=== PATIENT | male | born 1935 | race Caucasian/White ===

== ENCOUNTER → 2016-09-21 | Outpatient (CLI) | payer OTHER, MEDICARE ==
[2015-10-01 10:42] VITALS: BP 105/60
--- NOTE | 2016-09-21 10:11 | RAD ---
HISTORY: Shortness of breath, elevated D-dimer. Study: AP chest Comparison: 03/07/2014 Findings: There is mild, chronic elevation of the left hemidiaphragm. The lungs are clear. No consolidation. There are no pleural effusions. The ayleen and cardiomediastinal silhouette appear normal. IMPRESSION: 1. No radiographic evidence of an acute cardiopulmonary process. 2. Mild, chronic elevation of the left hemidiaphragm. Reported By:
--- NOTE | 2016-09-21 10:16 | NM ---
HISTORY: Shortness of breath, elevated D-dimer Study: Ventilation-perfusion lung scan Comparison: None Technique: Ventilation scan was carried out using inhalation of 25.3 millicuries technetium 99 M DTP A aerosol. Perfusion scan was carried out using intravenous injection of 5.1 millicuries technetium 99 MAA. Findings: Ventilation scan demonstrated symmetric ventilation without significant ventilation defects or air-t rapping. Perfusion scan demonstrated symmetric profusion without perfusion defects. The probability of acute pulmonary thromboembolic disease is low. IMPRESSION: Low probability acute pulmonary thromboembolic disease Reported By:
== END ==
LOC: RAD 08:02
PROVIDERS: ATTEND Internal Medicine
DX: R06.02 Shortness of breath (principal); R79.89 Other specified abnormal findings of blood chemistry
CPT/HCPCS: 71020; 78582

== ENCOUNTER → 2017-03-07 | Outpatient (CLI) | payer OTHER, MEDICARE ==
[2015-10-01 10:42] VITALS: BP 105/60
--- NOTE | 2017-03-07 15:54 | MRI ---
HISTORY: Left hip pain. Study: Magnetic resonance imaging of the left hip: Multiplanar multisequence magnetic resonance imag ing of the left hip was performed. Comparison: None Findings: Overall examination of the marrow signal intensity demonstrates mild inhomogeneity. No evidence of ma rrow edema is present that would suggest a fracture or stress reaction. Both hips show mild marrow in homogeneity. The left hip shows a few subchondral defects in the acetabulum and femoral head. Minimal spurring is noted in the superior compartment of the left hip. Mild acetabular spurring is present. The acetabular labrum appears to be intact. The surrounding musculature and tendons appear to be inta ct. The ligaments are intact. No significant joint effusion is noted. The coronal images of the right hip show moderately severe degenerative change consisting of sub werner dral defects, slight joint space narrowing and irregularity of the femoral head. This may be due to o steoarthritic change. No appreciable joint effusion is noted in the right hip. There is minimal marro w edema in the right femoral head, most likely due to degenerative change The visualized intrapelvic structures show minimal wall thickening of the urinary bladder. The prosta te is borderline enlarged. Seminal vesicles are symmetric. IMPRESSION: 1. Mild degenerative change in the left hip with moderate on the right. 2. No acute bony abnormalities are identified. Reported By:
== END ==
LOC: RAD 13:37
PROVIDERS: ATTEND Internal Medicine
DX: M25.552 Pain in left hip (principal)
CPT/HCPCS: 73721

== ENCOUNTER 2020-05-11 09:19 | Inpatient (IN) ==
[2020-05-11] MEDS ORDERED: NS 1000 ML 1,000 ML ONE (09:32)
[2020-05-11] MEDS ORDERED: DECADRON INJ IVP ONE (09:49)
[2020-05-11 09:52] VITALS: BMI 27.3
--- NOTE | 2020-05-11 09:53 | DR.SOBA ---
HPI Time Seen Time Seen by Provider: 05/11/20 09:48 Primary Care Physician Primary Care Physician: sahra HPI Comment HPI Comment: arrived via ems w cough, sob, malaise x 4 days. likely covid. Complaints Chief Complaint Doctors Comments: arrived w spouse who has severe covid pna. Chief Complaint:: shortness of breath, low oxygen, failure to thrive. pt has had decreased po intake and weakness COVID-19 Coronavirus risk:travel/contact w/high risk person: No Has patient experienced Coronavirus symptoms: Yes Coronavirus symptoms experienced: Fever and Shortness of Breath Reviewed Nurses Notes Reviewed: Yes Source History Provided: Patient and EMS Mode of Arrival Mode of Arrival: EMS Timing Onset of Chief Complaint: 05/11/20 PMH PMH Past Medical History: Yes Past Medical History: Anxiety, CVA, Diabetes, Dyslipidemia, GERD and Hypertension Past Surgical History: Yes Surgical History: Appendectomy and Ortho Surgery Family History History of Family Medical Conditions: Yes Family Medical History: Hypertension Social History Do you use any recreational Drugs:: No Lives With: Spouse Lives Where: Home Travel Risk Coronavirus risk:travel/contact w/high risk person: No Has patient experienced Coronavirus symptoms: Yes Coronavirus symptoms experienced: Fever and Shortness of Breath Infectious screening In the last 2 months have you had wt loss of >10#?: NO Have you had fever, night sweats or hemotysis?: No Have you traveled outside the country in the last 6 months?: No Isolation: Droplet ROS Review of Systems Constitutional: See HPI, Fever, Malaise and Weakness Eyes: No Symptoms Reported ENTM: No Symptoms Reported Respiratoy: See HPI, Dry Cough and Short of Breath; negative Wheezing Cardiovascular: No Symptoms Reported Gastrointestinal/Abdominal: No Symptoms Reported Genitourinary: No Symptoms Reported Neurological: No Symptoms Reported Musculoskeletal: No Symptoms Reported Integumentary: No Symptoms Reported Hematologic/Lymphatic: No Symptoms Reported Psychiatric: See HPI All Other Systems: Reviewed and Negative PE Vital Signs Vitals: Temperature 101.9 F Pulse Rate 86 Respiratory Rate 29 Blood Pressure [Right Arm] 140/68 Blood Pressure 130/61 O2 Sat by Pulse Oximetry 87 General Limitations: No Limitations General Appearance: Alert and Anxious Head Head Exam: Normal Inspection Eyes Eye exam: Normal Appearance, PERRL and EOMI ENT ENT Exam: Normal Exam Neck Neck Exam: Normal Inspection Chest Chest Inspection: Normal Inspection Respiratory Respiratory Exam: Normal Lung Sounds Bilat Cardiovascular Cardiovascular Exam: Regular Rate and Tachycardia Abdominal Exam Abdominal Exam: Normal Inspection, Normal Bowel Sounds and Soft Extremities Extremities Exam: Normal Inspection and Full ROM Back Back Exam: Normal Inspection and Full ROM Neurologic Neurological Exam: Alert and Oriented X3 Skin Skin Exam: Warm, Dry and Intact MDM Differential Diagnosis Differential Diagnosis: Pneumonia COURSE Reevaluation 1st: Unchanged Consultation Consultation Comments: spoke w Dr Santana who accepts. orders per nurse vladislav ROR Labs Reviewed Result Diagrams: 05/12/20 05:45 05/11/20 09:35 Laboratory: WBC 4.5 X10^3/uL (3.6-10.0) 05/11/20 09:35 RBC 2.96 X10^6/uL (4.7-6.0) L 05/11/20 09:35 Hgb 8.0 g/dL (13.5-18.0) L 05/11/20 09:35 Hct 24.8 % (42.0-54.0) L 05/11/20 09:35 MCV 83.6 fL (80.0-100.0) 05/11/20 09:35 MCH 27.1 pg (27.0-34.0) 05/11/20 09:35 MCHC 32.5 g/dL (33.0-35.0) L 05/11/20 09:35 RDW 15.4 % (11.6-16.5) 05/11/20 09:35 Plt Count 174 X10^3/uL (150.0-450.0) 05/11/20 09:35 MPV 8.1 fL (7.4-11.0) 05/11/20 09:35 Neut % (Auto) 88.1 % (42.0-75.0) H 05/11/20 09:35 Lymph % (Auto) 6.2 % (21.0-51.0) L 05/11/20 09:35 Tift % (Auto) 5.4 % (0.0-13.0) 05/11/20 09:35 Eos % (Auto) 0.1 % (0.9-2.9) L 05/11/20 09:35 Baso % (Auto) 0.2 % (0.2-1.0) 05/11/20 09:35 Neut # (Auto) 4.0 x10^3/uL (2.2-4.8) 05/11/20 09:35 Lymph # (Auto) 0.3 X10^3/uL (1.3-2.9) L 05/11/20 09:35 Tift # (Auto) 0.2 x10^3/uL (0.3-0.8) L 05/11/20 09:35 Eos # (Auto) 0.0 x10^3/uL (0.0-0.2) 05/11/20 09:35 Baso # (Auto) 0.0 X10^3/uL (0.0-0.1) 05/11/20 09:35 Absolute Nucleated RBC 0.2 /100WBC 05/11/20 09:35 ESR 97 MM/HOUR (0-15) H 05/11/20 09:35 PT 14.3 SECONDS (11.8-14.3) 05/11/20 09:35 INR Target Range - 05/11/20 09:35 INR 1.14 (0.8-1.3) 05/11/20 09:35 APTT 43.6 SECONDS (22.9-36.5) H 05/11/20 09:35 PTT Comment - 05/11/20 09:35 D-Dimer 1.75 ug/ml (0.0-0.57) H* 05/11/20 09:35 Sodium 141 mmol/L (136-145) 05/11/20 09:35 Corrected Sodium 142 mmol/L (136-145) 05/11/20 09:35 Potassium 4.1 mmol/L (3.5-5.1) 05/11/20 09:35 Chloride 105 mmol/L (98-107) 05/11/20 09:35 Carbon Dioxide 25.7 mmol/L (21-32) 05/11/20 09:35 BUN 15 mg/dL (7-18) 05/11/20 09:35 Creatinine 1.28 mg/dL (0.70-1.30) 05/11/20 09:35 Est GFR (MDRD) Af Amer > 60 (>60) 05/11/20 09:35 Est GFR (MDRD) Non-Af 57 (>60) L 05/11/20 09:35 Glucose 129 mg/dL (65-99) H 05/11/20 09:35 Calcium 8.9 mg/dL (8.5-10.1) 05/11/20 09:35 Corrected Calcium 9.9 mg/dL (8.5-10.1) 05/11/20 09:35 Ferritin 81 ng/mL (26-388) 05/11/20 09:56 Total Bilirubin 0.40 mg/dL (0.2-1.0) 05/11/20 09:35 AST 18 Units/L (15-37) 05/11/20 09:35 ALT 10 Units/L (12-78) L 05/11/20 09:35 Alkaline Phosphatase 64 Units/L (46-116) 05/11/20 09:35 Creatine Kinase 31 Units/L (39-308) L 05/11/20 09:35 CK-MB (CK-2) < 1.0 ng/mL (0-4.0) 05/11/20 09:35 CK/CKMB % Calc 3.2 % (<4) 05/11/20 09:35 Troponin I < 0.02 ng/mL (0-1.5) 05/11/20 09:35 C-Reactive Protein 161.90 mg/L (0-3.0) H 05/11/20 09:35 B-Natriuretic Peptide 494 pg/mL (0-79) H 05/11/20 09:35 Total Protein 6.4 g/dL (6.4-8.2) 05/11/20 09:35 Albumin 2.7 g/dL (3.4-5.0) L 05/11/20 09:35 Globulin 3.7 g/dL (2.5-4.5) 05/11/20 09:35 Albumin/Globulin Ratio 0.7 Ratio (1.1-2.1) L 05/11/20 09:35 SARS CoV-2 RNA Rapid ALEX Positive (NEGATIVE) A 05/11/20 10:23 XRAY XRAY Interpreted by: Self X-ray Results: bilat infiltrates Opioid Opioid Risk Tool Age (Gamaliel box if 16-45): No History of Preadolescent Sexual Abuse: No Total: 0 Total Score Risk Category: Low Risk Copyright: Richi MCLEAN predicting aberrant behaviors Diagnosis Discharge Problem: COVID-19 Instructions Forms: Precautions for COVID19 Patient Portal Social Distancing
[2020-05-11] MEDS ORDERED: DECADRON INJ ONE (09:54)
[2020-05-11] MEDS: NS 1000 ML 1,000 ML IV SCH (10:00)
[2020-05-11 10:03] LABS: BASOPHILS % (AUTO) 0.2 % (0.2-1.0); EOSINOPHILS % (AUTO) 0.1 % (0.9-2.9); HEMATOCRIT 24.8 % (42.0-54.0); LYMPHOCYTES # (AUTO) 0.3 X10^3/uL (1.3-2.9); LYMPHOCYTES % (AUTO) 6.2 % (21.0-51.0); MEAN CORPUSCULAR HEMOGLOBIN 27.1 pg (27.0-34.0); MEAN CORPUSCULAR HGB CONC 32.5 g/dL (33.0-35.0); MEAN CORPUSCULAR VOLUME 83.6 fL (80.0-100.0); MEAN PLATELET VOLUME 8.1 fL (7.4-11.0); MONOCYTES # (AUTO) 0.2 x10^3/uL (0.3-0.8); MONOCYTES % (AUTO) 5.4 % (0.0-13.0); NEUTROPHILS % (AUTO) 88.1 % (42.0-75.0); PLATELET COUNT 174 X10^3/uL (150.0-450.0); RED BLOOD COUNT 2.96 X10^6/uL (4.7-6.0); RED CELL DISTRIBUTION WIDTH 15.4 % (11.6-16.5); WHITE BLOOD COUNT 4.5 X10^3/uL (3.6-10.0)
[2020-05-11 10:22] LABS: BLOOD UREA NITROGEN 15 mg/dL (7-18); CALCIUM 8.9 mg/dL (8.5-10.1); CARBON DIOXIDE 25.7 mmol/L (21-32); CHLORIDE 105 mmol/L (98-107); COR NA(FOR HYPERGLY) 142 mmol/L (136-145); CREATININE 1.28 mg/dL (0.70-1.30); SODIUM 141 mmol/L (136-145); TROPONIN I < 0.02 ng/mL (0-1.5); eGFR NON BLACK RACES 57 (>60)
[2020-05-11 10:41] LABS: ALANINE AMINOTRANSFERASE 10 Units/L (12-78); ALBUMIN 2.7 g/dL (3.4-5.0); ALKALINE PHOSPHATASE 64 Units/L (46-116); ASPARTATE AMINO TRANSFERASE 18 Units/L (15-37); CKMB % 3.2 % (<4); COR CA(FOR HYPOALB) 9.9 mg/dL (8.5-10.1); CREATINE KINASE 31 Units/L (39-308); CREATINE KINASE MB < 1.0 ng/mL (0-4.0); TOTAL PROTEIN 6.4 g/dL (6.4-8.2)
[2020-05-11 10:52] LABS: ERYTHROCYTE SEDIMENTATION RATE 97 MM/HOUR (0-15)
[2020-05-11] MEDS ORDERED: LOVENOX INJ 80 MG SYR SC SCH (11:00)
--- NOTE | 2020-05-11 11:21 | RAD ---
HISTORYShortness of breathSTUDYChest AP [id number]/31/2020FINDINGSThe heart is enlarged. No congestive heart failure is noted. The ayleen are normal. Patchy predominantly peripheral ground-glass infiltrates are present on the right. Left perihilar ground-glass infiltrate is present. Findings are consistent with multifocal pneumonia which could be bacterial, viral or atypical viral in origin. COVID 19 not excluded. No pleural effusions are identified. Bony thorax is unremarkable.IMPRESSIONCardiomegaly without congestive heart failurePatchy peripheral right lung infiltrates and left perihilar ground-glass infiltrate consistent with multifocal pneumonia. COVID-19 not excludedElectronically signed by: RAMSEY SANCHEZ (May 11, 2020 11:19:30)
[2020-05-11] MEDS ORDERED: TUSSIONEX PENNKINETIC SUSP PO PRN (14:26)
[2020-05-11] MEDS ORDERED: MILK OF MAGNESIA PO PRN (14:26)
[2020-05-11] MEDS ORDERED: REMDESIVIR 200 MG in NS 250 ML IV 250 ML IV ONE (14:31)
[2020-05-11] MEDS ORDERED: NS 100 ML IV 100 ML IV ONE ×2 (14:38→16:24)
--- NOTE | 2020-05-11 15:15 | CT ---
HISTORY:Shortness of breath, chest pain, COVID-19Study: CTA chestComparison:Same day radiographTechnique: Multiple axial images of the chest were obtained after the administration of IV contrast. 3D reconstructions were performed utilizing radial maximum intensity projection imaging. Dose reduction techniques including Automated Exposure Control (AEC) and adjustment of mA and kV were utilized.Findings:Contrast opacification of the pulmonary arteries is adequate to the level of the segmental branches. No evidence of acute pulmonary emboli. There is mild cardiomegaly. The pulmonary trunk is enlarged which can be associated with pulmonary hypertension. No pericardial effusion. The aorta appears normal in course and caliber. Multifocal bilateral ground-glass infiltrates are present compatible with pneumonia. There are trace bilateral effusions. No pneumothorax. Airways are patient. Mildly enlarged prevascular, AP and sub carinal nodes may be reactive in nature. Attention on follow-up recommended.There are multilevel degenerative changes of the thoracic spine. The visualized portions of the upper abdomen are grossly unremarkable.IMPRESSION:1. Bilateral multifocal ground-glass infiltrates compatible with pneumonia. Mildly enlarged mediastinal lymph nodes are present which may be reactive. Attention on follow-up recommended.2. Cardiomegaly and trace bilateral pleural effusions. Enlarged pulmonary trunk can be seen with pulmonary hypertension.3. No acute pulmonary embolism.Electronically signed by: LISBETH RALPH (May 11, 2020 15:15:16)
[2020-05-11] MEDS ORDERED: PROTONIX TAB 40 MG PO ONE (16:22)
[2020-05-11] MEDS ORDERED: ZyrTEC TAB 10 MG ONE (16:22)
[2020-05-11] MEDS ORDERED: SOLU-Medrol 125 MG VIAL ONE ×2 (16:23→21:06)
[2020-05-11] MEDS ORDERED: IVERMECTIN ONE (16:23)
[2020-05-11] MEDS ORDERED: ZINC SULFATE ONE (16:23)
[2020-05-11] MEDS ORDERED: NS 250 ML IV 250 ML IV ONE (16:24)
[2020-05-11] MEDS ORDERED: FORTAZ or TAZICEF VIAL INJ ONE ×2 (16:24→21:07)
[2020-05-11] MEDS ORDERED: ROBITUSSIN DM ONE ×2 (16:24→21:07)
[2020-05-11] MEDS ORDERED: NS 50 ML IV 50 ML IV ONE ×2 (16:24→21:07)
[2020-05-11] MEDS ORDERED: REMDESIVIR IV ONE (16:24)
[2020-05-11] MEDS ORDERED: ASCORBIC ACID INJ MULTI-DOSE VIAL IV ONE ×2 (16:25→21:08)
[2020-05-11 16:32] LABS: ABG ALLEN TEST POS; ABG BASE EXCESS 3.5 mmol/L (-2.0-2.0); ABG HCO3 27.8 mmol/L (22-26)
[2020-05-11] MEDS: ASCORBIC ACID INJ MULTI-DOSE VIAL 1,500 MG in NS 50 ML IV 50 ML IV SCH ×4 (16:35→21:23)
[2020-05-11] MEDS: PROTONIX TAB 40 MG PO SCH (16:36)
[2020-05-11] MEDS: DIFLUCAN PO SCH (16:36)
[2020-05-11] MEDS: FORTAZ or TAZICEF VIAL INJ 1 G in NS 100 ML IV + SPIKE MINIBAG* 100 ML IV SCH ×2 (16:37→22:30)
[2020-05-11] MEDS: SOLU-Medrol 125 MG VIAL IVP SCH ×2 (16:39→21:25)
[2020-05-11] MEDS: VITAMIN D3 125 mcg (5,000 UNITS) PO SCH (16:41)
[2020-05-11] MEDS: ZINC SULFATE PO SCH (16:41)
[2020-05-11] MEDS: LOVENOX INJ 80 MG SYR SC SCH (16:42)
[2020-05-11] MEDS: ZyrTEC TAB 10 MG PO SCH (16:42)
[2020-05-11] MEDS: IVERMECTIN PO SCH (16:42)
[2020-05-11] MEDS: ROBITUSSIN DM PO SCH ×2 (16:44→21:50)
[2020-05-11] MEDS: ACCUNEB 1.25 MG NEBULE NEB SCH ×2 (18:15→20:40)
[2020-05-11] MEDS: MUCOMYST 20% 200 MG/ML NEB SCH ×2 (18:16→20:40)
[2020-05-11] MEDS: MAGIC MOUTHWASH MT SCH ×2 (18:50→21:55)
[2020-05-11] MEDS: PULMICORT NEB TX 0.5 MG NEB SCH (20:40)
[2020-05-11] MEDS ORDERED: LIPITOR TAB 80 MG ONE (21:06)
[2020-05-11] MEDS ORDERED: THIAMINE HCL INJ ONE (21:06)
[2020-05-11] MEDS ORDERED: PEPCID TAB 20 MG ONE (21:06)
[2020-05-11] MEDS ORDERED: TESSALON PERLES PO ONE (21:06)
[2020-05-11] MEDS ORDERED: NS 100 ML IV + SPIKE MINIBAG* 100 ML IV ONE (21:07)
[2020-05-11] MEDS: THIAMINE HCL INJ IVP SCH (21:28)
[2020-05-11] MEDS: SINGULAIR TAB 10 MG PO SCH (21:49)
[2020-05-11] MEDS: TESSALON PERLES PO SCH (21:49)
[2020-05-11] MEDS: COLACE CAP 100 MG PO SCH (21:49)
[2020-05-11] MEDS: LIPITOR TAB 80 MG PO SCH (21:49)
[2020-05-11] MEDS: MELATONIN PO SCH (21:49)
[2020-05-11] MEDS: PEPCID TAB 20 MG PO SCH (21:49)
[2020-05-12] MEDS ORDERED: SOLU-Medrol 125 MG VIAL ONE ×4 (02:20→23:58)
[2020-05-12] MEDS ORDERED: NS 50 ML IV 50 ML IV ONE ×2 (02:20→23:58)
[2020-05-12] MEDS ORDERED: ASCORBIC ACID INJ MULTI-DOSE VIAL IV ONE ×2 (02:21→23:59)
[2020-05-12] MEDS: SOLU-Medrol 125 MG VIAL IVP SCH ×3 (02:38→14:28)
[2020-05-12] MEDS: ASCORBIC ACID INJ MULTI-DOSE VIAL 1,500 MG in NS 50 ML IV 50 ML IV SCH ×3 (02:40→14:28)
[2020-05-12 04:40] LABS: ABG ALLEN TEST POS; ABG BASE EXCESS 2.8 mmol/L (-2.0-2.0); ABG HCO3 27.2 mmol/L (22-26)
[2020-05-12] MEDS ORDERED: TESSALON PERLES PO ONE ×2 (05:20→13:37)
[2020-05-12] MEDS ORDERED: NS 100 ML IV + SPIKE MINIBAG* 100 ML IV ONE (05:20)
[2020-05-12] MEDS ORDERED: FORTAZ or TAZICEF VIAL INJ ONE ×3 (05:20→23:58)
[2020-05-12] MEDS: TESSALON PERLES PO SCH ×2 (05:48→13:48)
[2020-05-12] MEDS: FORTAZ or TAZICEF VIAL INJ 1 G in NS 100 ML IV + SPIKE MINIBAG* 100 ML IV SCH ×2 (05:50→13:48)
--- NOTE | 2020-05-12 06:16 | RAD ---
HISTORYSOBSTUDYCHEST, 1 VIEWCOMPARISONOne day prior.TECHNIQUEAP view of the chestFINDINGSThe cardiac silhouette is stably enlarged. Mediastinal contours appear stable. No significant change in bilateral airspace and interstitial opacities. No definite pleural effusion or pneumothorax.IMPRESSIONNo significant change.Electronically signed by: Osito Mcknight (May 12, 2020 06:14:38)
[2020-05-12 07:03] LABS: BASOPHILS % (AUTO) 0.2 % (0.2-1.0); HEMATOCRIT 25.5 % (42.0-54.0); HEMOGLOBIN 8.5 g/dL (13.5-18.0); LYMPHOCYTES # (AUTO) 0.2 X10^3/uL (1.3-2.9); LYMPHOCYTES % (AUTO) 8.5 % (21.0-51.0); MEAN CORPUSCULAR HEMOGLOBIN 27.4 pg (27.0-34.0); MEAN CORPUSCULAR HGB CONC 33.6 g/dL (33.0-35.0); MEAN CORPUSCULAR VOLUME 81.6 fL (80.0-100.0); MONOCYTES # (AUTO) 0.1 x10^3/uL (0.3-0.8); MONOCYTES % (AUTO) 2.6 % (0.0-13.0); NEUTROPHILS # (AUTO) 2.6 x10^3/uL (2.2-4.8); NEUTROPHILS % (AUTO) 88.7 % (42.0-75.0); PLATELET COUNT 161 X10^3/uL (150.0-450.0); RED BLOOD COUNT 3.12 X10^6/uL (4.7-6.0); RED CELL DISTRIBUTION WIDTH 15.5 % (11.6-16.5); WHITE BLOOD COUNT 2.9 X10^3/uL (3.6-10.0)
[2020-05-12 07:18] LABS: ALANINE AMINOTRANSFERASE 10 Units/L (12-78); ALBUMIN 2.6 g/dL (3.4-5.0); ALKALINE PHOSPHATASE 61 Units/L (46-116); ASPARTATE AMINO TRANSFERASE 16 Units/L (15-37); BLOOD UREA NITROGEN 19 mg/dL (7-18); CALCIUM 9.2 mg/dL (8.5-10.1); CARBON DIOXIDE 24.9 mmol/L (21-32); CHLORIDE 107 mmol/L (98-107); COR CA(FOR HYPOALB) 10.3 mg/dL (8.5-10.1); COR NA(FOR HYPERGLY) 146 mmol/L (136-145); CREATININE 1.14 mg/dL (0.70-1.30); SODIUM 143 mmol/L (136-145); TOTAL PROTEIN 6.5 g/dL (6.4-8.2); eGFR NON BLACK RACES > 60 (>60)
[2020-05-12] MEDS ORDERED: THIAMINE HCL INJ ONE (07:31)
[2020-05-12] MEDS ORDERED: PEPCID TAB 20 MG ONE (07:31)
[2020-05-12] MEDS ORDERED: ZyrTEC TAB 10 MG ONE (07:31)
[2020-05-12] MEDS ORDERED: PROTONIX TAB 40 MG PO ONE (07:31)
[2020-05-12] MEDS ORDERED: ZINC SULFATE ONE (07:32)
[2020-05-12] MEDS ORDERED: ROBITUSSIN DM ONE ×3 (07:32→17:23)
[2020-05-12] MEDS ORDERED: REMDESIVIR IV ONE (07:32)
[2020-05-12] MEDS ORDERED: NS 250 ML IV 250 ML IV ONE (07:33)
[2020-05-12] MEDS ORDERED: NS 100 ML IV 100 ML IV ONE ×3 (07:33→23:58)
[2020-05-12] MEDS: PEPCID TAB 20 MG PO SCH (08:47)
[2020-05-12] MEDS: ZyrTEC TAB 10 MG PO SCH (08:48)
[2020-05-12] MEDS: VITAMIN D3 125 mcg (5,000 UNITS) PO SCH (08:48)
[2020-05-12] MEDS: ZINC SULFATE PO SCH (08:48)
[2020-05-12] MEDS: THIAMINE HCL INJ IVP SCH (08:49)
[2020-05-12] MEDS: PROTONIX TAB 40 MG PO SCH (08:49)
[2020-05-12] MEDS: ROBITUSSIN DM PO SCH ×3 (08:49→17:55)
[2020-05-12] MEDS: REMDESIVIR 100 MG in NS 250 ML IV 250 ML IV SCH (08:50)
[2020-05-12] MEDS: MAGIC MOUTHWASH MT SCH ×3 (08:50→17:55)
[2020-05-12] MEDS: DIFLUCAN PO SCH (08:50)
[2020-05-12] MEDS: LOVENOX INJ 80 MG SYR SC SCH (09:02)
[2020-05-12] MEDS: ACCUNEB 1.25 MG NEBULE NEB SCH ×4 (09:12→20:25)
[2020-05-12] MEDS: PULMICORT NEB TX 0.5 MG NEB SCH ×2 (09:12→20:25)
[2020-05-12] MEDS: MUCOMYST 20% 200 MG/ML NEB SCH ×4 (09:12→20:25)
--- NOTE | 2020-05-12 11:17 | DR.H&P ---
H&P - History & Physical for Day of: H&P Date: 05/11/20 - Chief Complaint Chief Complaint: COUGH, SOB, WEAKNESS, DECREASED APPETITIE, LOW OXYGEN SATURATIONS, FEVER - History of Present Illness History of Present Illness: IS A 85 YEAR OLD PATIENT OF OURS. HE PRESENTED TO THE ER VIA EMS WITH COMPLAINTS OF COUGH, SHORNTESS OF BREATH, WEAKNESS, DECREASED APPETITE, AND LOW OXYGEN SATURATIONS FOR THE PAST 4 DAYS. PATIENT REPORTS THAT HIS OXYGEN SATURATIONS AT HOME WERE IN THE 70S ON ROOM AIR THIS MORNING. HIS PMH INCLUDES ANXIETY, CVA, DIABETES, DYSLIPIDEMIA, GERD, HTN, AND AN APPENDECTOMY. AUSCULTATION OF LUNG SCHAEFER REVEALED RALES THROUGHOUT. ON ARRIVAL, VITALS WERE 101.9-97-32-73%RA-163/78. HE WAS PLACED ON NASAL CANNULA AT 2LPM. HIS SATURATIONS INCREASED TO 88%. LABS WERE OBTAINED. ABNORMAL LAB VALUES INCLUDE THE FOLLOWING: RBC 2.96, HGB 8.0, HCT 24.8, D-DIMER 175, GLUCOSE 129, ALT 10, CREATINE KINASE 31, CRP 161.90, BNP 494, ALBUMIN 2.7. COVID-19 POSITIVE. AN ABG WAS OBTAINED AND REVEALED: PH 7.450, PC02 40, P02 55, HC03 27.8, 02 SAT 90, BASE EXCESS 3.5, A-A GRADIENT 95, FI02 28.0. BLOOD CULTURES WERE SET UP. A CHEST XRAY WAS OBTAINED AND REVEALED: Cardiomegaly without congestive heart failure. Patchy peripheral right lung infiltrates and left perihilar ground- glass infiltrate consistent with multifocal pneumonia. COVID-19 not excluded. AN EKG WAS OBTAINED AND REVEALED SINUS RHYTHM WITH HR 83. A CHEST CTA WAS OBTAINED AND REVEALED: 1. Bilateral multifocal ground-glass infiltrates compatible with pneumonia. Mildly enlarged mediastinal lymph nodes are present which may be reactive. Attention on follow-up recommended. 2. Cardiomegaly and trace bilateral pleural effusions. Enlarged pulmonary trunk can be seen with pulmonary hypertension. 3. No acute pulmonary embolism. IN THE ER, HE WAS GIVEN DECADRON 6MG IV X 1, LOVENOX 80MG SC X 1, REMDESIVIR 200MG IV X 1. HE WAS ADMITTED FOR FURTHER EVALUATION AND TREATMENT OF PNEUMONIA DUE TO COVID-19 AND HYPOXIA. HE WAS STARTED ON NS AT KVO, REMDESIVIR 100MG IV DAILY, FORTAZ 1G IV Q8H, ALBUTEROL NEBS QID, MUCOMYST IN NEBS QID, PULMICORT NEBS BID, ASCORBIC ACID 1500MG IV Q6H, LIPITOR 80MG PO HS, TESSALON PERLES 200MG PO TID, ZYRTEC 10MG PO DAILY, TUSSIONEX 5ML PO Q12H PRN, COLACE 100MG PO HS, LOVENOX BID, PEPCID 20MG PO BID, DIFLUCAN 100MG PO DAILY, ROBITUSSIN DM 10ML PO QID, IVERMECTIN- PHARMACY TO DOSSE, MAGIC MOUTHWASH QID, MILK OF MAG BID PRN, MELATONIN 10MG PO HS, SOLU- MEDROL 125MG IV Q6H, SINGULAIR 10MG PO HS, PROTONIX 40MG PO DAILY, THIAMIN 200MG IV BID, AND ZINC SULFATE 220MG PO DAILY. WE WILL OBTAIN AN ECHOCARDIOGRAM. OTHERWISE, WE WILL FOLLOW UP WITH AM LABS, CHEST XRAY, ABG, AND CONTINUE TO MONITOR. TIME SPENT ON CLINICAL ASSESSMENT, REVIEWING LABS AND IMAGING, DECISION MAKING, AND DOCUMENTATION GREATER THAN 75 MINUTES. - Past Medical History Past Medical History: Hypertension, Dyslipidemia, Diabetes, Anxiety, CVA, GERD - Past Surgical History Surgical History: Appendectomy, Ortho Surgery - Family History Family Medical History: Diabetes Mellitus, Cancer, Hypertension - Social History Does patient currently use any type of tobacco product: No Have you used tobacco products in the last 12 months: No Type of Tobacco Use: None Does any household member use tobacco: No Alcohol Use: None Drug Use: None - Medications Home Medications: ceftriaxone [From Rocephin] Allergy (Verified 05/11/20 09:43) ciprofloxacin [From Cipro] Allergy (Verified 05/11/20 09:43) morphine Adverse Reaction (Verified 05/11/20 09:43) CONTINUE taking the following medications apixaban [Eliquis] 2.5 mg PO BID 05/12/20 [History] diltiazem HCl [Cartia XT] 180 mg PO DAILY 05/12/20 [History] furosemide [Lasix] 10 mg PO .EVERYOTHERDAY 05/12/20 [History] gabapentin 600 mg PO BID 05/12/20 [History] hydrocodone-acetaminophen 1 tab PO QID PRN 05/12/20 [History] lisinopril 20 mg PO BID 05/12/20 [History] metoprolol succinate 50 mg PO DAILY 05/12/20 [History] ondansetron HCl 4 mg PO Q4HR PRN 05/12/20 [History] pantoprazole 40 mg PO BID 05/12/20 [History] sertraline 25 mg PO HS 05/12/20 [History] simvastatin 20 mg PO HS 05/12/20 [History] tizanidine 4 mg PO BID 05/12/20 [History] - Review of Systems Constitutional: Fever, Chills, Weakness Eyes: No Symptoms Reported ENT: No Symptoms Reported Respiratory: Cough, Shortness of Breath, SOB with Excertion. denies: Sputum, Wheezing Cardiovascular: No Symptoms Reported Gastrointestinal: Nausea Genitourinary: No Symptoms Reported Musculoskeletal: No Symptoms Reported Skin: No Symptoms Reported Neurological: Weakness - Physical Exam Vital Signs: Temperature 98.0 F Pulse Rate [Apical] 89 Pulse Rate 89 Respiratory Rate 21 Blood Pressure [Right Arm] 156/64 Blood Pressure 146/67 O2 Sat by Pulse Oximetry 91 Oriented: Normal Eyes: Normal Ear: Normal Nose: Normal Throat: Normal Respiratory: Diminished Throughout, Rales Throughout Cardiovascular: Normal : Normal Auscultation: Bowel Sounds: Normal Palpation: Normal Tenderness: Normal Skin: Decreased Turgur Musculoskeletal: Normal Psychiatric: Normal Mood Description: Calm Affect: Normal Speech Pattern: Clear - Assessment/Plan (1) Pneumonia due to 2019 novel coronavirus Status: Acute Plan: ADMIT, SUPPLEMENTAL OXYGEN, NS AT KVO, REMDESIVIR 100MG IV DAILY, FORTAZ 1G IV Q8H, ALBUTEROL NEBS QID, MUCOMYST IN NEBS QID, PULMICORT NEBS BID, ASCORBIC ACID 1500MG IV Q6H, LIPITOR 80MG PO HS, TESSALON PERLES 200MG PO TID, ZYRTEC 10MG PO DAILY, TUSSIONEX 5ML PO Q12H PRN, COLACE 100MG PO HS, LOVENOX BID, PEPCID 20MG PO BID, DIFLUCAN 100MG PO DAILY, ROBITUSSIN DM 10ML PO QID, IVERMECTIN- PHARMACY TO DOSSE, MAGIC MOUTHWASH QID, MILK OF MAG BID PRN, CHERRI ONIN 10MG PO HS, SOLU-MEDROL 125MG IV Q6H, SINGULAIR 10MG PO HS, PROTONIX 40MG PO DAILY, THIAMIN 200MG IV BID, AND ZINC SULFATE 220MG PO DAILY (2) Hypoxia Status: Acute (3) Diabetes Qualifiers: Diabetes mellitus type: type 2 Diabetes mellitus [facility] insulin use: with [facility] use Diabetes mellitus complication status: without complication Qualified Code(s): E11.9 - Type 2 diabetes mellitus without complications; 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 Status: Chronic (4) History of CVA (cerebrovascular accident) Status: Chronic (5) Dyslipidemia Status: Chronic (6) GERD (gastroesophageal reflux disease) Qualifiers: Esophagitis presence: esophagitis presence not specified Qualified Code(s): K21.9 - Gastro-esophageal reflux disease without esophagitis Status: Chronic (7) HTN (hypertension) Qualifiers: Hypertension type: essential hypertension Qualified Code(s): I10 - Essential (primary) hypertension Status: Chronic - Allergies Allergies/Adverse Reactions: Allergies Allergy/AdvReac Type Severity Reaction Status Date / Time ceftriaxone [From Rocephin] Allergy Verified 05/11/20 09:43 ciprofloxacin [From Cipro] Allergy Verified 05/11/20 09:43 morphine AdvReac Verified 05/11/20 09:43
[2020-05-12] MEDS: THEO-24 CAP 200 MG (24-HR) PO SCH (11:54)
[2020-05-12] MEDS ORDERED: NS 50 ML IV + SPIKE MINIBAG* 50 ML IV ONE (13:37)
[2020-05-12] MEDS: NS 1000 ML 1,000 ML IV SCH (14:27)
[2020-05-13] MEDS: COLACE CAP 100 MG PO SCH ×2 (00:05→21:02)
[2020-05-13] MEDS: FORTAZ or TAZICEF VIAL INJ 1 G in NS 100 ML IV + SPIKE MINIBAG* 100 ML IV SCH ×4 (00:05→21:03)
[2020-05-13] MEDS: ASCORBIC ACID INJ MULTI-DOSE VIAL 1,500 MG in NS 50 ML IV 50 ML IV SCH ×5 (00:05→20:58)
[2020-05-13] MEDS: LIPITOR TAB 80 MG PO SCH ×2 (00:05→21:02)
[2020-05-13] MEDS: THIAMINE HCL INJ IVP SCH ×3 (00:05→20:58)
[2020-05-13] MEDS: SINGULAIR TAB 10 MG PO SCH ×2 (00:05→20:59)
[2020-05-13] MEDS: PEPCID TAB 20 MG PO SCH ×3 (00:05→21:01)
[2020-05-13] MEDS: TESSALON PERLES PO SCH ×4 (00:05→21:03)
[2020-05-13] MEDS: MAGIC MOUTHWASH MT SCH ×5 (00:05→20:58)
[2020-05-13] MEDS: LOVENOX INJ 80 MG SYR SC SCH ×3 (00:05→21:02)
[2020-05-13] MEDS: MELATONIN PO SCH ×2 (00:05→20:59)
[2020-05-13] MEDS: SOLU-Medrol 125 MG VIAL IVP SCH ×6 (00:05→20:59)
[2020-05-13] MEDS: ROBITUSSIN DM PO SCH ×5 (01:20→21:00)
[2020-05-13] MEDS: THEO-24 CAP 200 MG (24-HR) PO SCH ×3 (01:25→20:59)
[2020-05-13] MEDS ORDERED: TYLENOL 325 MG TAB PO ONE (02:26)
[2020-05-13] MEDS: TYLENOL 325 MG TAB PO PRN (02:30)
[2020-05-13] MEDS ORDERED: FORTAZ or TAZICEF VIAL INJ ONE ×3 (03:48→19:49)
[2020-05-13] MEDS ORDERED: SOLU-Medrol 125 MG VIAL ONE ×2 (03:48→15:36)
[2020-05-13] MEDS ORDERED: TESSALON PERLES PO ONE ×2 (03:48→13:41)
[2020-05-13] MEDS ORDERED: NS 50 ML IV 50 ML IV ONE ×4 (03:49→19:50)
[2020-05-13] MEDS ORDERED: ASCORBIC ACID INJ MULTI-DOSE VIAL IV ONE ×4 (03:49→19:46)
[2020-05-13] MEDS ORDERED: NS 100 ML IV + SPIKE MINIBAG* 100 ML IV ONE ×2 (03:49→13:42)
[2020-05-13 05:03] LABS: ABG BASE EXCESS 5.4 mmol/L (-2.0-2.0)
[2020-05-13 05:04] LABS: ABG ALLEN TEST POS
--- NOTE | 2020-05-13 06:01 | RAD ---
PROCEDURE: Chest X-ray 1 View .HISTORY: Short of breath.TECHNIQUE: AP view .COMPARISON: 05/12/2020.TECHNICAL QUALITY: Satisfactory .FINDINGS:Unchanged mild cardiac enlargement.Normal central vascularity.Unchanged patchy consolidation both lung [place]. No pleural fluid or pneumothorax.Unchanged mildly elevated left hemidiaphragm.IMPRESSION:Unchanged pneumonia bilaterally.Electronically signed by: Narendra Nguyen (May 13, 2020 05:59:24)
[2020-05-13 07:31] LABS: BASOPHILS % (AUTO) 0.1 % (0.2-1.0); HEMATOCRIT 23.8 % (42.0-54.0); HEMOGLOBIN 7.8 g/dL (13.5-18.0); LYMPHOCYTES # (AUTO) 0.3 X10^3/uL (1.3-2.9); LYMPHOCYTES % (AUTO) 3.4 % (21.0-51.0); MEAN CORPUSCULAR HEMOGLOBIN 27.2 pg (27.0-34.0); MEAN CORPUSCULAR HGB CONC 32.6 g/dL (33.0-35.0); MEAN CORPUSCULAR VOLUME 83.4 fL (80.0-100.0); MEAN PLATELET VOLUME 8.9 fL (7.4-11.0); MONOCYTES # (AUTO) 0.2 x10^3/uL (0.3-0.8); MONOCYTES % (AUTO) 2.9 % (0.0-13.0); NEUTROPHILS % (AUTO) 93.6 % (42.0-75.0); PLATELET COUNT 175 X10^3/uL (150.0-450.0); RED BLOOD COUNT 2.85 X10^6/uL (4.7-6.0); RED CELL DISTRIBUTION WIDTH 15.3 % (11.6-16.5); WHITE BLOOD COUNT 7.5 X10^3/uL (3.6-10.0)
[2020-05-13 07:44] LABS: ALANINE AMINOTRANSFERASE 8 Units/L (12-78); ALBUMIN 2.5 g/dL (3.4-5.0); ALKALINE PHOSPHATASE 57 Units/L (46-116); ASPARTATE AMINO TRANSFERASE 19 Units/L (15-37); BLOOD UREA NITROGEN 24 mg/dL (7-18); CALCIUM 8.8 mg/dL (8.5-10.1); CARBON DIOXIDE 25.9 mmol/L (21-32); CHLORIDE 110 mmol/L (98-107); COR NA(FOR HYPERGLY) 150 mmol/L (136-145); CREATININE 1.33 mg/dL (0.70-1.30); SODIUM 145 mmol/L (136-145); TOTAL PROTEIN 6.1 g/dL (6.4-8.2); eGFR NON BLACK RACES 54 (>60)
[2020-05-13] MEDS ORDERED: PEPCID TAB 20 MG ONE (07:53)
[2020-05-13] MEDS ORDERED: PROTONIX TAB 40 MG PO ONE (07:53)
[2020-05-13] MEDS ORDERED: ZyrTEC TAB 10 MG ONE (07:53)
[2020-05-13] MEDS ORDERED: ZINC SULFATE ONE (07:53)
[2020-05-13] MEDS ORDERED: THIAMINE HCL INJ ONE ×2 (07:53→19:49)
[2020-05-13] MEDS ORDERED: NS 250 ML IV 250 ML IV ONE (07:54)
[2020-05-13] MEDS ORDERED: REMDESIVIR IV ONE (07:54)
[2020-05-13 08:12] LABS: BAND NEUTROPHILS % 1 % (0-10); PLATELET MORPHOLOGY COMMENT NORMAL (NORMAL)
[2020-05-13] MEDS: DIFLUCAN PO SCH (08:26)
[2020-05-13] MEDS: ZyrTEC TAB 10 MG PO SCH (08:27)
[2020-05-13] MEDS: ZINC SULFATE PO SCH (08:27)
[2020-05-13] MEDS: VITAMIN D3 125 mcg (5,000 UNITS) PO SCH (08:28)
[2020-05-13] MEDS: PROTONIX TAB 40 MG PO SCH (08:29)
[2020-05-13] MEDS: REMDESIVIR 100 MG in NS 250 ML IV 250 ML IV SCH (08:30)
[2020-05-13] MEDS: ACCUNEB 1.25 MG NEBULE NEB SCH ×4 (11:55→20:40)
[2020-05-13] MEDS: PULMICORT NEB TX 0.5 MG NEB SCH ×2 (11:55→20:40)
[2020-05-13] MEDS: MUCOMYST 20% 200 MG/ML NEB SCH ×4 (11:55→20:40)
[2020-05-13] MEDS: NS 1000 ML 1,000 ML IV SCH ×2 (13:35→17:30)
[2020-05-13] MEDS ORDERED: ROBITUSSIN DM ONE (13:41)
[2020-05-13] MEDS ORDERED: IVERMECTIN ONE (15:36)
[2020-05-13] MEDS: IVERMECTIN PO SCH (15:46)
[2020-05-13] MEDS ORDERED: NS 1000 ML 1,000 ML ONE (17:29)
[2020-05-13] MEDS ORDERED: NS 100 ML IV 100 ML IV ONE (19:45)
[2020-05-13] MEDS ORDERED: LIPITOR TAB 80 MG ONE (19:45)
[2020-05-13] MEDS ORDERED: LOVENOX INJ 100 MG SYR SC ONE (19:45)
[2020-05-13] MEDS ORDERED: NS 50 ML IV + SPIKE MINIBAG* 50 ML IV ONE (19:51)
[2020-05-14] MEDS ORDERED: ASCORBIC ACID INJ MULTI-DOSE VIAL IV ONE ×2 (00:36→07:33)
[2020-05-14] MEDS ORDERED: NS 100 ML IV 100 ML IV ONE (00:36)
[2020-05-14] MEDS: ASCORBIC ACID INJ MULTI-DOSE VIAL 1,500 MG in NS 50 ML IV 50 ML IV SCH ×3 (02:22→15:08)
[2020-05-14] MEDS ORDERED: TESSALON PERLES PO ONE ×2 (04:25→13:14)
[2020-05-14] MEDS ORDERED: FORTAZ or TAZICEF VIAL INJ ONE ×2 (04:25→13:14)
[2020-05-14] MEDS ORDERED: NS 100 ML IV + SPIKE MINIBAG* 100 ML IV ONE ×2 (04:25→13:14)
[2020-05-14] MEDS ORDERED: SOLU-Medrol 125 MG VIAL ONE ×2 (04:25→07:32)
[2020-05-14 04:36] LABS: ABG BASE EXCESS 2.5 mmol/L (-2.0-2.0); ABG HCO3 26.3 mmol/L (22-26)
[2020-05-14 04:37] LABS: ABG ALLEN TEST LRA
[2020-05-14] MEDS: SOLU-Medrol 125 MG VIAL IVP SCH ×3 (05:23→15:08)
[2020-05-14] MEDS: TESSALON PERLES PO SCH ×2 (05:24→13:21)
[2020-05-14] MEDS: FORTAZ or TAZICEF VIAL INJ 1 G in NS 100 ML IV + SPIKE MINIBAG* 100 ML IV SCH ×2 (05:24→13:20)
--- NOTE | 2020-05-14 05:33 | RAD ---
PROCEDURE: Chest X-ray 1 View .HISTORY: Short of breath.TECHNIQUE: AP view .COMPARISON: 05/13/2020.TECHNICAL QUALITY: Satisfactory .FINDINGS:Heart size upper limits of normal.No mediastinal widening.Normal central vascularity.Unchanged patchy consolidation lung bases consistent with pneumonia with no pleural fluid or pneumothorax.IMPRESSION:Unchanged mild bilateral pneumonia.Electronically signed by: Narendra Nguyen (May 14, 2020 05:31:24)
[2020-05-14 06:38] LABS: BASOPHILS % (AUTO) 0.3 % (0.2-1.0); HEMATOCRIT 21.8 % (42.0-54.0); HEMOGLOBIN 7.1 g/dL (13.5-18.0); LYMPHOCYTES # (AUTO) 0.1 X10^3/uL (1.3-2.9); LYMPHOCYTES % (AUTO) 2.3 % (21.0-51.0); MEAN CORPUSCULAR HEMOGLOBIN 26.9 pg (27.0-34.0); MEAN CORPUSCULAR HGB CONC 32.4 g/dL (33.0-35.0); MEAN CORPUSCULAR VOLUME 82.8 fL (80.0-100.0); MEAN PLATELET VOLUME 8.9 fL (7.4-11.0); MONOCYTES # (AUTO) 0.3 x10^3/uL (0.3-0.8); MONOCYTES % (AUTO) 4.4 % (0.0-13.0); NEUTROPHILS # (AUTO) 5.6 x10^3/uL (2.2-4.8); PLATELET COUNT 177 X10^3/uL (150.0-450.0); RED BLOOD COUNT 2.64 X10^6/uL (4.7-6.0); RED CELL DISTRIBUTION WIDTH 15.1 % (11.6-16.5)
[2020-05-14 06:59] LABS: ALANINE AMINOTRANSFERASE 11 Units/L (12-78); ALBUMIN 2.4 g/dL (3.4-5.0); ALKALINE PHOSPHATASE 59 Units/L (46-116); ASPARTATE AMINO TRANSFERASE 21 Units/L (15-37); BLOOD UREA NITROGEN 25 mg/dL (7-18); CALCIUM 8.3 mg/dL (8.5-10.1); CARBON DIOXIDE 25.1 mmol/L (21-32); CHLORIDE 109 mmol/L (98-107); COR CA(FOR HYPOALB) 9.6 mg/dL (8.5-10.1); COR NA(FOR HYPERGLY) 152 mmol/L (136-145); CREATININE 1.35 mg/dL (0.70-1.30); SODIUM 145 mmol/L (136-145); TOTAL PROTEIN 5.5 g/dL (6.4-8.2); eGFR NON BLACK RACES 54 (>60)
[2020-05-14] MEDS ORDERED: ZyrTEC TAB 10 MG ONE (07:31)
[2020-05-14] MEDS ORDERED: PROTONIX TAB 40 MG PO ONE (07:31)
[2020-05-14] MEDS ORDERED: ZINC SULFATE ONE (07:32)
[2020-05-14] MEDS ORDERED: THIAMINE HCL INJ ONE (07:32)
[2020-05-14] MEDS ORDERED: PEPCID TAB 20 MG ONE (07:32)
[2020-05-14] MEDS ORDERED: REMDESIVIR IV ONE ×2 (07:32→10:50)
[2020-05-14] MEDS ORDERED: NS 250 ML IV 250 ML IV ONE ×2 (07:33→11:01)
[2020-05-14] MEDS ORDERED: NS 50 ML IV 50 ML IV ONE (07:33)
[2020-05-14] MEDS ORDERED: ROBITUSSIN DM ONE ×2 (07:33→13:14)
[2020-05-14] MEDS: DIFLUCAN PO SCH (08:04)
[2020-05-14] MEDS: LOVENOX INJ 80 MG SYR SC SCH (08:04)
[2020-05-14] MEDS: PEPCID TAB 20 MG PO SCH (08:05)
[2020-05-14] MEDS: PROTONIX TAB 40 MG PO SCH (08:05)
[2020-05-14] MEDS: MAGIC MOUTHWASH MT SCH ×2 (08:05→12:59)
[2020-05-14] MEDS: REMDESIVIR 100 MG in NS 250 ML IV 250 ML IV SCH (08:06)
[2020-05-14] MEDS: ROBITUSSIN DM PO SCH ×2 (08:06→13:20)
[2020-05-14] MEDS: ZyrTEC TAB 10 MG PO SCH (08:07)
[2020-05-14] MEDS: THEO-24 CAP 200 MG (24-HR) PO SCH (08:08)
[2020-05-14] MEDS: THIAMINE HCL INJ IVP SCH (08:09)
[2020-05-14] MEDS: ZINC SULFATE PO SCH (08:11)
[2020-05-14] MEDS: VITAMIN D3 125 mcg (5,000 UNITS) PO SCH (08:11)
[2020-05-14 08:20] LABS: BAND NEUTROPHILS % 1 % (0-10); PLATELET MORPHOLOGY COMMENT NORMAL (NORMAL)
[2020-05-14] MEDS: MUCOMYST 20% 200 MG/ML NEB SCH (08:34)
[2020-05-14] MEDS: PULMICORT NEB TX 0.5 MG NEB SCH (08:34)
[2020-05-14] MEDS: ACCUNEB 1.25 MG NEBULE NEB SCH (08:34)
[2020-05-14] MEDS ORDERED: REMDESIVIR 100 MG in NS 250 ML IV 250 ML IV ONE (10:44)
[2020-05-14 12:17] VITALS: BP 185/81
[2020-05-14] MEDS ORDERED: TYLENOL 325 MG TAB PO ONE (12:47)
[2020-05-14] MEDS: TYLENOL 325 MG TAB PO PRN (12:48)
[2020-05-14] MEDS: NS 1000 ML 1,000 ML IV SCH (13:21)
--- NOTE | 2020-07-29 19:40 | PCM.PROG ---
Progress Note - Progress Note for Day of Date of Exam: 05/13/20 - Subjective Subjective: WAS ADMITTED FOR TREATMENT OF PNEUMONIA DUE TO COVID-19 AND HYPOXIA. HE HAS A PMH OF DIABETES, CVA, DYSLIPIDEMIA, GERD, AND HTN. TODAY, HE IS ALERT AND ORIENTED, LYING IN BED ON MORNING ROUNDS. SHE CONTINUES WITH COMPLAINTS OF SHORTNESS OF BREATH, COUGH, DECREASED APPETITE, AND WEANESS THIS MORNING. ON EXAMINATION, HEART IS REGULAR IN RATE AND RHYTHM. BILATERAL LUNGS ARE NOTED WITH RALES AND DIMINISHED LUNG SOUNDS THROUGHOUT. ABDOMEN IS ROUND, SOFT, AND NON-TENDER WITH NORMAL BOWEL SOUNDS NOTED IN ALL QUADRANTS. HIS VITALS THIS MORNING ARE: 98.6-67-20-98%-129/68. HE IS CURRENTLY ON THE NASAL CANNULA AT 3 LPM. HIS SATURATIONS HAVE BEEN 88-98% THIS MORNING. HIS SATURATIONS DO RECOVER QUICKLY WHEN THEY DROP. LABS WERE OBTAINED. ABNORMAL LAB VALUES INCLUDE THE FOLLOWING: RBC 2.85, HGB 7.8, HCT 23.8, CHLORIDE 110, BUN 24, CREATININE 1.33, GLUCOSE 309, ALT 8, CRP 71, TOTAL PROTEIN 6.1, ALBUMIN 2.5. ABG REVEALED: PH 7.490, PC02 38, P02 63, HC03 26.3, 02 SAT 93, BASE EXCESS 2.5, A-A GRADIENT 119, FI02 32. BLOOD CULTURES ARE PENDING. HER CHEST XRAY REVEALED: Unchanged pneumonia bilaterally. HE IS CURRENTLY RECEIVING: NS AT [facility], REMDESIVIR 100MG IV DAILY, FORTAZ 1G IV Q8H, ALBUTEROL NEBS QID, MUCOMYST IN NEBS QID, PULMICORT NEBS BID, ASCORBIC ACID 1500MG IV Q6H, LIPITOR 80MG PO HS, TESSALON PERLES 200MG PO TID, ZYRTEC 10MG PO DAILY, TUSSIONEX 5ML PO Q12H PRN, COLACE 100MG PO HS, LOVENOX BID, PEPCID 20MG PO BID, DIFLUCAN 100MG PO DAILY, ROBITUSSIN DM 10ML PO QID, IVERMECTIN- PHARMACY TO DOSE, MAGIC MOUTHWASH QID, MILK OF MAG BID PRN, MELATONIN 10MG PO HS, SOLU-MEDROL 125MG IV Q6H, SINGULAIR 10MG PO HS, PROTONIX 40MG PO DAILY, THIAMIN 200MG IV BID, AND ZINC SULFATE 220MG PO DAILY. WE WILL CONTINUE WITH CURRENT PLAN OF CARE TODAY. OTHERWISE, WE PLAN TO FOLLOW UP WITH AM LABS, CHEST XRAY, ABG, AND CONTINUE TO MONITOR. TIME SPENT ON CLINICAL ASSESSMENT, REVIEWING LABS AND IMAGING, DECISION MAKING, AND DOCUMENTATION GREATER THAN 45 MINUTES. - Past Medical Family Social History Past Med/Fam/Surg Hx: No changes since H&P Allergies: Allergies ceftriaxone [From Rocephin] Allergy (Verified 06/16/20 11:57) ciprofloxacin [From Cipro] Allergy (Verified 06/16/20 11:57) morphine Adverse Reaction (Verified 06/16/20 11:57) - Review of Systems ROS: No change since H&P - Vital Signs and I&O's Vital Signs: Temperature 99.5 F Pulse Rate [Apical] 73 Pulse Rate 80 Respiratory Rate 20 Blood Pressure [Right Arm] 180/81 Blood Pressure 185/81 O2 Sat by Pulse Oximetry 91 - Physical Exam Oriented: Normal Eyes: Normal Ear: Normal Nose: Normal Throat: Normal Respiratory: Generalized, Diminished, Rales Cardiovascular: Normal : Normal Auscultation: Bowel Sounds: Normal Palpation: Normal Tenderness: Normal Skin: Decreased Turgur Musculoskeletal: Normal Psychiatric: Normal Mood Description: Calm Affect: Normal Speech Pattern: Clear, Appropriate - Laboratory and Diagnostics Result Diagrams: 05/14/20 05:26 05/14/20 05:26 Labs: 05/11/20 16:07 Blood Blood Culture - Final 05/11/20 15:27 Blood Blood Culture - Final Laboratory WBC 6.0 X10^3/uL (3.6-10.0) 05/14/20 05:26 RBC 2.64 X10^6/uL (4.7-6.0) L 05/14/20 05:26 Hgb 7.1 g/dL (13.5-18.0) L 05/14/20 05:26 Hct 21.8 % (42.0-54.0) L 05/14/20 05:26 MCV 82.8 fL (80.0-100.0) 05/14/20 05:26 MCH 26.9 pg (27.0-34.0) L 05/14/20 05:26 MCHC 32.4 g/dL (33.0-35.0) L 05/14/20 05:26 RDW 15.1 % (11.6-16.5) 05/14/20 05:26 Plt Count 177 X10^3/uL (150.0-450.0) 05/14/20 05:26 Plt Count Comment Adequate (ADEQUATE) 05/14/20 05:26 MPV 8.9 fL (7.4-11.0) 05/14/20 05:26 Neut % (Auto) 93.0 % (42.0-75.0) H 05/14/20 05:26 Lymph % (Auto) 2.3 % (21.0-51.0) L 05/14/20 05:26 [place] % (Auto) 4.4 % (0.0-13.0) 05/14/20 05:26 Eos % (Auto) 0.0 % (0.9-2.9) L 05/14/20 05:26 Baso % (Auto) 0.3 % (0.2-1.0) 05/14/20 05:26 Neut # (Auto) 5.6 x10^3/uL (2.2-4.8) H 05/14/20 05:26 Lymph # (Auto) 0.1 X10^3/uL (1.3-2.9) L 05/14/20 05:26 [place] # (Auto) 0.3 x10^3/uL (0.3-0.8) 05/14/20 05:26 Eos # (Auto) 0.0 x10^3/uL (0.0-0.2) 05/14/20 05:26 Baso # (Auto) 0.0 X10^3/uL (0.0-0.1) 05/14/20 05:26 Absolute Nucleated RBC 0.2 /100WBC 05/14/20 05:26 Total Counted 100 05/14/20 05:26 Neutrophils % (Manual) 93 % (39-76) H 05/14/20 05:26 Band Neutrophils % 1 % (0-10) 05/14/20 05:26 Lymphocytes % (Manual) 4 % (13-43) L 05/14/20 05:26 Monocytes % (Manual) 2 % (4-9) L 05/14/20 05:26 Plt Morphology Comment Normal (NORMAL) 05/14/20 05:26 RBC Morphology Normal (NORMAL) 05/14/20 05:26 ESR 97 MM/HOUR (0-15) H 05/11/20 09:35 PT 14.3 SECONDS (11.8-14.3) 05/11/20 09:35 INR Target Range - 05/11/20 09:35 INR 1.14 (0.8-1.3) 05/11/20 09:35 APTT 43.6 SECONDS (22.9-36.5) H 05/11/20 09:35 PTT Comment - 05/11/20 09:35 D-Dimer 0.28 ug/ml (0.0-0.57) 05/14/20 05:26 Sample Site Pos 05/14/20 04:32 ABG pH 7.460 (7.35-7.45) H 05/14/20 04:32 ABG pCO2 37.0 mmHg (35.0-45.0) 05/14/20 04:32 ABG pO2 63.0 mmHg (80.0-100.0) L 05/14/20 04:32 ABG HCO3 26.3 mmol/L (22-26) H 05/14/20 04:32 ABG O2 Saturation 93.0 % (90-100) 05/14/20 04:32 ABG Base Excess 2.5 mmol/L (-2.0-2.0) H 05/14/20 04:32 Ted Test Lra 05/14/20 04:32 A-a Gradient 119.0 mmHg 05/14/20 04:32 FiO2 32.0 05/14/20 04:32 Blood Gas Comments Pt emma well eb 05/14/20 04:32 Sodium 145 mmol/L (136-145) 05/14/20 05:26 Corrected Sodium 152 mmol/L (136-145) H 05/14/20 05:26 Potassium 3.7 mmol/L (3.5-5.1) 05/14/20 05:26 Chloride 109 mmol/L (98-107) H 05/14/20 05:26 Carbon Dioxide 25.1 mmol/L (21-32) 05/14/20 05:26 BUN 25 mg/dL (7-18) H 05/14/20 05:26 Creatinine 1.35 mg/dL (0.70-1.30) H 05/14/20 05:26 Est GFR (MDRD) Af Amer > 60 (>60) 05/14/20 05:26 Est GFR (MDRD) Non-Af 54 (>60) L 05/14/20 05:26 Glucose 382 mg/dL (65-99) H 05/14/20 05:26 Calcium 8.3 mg/dL (8.5-10.1) L 05/14/20 05:26 Corrected Calcium 9.6 mg/dL (8.5-10.1) 05/14/20 05:26 Ferritin 78 ng/mL (26-388) 05/14/20 05:26 Total Bilirubin 0.30 mg/dL (0.2-1.0) 05/14/20 05:26 AST 21 Units/L (15-37) 05/14/20 05:26 ALT 11 Units/L (12-78) L 05/14/20 05:26 Alkaline Phosphatase 59 Units/L (46-116) 05/14/20 05:26 Creatine Kinase 31 Units/L (39-308) L 05/11/20 09:35 CK-MB (CK-2) < 1.0 ng/mL (0-4.0) 05/11/20 09:35 CK/CKMB % Calc 3.2 % (<4) 05/11/20 09:35 Troponin I < 0.02 ng/mL (0-1.5) 05/11/20 09:35 C-Reactive Protein 34.40 mg/L (0-3.0) H 05/14/20 05:26 C-React Prot High Sens 174.3 mg/L (<=3.0) H 05/11/20 09:35 B-Natriuretic Peptide 494 pg/mL (0-79) H 05/11/20 09:35 Total Protein 5.5 g/dL (6.4-8.2) L 05/14/20 05:26 Albumin 2.4 g/dL (3.4-5.0) L 05/14/20 05:26 Globulin 3.1 g/dL (2.5-4.5) 05/14/20 05:26 Albumin/Globulin Ratio 0.8 Ratio (1.1-2.1) L 05/14/20 05:26 SARS CoV-2 RNA Rapid ALEX Positive (NEGATIVE) A 05/11/20 10:23 - Plan (1) Pneumonia due to 2019 novel coronavirus Status: Acute Plan: SUPPLEMENTAL OXYGEN, NS AT [facility], REMDESIVIR 100MG IV DAILY, FORTAZ 1G IV Q8H, ALBUTEROL NEBS QID, MUCOMYST IN NEBS QID, PULMICORT NEBS BID, ASCORBIC ACID 1500MG IV Q6H, LIPITOR 80MG PO HS, TESSALON PERLES 200MG PO TID, ZYRTEC 10MG PO DAILY, TUSSIONEX 5ML PO Q12H PRN, COLACE 100MG PO HS, LOVENOX BID, PEPCID 20MG PO BID, DIFLUCAN 100MG PO DAILY, ROBITUSSIN DM 10ML PO QID, IVERMECTIN- PHARMACY TO DOSSE, MAGIC MOUTHWASH QID, MILK OF MAG BID PRN, MELATONIN 10MG PO HS, SOLU- MEDROL 125MG IV Q6H, SINGULAIR 10MG PO HS, PROTONIX 40MG PO DAILY, THIAMIN 200MG IV BID, AND ZINC SULFATE 220MG PO DAILY (2) Hypoxia Status: Acute (3) Diabetes Status: Chronic Qualifiers: Diabetes mellitus type: type 2 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: with senior care use Diabetes mellitus complication status: without complication Qualified Code(s): E11.9 - Type 2 diabetes mellitus without complications; Z79.4 - long-term (current) use of insulin (4) History of CVA (cerebrovascular accident) Status: Chronic (5) Dyslipidemia Status: Chronic (6) GERD (gastroesophageal reflux disease) Status: Chronic Qualifiers: Esophagitis presence: esophagitis presence not specified Qualified Code(s): K21.9 - Gastro-esophageal reflux disease without esophagitis (7) HTN (hypertension) Status: Chronic Qualifiers: Hypertension type: essential hypertension Qualified Code(s): I10 - Essential (primary) hypertension
== END 2020-05-14 17:42 | disposition home health service (06) | DRG 177 ==
LOC: ER 09:19 → OBS 12:44
PROVIDERS: ADMIT Internal Medicine; ATTEND Internal Medicine
DX: R06.02 Shortness of breath; K21.9 Gastro-esophageal reflux disease without esophagitis; Z86.73 Personal history of transient ischemic attack (TIA), and cerebral infarction without residual deficits; U07.1 COVID-19; I10 Essential (primary) hypertension; E78.5 Hyperlipidemia, unspecified; E11.9 Type 2 diabetes mellitus without complications; G72.81 Critical illness myopathy; R09.02 Hypoxemia; J12.81 Pneumonia due to SARS-associated coronavirus; D68.8 Other specified coagulation defects; R79.89 Other specified abnormal findings of blood chemistry; R26.89 Other abnormalities of gait and mobility

== ENCOUNTER 2020-06-19 20:18 | Observation (INO) ==
[2020-06-19] MEDS ORDERED: OFIRMEV IV 1000 MG VIAL 1,000 MG/100 ML VIAL IV PRN (20:40)
[2020-06-19] MEDS ORDERED: NS 1000 ML 1,000 ML IV ONE (20:44)
--- NOTE | 2020-06-19 21:01 | DR.AMS ---
HPI Time Seen Time Seen by Provider: 06/19/20 20:40 PCP Primary Care Physician: sahra HPI Comment HPI Comment: Patient presents via EMS with complaint of AMS. According to EMS, family states that last known well at 1900. Patient found minimally responsive and lying in bed. Patient baseline is being able to walk and talk independently. Patient is now moaning and will withdraw from pain. Complaint Chief Complaint:: pt not responding verbally but pt does respond to painful stimuli puplils reactive Source History Provided: EMS Mode of Arrival Mode of Arrival: EMS Timing Onset of Chief Complaint: 06/19/20 PMH PMH Past Medical History: Yes Past Medical History: Anxiety, CVA, Diabetes, Dyslipidemia, GERD and Hypertension Past Surgical History: Yes Surgical History: Appendectomy and Ortho Surgery Family History History of Family Medical Conditions: Yes Family Medical History: Diabetes Mellitus, Cancer and Hypertension Social History Does any household member use tobacco: No Alcohol Use: None Do you use any recreational Drugs:: No Lives With: Family Lives Where: Home Infectious screening In the last 2 months have you had wt loss of >10#?: NO Have you had fever, night sweats or hemotysis?: No Have you traveled outside the country in the last 6 months?: No Isolation: Standard ROS Review of Systems Unable to Obtain Due To: Altered mental status PE Vitals Vital Signs: Temp Pulse Resp BP BP Pulse Ox 06/19/20 22:45 92 H 44 H 91 L 06/19/20 22:30 90 29 H 158/72 94 L 06/19/20 22:15 90 43 H 98 06/19/20 22:07 90 28 H 183/80 97 06/19/20 22:00 90 28 H 95 06/19/20 21:45 91 H 40 H 97 06/19/20 21:42 90 99 06/19/20 21:30 98 H 28 H 96 06/19/20 21:15 92 H 39 H 100 06/19/20 21:10 92 H 45 H 96 06/19/20 20:45 91 H 39 H 100 06/19/20 20:42 90 43 H 100 06/19/20 20:18 98.8 F 90 36 H 182/87 100 06/16/20 13:00 169/75 05/14/20 04:00 180/81 General Limitations: Altered Mental Status Head Head Exam: Normal Inspection, Atraumatic and Normocephalic Eyes Eye exam: EOMI Respiratory Respiratory Exam: Bilateral: Rhonchi Extremities Extremities Exam: Normal Inspection Skin Skin Exam: Warm, Dry and Intact MDM Differential Diagnosis Metabolic: Dehydration Toxicologic: Drug Overdose COURSE Treatment Treatment: patient with spontaneous recovery of mental status with minimal intervention in the ED Consultation Consultation Comments: Spoke with Dr. Manzo who accepts patient for admission to his service for AMS of uncertain etiology. ROR Labs Reviewed Laboratory Results Reviewed?: Yes Result Diagrams: 06/19/20 20:50 06/19/20 20:50 Laboratory: WBC 7.3 X10^3/uL (3.6-10.0) 06/19/20 20:50 RBC 3.19 X10^6/uL (4.7-6.0) L 06/19/20 20:50 Hgb 7.3 g/dL (13.5-18.0) L 06/19/20 20:50 Hct 23.9 % (42.0-54.0) L 06/19/20 20:50 MCV 74.9 fL (80.0-100.0) L 06/19/20 20:50 MCH 23.0 pg (27.0-34.0) L 06/19/20 20:50 MCHC 30.7 g/dL (33.0-35.0) L 06/19/20 20:50 RDW 18.7 % (11.6-16.5) H 06/19/20 20:50 Plt Count 275 X10^3/uL (150.0-450.0) 06/19/20 20:50 Plt Count Comment Adequate (ADEQUATE) 06/19/20 20:50 MPV 8.4 fL (7.4-11.0) 06/19/20 20:50 Neut % (Auto) 76.3 % (42.0-75.0) H 06/19/20 20:50 Lymph % (Auto) 12.3 % (21.0-51.0) L 06/19/20 20:50 [place] % (Auto) 8.5 % (0.0-13.0) 06/19/20 20:50 Eos % (Auto) 1.1 % (0.9-2.9) 06/19/20 20:50 Baso % (Auto) 1.8 % (0.2-1.0) H 06/19/20 20:50 Neut # (Auto) 5.6 x10^3/uL (2.2-4.8) H 06/19/20 20:50 Lymph # (Auto) 0.9 X10^3/uL (1.3-2.9) L 06/19/20 20:50 [place] # (Auto) 0.6 x10^3/uL (0.3-0.8) 06/19/20 20:50 Eos # (Auto) 0.1 x10^3/uL (0.0-0.2) 06/19/20 20:50 Baso # (Auto) 0.1 X10^3/uL (0.0-0.1) 06/19/20 20:50 Absolute Nucleated RBC 0.0 /100WBC 06/19/20 20:50 Plt Morphology Comment Normal (NORMAL) 06/19/20 20:50 RBC Morphology Abnormal (NORMAL) 06/19/20 20:50 Hypochromasia 1+ A 06/19/20 20:50 Anisocytosis Slight A 06/19/20 20:50 Microcytosis Slight A 06/19/20 20:50 Sodium 140 mmol/L (136-145) 06/19/20 20:50 Corrected Sodium 141 mmol/L (136-145) 06/19/20 20:50 Potassium 4.1 mmol/L (3.5-5.1) 06/19/20 20:50 Chloride 103 mmol/L (98-107) 06/19/20 20:50 Carbon Dioxide 30.4 mmol/L (21-32) 06/19/20 20:50 BUN 17 mg/dL (7-18) 06/19/20 20:50 Creatinine 1.14 mg/dL (0.70-1.30) 06/19/20 20:50 Est GFR (MDRD) Af Amer > 60 (>60) 06/19/20 20:50 Est GFR (MDRD) Non-Af > 60 (>60) 06/19/20 20:50 Glucose 139 mg/dL (65-99) H 06/19/20 20:50 Lactic Acid 0.7 mmol/L (0.4-2.0) 06/19/20 20:50 Calcium 8.5 mg/dL (8.5-10.1) 06/19/20 20:50 Corrected Calcium 9.5 mg/dL (8.5-10.1) 06/19/20 20:50 Total Bilirubin 0.30 mg/dL (0.2-1.0) 06/19/20 20:50 AST 10 Units/L (15-37) L 06/19/20 20:50 ALT 6 Units/L (12-78) L 06/19/20 20:50 Alkaline Phosphatase 64 Units/L (46-116) 06/19/20 20:50 Creatine Kinase 31 Units/L (39-308) L 06/19/20 20:50 CK-MB (CK-2) 1.2 ng/mL (0-4.0) 06/19/20 20:50 CK/CKMB % Calc 3.9 % (<4) 06/19/20 20:50 Troponin I < 0.02 ng/mL (0-1.5) 06/19/20 20:50 Total Protein 6.3 g/dL (6.4-8.2) L 06/19/20 20:50 Albumin 2.8 g/dL (3.4-5.0) L 06/19/20 20:50 Globulin 3.5 g/dL (2.5-4.5) 06/19/20 20:50 Albumin/Globulin Ratio 0.8 Ratio (1.1-2.1) L 06/19/20 20:50 Specimen Type Clean catch urine 06/19/20 21:35 Urine Color Pale yellow (YELLOW) 06/19/20 21:35 Urine Appearance Clear (CLEAR) 06/19/20 21:35 Urine pH 7.0 (5.0 - 8.0) 06/19/20 21:35 Ur Specific [place] 1.005 (1.000-1.030) 06/19/20 21:35 Urine Protein Negative (NEGATIVE) 06/19/20 21:35 Urine Glucose (UA) Negative (NEGATIVE) 06/19/20 21:35 Urine Ketones Negative (NEGATIVE) 06/19/20 21:35 Urine Occult Blood Negative (NEGATIVE) 06/19/20 21:35 Urine Nitrite Negative (NEGATIVE) 06/19/20 21:35 Urine Bilirubin Negative (NEGATIVE) 06/19/20 21:35 Urine Urobilinogen Normal (NORMAL) 06/19/20 21:35 Ur Leukocyte Esterase Negative (NEGATIVE) 06/19/20 21:35 Urine Opiates Screen Negative (NEG=<300) 06/19/20 21:35 Urine Methadone Screen Negative (NEG=<300) 06/19/20 21:35 Ur Barbiturates Screen Negative (NEG=<200) 06/19/20 21:35 Ur Phencyclidine Scrn Negative (NEG=<25) 06/19/20 21:35 Ur Amphetamines Screen Negative (NEG=<1000) 06/19/20 21:35 U Benzodiazepines Scrn Negative (NEG=<200) 06/19/20 21:35 Urine Cocaine Screen Negative (NEG=<300) 06/19/20 21:35 U Marijuana (THC) Screen Negative (NEG=<50) 06/19/20 21:35 XRAY X-ray Results: HISTORY pt not responding verbally but pt does respond to painful stimuli puplils reactive. pt told family he felt bad and went to bed around 7 pm and at 1933 pt wouldn't respond to them STUDY BRAIN W/O CON COMPARISON March 11, 2020 TECHNIQUE Axial non-contrast images of the head were obtained with coronal and sagittal reformats provided. Radiation dose: 1294.10 mGy-cm total DLP FINDINGS Small focus of encephalomalacia in the lateral inferior aspect of the right cerebellar hemisphere and large area of encephalomalacia in the inferior medial aspect of the left cerebellar hemisphere; as seen on the previous exam. Patchy areas of decreased attenuation in the central aspect of the nasim; as seen on the previous exam. Remote left basal ganglia lacunar infarcts; as seen on the previous exam. No abnormal areas of acute attenuation in the brain parenchyma. Hoffman-white differentiation remains intact. No intracranial, extra-axial, fluid collection. No hemorrhage. Periventricular chronic microvascular disease. No mass, mass effect or midline shift. Age related brain parenchymal global atrophy. No ventriculomegaly. No acute fracture. Sinuses are well aerated. Mastoid air cells are well aerated. Globes and intra-orbital contents are unremarkable. IMPRESSION No acute intracranial abnormality identified. Electronically signed by: Karl Shah (Jun 19, 2020 21:18:18) PROCEDURE: Chest X-ray 1 View . HISTORY: Malaise and subsequently nonresponsive. TECHNIQUE: AP view . COMPARISON: 06/16/2020. TECHNICAL QUALITY: Satisfactory . FINDINGS: Unchanged cardiac enlargement and tortuous aorta. Mild increased central vascularity similar to previous study. Some mild patchy consolidation both lung [place] increased compared to previous study may represent edema from failure. No definite pleural fluid or pneumothorax. IMPRESSION: Findings suspicious for congestive failure increased since previous study. Electronically signed by: Narendra Nguyen (Jun 19, 2020 21:23:36) Opioid Opioid Risk Tool Age (Gamaliel box if 16-45): No History of Preadolescent Sexual Abuse: No Total: 0 Total Score Risk Category: Low Risk Copyright: Richi MCLEAN predicting aberrant behaviors Diagnosis Discharge Problem: Acute alteration in mental status
[2020-06-19 21:13] LABS: BASOPHILS # (AUTO) 0.1 X10^3/uL (0.0-0.1); BASOPHILS % (AUTO) 1.8 % (0.2-1.0); EOSINOPHILS # (AUTO) 0.1 x10^3/uL (0.0-0.2); EOSINOPHILS % (AUTO) 1.1 % (0.9-2.9); HEMATOCRIT 23.9 % (42.0-54.0); HEMOGLOBIN 7.3 g/dL (13.5-18.0); LYMPHOCYTES # (AUTO) 0.9 X10^3/uL (1.3-2.9); LYMPHOCYTES % (AUTO) 12.3 % (21.0-51.0); MEAN CORPUSCULAR HGB CONC 30.7 g/dL (33.0-35.0); MEAN CORPUSCULAR VOLUME 74.9 fL (80.0-100.0); MEAN PLATELET VOLUME 8.4 fL (7.4-11.0); MONOCYTES # (AUTO) 0.6 x10^3/uL (0.3-0.8); MONOCYTES % (AUTO) 8.5 % (0.0-13.0); NEUTROPHILS # (AUTO) 5.6 x10^3/uL (2.2-4.8); NEUTROPHILS % (AUTO) 76.3 % (42.0-75.0); PLATELET COUNT 275 X10^3/uL (150.0-450.0); RED BLOOD COUNT 3.19 X10^6/uL (4.7-6.0); RED CELL DISTRIBUTION WIDTH 18.7 % (11.6-16.5); WHITE BLOOD COUNT 7.3 X10^3/uL (3.6-10.0)
--- NOTE | 2020-06-19 21:20 | CT ---
HISTORYpt not responding verbally but pt does respond to painful stimuli puplils reactive. pt told family he felt bad and went to bed around 7 pm and at 1933 pt wouldn't respond to themSTUDYBRAIN W/O CONCOMPARISONNovember 2019TECHNIQUEAxial non-contrast images of the head were obtained with coronal and sagittal reformats provided.Radiation dose: 1294.10 mGy-cm total DLPFINDINGSSmall focus of encephalomalacia in the lateral inferior aspect of the right cerebellar hemisphere and large area of encephalomalacia in the inferior medial aspect of the left cerebellar hemisphere; as seen on the previous exam.Patchy areas of decreased attenuation in the central aspect of the nasim; as seen on the previous exam.Remote left basal ganglia lacunar infarcts; as seen on the previous exam.No abnormal areas of acute attenuation in the brain parenchyma.Hoffman-white differentiation remains intact.No intracranial, extra-axial, fluid collection.No hemorrhage.Periventricular chronic microvascular disease.No mass, mass effect or midline shift.Age related brain parenchymal global atrophy.No ventriculomegaly.No acute fracture.Sinuses are well aerated.Mastoid air cells are well aerated.Globes and intra-orbital contents are unremarkable.IMPRESSIONNo acute intracranial abnormality identified.Electronically signed by: Karl Shah (Jun 19, 2020 21:18:18)
[2020-06-19 21:22] LABS: ANISOCYTOSIS SLIGHT; HYPOCHROMASIA 1+; MICROCYTOSIS SLIGHT; PLATELET MORPHOLOGY COMMENT NORMAL (NORMAL)
--- NOTE | 2020-06-19 21:25 | RAD ---
PROCEDURE: Chest X-ray 1 View .HISTORY: Malaise and subsequently nonresponsive.TECHNIQUE: AP view .COMPARISON: 06/16/2020.TECHNICAL QUALITY: Satisfactory .FINDINGS:Unchanged cardiac enlargement and tortuous aorta.Mild increased central vascularity similar to previous study.Some mild patchy consolidation both lung [place] increased compared to previous study may represent edema from failure. No definite pleural fluid or pneumothorax.IMPRESSION:Findings suspicious for congestive failure increased since previous study.Electronically signed by: Narendra Nguyen (Jun 19, 2020 21:23:36)
[2020-06-19] MEDS ORDERED: OFIRMEV IV 1000 MG VIAL 1,000 MG/100 ML VIAL IV ONE (21:26)
[2020-06-19] MEDS ORDERED: NS 1000 ML 1,000 ML ONE (21:26)
[2020-06-19 21:33] LABS: LACTIC ACID 0.7 mmol/L (0.4-2.0)
[2020-06-19] MEDS ORDERED: PROVENTIL NEB TX 0.083% 2.5MG/ 3ML NEB ONE (21:34)
[2020-06-19 21:35] LABS: BLOOD UREA NITROGEN 17 mg/dL (7-18); CALCIUM 8.5 mg/dL (8.5-10.1); CARBON DIOXIDE 30.4 mmol/L (21-32); CHLORIDE 103 mmol/L (98-107); COR NA(FOR HYPERGLY) 141 mmol/L (136-145); CREATININE 1.14 mg/dL (0.70-1.30); SODIUM 140 mmol/L (136-145); TROPONIN I < 0.02 ng/mL (0-1.5); eGFR NON BLACK RACES > 60 (>60)
[2020-06-19 21:49] LABS: ALANINE AMINOTRANSFERASE 6 Units/L (12-78); ALBUMIN 2.8 g/dL (3.4-5.0); ALKALINE PHOSPHATASE 64 Units/L (46-116); ASPARTATE AMINO TRANSFERASE 10 Units/L (15-37); CKMB % 3.9 % (<4); COR CA(FOR HYPOALB) 9.5 mg/dL (8.5-10.1); CREATINE KINASE 31 Units/L (39-308); CREATINE KINASE MB 1.2 ng/mL (0-4.0); TOTAL PROTEIN 6.3 g/dL (6.4-8.2)
[2020-06-19 21:59] LABS: BILIRUBIN,URINE NEGATIVE (NEGATIVE); BLOOD/HEMOGLOBIN,URINE NEGATIVE (NEGATIVE); GLUCOSE, URINE NEGATIVE (NEGATIVE); KETONES,URINE NEGATIVE (NEGATIVE); LEUKOCYTE ESTERASE ,URINE NEGATIVE (NEGATIVE); NITRITES,URINE NEGATIVE (NEGATIVE); PROTEIN,URINE NEGATIVE (NEGATIVE); UROBILINOGEN,URINE NORMAL (NORMAL)
[2020-06-19 22:04] LABS: APPEARANCE,URINE CLEAR (CLEAR); COLOR,URINE PALE YELLOW (YELLOW)
[2020-06-19] MEDS ORDERED: ZOFRAN INJ 4 MG VIAL IVP PRN (23:19)
[2020-06-19] MEDS ORDERED: TYLENOL 325 MG TAB PO PRN (23:19)
[2020-06-19] MEDS ORDERED: NS 1/2 1000 ML IV 1,000 ML IV SCH (23:45)
[2020-06-20] MEDS ORDERED: NS 1/2 1000 ML IV 1,000 ML IV ONE (02:39)
[2020-06-20 03:55] VITALS: BMI 29.1
[2020-06-20] MEDS ORDERED: DUONEB 0.5 MG/3 MG (3 mL) NEB ONE (04:44)
[2020-06-20] MEDS ORDERED: DUONEB 0.5 MG/3 MG (3 mL) NEB SCH ×2 (06:00)
[2020-06-20] MEDS ORDERED: ZESTRIL TAB 20 MG ONE (08:58)
[2020-06-20] MEDS ORDERED: PLAVIX PO SCH (09:00)
[2020-06-20] MEDS ORDERED: CHOLECALCIFEROL PO SCH (09:00)
[2020-06-20] MEDS ORDERED: ZESTRIL TAB 20 MG PO SCH (09:00)
[2020-06-20] MEDS ORDERED: [UNRECOGNIZED DRUG - OTHER] PO SCH (09:00)
[2020-06-20] MEDS ORDERED: VITAMIN D3 25 mcg (1,000 UNITS) PO SCH (09:00)
[2020-06-20] MEDS ORDERED: MAGNESIUM PO SCH (09:00)
[2020-06-20] MEDS ORDERED: MAGNESIUM OXIDE 250 MG PO SCH (09:00)
[2020-06-20] MEDS ORDERED: VIBRAMYCIN PO SCH (09:00)
[2020-06-20] MEDS ORDERED: NEURONTIN TAB 600 MG PO SCH (09:00)
[2020-06-20 09:10] VITALS: BP 103/59
[2020-06-20] MEDS ORDERED: MAG-OX TAB PO SCH (10:00)
--- NOTE | 2020-06-20 11:00 | DR.SSS ---
SHORT STAY SUMMARY Admission Date Date of Admission: 06/19/20 Discharge Date Discharge Date: 06/20/20 Admission Diagnoses Admission Diagnoses: Altered Mental Status Discharge Diagnoses Discharge Diagnoses: Altered mental status Chief Complaint Chief Complaint: Altered mental status/confusion History of Present Illness History of Present Illness: Pt is an 85 year old male that was admitted after arriving to ER via EMS with altered mental status. According to EMS, family states that last known well at 1900 and was found minimally responsive and lying in bed. Past Medical History Past Medical History: Anxiety, CVA, Diabetes, Dyslipidemia, GERD and Hypertension Past Surgical History Surgical History: Appendectomy and Ortho Surgery Allergies Allergies Allergy/AdvReac Type Severity Reaction Status Date / Time ceftriaxone [From Rocephin] Allergy Verified 06/16/20 11:57 ciprofloxacin [From Cipro] Allergy Verified 06/16/20 11:57 morphine AdvReac Verified 06/16/20 11:57 Medications Home Medications: ceftriaxone [From Rocephin] Allergy (Verified 06/16/20 11:57) ciprofloxacin [From Cipro] Allergy (Verified 06/16/20 11:57) morphine Adverse Reaction (Verified 06/16/20 11:57) Family History Family Medical History: Diabetes Mellitus, Cancer and Hypertension Social History Does patient currently use any type of tobacco product: No Have you used tobacco products in the last 12 months: No Type of Tobacco Use: None Does any household member use tobacco: No Alcohol Use: None Review of Systems Constitutional: No Symptoms Reported Eyes: No Symptoms Reported ENT: No Symptoms Reported Respiratory: Shortness of Breath Cardiovascular: No Symptoms Reported Gastrointestinal: No Symptoms Reported Genitourinary: No Symptoms Reported Musculoskeletal: No Symptoms Reported Skin: No Symptoms Reported Neurological: No Symptoms Reported Physical Exam Vital Signs: Last Vital Signs Temp 97.5 F L 06/20/20 04:00 Pulse 62 06/20/20 08:00 Resp 19 06/20/20 08:00 BP 103/59 06/20/20 08:00 Pulse Ox 89 L 06/20/20 08:00 Oriented: Normal Eyes: Normal Ear: Normal Nose: Normal Throat: Normal Respiratory: Diminished Throughout Cardiovascular: Normal : Normal Auscultation: Bowel Sounds: Normal Palpation: Normal Tenderness: Normal Skin: Normal Musculoskeletal: Normal Psychiatric: Normal Mood Description: Calm Speech Pattern: Clear Labs Labs: Laboratory Last Values WBC 7.3 X10^3/uL (3.6-10.0) 06/19/20 20:50 RBC 3.19 X10^6/uL (4.7-6.0) L 06/19/20 20:50 Hgb 7.3 g/dL (13.5-18.0) L 06/19/20 20:50 Hct 23.9 % (42.0-54.0) L 06/19/20 20:50 MCV 74.9 fL (80.0-100.0) L 06/19/20 20:50 MCH 23.0 pg (27.0-34.0) L 06/19/20 20:50 MCHC 30.7 g/dL (33.0-35.0) L 06/19/20 20:50 RDW 18.7 % (11.6-16.5) H 06/19/20 20:50 Plt Count 275 X10^3/uL (150.0-450.0) 06/19/20 20:50 Plt Count Comment Adequate (ADEQUATE) 06/19/20 20:50 MPV 8.4 fL (7.4-11.0) 06/19/20 20:50 Neut % (Auto) 76.3 % (42.0-75.0) H 06/19/20 20:50 Lymph % (Auto) 12.3 % (21.0-51.0) L 06/19/20 20:50 [place] % (Auto) 8.5 % (0.0-13.0) 06/19/20 20:50 Eos % (Auto) 1.1 % (0.9-2.9) 06/19/20 20:50 Baso % (Auto) 1.8 % (0.2-1.0) H 06/19/20 20:50 Neut # (Auto) 5.6 x10^3/uL (2.2-4.8) H 06/19/20 20:50 Lymph # (Auto) 0.9 X10^3/uL (1.3-2.9) L 06/19/20 20:50 [place] # (Auto) 0.6 x10^3/uL (0.3-0.8) 06/19/20 20:50 Eos # (Auto) 0.1 x10^3/uL (0.0-0.2) 06/19/20 20:50 Baso # (Auto) 0.1 X10^3/uL (0.0-0.1) 06/19/20 20:50 Absolute Nucleated RBC 0.0 /100WBC 06/19/20 20:50 Plt Morphology Comment Normal (NORMAL) 06/19/20 20:50 RBC Morphology Abnormal (NORMAL) 06/19/20 20:50 Hypochromasia 1+ A 06/19/20 20:50 Anisocytosis Slight A 06/19/20 20:50 Microcytosis Slight A 06/19/20 20:50 Sodium 140 mmol/L (136-145) 06/19/20 20:50 Corrected Sodium 141 mmol/L (136-145) 06/19/20 20:50 Potassium 4.1 mmol/L (3.5-5.1) 06/19/20 20:50 Chloride 103 mmol/L (98-107) 06/19/20 20:50 Carbon Dioxide 30.4 mmol/L (21-32) 06/19/20 20:50 BUN 17 mg/dL (7-18) 06/19/20 20:50 Creatinine 1.14 mg/dL (0.70-1.30) 06/19/20 20:50 Est GFR (MDRD) Af Amer > 60 (>60) 06/19/20 20:50 Est GFR (MDRD) Non-Af > 60 (>60) 06/19/20 20:50 Glucose 139 mg/dL (65-99) H 06/19/20 20:50 Lactic Acid 0.7 mmol/L (0.4-2.0) 06/19/20 20:50 Calcium 8.5 mg/dL (8.5-10.1) 06/19/20 20:50 Corrected Calcium 9.5 mg/dL (8.5-10.1) 06/19/20 20:50 Total Bilirubin 0.30 mg/dL (0.2-1.0) 06/19/20 20:50 AST 10 Units/L (15-37) L 06/19/20 20:50 ALT 6 Units/L (12-78) L 06/19/20 20:50 Alkaline Phosphatase 64 Units/L (46-116) 06/19/20 20:50 Creatine Kinase 31 Units/L (39-308) L 06/19/20 20:50 CK-MB (CK-2) 1.2 ng/mL (0-4.0) 06/19/20 20:50 CK/CKMB % Calc 3.9 % (<4) 06/19/20 20:50 Troponin I < 0.02 ng/mL (0-1.5) 06/19/20 20:50 Total Protein 6.3 g/dL (6.4-8.2) L 06/19/20 20:50 Albumin 2.8 g/dL (3.4-5.0) L 06/19/20 20:50 Globulin 3.5 g/dL (2.5-4.5) 06/19/20 20:50 Albumin/Globulin Ratio 0.8 Ratio (1.1-2.1) L 06/19/20 20:50 Specimen Type Clean catch urine 06/19/20 21:35 Urine Color Pale yellow (YELLOW) 06/19/20 21:35 Urine Appearance Clear (CLEAR) 06/19/20 21:35 Urine pH 7.0 (5.0 - 8.0) 06/19/20 21:35 Ur Specific [place] 1.005 (1.000-1.030) 06/19/20 21:35 Urine Protein Negative (NEGATIVE) 06/19/20 21:35 Urine Glucose (UA) Negative (NEGATIVE) 06/19/20 21:35 Urine Ketones Negative (NEGATIVE) 06/19/20 21:35 Urine Occult Blood Negative (NEGATIVE) 06/19/20 21:35 Urine Nitrite Negative (NEGATIVE) 06/19/20 21:35 Urine Bilirubin Negative (NEGATIVE) 06/19/20 21:35 Urine Urobilinogen Normal (NORMAL) 06/19/20 21:35 Ur Leukocyte Esterase Negative (NEGATIVE) 06/19/20 21:35 Urine Opiates Screen Negative (NEG=<300) 06/19/20 21:35 Urine Methadone Screen Negative (NEG=<300) 06/19/20 21:35 Ur Barbiturates Screen Negative (NEG=<200) 06/19/20 21:35 Ur Phencyclidine Scrn Negative (NEG=<25) 06/19/20 21:35 Ur Amphetamines Screen Negative (NEG=<1000) 06/19/20 21:35 U Benzodiazepines Scrn Negative (NEG=<200) 06/19/20 21:35 Urine Cocaine Screen Negative (NEG=<300) 06/19/20 21:35 U Marijuana (THC) Screen Negative (NEG=<50) 06/19/20 21:35 SARS-CoV-2 (PCR) Positive (NEGATIVE) A 06/19/20 23:24 Influenza Type A (PCR) Negative (NEGATIVE) 06/19/20 23:24 Influenza Type B (PCR) Negative (NEGATIVE) 06/19/20 23:24 RSV (PCR) Negative (NEGATIVE) 06/19/20 23:24 Hospital Course Hospital Course: Pt is an 85 year old male that was admitted after arriving to ER via EMS with altered mental status. According to EMS, family states that last known well at 1900 and was found minimally responsive and lying in bed. Pt remained the same in the ED, and had labs and imaging performed that did not show any abnormalities. Labs/imaging: Wbc 7.3, Hgb 7.3, Plt 275, Na 140, K 4.1, Cr 1.14, Glucose 139, AST 10, ALT 6, ALKP 64, Troponin negative, UA negative, UDS negative, CXR: no pulmonary infiltrates, and CT head negative for acute abnormalities. In the ED, pt was given IVF and responded rapidly with significant improvement of mentation back to his baseline. He was admitted for observation overnight. On morning of discharge pt was alert, oriented, and conversational without any acute concerns. Pt is on home oxygen of 3L due to previous COVID-19 infection, will need to continue. Pt was discharged in stable condition, instructed to follow up with pcp in 3-5 days. Discharge Medications Discharge Medications: Prescriptions: Discharge Disposition Discharge Disposition: Home
[2020-06-20] MEDS ORDERED: ZOCOR TAB 20 MG PO SCH (21:00)
== END 2020-06-20 13:04 | disposition home or self-care (01) ==
LOC: ER 20:18 → ICU 20:18
PROVIDERS: ADMIT Family Medicine; ATTEND Internal Medicine

== ENCOUNTER 2020-07-29 22:37 | Inpatient (IN) ==
--- NOTE | 2020-07-29 22:55 | DR.CP ---
HPI Time Seen Time Seen by Provider: 07/29/20 22:49 HPI Comment HPI Comment: EMS brings pt with c/o cp all day; pt appears somnolent but is able to state no pain presently; he's had a cough and sob persistently since covid a few months ago; he's on oxygen routinely, has afib and takes metoprolol per ems; no n/v/dizziness/morales. PMH PMH Past Medical History: Anxiety, CVA, Diabetes, Dyslipidemia, GERD and Hypertension Past Surgical History: Yes Surgical History: Appendectomy and Ortho Surgery Family History Family Medical History: Diabetes Mellitus, Cancer and Hypertension Social History Do you use any recreational Drugs:: No ROS Review of Systems Eyes: No Symptoms Reported ENTM: No Symptoms Reported Gastrointestinal/Abdominal: No Symptoms Reported Genitourinary: No Symptoms Reported Neurological: No Symptoms Reported Musculoskeletal: No Symptoms Reported Integumentary: No Symptoms Reported Hematologic/Lymphatic: No Symptoms Reported Endocrine: No Symptoms Reported Psychiatric: No Symptoms Reported PE Vitals Vitals: Temperature 99.0 F Pulse Rate [Left Brachial] 81 Pulse Rate 84 Respiratory Rate 18 Blood Pressure [Left Arm] 169/5 Blood Pressure [Right Arm] 164/72 Blood Pressure 198/88 O2 Sat by Pulse Oximetry 98 General Limitations: Other (somnolent, hard of hearing, answers questions with eyes closed) Head Head Exam: Normal Inspection Eyes Eye exam: Normal Appearance ENT ENT Exam: Normal Exam Chest Chest Inspection: Normal Inspection Respiratory Respiratory Exam: Normal Lung Sounds Bilat Cardiovascular Cardiovascular Exam: Regular Rate and Normal Rhythm Pulse: Normal Edema: Normal Abdominal Exam Abdominal Exam: Distention and Tenderness (diffusely and mildly) Extremities Extremities Exam: Normal Inspection Back Back Exam: Normal Inspection Skin Skin Exam: Warm, Dry, Intact and Normal Color MDM Differential Diagnosis Differential Diagnosis: Aortic Dissection, Chest Wall Pain, CHF, Costochondritis, Myocardial Infarction, Pericarditis and Pneumonia COURSE Reevaluation 1st: Improved (awake, alert, talkative) Consultation Call Returned: 07:53 Consultation Comments: Dana accepts admission for Dr Santana. ROR Labs Reviewed Laboratory Results Reviewed?: Yes Result Diagrams: 07/29/20 23:05 07/29/20 23:05 Laboratory: WBC 6.9 X10^3/uL (3.6-10.0) 07/29/20 23:05 RBC 3.53 X10^6/uL (4.7-6.0) L 07/29/20 23:05 Hgb 7.4 g/dL (13.5-18.0) L 07/29/20 23:05 Hct 24.8 % (42.0-54.0) L 07/29/20 23:05 MCV 70.3 fL (80.0-100.0) L 07/29/20 23:05 MCH 20.9 pg (27.0-34.0) L 07/29/20 23:05 MCHC 29.7 g/dL (33.0-35.0) L 07/29/20 23:05 RDW 19.1 % (11.6-16.5) H 07/29/20 23:05 Plt Count 263 X10^3/uL (150.0-450.0) 07/29/20 23:05 Plt Count Comment Adequate (ADEQUATE) 07/29/20 23:05 MPV 8.1 fL (7.4-11.0) 07/29/20 23:05 Neut % (Auto) 63.9 % (42.0-75.0) 07/29/20 23:05 Lymph % (Auto) 18.6 % (21.0-51.0) L 07/29/20 23:05 [place] % (Auto) 9.0 % (0.0-13.0) 07/29/20 23:05 Eos % (Auto) 6.0 % (0.9-2.9) H 07/29/20 23:05 Baso % (Auto) 2.5 % (0.2-1.0) H 07/29/20 23:05 Neut # (Auto) 4.4 x10^3/uL (2.2-4.8) 07/29/20 23:05 Lymph # (Auto) 1.3 X10^3/uL (1.3-2.9) 07/29/20 23:05 [place] # (Auto) 0.6 x10^3/uL (0.3-0.8) 07/29/20 23:05 Eos # (Auto) 0.4 x10^3/uL (0.0-0.2) H 07/29/20 23:05 Baso # (Auto) 0.2 X10^3/uL (0.0-0.1) H 07/29/20 23:05 Absolute Nucleated RBC 0.0 /100WBC 07/29/20 23:05 Plt Morphology Comment Normal (NORMAL) 07/29/20 23:05 RBC Morphology Abnormal (NORMAL) 07/29/20 23:05 Hypochromasia 2+ A 07/29/20 23:05 Microcytosis Slight A 07/29/20 23:05 D-Dimer 2.49 ug/ml (0.0-0.57) H* 07/29/20 23:05 Sample Site Lr 07/30/20 04:17 ABG pH 7.500 (7.35-7.45) H 07/30/20 04:17 ABG pCO2 44.0 mmHg (35.0-45.0) 07/30/20 04:17 ABG pO2 81.0 mmHg (80.0-100.0) 07/30/20 04:17 ABG HCO3 34.3 mmol/L (22-26) H* 07/30/20 04:17 ABG O2 Saturation 97.0 % (90-100) 07/30/20 04:17 ABG Base Excess 10.0 mmol/L (-2.0-2.0) H 07/30/20 04:17 Ted Test Pos 07/30/20 04:17 A-a Gradient 92.0 mmHg 07/30/20 04:17 FiO2 32 07/30/20 04:17 Blood Gas Comments Evelyn well ae 07/30/20 04:17 Sodium 138 mmol/L (136-145) 07/29/20 23:05 Corrected Sodium 139 mmol/L (136-145) 07/29/20 23:05 Potassium 3.8 mmol/L (3.5-5.1) 07/29/20 23:05 Chloride 101 mmol/L (98-107) 07/29/20 23:05 Carbon Dioxide 30.7 mmol/L (21-32) 07/29/20 23:05 BUN 21 mg/dL (7-18) H 07/29/20 23:05 Creatinine 1.18 mg/dL (0.70-1.30) 07/29/20 23:05 Est GFR (MDRD) Af Amer > 60 (>60) 07/29/20 23:05 Est GFR (MDRD) Non-Af > 60 (>60) 07/29/20 23:05 Glucose 123 mg/dL (65-99) H 07/29/20 23:05 Calcium 8.4 mg/dL (8.5-10.1) L 07/29/20 23:05 Corrected Calcium 9.2 mg/dL (8.5-10.1) 07/29/20 23:05 Total Bilirubin 0.30 mg/dL (0.2-1.0) 07/29/20 23:05 AST 12 Units/L (15-37) L 07/29/20 23:05 ALT 15 Units/L (12-78) 07/29/20 23:05 Alkaline Phosphatase 58 Units/L (46-116) 07/29/20 23:05 Creatine Kinase 29 Units/L (39-308) L 07/29/20 23:05 CK-MB (CK-2) < 1.0 ng/mL (0-4.0) 07/29/20 23:05 CK/CKMB % Calc 3.5 % (<4) 07/29/20 23:05 Troponin I < 0.02 ng/mL (0-1.5) 07/29/20 23:05 Total Protein 6.6 g/dL (6.4-8.2) 07/29/20 23:05 Albumin 3.0 g/dL (3.4-5.0) L 07/29/20 23:05 Globulin 3.6 g/dL (2.5-4.5) 07/29/20 23:05 Albumin/Globulin Ratio 0.8 Ratio (1.1-2.1) L 07/29/20 23:05 SARS-CoV-2 (PCR) Negative (NEGATIVE) 07/30/20 04:52 Influenza Type A (PCR) Negative (NEGATIVE) 07/30/20 04:52 Influenza Type B (PCR) Negative (NEGATIVE) 07/30/20 04:52 RSV (PCR) Negative (NEGATIVE) 07/30/20 04:52 XRAY XRAY Interpreted by: Radiologist X-ray Results: ct chest: exam limited d/t to bolus timing and motion. There is no evidence of a pulm embolism from the level of the main pulmonary artery to the vessels located most proximal to the segmental arteries. Distal emboli beyond these points cannot be accurately assessed on this examination. Large bilateral pleural effusions are seen. Cardiomegaly is seen with pulmonary edema. Scattered areas of ground-glass opacities could represent superimposed infectious process. Opioid Opioid Risk Tool Age (Gamaliel box if 16-45): No History of Preadolescent Sexual Abuse: No Total: 0 Total Score Risk Category: Low Risk Copyright: [facility] predicting aberrant behaviors Diagnosis Discharge Problem: Acute respiratory alkalosis, Hypomagnesemia, Pleural effusion, Hypocalcemia, History of COVID-19, LAD (lymphadenopathy), mediastinal Bilateral pneumonia Qualifiers: Pneumonia type: due to unspecified organism Lung location: unspecified part of lung Qualified Code(s): J18.9 - Pneumonia, unspecified organism Anemia Qualifiers: Anemia type: unspecified type Qualified Code(s): D64.9 - Anemia, unspecified CHF exacerbation Qualifiers: Heart failure type: unspecified Qualified Code(s): I50.9 - Heart failure, unspecified Instructions Forms: Patient Portal Social Distancing
[2020-07-29 23:22] LABS: BASOPHILS # (AUTO) 0.2 X10^3/uL (0.0-0.1); BASOPHILS % (AUTO) 2.5 % (0.2-1.0); EOSINOPHILS # (AUTO) 0.4 x10^3/uL (0.0-0.2); HEMATOCRIT 24.8 % (42.0-54.0); HEMOGLOBIN 7.4 g/dL (13.5-18.0); LYMPHOCYTES # (AUTO) 1.3 X10^3/uL (1.3-2.9); LYMPHOCYTES % (AUTO) 18.6 % (21.0-51.0); MEAN CORPUSCULAR HEMOGLOBIN 20.9 pg (27.0-34.0); MEAN CORPUSCULAR HGB CONC 29.7 g/dL (33.0-35.0); MEAN CORPUSCULAR VOLUME 70.3 fL (80.0-100.0); MEAN PLATELET VOLUME 8.1 fL (7.4-11.0); MONOCYTES # (AUTO) 0.6 x10^3/uL (0.3-0.8); NEUTROPHILS # (AUTO) 4.4 x10^3/uL (2.2-4.8); NEUTROPHILS % (AUTO) 63.9 % (42.0-75.0); PLATELET COUNT 263 X10^3/uL (150.0-450.0); RED BLOOD COUNT 3.53 X10^6/uL (4.7-6.0); RED CELL DISTRIBUTION WIDTH 19.1 % (11.6-16.5); WHITE BLOOD COUNT 6.9 X10^3/uL (3.6-10.0)
[2020-07-29 23:32] LABS: BLOOD UREA NITROGEN 21 mg/dL (7-18); CALCIUM 8.4 mg/dL (8.5-10.1); CARBON DIOXIDE 30.7 mmol/L (21-32); CHLORIDE 101 mmol/L (98-107); COR NA(FOR HYPERGLY) 139 mmol/L (136-145); CREATININE 1.18 mg/dL (0.70-1.30); SODIUM 138 mmol/L (136-145); TROPONIN I < 0.02 ng/mL (0-1.5); eGFR NON BLACK RACES > 60 (>60)
[2020-07-29 23:36] LABS: ALANINE AMINOTRANSFERASE 15 Units/L (12-78); ALKALINE PHOSPHATASE 58 Units/L (46-116); ASPARTATE AMINO TRANSFERASE 12 Units/L (15-37); CKMB % 3.5 % (<4); COR CA(FOR HYPOALB) 9.2 mg/dL (8.5-10.1); CREATINE KINASE 29 Units/L (39-308); CREATINE KINASE MB < 1.0 ng/mL (0-4.0); TOTAL PROTEIN 6.6 g/dL (6.4-8.2)
[2020-07-29 23:43] LABS: HYPOCHROMASIA 2+; PLATELET MORPHOLOGY COMMENT NORMAL (NORMAL)
[2020-07-29 23:44] LABS: MICROCYTOSIS SLIGHT
[2020-07-30] MEDS ORDERED: APRESOLINE INJ 20 MG VIAL IVP ONE (03:02)
[2020-07-30] MEDS ORDERED: APRESOLINE INJ 20 MG VIAL ONE (03:10)
[2020-07-30 04:22] VITALS: BMI 35.9
[2020-07-30 04:24] LABS: ABG ALLEN TEST POS; ABG HCO3 34.3 mmol/L (22-26)
[2020-07-30] MEDS ORDERED: VIBRAMYCIN 100 MG in D5W 250 ML IV 250 ML IV STA (04:34)
[2020-07-30] MEDS ORDERED: LASIX IVP ONE ×2 (04:36→04:42)
[2020-07-30] MEDS ORDERED: D5W 250 ML IV 250 ML IV ONE (04:46)
[2020-07-30] MEDS ORDERED: VIBRAMYCIN IV ONE (04:46)
[2020-07-30] MEDS ORDERED: ULTRAM PO PRN (09:54)
[2020-07-30] MEDS ORDERED: DUONEB 0.5 MG/3 MG (3 mL) NEB SCH (10:00)
[2020-07-30] MEDS ORDERED: PLAVIX PO SCH (10:00)
[2020-07-30 10:15] LABS: BASOPHILS # (AUTO) 0.1 X10^3/uL (0.0-0.1); BASOPHILS % (AUTO) 0.9 % (0.2-1.0); EOSINOPHILS # (AUTO) 0.2 x10^3/uL (0.0-0.2); EOSINOPHILS % (AUTO) 3.4 % (0.9-2.9); HEMATOCRIT 25.7 % (42.0-54.0); HEMOGLOBIN 7.9 g/dL (13.5-18.0); LYMPHOCYTES # (AUTO) 0.8 X10^3/uL (1.3-2.9); LYMPHOCYTES % (AUTO) 12.6 % (21.0-51.0); MEAN CORPUSCULAR HEMOGLOBIN 21.2 pg (27.0-34.0); MEAN CORPUSCULAR HGB CONC 30.6 g/dL (33.0-35.0); MEAN CORPUSCULAR VOLUME 69.4 fL (80.0-100.0); MEAN PLATELET VOLUME 8.3 fL (7.4-11.0); MONOCYTES # (AUTO) 0.6 x10^3/uL (0.3-0.8); NEUTROPHILS # (AUTO) 4.6 x10^3/uL (2.2-4.8); NEUTROPHILS % (AUTO) 73.1 % (42.0-75.0); PLATELET COUNT 276 X10^3/uL (150.0-450.0); RED BLOOD COUNT 3.71 X10^6/uL (4.7-6.0); RED CELL DISTRIBUTION WIDTH 19.2 % (11.6-16.5); WHITE BLOOD COUNT 6.3 X10^3/uL (3.6-10.0)
[2020-07-30 10:18] LABS: BLOOD UREA NITROGEN 16 mg/dL (7-18); CALCIUM 8.7 mg/dL (8.5-10.1); CARBON DIOXIDE 33.7 mmol/L (21-32); CHLORIDE 97 mmol/L (98-107); COR NA(FOR HYPERGLY) 139 mmol/L (136-145); SODIUM 137 mmol/L (136-145); eGFR NON BLACK RACES > 60 (>60)
[2020-07-30] MEDS ORDERED: POTASSIUM CHLORIDE LIQ 20 MEQ UDC PO PRN (10:34)
[2020-07-30] MEDS ORDERED: K-RIDER 10 MEQ/NS 100 ML 10 MEQ/100 ML BAG IV PRN (10:34)
[2020-07-30] MEDS ORDERED: POTASSIUM CHL 40 MEQ/NS 0.45% 500 ML IV PRN (10:34)
[2020-07-30] MEDS ORDERED: POTASSIUM CHL 60 MEQ/NS 0.45% 500 ML IV PRN (10:34)
[2020-07-30] MEDS ORDERED: KLOR-CON PO PRN (10:34)
[2020-07-30] MEDS ORDERED: MICRO K EXTEN CAP 10 MEQ PO PRN (10:34)
[2020-07-30] MEDS: HEMOCYTE-PLUS PO SCH (10:44)
[2020-07-30] MEDS: TOPROL XL PO SCH ×2 (10:44→21:35)
[2020-07-30] MEDS: NEURONTIN TAB 600 MG PO SCH ×2 (10:45→21:39)
[2020-07-30] MEDS: CARDIZEM CD 180 MG 24-HR PO SCH (10:45)
[2020-07-30] MEDS ORDERED: PROTONIX TAB 40 MG PO ONE (10:47)
[2020-07-30] MEDS: PROTONIX TAB 40 MG PO SCH ×2 (10:47→21:45)
[2020-07-30 11:02] LABS: PLATELET MORPHOLOGY COMMENT NORMAL (NORMAL)
[2020-07-30 11:03] LABS: ANISOCYTOSIS SLIGHT; HYPOCHROMASIA 2+; MICROCYTOSIS 1+
[2020-07-30] MEDS ORDERED: ZOSYN VIAL 3.375 GRAMS IV ONE (13:03)
[2020-07-30] MEDS ORDERED: NS 100 ML IV + SPIKE MINIBAG* 100 ML IV ONE (13:03)
[2020-07-30] MEDS ORDERED: NS 250 ML IV 250 ML IV ONE (13:15)
[2020-07-30] MEDS: ZOSYN VIAL 3.375 GRAMS 3.375 G in NS 100 ML IV + SPIKE MINIBAG* 100 ML IV SCH ×3 (13:21→21:46)
--- NOTE | 2020-07-30 13:30 | DR.H&P ---
H&P History & Physical for Day of: H&P Date: 07/30/20 Chief Complaint Chief Complaint: shortness of breath, weakness Allergies Allergies Allergy/AdvReac Type Severity Reaction Status Date / Time ceftriaxone [From Rocephin] Allergy Verified 06/16/20 11:57 ciprofloxacin [From Cipro] Allergy Verified 06/16/20 11:57 morphine AdvReac Verified 06/16/20 11:57 History of Present Illness History of Present Illness: Mr. Rivera is a 85y/o male with a PMH of CVA, CHF, Atrial fibrillation, Type 2 DM, HTN, HLD, anemia and GERD presented with worsening dyspnea. Patient is very hard of hearing and is a poor historian. He has been in and out of the hospital in the past couple months due to COVID pneumonia and has been on home O2. Patient states he was having difficulty breathing so was brought to the ED. He also states leg swelling. He denies N/V/D or abdominal pain. He reports occasional cough. Denies fever or chills. ER work-up Labs: Hgb 7.9, K: 3.3 BUN/Cr: 16/1.10 Elevated BNP and D-dimer Flu, RSV and COVID-[address]-PE: negative for PE, large bilateral pleural effusions and patchy ground glass opacities Patient was given IV lasix and started on Doxycycline. Patient is currently on 3-4L O2 and is in no distress. Plan: will get an echo to eval LV function. Continue telemetry, strict I/Os. Continue IV lasix. Resume home medications. Add SSI. Continue doxycycline, add Zosyn. Add Duonebs. Wean O2 as tolerated. Monitor H/H. Monitor AM labs/imaging. PT/OT as tolerated. Past Medical History Past Medical History: Anxiety, CVA, Diabetes, Dyslipidemia, GERD and Hypertension Past Surgical History Surgical History: Appendectomy and Ortho Surgery Family History Family Medical History: Diabetes Mellitus, Cancer and Hypertension Social History Does patient currently use any type of tobacco product: No Have you used tobacco products in the last 12 months: No Type of Tobacco Use: None Does any household member use tobacco: No Alcohol Use: None Prescription drug monitoring program results: PDMP reviewed and no concerns identified Medications Home Medications: ceftriaxone [From Rocephin] Allergy (Verified 06/16/20 11:57) ciprofloxacin [From Cipro] Allergy (Verified 06/16/20 11:57) morphine Adverse Reaction (Verified 06/16/20 11:57) CONTINUE taking the following medications apixaban [Eliquis] 2.5 mg PO HS 07/30/20 [History] aspirin 325 mg PO DAILY 07/30/20 [History] cranberry conc-ascorbic acid 1 cap PO BID 07/30/20 [History] diltiazem HCl 180 mg PO DAILY 07/30/20 [History] docusate sodium 250 mg PO BID 07/30/20 [History] furosemide 20 mg PO BID 07/30/20 [History] hydrocodone-acetaminophen 1 tab PO Q6H PRN 07/30/20 [History] insulin detemir U-100 [Levemir FlexTouch U-100 Insuln] 10 unit SUBCUT BID 07/30/20 [History] ipratropium-albuterol 3 ml INHALATION TID 07/30/20 [History] iron fum,[id number],C no.9 [Integra Plus] 1 cap PO DAILY 07/30/20 [History] metformin 500 mg PO BID 07/30/20 [History] metoprolol succinate 50 mg PO BID 07/30/20 [History] pantoprazole 40 mg PO BID 07/30/20 [History] ropinirole 1 mg PO BID 07/30/20 [History] sertraline 25 mg PO DAILY 07/30/20 [History] sitagliptin-metformin [Janumet] 1 tab PO DAILY 07/30/20 [History] Labs Result Diagrams: 07/30/20 08:25 07/30/20 08:25 Labs: Laboratory WBC 6.3 X10^3/uL (3.6-10.0) 07/30/20 08:25 RBC 3.71 X10^6/uL (4.7-6.0) L 07/30/20 08:25 Hgb 7.9 g/dL (13.5-18.0) L 07/30/20 08:25 Hct 25.7 % (42.0-54.0) L 07/30/20 08:25 MCV 69.4 fL (80.0-100.0) L 07/30/20 08:25 MCH 21.2 pg (27.0-34.0) L 07/30/20 08:25 MCHC 30.6 g/dL (33.0-35.0) L 07/30/20 08:25 RDW 19.2 % (11.6-16.5) H 07/30/20 08:25 Plt Count 276 X10^3/uL (150.0-450.0) 07/30/20 08:25 Plt Count Comment Adequate (ADEQUATE) 07/30/20 08:25 MPV 8.3 fL (7.4-11.0) 07/30/20 08:25 Neut % (Auto) 73.1 % (42.0-75.0) 07/30/20 08:25 Lymph % (Auto) 12.6 % (21.0-51.0) L 07/30/20 08:25 [place] % (Auto) 10.0 % (0.0-13.0) 07/30/20 08:25 Eos % (Auto) 3.4 % (0.9-2.9) H 07/30/20 08:25 Baso % (Auto) 0.9 % (0.2-1.0) 07/30/20 08:25 Neut # (Auto) 4.6 x10^3/uL (2.2-4.8) 07/30/20 08:25 Lymph # (Auto) 0.8 X10^3/uL (1.3-2.9) L 07/30/20 08:25 [place] # (Auto) 0.6 x10^3/uL (0.3-0.8) 07/30/20 08:25 Eos # (Auto) 0.2 x10^3/uL (0.0-0.2) 07/30/20 08:25 Baso # (Auto) 0.1 X10^3/uL (0.0-0.1) 07/30/20 08:25 Absolute Nucleated RBC 0.1 /100WBC 07/30/20 08:25 Plt Morphology Comment Normal (NORMAL) 07/30/20 08:25 RBC Morphology Abnormal (NORMAL) 07/30/20 08:25 Hypochromasia 2+ A 07/30/20 08:25 Anisocytosis Slight A 07/30/20 08:25 Microcytosis 1+ A 07/30/20 08:25 D-Dimer 2.49 ug/ml (0.0-0.57) H* 07/29/20 23:05 Sample Site Lr 07/30/20 04:17 ABG pH 7.500 (7.35-7.45) H 07/30/20 04:17 ABG pCO2 44.0 mmHg (35.0-45.0) 07/30/20 04:17 ABG pO2 81.0 mmHg (80.0-100.0) 07/30/20 04:17 ABG HCO3 34.3 mmol/L (22-26) H* 07/30/20 04:17 ABG O2 Saturation 97.0 % (90-100) 07/30/20 04:17 ABG Base Excess 10.0 mmol/L (-2.0-2.0) H 07/30/20 04:17 Ted Test Pos 07/30/20 04:17 A-a Gradient 92.0 mmHg 07/30/20 04:17 FiO2 32 07/30/20 04:17 Blood Gas Comments Evelyn well ae 07/30/20 04:17 Sodium 137 mmol/L (136-145) 07/30/20 08:25 Corrected Sodium 139 mmol/L (136-145) 07/30/20 08:25 Potassium 3.3 mmol/L (3.5-5.1) L 07/30/20 08:25 Chloride 97 mmol/L (98-107) L 07/30/20 08:25 Carbon Dioxide 33.7 mmol/L (21-32) H 07/30/20 08:25 BUN 16 mg/dL (7-18) 07/30/20 08:25 Creatinine 1.10 mg/dL (0.70-1.30) 07/30/20 08:25 Est GFR (MDRD) Af Amer > 60 (>60) 07/30/20 08:25 Est GFR (MDRD) Non-Af > 60 (>60) 07/30/20 08:25 Glucose 167 mg/dL (65-99) H 07/30/20 08:25 POC Glucose (mg/dL) 195 mg/dL (65-99) H 07/30/20 11:27 Calcium 8.7 mg/dL (8.5-10.1) 07/30/20 08:25 Corrected Calcium 9.2 mg/dL (8.5-10.1) 07/29/20 23:05 Total Bilirubin 0.30 mg/dL (0.2-1.0) 07/29/20 23:05 AST 12 Units/L (15-37) L 07/29/20 23:05 ALT 15 Units/L (12-78) 07/29/20 23:05 Alkaline Phosphatase 58 Units/L (46-116) 07/29/20 23:05 Creatine Kinase 29 Units/L (39-308) L 07/29/20 23:05 CK-MB (CK-2) < 1.0 ng/mL (0-4.0) 07/29/20 23:05 CK/CKMB % Calc 3.5 % (<4) 07/29/20 23:05 Troponin I < 0.02 ng/mL (0-1.5) 07/29/20 23:05 B-Natriuretic Peptide 1030 pg/mL (0-79) H* 07/30/20 08:25 Total Protein 6.6 g/dL (6.4-8.2) 07/29/20 23:05 Albumin 3.0 g/dL (3.4-5.0) L 07/29/20 23:05 Globulin 3.6 g/dL (2.5-4.5) 07/29/20 23:05 Albumin/Globulin Ratio 0.8 Ratio (1.1-2.1) L 07/29/20 23:05 SARS-CoV-2 (PCR) Negative (NEGATIVE) 07/30/20 04:52 Influenza Type A (PCR) Negative (NEGATIVE) 07/30/20 04:52 Influenza Type B (PCR) Negative (NEGATIVE) 07/30/20 04:52 RSV (PCR) Negative (NEGATIVE) 07/30/20 04:52 Review of Systems Constitutional: Weakness and Malaise Eyes: No Symptoms Reported ENT: No Symptoms Reported Respiratory: Cough, Shortness of Breath and SOB with Excertion Cardiovascular: Edema Gastrointestinal: No Symptoms Reported Genitourinary: No Symptoms Reported Musculoskeletal: No Symptoms Reported Skin: No Symptoms Reported Neurological: No Symptoms Reported Physical Exam Vital Signs: Temperature 97.8 F Pulse Rate [Left Brachial] 87 Pulse Rate 89 Respiratory Rate 22 Blood Pressure [Left Arm] 150/68 Blood Pressure [Right Arm] 164/72 Blood Pressure 181/71 O2 Sat by Pulse Oximetry 100 Oriented: Normal Eyes: Normal Ear: Normal Nose: Normal Throat: Normal Respiratory: Rales Throughout Cardiovascular: Edema Auscultation: Bowel Sounds: Normal Palpation: Normal Tenderness: Normal Skin: Decreased Turgur Musculoskeletal: Normal Psychiatric: Normal Mood Description: Calm Affect: Normal Speech Pattern: Clear Assessment/Plan (1) CHF exacerbation: Qualifiers: Heart failure type: unspecified Qualified Code(s): I50.9 - Heart failure, unspecified Status: Acute (2) Pneumonia: Qualifiers: Laterality: bilateral Lung location: unspecified part of lung Pneumonia type: due to unspecified organism Qualified Code(s): J18.9 - Pneumonia, unspecified organism Status: Acute (3) Anemia: Qualifiers: Anemia type: unspecified type Qualified Code(s): D64.9 - Anemia, unspecified Status: Acute (4) Weakness: Status: Acute (5) Pleural effusion: Status: Acute (6) Diabetes: Qualifiers: Diabetes mellitus complication status: without complication Diabetes mellitus lobsterman insulin use: with lobsterman use Diabetes mellitus type: type 2 Qualified Code(s): E11.9 - Type 2 diabetes mellitus without complications; Z79.4 - skilled nursing (current) use of insulin Status: Chronic (7) GERD (gastroesophageal reflux disease): Qualifiers: Esophagitis presence: esophagitis presence not specified Qualified Code(s): K21.9 - Gastro-esophageal reflux disease without esophagitis Status: Chronic (8) History of CVA (cerebrovascular accident): Status: Chronic (9) HTN (hypertension): Qualifiers: Hypertension type: essential hypertension Qualified Code(s): I10 - Essential (primary) hypertension Status: Chronic Review H&P Reviewed: Yes Patient was examined?: Yes
[2020-07-30] MEDS: DUONEB 0.5 MG/3 MG (3 mL) NEB SCH ×2 (14:07→20:34)
[2020-07-30] MEDS: NS 250 ML IV 250 ML IV SCH (14:59)
[2020-07-30] MEDS: MAG-OX TAB PO SCH (16:15)
[2020-07-30] MEDS ORDERED: ZESTRIL TAB 20 MG ONE (20:48)
[2020-07-30] MEDS: VIBRAMYCIN 100 MG in D5W 250 ML IV 250 ML IV SCH (21:31)
[2020-07-30] MEDS: DESYREL PO SCH (21:35)
[2020-07-30] MEDS: ZOCOR TAB 20 MG PO SCH (21:37)
[2020-07-30] MEDS: ZOLOFT PO SCH (21:37)
[2020-07-30] MEDS: REQUIP PO SCH (21:38)
[2020-07-30] MEDS: ZESTRIL TAB 20 MG PO SCH (21:45)
[2020-07-30] MEDS: ELIQUIS PO SCH (21:46)
[2020-07-31] MEDS: SNACK - Diabetic Appropriate PO SCH ×2 (01:17→20:32)
[2020-07-31] MEDS: NS 250 ML IV 250 ML IV SCH ×2 (05:28→16:49)
[2020-07-31] MEDS: ZOSYN VIAL 3.375 GRAMS 3.375 G in NS 100 ML IV + SPIKE MINIBAG* 100 ML IV SCH ×3 (05:44→23:09)
[2020-07-31] MEDS: MAG-OX TAB PO SCH ×2 (06:02→17:13)
[2020-07-31 06:14] LABS: BASOPHILS # (AUTO) 0.1 X10^3/uL (0.0-0.1); BASOPHILS % (AUTO) 2.1 % (0.2-1.0); EOSINOPHILS # (AUTO) 0.4 x10^3/uL (0.0-0.2); EOSINOPHILS % (AUTO) 7.8 % (0.9-2.9); HEMATOCRIT 22.4 % (42.0-54.0); LYMPHOCYTES # (AUTO) 0.5 X10^3/uL (1.3-2.9); LYMPHOCYTES % (AUTO) 9.9 % (21.0-51.0); MEAN CORPUSCULAR HEMOGLOBIN 21.2 pg (27.0-34.0); MEAN CORPUSCULAR HGB CONC 30.6 g/dL (33.0-35.0); MEAN CORPUSCULAR VOLUME 69.1 fL (80.0-100.0); MEAN PLATELET VOLUME 8.4 fL (7.4-11.0); MONOCYTES # (AUTO) 0.4 x10^3/uL (0.3-0.8); MONOCYTES % (AUTO) 8.9 % (0.0-13.0); NEUTROPHILS # (AUTO) 3.5 x10^3/uL (2.2-4.8); NEUTROPHILS % (AUTO) 71.3 % (42.0-75.0); PLATELET COUNT 238 X10^3/uL (150.0-450.0); RED BLOOD COUNT 3.25 X10^6/uL (4.7-6.0); RED CELL DISTRIBUTION WIDTH 18.9 % (11.6-16.5); WHITE BLOOD COUNT 4.9 X10^3/uL (3.6-10.0)
[2020-07-31 06:24] LABS: ALANINE AMINOTRANSFERASE 12 Units/L (12-78); ALBUMIN 2.4 g/dL (3.4-5.0); ALKALINE PHOSPHATASE 51 Units/L (46-116); ASPARTATE AMINO TRANSFERASE 11 Units/L (15-37); BLOOD UREA NITROGEN 17 mg/dL (7-18); CALCIUM 8.4 mg/dL (8.5-10.1); CHLORIDE 101 mmol/L (98-107); COR CA(FOR HYPOALB) 9.7 mg/dL (8.5-10.1); COR NA(FOR HYPERGLY) 139 mmol/L (136-145); CREATININE 1.16 mg/dL (0.70-1.30); SODIUM 138 mmol/L (136-145); TOTAL PROTEIN 5.7 g/dL (6.4-8.2); eGFR NON BLACK RACES > 60 (>60)
[2020-07-31 06:30] LABS: HEMOGLOBIN 6.9 g/dL (13.5-18.0)
[2020-07-31 07:13] LABS: ANISOCYTOSIS SLIGHT; HYPOCHROMASIA 2+; MICROCYTOSIS 1+; PLATELET MORPHOLOGY COMMENT NORMAL (NORMAL)
[2020-07-31] MEDS ORDERED: ZESTRIL TAB 20 MG ONE ×2 (08:33→20:05)
[2020-07-31] MEDS: VIBRAMYCIN 100 MG in D5W 250 ML IV 250 ML IV SCH ×2 (08:44→20:22)
[2020-07-31] MEDS: LASIX IVP SCH (08:45)
[2020-07-31] MEDS: K-DUR TAB 20 MEQ PO PRN (08:45)
[2020-07-31] MEDS: REQUIP PO SCH ×2 (08:45→20:23)
[2020-07-31] MEDS: NEURONTIN TAB 600 MG PO SCH ×2 (08:45→20:23)
[2020-07-31] MEDS: TOPROL XL PO SCH ×2 (08:45→20:24)
[2020-07-31] MEDS: VITAMIN D3 25 mcg (1,000 UNITS) PO SCH (08:45)
[2020-07-31] MEDS: PROTONIX TAB 40 MG PO SCH ×2 (08:46→20:24)
[2020-07-31] MEDS: CARDIZEM CD 180 MG 24-HR PO SCH (08:46)
[2020-07-31] MEDS: ZESTRIL TAB 20 MG PO SCH ×2 (08:46→20:23)
[2020-07-31] MEDS: HEMOCYTE-PLUS PO SCH (08:56)
[2020-07-31] MEDS: ZOLOFT PO SCH (08:57)
[2020-07-31] MEDS: DUONEB 0.5 MG/3 MG (3 mL) NEB SCH ×4 (09:01→20:25)
--- NOTE | 2020-07-31 11:55 | PCM.PROG ---
Progress Note Progress Note for Day of Date of Exam: 07/31/20 Subjective Subjective: Patient seen at bedside, no acute events overnight. He states he feels better this AM. He was on 2L O2 yesterday but this morning, he took it off and sats dropped to the 70s. He is currently on 5L and sats have improved. He does not appear to be in any distress. He states he has been ambulating to the bathroom. Denies N/V/D or abdominal pain. Denies bleeding. Labs: Hgb 6.9 K:3.8 Glucose 144 BUN/Cr: 17/.16 ECHO: EF 61%, Grade 1 diastolic dysfunction, increased IVC pressure Plan: continue telemetry and strict I/Os, continue IV lasix 40 mg daily. Continue IV Zosyn and doxycycline. Will transfuse 2 units PRBCs and monitor H/H. Continue PT/OT as tolerated. Monitor AM labs and imaging. Wean O2 as tolerated, patient using 2-3L at home. Possible discharge tomorrow if back to baseline oxygen and stable H/H. Past Medical Family Social History Past Med/Fam/Surg Hx: No changes since H&P Allergies: Allergies ceftriaxone [From Rocephin] Allergy (Verified 06/16/20 11:57) ciprofloxacin [From Cipro] Allergy (Verified 06/16/20 11:57) morphine Adverse Reaction (Verified 06/16/20 11:57) Review of Systems ROS: No change since H&P Vital Signs and I&O's Vital Signs: Temperature 99.3 F Pulse Rate [Left Brachial] 86 Pulse Rate 86 Respiratory Rate 20 Blood Pressure [Left Arm] 145/65 Blood Pressure [Right Arm] 164/72 Blood Pressure 181/71 O2 Sat by Pulse Oximetry 91 Intake and Output: Intake & Output 07/28/20 07/29/20 07/30/20 07/31/20 23:59 23:59 23:59 23:59 Intake Total 450 / 450 Output Total 600 / 600 Balance -150 / -150 Physical Exam Oriented: Normal Eyes: Normal Ear: Normal Nose: Normal Throat: Normal Respiratory: Generalized and Rales Cardiovascular: Normal and Edema (improved ) Auscultation: Bowel Sounds: Normal Tenderness: Normal Skin: Decreased Turgur Musculoskeletal: Normal Psychiatric: Normal Mood Description: Calm Affect: Normal Speech Pattern: Clear and Appropriate Laboratory and Diagnostics Result Diagrams: 07/31/20 04:50 07/31/20 04:50 Labs: Laboratory WBC 4.9 X10^3/uL (3.6-10.0) 07/31/20 04:50 RBC 3.25 X10^6/uL (4.7-6.0) L 07/31/20 04:50 Hgb 6.9 g/dL (13.5-18.0) L* 07/31/20 04:50 Hct 22.4 % (42.0-54.0) L 07/31/20 04:50 MCV 69.1 fL (80.0-100.0) L 07/31/20 04:50 MCH 21.2 pg (27.0-34.0) L 07/31/20 04:50 MCHC 30.6 g/dL (33.0-35.0) L 07/31/20 04:50 RDW 18.9 % (11.6-16.5) H 07/31/20 04:50 Plt Count 238 X10^3/uL (150.0-450.0) 07/31/20 04:50 Plt Count Comment Adequate (ADEQUATE) 07/31/20 04:50 MPV 8.4 fL (7.4-11.0) 07/31/20 04:50 Neut % (Auto) 71.3 % (42.0-75.0) 07/31/20 04:50 Lymph % (Auto) 9.9 % (21.0-51.0) L 07/31/20 04:50 [place] % (Auto) 8.9 % (0.0-13.0) 07/31/20 04:50 Eos % (Auto) 7.8 % (0.9-2.9) H 07/31/20 04:50 Baso % (Auto) 2.1 % (0.2-1.0) H 07/31/20 04:50 Neut # (Auto) 3.5 x10^3/uL (2.2-4.8) 07/31/20 04:50 Lymph # (Auto) 0.5 X10^3/uL (1.3-2.9) L 07/31/20 04:50 [place] # (Auto) 0.4 x10^3/uL (0.3-0.8) 04/02/21 04:50 Eos # (Auto) 0.4 x10^3/uL (0.0-0.2) H 07/31/20 04:50 Baso # (Auto) 0.1 X10^3/uL (0.0-0.1) 07/31/20 04:50 Absolute Nucleated RBC 0.0 /100WBC 07/31/20 04:50 Plt Morphology Comment Normal (NORMAL) 07/31/20 04:50 RBC Morphology Abnormal (NORMAL) 07/31/20 04:50 Hypochromasia 2+ A 07/31/20 04:50 Anisocytosis Slight A 07/31/20 04:50 Microcytosis 1+ A 07/31/20 04:50 D-Dimer 2.49 ug/ml (0.0-0.57) H* 07/29/20 23:05 Sample Site Lr 07/30/20 04:17 ABG pH 7.500 (7.35-7.45) H 07/30/20 04:17 ABG pCO2 44.0 mmHg (35.0-45.0) 07/30/20 04:17 ABG pO2 81.0 mmHg (80.0-100.0) 07/30/20 04:17 ABG HCO3 34.3 mmol/L (22-26) H* 07/30/20 04:17 ABG O2 Saturation 97.0 % (90-100) 07/30/20 04:17 ABG Base Excess 10.0 mmol/L (-2.0-2.0) H 07/30/20 04:17 Ted Test Pos 07/30/20 04:17 A-a Gradient 92.0 mmHg 07/30/20 04:17 FiO2 32 07/30/20 04:17 Blood Gas Comments Evelyn well ae 07/30/20 04:17 Sodium 138 mmol/L (136-145) 07/31/20 04:50 Corrected Sodium 139 mmol/L (136-145) 07/31/20 04:50 Potassium 3.8 mmol/L (3.5-5.1) 07/31/20 04:50 Chloride 101 mmol/L (98-107) 07/31/20 04:50 Carbon Dioxide 34.0 mmol/L (21-32) H 07/31/20 04:50 BUN 17 mg/dL (7-18) 07/31/20 04:50 Creatinine 1.16 mg/dL (0.70-1.30) 07/31/20 04:50 Est GFR (MDRD) Af Amer > 60 (>60) 07/31/20 04:50 Est GFR (MDRD) Non-Af > 60 (>60) 07/31/20 04:50 Glucose 144 mg/dL (65-99) H 07/31/20 04:50 POC Glucose (mg/dL) 167 mg/dL (65-99) H 07/31/20 11:17 Calcium 8.4 mg/dL (8.5-10.1) L 07/31/20 04:50 Corrected Calcium 9.7 mg/dL (8.5-10.1) 07/31/20 04:50 Total Bilirubin 0.50 mg/dL (0.2-1.0) 07/31/20 04:50 AST 11 Units/L (15-37) L 07/31/20 04:50 ALT 12 Units/L (12-78) 07/31/20 04:50 Alkaline Phosphatase 51 Units/L (46-116) 07/31/20 04:50 Creatine Kinase 29 Units/L (39-308) L 07/29/20 23:05 CK-MB (CK-2) < 1.0 ng/mL (0-4.0) 07/29/20 23:05 CK/CKMB % Calc 3.5 % (<4) 07/29/20 23:05 Troponin I < 0.02 ng/mL (0-1.5) 07/29/20 23:05 B-Natriuretic Peptide 1030 pg/mL (0-79) H* 07/30/20 08:25 Total Protein 5.7 g/dL (6.4-8.2) L 07/31/20 04:50 Albumin 2.4 g/dL (3.4-5.0) L 07/31/20 04:50 Globulin 3.3 g/dL (2.5-4.5) 07/31/20 04:50 Albumin/Globulin Ratio 0.7 Ratio (1.1-2.1) L 07/31/20 04:50 SARS-CoV-2 (PCR) Negative (NEGATIVE) 07/30/20 04:52 Influenza Type A (PCR) Negative (NEGATIVE) 07/30/20 04:52 Influenza Type B (PCR) Negative (NEGATIVE) 07/30/20 04:52 RSV (PCR) Negative (NEGATIVE) 07/30/20 04:52 Blood Type A POSITIVE 07/31/20 08:08 Antibody Screen Negative 07/31/20 08:08 Crossmatch See Detail 07/31/20 08:08 Plan (1) CHF exacerbation: Status: Acute Qualifiers: Heart failure type: unspecified Qualified Code(s): I50.9 - Heart failure, unspecified (2) Pneumonia: Status: Acute Qualifiers: Laterality: bilateral Lung location: unspecified part of lung Pneumonia type: due to unspecified organism Qualified Code(s): J18.9 - Pneumonia, unspecified organism (3) Anemia: Status: Acute Qualifiers: Anemia type: unspecified type Qualified Code(s): D64.9 - Anemia, unspecified (4) Weakness: Status: Acute (5) Pleural effusion: Status: Acute (6) Diabetes: Status: Chronic Qualifiers: Diabetes mellitus complication status: without complication Diabetes mellitus fdc insulin use: with exterminator helper termite use Diabetes mellitus type: type 2 Qualified Code(s): E11.9 - Type 2 diabetes mellitus without complications; 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
[2020-07-31] MEDS ORDERED: NS 500 ML IV 500 ML IV ONE (13:00)
[2020-07-31] MEDS: HumuLIN R SUBCUT PRN (17:13)
[2020-07-31] MEDS: ELIQUIS PO SCH (20:23)
[2020-07-31] MEDS: DESYREL PO SCH (20:23)
[2020-07-31] MEDS: ZOCOR TAB 20 MG PO SCH (20:23)
[2020-07-31 22:50] LABS: HEMATOCRIT 29.4 % (42.0-54.0); HEMOGLOBIN 9.2 g/dL (13.5-18.0)
[2020-08-01] MEDS: ZOSYN VIAL 3.375 GRAMS 3.375 G in NS 100 ML IV + SPIKE MINIBAG* 100 ML IV SCH ×3 (05:15→23:00)
[2020-08-01] MEDS: NS 250 ML IV 250 ML IV SCH ×2 (05:15→19:59)
[2020-08-01] MEDS: HumuLIN R SUBCUT PRN ×2 (05:38→21:13)
--- NOTE | 2020-08-01 05:43 | RAD ---
HISTORYHypoxia CHF pneumoniaSTUDYAP chestCOMPARISONFebruary 2020FINDINGSSignificant cardiomegaly again noted. Vascular congestion and bilateral pulmonary infiltrates/edema. No pneumothorax, discrete mass or large pleural effusion is identified.IMPRESSIONCardiomegaly with CHF and pulmonary edema. The findings have improved slightly since June 19, 2020.Electronically signed by: AARON FARAH (Aug 01, 2020 05:40:57)
[2020-08-01] MEDS: MAG-OX TAB PO SCH ×2 (06:00→17:11)
[2020-08-01 06:15] LABS: BLOOD UREA NITROGEN 19 mg/dL (7-18); CALCIUM 8.4 mg/dL (8.5-10.1); CARBON DIOXIDE 29.8 mmol/L (21-32); CHLORIDE 101 mmol/L (98-107); COR NA(FOR HYPERGLY) 139 mmol/L (136-145); CREATININE 1.41 mg/dL (0.70-1.30); SODIUM 136 mmol/L (136-145); eGFR NON BLACK RACES 51 (>60)
[2020-08-01 06:19] LABS: BASOPHILS # (AUTO) 0.1 X10^3/uL (0.0-0.1); BASOPHILS % (AUTO) 1.2 % (0.2-1.0); EOSINOPHILS # (AUTO) 0.6 x10^3/uL (0.0-0.2); EOSINOPHILS % (AUTO) 9.4 % (0.9-2.9); HEMOGLOBIN 9.2 g/dL (13.5-18.0); LYMPHOCYTES # (AUTO) 0.7 X10^3/uL (1.3-2.9); LYMPHOCYTES % (AUTO) 11.2 % (21.0-51.0); MEAN CORPUSCULAR HEMOGLOBIN 23.1 pg (27.0-34.0); MEAN CORPUSCULAR HGB CONC 30.8 g/dL (33.0-35.0); MEAN CORPUSCULAR VOLUME 75.1 fL (80.0-100.0); MEAN PLATELET VOLUME 8.2 fL (7.4-11.0); MONOCYTES # (AUTO) 0.6 x10^3/uL (0.3-0.8); MONOCYTES % (AUTO) 10.3 % (0.0-13.0); NEUTROPHILS % (AUTO) 67.9 % (42.0-75.0); PLATELET COUNT 226 X10^3/uL (150.0-450.0); RED CELL DISTRIBUTION WIDTH 21.2 % (11.6-16.5); WHITE BLOOD COUNT 5.9 X10^3/uL (3.6-10.0)
[2020-08-01 06:34] LABS: ANISOCYTOSIS 1+; PLATELET MORPHOLOGY COMMENT NORMAL (NORMAL)
[2020-08-01] MEDS ORDERED: ZESTRIL TAB 20 MG ONE ×2 (09:12→20:09)
[2020-08-01] MEDS: DUONEB 0.5 MG/3 MG (3 mL) NEB SCH ×4 (09:30→20:30)
[2020-08-01] MEDS: PROTONIX TAB 40 MG PO SCH ×2 (09:34→20:57)
[2020-08-01] MEDS: REQUIP PO SCH ×2 (09:34→21:00)
[2020-08-01] MEDS: LASIX IVP SCH (09:34)
[2020-08-01] MEDS: NEURONTIN TAB 600 MG PO SCH ×2 (09:35→21:00)
[2020-08-01] MEDS: TOPROL XL PO SCH ×2 (09:35→21:01)
[2020-08-01] MEDS: ZOLOFT PO SCH (09:35)
[2020-08-01] MEDS: ZESTRIL TAB 20 MG PO SCH ×2 (09:35→21:01)
[2020-08-01] MEDS: CARDIZEM CD 180 MG 24-HR PO SCH (09:35)
[2020-08-01] MEDS: HEMOCYTE-PLUS PO SCH (09:35)
[2020-08-01] MEDS: K-DUR TAB 20 MEQ PO PRN (09:35)
[2020-08-01] MEDS: VITAMIN D3 25 mcg (1,000 UNITS) PO SCH (09:37)
[2020-08-01] MEDS: VIBRAMYCIN 100 MG in D5W 250 ML IV 250 ML IV SCH ×2 (09:40→21:19)
[2020-08-01] MEDS: MILK OF MAGNESIA PO SCH (14:49)
[2020-08-01] MEDS: SOLU-Medrol 125 MG VIAL IVP SCH ×2 (15:15→21:05)
[2020-08-01] MEDS ORDERED: LASIX IVP ONE (16:00)
[2020-08-01] MEDS: SNACK - Diabetic Appropriate PO SCH (20:00)
[2020-08-01] MEDS: DESYREL PO SCH (20:58)
[2020-08-01] MEDS: ELIQUIS PO SCH (20:59)
[2020-08-01] MEDS ORDERED: COLACE CAP 100 MG PO SCH (21:00)
[2020-08-01] MEDS: ZOCOR TAB 20 MG PO SCH (21:01)
--- NOTE | 2020-08-02 05:14 | RAD ---
PROCEDURE: Chest X-ray 1 View .HISTORY: Hypoxia, congestive heart failure, and pneumonia.TECHNIQUE: AP view .COMPARISON: 08/01/2020.TECHNICAL QUALITY: Satisfactory .FINDINGS:Heart size upper limits of normal and unchanged.Improved central vascularity.Continued mild edema both lung [place] with improvement. No definite pleural fluid or pneumothorax.IMPRESSION:Improving congestive failure.Electronically signed by: Narendra Nguyen (Aug 02, 2020 05:12:26)
[2020-08-02] MEDS: ZOSYN VIAL 3.375 GRAMS 3.375 G in NS 100 ML IV + SPIKE MINIBAG* 100 ML IV SCH (05:25)
[2020-08-02] MEDS: SOLU-Medrol 125 MG VIAL IVP SCH (05:26)
[2020-08-02] MEDS: HumuLIN R SUBCUT PRN ×2 (05:44→11:45)
[2020-08-02 05:58] LABS: BASOPHILS % (AUTO) 0.6 % (0.2-1.0); EOSINOPHILS % (AUTO) 0.1 % (0.9-2.9); HEMATOCRIT 33.9 % (42.0-54.0); HEMOGLOBIN 10.2 g/dL (13.5-18.0); LYMPHOCYTES # (AUTO) 0.5 X10^3/uL (1.3-2.9); LYMPHOCYTES % (AUTO) 11.5 % (21.0-51.0); MEAN CORPUSCULAR HEMOGLOBIN 22.5 pg (27.0-34.0); MEAN CORPUSCULAR HGB CONC 30.1 g/dL (33.0-35.0); MEAN CORPUSCULAR VOLUME 74.9 fL (80.0-100.0); MEAN PLATELET VOLUME 8.2 fL (7.4-11.0); MONOCYTES # (AUTO) 0.1 x10^3/uL (0.3-0.8); MONOCYTES % (AUTO) 1.8 % (0.0-13.0); NEUTROPHILS # (AUTO) 3.5 x10^3/uL (2.2-4.8); PLATELET COUNT 256 X10^3/uL (150.0-450.0); RED BLOOD COUNT 4.53 X10^6/uL (4.7-6.0); RED CELL DISTRIBUTION WIDTH 21.6 % (11.6-16.5); WHITE BLOOD COUNT 4.1 X10^3/uL (3.6-10.0)
[2020-08-02 06:01] LABS: CALCIUM 9.1 mg/dL (8.5-10.1); CARBON DIOXIDE 33.2 mmol/L (21-32); CREATININE 1.79 mg/dL (0.70-1.30)
[2020-08-02 06:24] LABS: HYPOCHROMASIA 1+; PLATELET MORPHOLOGY COMMENT NORMAL (NORMAL)
[2020-08-02 06:25] LABS: ANISOCYTOSIS 1+; MICROCYTOSIS SLIGHT
[2020-08-02] MEDS: DUONEB 0.5 MG/3 MG (3 mL) NEB SCH (08:16)
[2020-08-02] MEDS ORDERED: ZESTRIL TAB 20 MG ONE (08:19)
[2020-08-02] MEDS: ZESTRIL TAB 20 MG PO SCH (08:57)
[2020-08-02] MEDS: VITAMIN D3 25 mcg (1,000 UNITS) PO SCH (08:57)
[2020-08-02] MEDS: LASIX IVP SCH (08:57)
[2020-08-02] MEDS: PROTONIX TAB 40 MG PO SCH (08:57)
[2020-08-02] MEDS: ZOLOFT PO SCH (08:57)
[2020-08-02] MEDS: REQUIP PO SCH (09:00)
[2020-08-02] MEDS: NEURONTIN TAB 600 MG PO SCH (09:00)
[2020-08-02] MEDS: CARDIZEM CD 180 MG 24-HR PO SCH (09:01)
[2020-08-02] MEDS: TOPROL XL PO SCH (09:01)
[2020-08-02] MEDS: HEMOCYTE-PLUS PO SCH (09:01)
[2020-08-02] MEDS: MAG-OX TAB PO SCH (09:01)
[2020-08-02] MEDS: MILK OF MAGNESIA PO SCH (09:02)
[2020-08-02] MEDS: VIBRAMYCIN 100 MG in D5W 250 ML IV 250 ML IV SCH (09:03)
[2020-08-02 12:04] VITALS: BP 140/65
== END 2020-08-02 14:15 | disposition home health service (06) | DRG 291 ==
LOC: ER 22:38 → OBS 07-30 07:53 → MED/SURG 07-30 13:28
PROVIDERS: ADMIT Internal Medicine; ATTEND Internal Medicine
DX: D64.9 Anemia, unspecified; J18.8 Other pneumonia, unspecified organism; K21.9 Gastro-esophageal reflux disease without esophagitis; J90 Pleural effusion, not elsewhere classified; R94.31 Abnormal electrocardiogram [ECG] [EKG]; Z86.16 Personal history of COVID-19; R53.1 Weakness; R06.02 Shortness of breath; Z86.73 Personal history of transient ischemic attack (TIA), and cerebral infarction without residual deficits; E11.65 Type 2 diabetes mellitus with hyperglycemia; I50.9 Heart failure, unspecified; Z79.4 Long term (current) use of insulin; Z20.822 Contact with and (suspected) exposure to COVID-19; I48.91 Unspecified atrial fibrillation; I11.0 Hypertensive heart disease with heart failure

== ENCOUNTER 2020-09-29 15:18 | Observation (INO) ==
--- NOTE | 2020-09-29 15:49 | DR.AMS ---
HPI Time Seen Time Seen by Provider: 09/29/20 15:29 HPI Comment HPI Comment: Patient presents with the complaint of AMS. Patient in no apparent distress, but doesn't open his eyes to command or otherwise respond. PMH PMH Past Medical History: Anxiety, CVA, Diabetes, Dyslipidemia, GERD and Hypertension Past Surgical History: Yes Surgical History: Appendectomy and Ortho Surgery Family History Family Medical History: Diabetes Mellitus, Cancer and Hypertension Social History Do you use any recreational Drugs:: No ROS Review of Systems Unable to Obtain Due To: Altered mental status PE Vitals Vital Signs: Temp Pulse Resp BP BP Pulse Ox 09/29/20 15:19 97.4 F L 53 L 12 152/65 100 09/28/20 16:49 122/60 General Limitations: Altered Mental Status General Appearance: In No Apparent Distress and Lethargic Head Head Exam: Normal Inspection, Atraumatic and Normocephalic Neck Neck Exam: Normal Inspection and Trachea Midline Chest Chest Inspection: Normal Inspection and Symmetric Chest Wall Rise Respiratory Respiratory Exam: Normal Lung Sounds Bilat Respiratory Exam: Bilateral: Clear to Auscultation Cardiovascular Cardiovascular Exam: Regular Rate, Normal Rhythm and Normal Heart Sounds Abdominal Exam Abdominal Exam: Normal Inspection, Normal Bowel Sounds and Soft Skin Skin Exam: Warm, Dry and Intact COURSE Reevaluation 1st: Improved (Patient improved with BiPap. ABG is improved and patient now awake and alert. ) Consultation Called: 18:22 Consultation Comments: Spoke with Dr. Aquino who accepts patient for admission. ROR Labs Reviewed Result Diagrams: 09/29/20 16:00 09/29/20 16:00 Laboratory: WBC 6.4 X10^3/uL (3.6-10.0) 09/29/20 16:00 RBC 3.43 X10^6/uL (4.7-6.0) L 09/29/20 16:00 Hgb 8.1 g/dL (13.5-18.0) L 09/29/20 16:00 Hct 25.2 % (42.0-54.0) L 09/29/20 16:00 MCV 73.4 fL (80.0-100.0) L 09/29/20 16:00 MCH 23.7 pg (27.0-34.0) L 09/29/20 16:00 MCHC 32.3 g/dL (33.0-35.0) L 09/29/20 16:00 RDW 20.3 % (11.6-16.5) H 09/29/20 16:00 Plt Count 147 X10^3/uL (150.0-450.0) L 09/29/20 16:00 Plt Count Comment Decreased (ADEQUATE) 09/29/20 16:00 MPV 9.4 fL (7.4-11.0) 09/29/20 16:00 Neut % (Auto) 78.3 % (42.0-75.0) H 09/29/20 16:00 Lymph % (Auto) 12.8 % (21.0-51.0) L 09/29/20 16:00 [place] % (Auto) 6.0 % (0.0-13.0) 09/29/20 16:00 Eos % (Auto) 2.1 % (0.9-2.9) 09/29/20 16:00 Baso % (Auto) 0.8 % (0.2-1.0) 09/29/20 16:00 Neut # (Auto) 5.0 x10^3/uL (2.2-4.8) H 09/29/20 16:00 Lymph # (Auto) 0.8 X10^3/uL (1.3-2.9) L 09/29/20 16:00 [place] # (Auto) 0.4 x10^3/uL (0.3-0.8) 09/29/20 16:00 Eos # (Auto) 0.1 x10^3/uL (0.0-0.2) 09/29/20 16:00 Baso # (Auto) 0.1 X10^3/uL (0.0-0.1) 09/29/20 16:00 Absolute Nucleated RBC 0.1 /100WBC 09/29/20 16:00 Plt Morphology Comment Normal (NORMAL) 09/29/20 16:00 RBC Morphology Abnormal (NORMAL) 09/29/20 16:00 Hypochromasia 1+ A 09/29/20 16:00 Poikilocytosis 1+ A 09/29/20 16:00 Anisocytosis 1+ A 09/29/20 16:00 Sample Site Lr 09/29/20 17:00 ABG pH 7.420 (7.35-7.45) 09/29/20 17:00 ABG pCO2 49.0 mmHg (35.0-45.0) H 09/29/20 17:00 ABG pO2 139.0 mmHg (80.0-100.0) H 09/29/20 17:00 ABG HCO3 31.8 mmol/L (22-26) H* 09/29/20 17:00 ABG O2 Saturation 99.0 % (90-100) 09/29/20 17:00 ABG Base Excess 6.2 mmol/L (-2.0-2.0) H 09/29/20 17:00 Ted Test Pos 09/29/20 17:00 A-a Gradient -1.0 mmHg 09/29/20 17:00 FiO2 28.0 09/29/20 17:00 Blood Gas Comments Evelyn well, 09/29/20 17:00 Sodium 140 mmol/L (136-145) 09/29/20 16:00 Corrected Sodium 140 mmol/L (136-145) 09/29/20 16:00 Potassium 5.2 mmol/L (3.5-5.1) H 09/29/20 16:00 Chloride 104 mmol/L (98-107) 09/29/20 16:00 Carbon Dioxide 30.8 mmol/L (21-32) 09/29/20 16:00 BUN 61 mg/dL (7-18) H 09/29/20 16:00 Creatinine 2.37 mg/dL (0.70-1.30) H 09/29/20 16:00 Est GFR (MDRD) Af Amer 34 (>60) L 09/29/20 16:00 Est GFR (MDRD) Non-Af 28 (>60) L 09/29/20 16:00 Glucose 120 mg/dL (65-99) H 09/29/20 16:00 Calcium 8.4 mg/dL (8.5-10.1) L 09/29/20 16:00 Corrected Calcium 9.0 mg/dL (8.5-10.1) 09/29/20 16:00 Total Bilirubin 0.10 mg/dL (0.2-1.0) L 09/29/20 16:00 AST 19 Units/L (15-37) 09/29/20 16:00 ALT 19 Units/L (12-78) 09/29/20 16:00 Alkaline Phosphatase 70 Units/L (46-116) 09/29/20 16:00 Creatine Kinase 90 Units/L (39-308) 09/29/20 16:00 CK-MB (CK-2) 1.7 ng/mL (0-4.0) 09/29/20 16:00 CK/CKMB % Calc 1.9 % (<4) 09/29/20 16:00 Troponin I < 0.02 ng/mL (0-1.5) 09/29/20 16:00 Total Protein 6.3 g/dL (6.4-8.2) L 09/29/20 16:00 Albumin 3.3 g/dL (3.4-5.0) L 09/29/20 16:00 Globulin 3.0 g/dL (2.5-4.5) 09/29/20 16:00 Albumin/Globulin Ratio 1.1 Ratio (1.1-2.1) 09/29/20 16:00 Specimen Type Clean catch urine 09/29/20 16:42 Urine Color Yellow (YELLOW) 09/29/20 16:42 Urine Appearance Clear (CLEAR) 09/29/20 16:42 Urine pH 6.0 (5.0 - 8.0) 09/29/20 16:42 Ur Specific [place] 1.015 (1.000-1.030) 09/29/20 16:42 Urine Protein Negative (NEGATIVE) 09/29/20 16:42 Urine Glucose (UA) 1+ (NEGATIVE) 09/29/20 16:42 Urine Ketones Negative (NEGATIVE) 09/29/20 16:42 Urine Occult Blood Negative (NEGATIVE) 09/29/20 16:42 Urine Nitrite Negative (NEGATIVE) 09/29/20 16:42 Urine Bilirubin Negative (NEGATIVE) 09/29/20 16:42 Urine Urobilinogen Normal (NORMAL) 09/29/20 16:42 Ur Leukocyte Esterase Negative (NEGATIVE) 09/29/20 16:42 XRAY X-ray Results: HISTORY AMS STUDY CHEST, 1 VIEW COMPARISON Chest film August 02, 2020 FINDINGS The trachea is midline the film is slightly rotated to the right. The cardiac silhouette is mildly enlarged.. The lungs are clear without focal infiltrate or effusion. The perihilar interstitial infiltrates that were present in July of 2020 have resolved without residual. The bony thorax is unremarkable. IMPRESSION Mild cardiomegaly but no acute cardiopulmonary disease. Electronically signed by: DAILY MUSTAFA (Sep 29, 2020 16:08:45) Opioid Opioid Risk Tool Age (Gamaliel box if 16-45): No History of Preadolescent Sexual Abuse: No Total: 0 Total Score Risk Category: Low Risk Copyright: Richi MCLEAN predicting aberrant behaviors Diagnosis Discharge Problem: Hypercarbia Altered mental status Qualifiers: Altered mental status type: unspecified Qualified Code(s): R41.82 - Altered mental status, unspecified Acute renal failure Qualifiers: Acute renal failure type: unspecified Qualified Code(s): N17.9 - Acute kidney failure, unspecified
[2020-09-29 15:50] LABS: ABG BASE EXCESS 6.1 mmol/L (-2.0-2.0)
[2020-09-29 15:51] LABS: ABG HCO3 32.2 mmol/L (22-26)
--- NOTE | 2020-09-29 16:10 | RAD ---
HISTORYAMSSTUDYCHEST, 1 VIEWCOMPARISONChest film August 02, 2020FINDINGSThe trachea is midline the film is slightly rotated to the right. The cardiac silhouette is mildly enlarged.. The lungs are clear without focal infiltrate or effusion. The perihilar interstitial infiltrates that were present in July of 2020 have resolved without residual. The bony thorax is unremarkable.IMPRESSIONMild cardiomegaly but no acute cardiopulmonary disease.Electronically signed by: DAILY MUSTAFA (Sep 29, 2020 16:08:45)
[2020-09-29 16:19] LABS: BASOPHILS # (AUTO) 0.1 X10^3/uL (0.0-0.1); BASOPHILS % (AUTO) 0.8 % (0.2-1.0); EOSINOPHILS # (AUTO) 0.1 x10^3/uL (0.0-0.2); EOSINOPHILS % (AUTO) 2.1 % (0.9-2.9); HEMATOCRIT 25.2 % (42.0-54.0); HEMOGLOBIN 8.1 g/dL (13.5-18.0); LYMPHOCYTES # (AUTO) 0.8 X10^3/uL (1.3-2.9); LYMPHOCYTES % (AUTO) 12.8 % (21.0-51.0); MEAN CORPUSCULAR HEMOGLOBIN 23.7 pg (27.0-34.0); MEAN CORPUSCULAR HGB CONC 32.3 g/dL (33.0-35.0); MEAN CORPUSCULAR VOLUME 73.4 fL (80.0-100.0); MEAN PLATELET VOLUME 9.4 fL (7.4-11.0); MONOCYTES # (AUTO) 0.4 x10^3/uL (0.3-0.8); NEUTROPHILS % (AUTO) 78.3 % (42.0-75.0); PLATELET COUNT 147 X10^3/uL (150.0-450.0); RED BLOOD COUNT 3.43 X10^6/uL (4.7-6.0); RED CELL DISTRIBUTION WIDTH 20.3 % (11.6-16.5); WHITE BLOOD COUNT 6.4 X10^3/uL (3.6-10.0)
[2020-09-29 16:34] LABS: HYPOCHROMASIA 1+; PLATELET MORPHOLOGY COMMENT NORMAL (NORMAL); POIKILOCYTOSIS 1+
[2020-09-29 16:35] LABS: ANISOCYTOSIS 1+
[2020-09-29 16:44] LABS: ALANINE AMINOTRANSFERASE 19 Units/L (12-78); ALBUMIN 3.3 g/dL (3.4-5.0); ALKALINE PHOSPHATASE 70 Units/L (46-116); ASPARTATE AMINO TRANSFERASE 19 Units/L (15-37); BLOOD UREA NITROGEN 61 mg/dL (7-18); CALCIUM 8.4 mg/dL (8.5-10.1); CARBON DIOXIDE 30.8 mmol/L (21-32); CHLORIDE 104 mmol/L (98-107); CKMB % 1.9 % (<4); COR NA(FOR HYPERGLY) 140 mmol/L (136-145); CREATINE KINASE 90 Units/L (39-308); CREATINE KINASE MB 1.7 ng/mL (0-4.0); CREATININE 2.37 mg/dL (0.70-1.30); SODIUM 140 mmol/L (136-145); TOTAL PROTEIN 6.3 g/dL (6.4-8.2); TROPONIN I < 0.02 ng/mL (0-1.5); eGFR NON BLACK RACES 28 (>60)
[2020-09-29 17:03] LABS: ABG BASE EXCESS 6.2 mmol/L (-2.0-2.0)
[2020-09-29 17:04] LABS: ABG ALLEN TEST POS; ABG HCO3 31.8 mmol/L (22-26)
[2020-09-29 17:07] LABS: BILIRUBIN,URINE NEGATIVE (NEGATIVE); BLOOD/HEMOGLOBIN,URINE NEGATIVE (NEGATIVE); GLUCOSE, URINE 1+ (NEGATIVE); KETONES,URINE NEGATIVE (NEGATIVE); LEUKOCYTE ESTERASE ,URINE NEGATIVE (NEGATIVE); NITRITES,URINE NEGATIVE (NEGATIVE); PROTEIN,URINE NEGATIVE (NEGATIVE); UROBILINOGEN,URINE NORMAL (NORMAL)
[2020-09-29 17:09] LABS: APPEARANCE,URINE CLEAR (CLEAR); COLOR,URINE YELLOW (YELLOW)
[2020-09-29] MEDS ORDERED: DUONEB 0.5 MG/3 MG (3 mL) NEB ONE (20:02)
[2020-09-29] MEDS: DUONEB 0.5 MG/3 MG (3 mL) NEB SCH (20:15)
[2020-09-29] MEDS ORDERED: ELIQUIS PO SCH (21:00)
[2020-09-29] MEDS ORDERED: LASIX PO SCH (21:00)
[2020-09-29] MEDS ORDERED: PATIENT'S HOME MEDICATION (Insulin Detemir U-100 [Levemir Flextouch U-100 Insuln] 100 unit SUBCUT SCH (21:00)
[2020-09-29] MEDS ORDERED: KAYEXALATE SUSP PO NR (21:00)
[2020-09-29] MEDS: NS 1000 ML 1,000 ML IV SCH (21:11)
[2020-09-29 21:46] VITALS: BMI 24.1
[2020-09-29] MEDS ORDERED: DUONEB 0.5 MG/3 MG (3 mL) NEB SCH (22:00)
[2020-09-29 22:11] LABS: CKMB % 1.1 % (<4); CREATINE KINASE 106 Units/L (39-308); CREATINE KINASE MB 1.2 ng/mL (0-4.0); TROPONIN I < 0.02 ng/mL (0-1.5)
[2020-09-30 04:05] LABS: BASOPHILS % (AUTO) 0.9 % (0.2-1.0); EOSINOPHILS # (AUTO) 0.1 x10^3/uL (0.0-0.2); EOSINOPHILS % (AUTO) 2.1 % (0.9-2.9); HEMATOCRIT 25.4 % (42.0-54.0); HEMOGLOBIN 8.2 g/dL (13.5-18.0); LYMPHOCYTES # (AUTO) 0.9 X10^3/uL (1.3-2.9); LYMPHOCYTES % (AUTO) 18.9 % (21.0-51.0); MEAN CORPUSCULAR HEMOGLOBIN 23.5 pg (27.0-34.0); MEAN CORPUSCULAR VOLUME 73.4 fL (80.0-100.0); MEAN PLATELET VOLUME 9.3 fL (7.4-11.0); MONOCYTES # (AUTO) 0.4 x10^3/uL (0.3-0.8); MONOCYTES % (AUTO) 7.8 % (0.0-13.0); NEUTROPHILS # (AUTO) 3.5 x10^3/uL (2.2-4.8); NEUTROPHILS % (AUTO) 70.3 % (42.0-75.0); PLATELET COUNT 147 X10^3/uL (150.0-450.0); RED BLOOD COUNT 3.46 X10^6/uL (4.7-6.0); RED CELL DISTRIBUTION WIDTH 20.1 % (11.6-16.5)
[2020-09-30 04:25] LABS: ALANINE AMINOTRANSFERASE 16 Units/L (12-78); ALBUMIN 3.3 g/dL (3.4-5.0); ALKALINE PHOSPHATASE 72 Units/L (46-116); ASPARTATE AMINO TRANSFERASE 15 Units/L (15-37); BLOOD UREA NITROGEN 48 mg/dL (7-18); CALCIUM 8.5 mg/dL (8.5-10.1); CARBON DIOXIDE 31.7 mmol/L (21-32); CHLORIDE 105 mmol/L (98-107); CKMB % 1.6 % (<4); COR CA(FOR HYPOALB) 9.1 mg/dL (8.5-10.1); COR NA(FOR HYPERGLY) 143 mmol/L (136-145); CREATINE KINASE 67 Units/L (39-308); CREATINE KINASE MB 1.1 ng/mL (0-4.0); CREATININE 1.88 mg/dL (0.70-1.30); SODIUM 142 mmol/L (136-145); TOTAL PROTEIN 6.4 g/dL (6.4-8.2); TROPONIN I < 0.02 ng/mL (0-1.5); eGFR NON BLACK RACES 37 (>60)
[2020-09-30 04:32] LABS: ANISOCYTOSIS 1+; HYPOCHROMASIA 1+; PLATELET MORPHOLOGY COMMENT NORMAL (NORMAL)
[2020-09-30 04:33] LABS: MICROCYTOSIS 1+
[2020-09-30] MEDS: DUONEB 0.5 MG/3 MG (3 mL) NEB SCH ×3 (05:40→21:00)
[2020-09-30] MEDS ORDERED: CARDIZEM CD 180 MG 24-HR PO SCH (09:00)
[2020-09-30] MEDS: LEVEMIR SC SCH ×2 (09:38→21:15)
[2020-09-30] MEDS: NS 1000 ML 1,000 ML IV SCH ×3 (09:38→23:05)
[2020-09-30] MEDS ORDERED: NS 1000 ML 1,000 ML ONE (09:46)
[2020-09-30 10:09] LABS: IRON 38 ug/dL (50-175)
[2020-09-30] MEDS: HumuLIN R SC PRN ×2 (11:32→21:12)
[2020-09-30] MEDS: PROzac PO SCH (11:32)
[2020-09-30] MEDS: CARDIZEM CD 180 MG 24-HR PO SCH (12:42)
--- NOTE | 2020-09-30 14:16 | DR.H&P ---
H&P History & Physical for Day of: H&P Date: 09/30/20 Chief Complaint Chief Complaint: lethargic Allergies Allergies Allergy/AdvReac Type Severity Reaction Status Date / Time ceftriaxone [From Rocephin] Allergy Verified 06/16/20 11:57 ciprofloxacin [From Cipro] Allergy Verified 06/16/20 11:57 morphine AdvReac Verified 06/16/20 11:57 History of Present Illness History of Present Illness: Mr. Rivera is a 85y/o male with a PMH of multiple chronic co-morbidities including anemia, CVA, CKD, PETERSON, depression, CHF , DVT, Type 2 DM and COPD presented due to being very drowsy and lethargic. Patient was found in a similar state Monday night and brought to the ER. He was found to be dehydrated and was discharged after fluid bolus. Patient was noted to be drowsy and lethargic yesterday evening. He would open his eyes and then go back to sleep, responded to painful stimuli Patient was brought to the ED for evaluation. His ABG showed hypoxia and hypercapnia. He was placed on BIPAP. Patient does use home oxygen 3L continuously. Denies being sick recently with fever or cough. Reports eating and drinking well. Patient does see Dr. Gaines, denies hx of CAD or atrial fibrillation. ED work-up - Labs: Hgb 8.2 Plt 147 K:5.2 (now 4.3), BUN/Cr: 61/2.37 (now 48/1.88) Trop x 3 (-) - UA negative - CXR: no acute process, cardiomegaly - CT-head: Chronic ischemic disease as described above, but no discernible acute infarction seen. - AB.40/52/120/32 repeat 7.42/49/139/31 Patient was started on gentle hydration with NS. After being placed on the Bipap for a short time, patient was alert and oriented. Patient was awake this morning and answering questions appropriately. He is not sure about the medicines he takes and denies taking anything different yesterday. He states his family puts his meds together for 2 weeks in a tray and he has been taking it like he normally does. Plan: continue gentle hydration with NS. Reconcile home medications, re-start home medicines. Hold lasix while on IVF. Monitor AM labs and imaging. Monitor UOP. Check anemia panel, FOBT. PT/OT consult as tolerated. Patient's current treatment plan was discussed with patient and his family member. Patient is or has been on several sedating medicines in the past. Unclear if patient took any extra medicines in the past 2 days. Family not able to provide good history. Past Medical History Past Medical History: Anxiety, CVA, Diabetes, Dyslipidemia, GERD and Hypertension Past Surgical History Surgical History: Appendectomy and Ortho Surgery Family History Family Medical History: Diabetes Mellitus, Cancer and Hypertension Social History Does patient currently use any type of tobacco product: No Have you used tobacco products in the last 12 months: No Type of Tobacco Use: None Does any household member use tobacco: No Alcohol Use: None Drug Use: None Prescription drug monitoring program results: PDMP reviewed and no concerns identified Medications Home Medications: ceftriaxone [From Rocephin] Allergy (Verified 06/16/20 11:57) ciprofloxacin [From Cipro] Allergy (Verified 06/16/20 11:57) morphine Adverse Reaction (Verified 06/16/20 11:57) CONTINUE taking the following medications apixaban [Eliquis] 2.5 mg PO DAILY 09/30/20 [History] diltiazem HCl 180 mg PO DAILY 09/30/20 [History] docusate sodium [Stool Softener] 250 mg PO BID 09/30/20 [History] ferrous gluconate [Chelated Iron] 400 mg PO BID 09/30/20 [History] fluoxetine 10 mg PO DAILY 09/30/20 [History] furosemide 40 mg PO HS 09/30/20 [History] gabapentin [Neurontin] 600 mg PO BID 09/30/20 [History] hydrocodone-acetaminophen [[place]] 10 tab PO QID 09/30/20 [History] insulin detemir U-100 [Levemir U-100 Insulin] 10 unit SUBCUT BID 09/30/20 [History] iron fum,hj-wkkse-Wenaq,C no.9 [Integra Plus] 125 cap PO DAILY 09/30/20 [History] metformin 500 mg PO BID 09/30/20 [History] metoprolol succinate 50 mg PO BID 09/30/20 [History] pantoprazole 40 mg PO BID 09/30/20 [History] quetiapine 100 mg PO HS 09/30/20 [History] ropinirole 1 mg PO BID 09/30/20 [History] sertraline 25 mg PO HS 09/30/20 [History] simvastatin [Zocor] 20 mg PO HS 09/30/20 [History] sitagliptin-metformin [Janumet] 1 tab PO DAILY 09/30/20 [History] spironolactone 50 mg PO BID 09/30/20 [History] tramadol [Ultram] 50 mg PO PRN PRN 09/30/20 [History] trazodone 100 mg PO HS 09/30/20 [History] Labs Result Diagrams: 09/30/20 03:40 09/30/20 03:40 Labs: Laboratory WBC 5.0 X10^3/uL (3.6-10.0) 09/30/20 03:40 RBC 3.46 X10^6/uL (4.7-6.0) L 09/30/20 03:40 Hgb 8.2 g/dL (13.5-18.0) L 09/30/20 03:40 Hct 25.4 % (42.0-54.0) L 09/30/20 03:40 MCV 73.4 fL (80.0-100.0) L 09/30/20 03:40 MCH 23.5 pg (27.0-34.0) L 09/30/20 03:40 MCHC 32.0 g/dL (33.0-35.0) L 09/30/20 03:40 RDW 20.1 % (11.6-16.5) H 09/30/20 03:40 Plt Count 147 X10^3/uL (150.0-450.0) L 09/30/20 03:40 Plt Count Comment Decreased (ADEQUATE) 09/30/20 03:40 MPV 9.3 fL (7.4-11.0) 09/30/20 03:40 Neut % (Auto) 70.3 % (42.0-75.0) 09/30/20 03:40 Lymph % (Auto) 18.9 % (21.0-51.0) L 09/30/20 03:40 [place] % (Auto) 7.8 % (0.0-13.0) 09/30/20 03:40 Eos % (Auto) 2.1 % (0.9-2.9) 09/30/20 03:40 Baso % (Auto) 0.9 % (0.2-1.0) 09/30/20 03:40 Neut # (Auto) 3.5 x10^3/uL (2.2-4.8) 09/30/20 03:40 Lymph # (Auto) 0.9 X10^3/uL (1.3-2.9) L 09/30/20 03:40 [place] # (Auto) 0.4 x10^3/uL (0.3-0.8) 09/30/20 03:40 Eos # (Auto) 0.1 x10^3/uL (0.0-0.2) 09/30/20 03:40 Baso # (Auto) 0.0 X10^3/uL (0.0-0.1) 09/30/20 03:40 Absolute Nucleated RBC 0.1 /100WBC 09/30/20 03:40 Plt Morphology Comment Normal (NORMAL) 09/30/20 03:40 RBC Morphology Abnormal (NORMAL) 09/30/20 03:40 Hypochromasia 1+ A 09/30/20 03:40 Poikilocytosis 1+ A 09/29/20 16:00 Anisocytosis 1+ A 09/30/20 03:40 Microcytosis 1+ A 09/30/20 03:40 Sample Site Lr 09/29/20 17:00 ABG pH 7.420 (7.35-7.45) 09/29/20 17:00 ABG pCO2 49.0 mmHg (35.0-45.0) H 09/29/20 17:00 ABG pO2 139.0 mmHg (80.0-100.0) H 09/29/20 17:00 ABG HCO3 31.8 mmol/L (22-26) H* 09/29/20 17:00 ABG O2 Saturation 99.0 % (90-100) 09/29/20 17:00 ABG Base Excess 6.2 mmol/L (-2.0-2.0) H 09/29/20 17:00 Ted Test Pos 09/29/20 17:00 A-a Gradient -1.0 mmHg 09/29/20 17:00 FiO2 28.0 09/29/20 17:00 Blood Gas Comments Evelyn well, 09/29/20 17:00 Sodium 142 mmol/L (136-145) 09/30/20 03:40 Corrected Sodium 143 mmol/L (136-145) 09/30/20 03:40 Potassium 4.3 mmol/L (3.5-5.1) 09/30/20 03:40 Chloride 105 mmol/L (98-107) 09/30/20 03:40 Carbon Dioxide 31.7 mmol/L (21-32) 09/30/20 03:40 BUN 48 mg/dL (7-18) H 09/30/20 03:40 Creatinine 1.88 mg/dL (0.70-1.30) H 09/30/20 03:40 Est GFR (MDRD) Af Amer 44 (>60) L 09/30/20 03:40 Est GFR (MDRD) Non-Af 37 (>60) L 09/30/20 03:40 Glucose 153 mg/dL (65-99) H 09/30/20 03:40 POC Glucose (mg/dL) 167 mg/dL (65-99) H 09/30/20 11:16 Calcium 8.5 mg/dL (8.5-10.1) 09/30/20 03:40 Corrected Calcium 9.1 mg/dL (8.5-10.1) 09/30/20 03:40 Iron 38 ug/dL (50-175) L 09/30/20 03:40 Transferrin 325 mg/dL (202-364) 09/30/20 03:40 Ferritin 30 ng/mL (26-388) 09/30/20 03:40 Total Bilirubin 0.20 mg/dL (0.2-1.0) 09/30/20 03:40 AST 15 Units/L (15-37) 09/30/20 03:40 ALT 16 Units/L (12-78) 09/30/20 03:40 Alkaline Phosphatase 72 Units/L (46-116) 09/30/20 03:40 Creatine Kinase 67 Units/L (39-308) 09/30/20 03:40 CK-MB (CK-2) 1.1 ng/mL (0-4.0) 09/30/20 03:40 CK/CKMB % Calc 1.6 % (<4) 09/30/20 03:40 Troponin I < 0.02 ng/mL (0-1.5) 09/30/20 03:40 Total Protein 6.4 g/dL (6.4-8.2) 09/30/20 03:40 Albumin 3.3 g/dL (3.4-5.0) L 09/30/20 03:40 Globulin 3.1 g/dL (2.5-4.5) 09/30/20 03:40 Albumin/Globulin Ratio 1.1 Ratio (1.1-2.1) 09/30/20 03:40 Vitamin B12 432 pg/mL (193-986) 09/30/20 03:40 Folate > 20.0 ng/mL (>8.6) 09/30/20 03:40 Specimen Type Clean catch urine 09/29/20 16:42 Urine Color Yellow (YELLOW) 09/29/20 16:42 Urine Appearance Clear (CLEAR) 09/29/20 16:42 Urine pH 6.0 (5.0 - 8.0) 09/29/20 16:42 Ur Specific [place] 1.015 (1.000-1.030) 09/29/20 16:42 Urine Protein Negative (NEGATIVE) 09/29/20 16:42 Urine Glucose (UA) 1+ (NEGATIVE) 09/29/20 16:42 Urine Ketones Negative (NEGATIVE) 09/29/20 16:42 Urine Occult Blood Negative (NEGATIVE) 09/29/20 16:42 Urine Nitrite Negative (NEGATIVE) 09/29/20 16:42 Urine Bilirubin Negative (NEGATIVE) 09/29/20 16:42 Urine Urobilinogen Normal (NORMAL) 09/29/20 16:42 Ur Leukocyte Esterase Negative (NEGATIVE) 09/29/20 16:42 Review of Systems Constitutional: No Symptoms Reported Eyes: No Symptoms Reported ENT: No Symptoms Reported Respiratory: No Symptoms Reported Cardiovascular: No Symptoms Reported Gastrointestinal: No Symptoms Reported Genitourinary: No Symptoms Reported Musculoskeletal: No Symptoms Reported Skin: No Symptoms Reported Neurological: No Symptoms Reported, Weakness and Other (lethargic ) Physical Exam Vital Signs: Temperature 97.9 F Pulse Rate [Right Radial] 62 Pulse Rate 56 Respiratory Rate 20 Blood Pressure [Left Arm] 149/65 Blood Pressure 151/70 O2 Sat by Pulse Oximetry 98 Oriented: Normal Eyes: Normal Ear: Normal Nose: Normal Throat: Normal Respiratory: Diminished Throughout Cardiovascular: Normal Auscultation: Bowel Sounds: Normal Palpation: Normal Tenderness: Normal Skin: Normal Musculoskeletal: Normal Psychiatric: Normal Mood Description: Calm and Appropriate Affect: Normal Speech Pattern: Clear and Appropriate Assessment/Plan (1) Anemia: Qualifiers: Anemia type: unspecified type Qualified Code(s): D64.9 - Anemia, unspecified Status: Acute (2) Lethargic: Status: Acute (3) Altered mental status: Qualifiers: Altered mental status type: unspecified Qualified Code(s): R41.82 - Altered mental status, unspecified Status: Acute (4) Acute renal failure: Qualifiers: Acute renal failure type: unspecified Qualified Code(s): N17.9 - Acute kidney failure, unspecified Status: Acute (5) Weakness: Status: Acute (6) History of CVA (cerebrovascular accident): Status: Chronic (7) Diabetes: Qualifiers: Diabetes mellitus complication status: without complication Diabetes mellitus remote computer terminal operator insulin use: with remote computer terminal operator use Diabetes mellitus type: type 2 Qualified Code(s): E11.9 - Type 2 diabetes mellitus without complications; Z79.4 - roasterman (current) use of insulin Status: Chronic (8) GERD (gastroesophageal reflux disease): Qualifiers: Esophagitis presence: esophagitis presence not specified Qualified Code(s): K21.9 - Gastro-esophageal reflux disease without esophagitis Status: Chronic (9) HTN (hypertension): Qualifiers: Hypertension type: essential hypertension Qualified Code(s): I10 - Essential (primary) hypertension Status: Chronic (10) Hypercarbia: Status: Acute Review H&P Reviewed: Yes Patient was examined?: Yes
[2020-09-30] MEDS ORDERED: ELIQUIS PO SCH (21:00)
[2020-09-30] MEDS: NEURONTIN TAB 600 MG PO SCH (21:09)
[2020-09-30] MEDS: PROTONIX TAB 40 MG PO SCH (21:09)
[2020-09-30] MEDS: ZOCOR TAB 20 MG PO SCH (21:09)
[2020-09-30] MEDS: REQUIP PO SCH (21:10)
[2020-09-30] MEDS: FERROUS GLUCONATE PO SCH (21:11)
[2020-10-01 06:13] LABS: BASOPHILS % (AUTO) 0.6 % (0.2-1.0); EOSINOPHILS # (AUTO) 0.1 x10^3/uL (0.0-0.2); EOSINOPHILS % (AUTO) 2.4 % (0.9-2.9); HEMATOCRIT 23.5 % (42.0-54.0); HEMOGLOBIN 7.5 g/dL (13.5-18.0); LYMPHOCYTES # (AUTO) 0.9 X10^3/uL (1.3-2.9); LYMPHOCYTES % (AUTO) 19.3 % (21.0-51.0); MEAN CORPUSCULAR HEMOGLOBIN 23.8 pg (27.0-34.0); MEAN CORPUSCULAR HGB CONC 32.1 g/dL (33.0-35.0); MEAN CORPUSCULAR VOLUME 74.2 fL (80.0-100.0); MEAN PLATELET VOLUME 9.6 fL (7.4-11.0); MONOCYTES # (AUTO) 0.4 x10^3/uL (0.3-0.8); MONOCYTES % (AUTO) 8.2 % (0.0-13.0); NEUTROPHILS # (AUTO) 3.3 x10^3/uL (2.2-4.8); NEUTROPHILS % (AUTO) 69.5 % (42.0-75.0); PLATELET COUNT 132 X10^3/uL (150.0-450.0); RED BLOOD COUNT 3.16 X10^6/uL (4.7-6.0); RED CELL DISTRIBUTION WIDTH 20.6 % (11.6-16.5); WHITE BLOOD COUNT 4.7 X10^3/uL (3.6-10.0)
[2020-10-01 06:47] LABS: BLOOD UREA NITROGEN 32 mg/dL (7-18); CALCIUM 8.4 mg/dL (8.5-10.1); CARBON DIOXIDE 28.4 mmol/L (21-32); CHLORIDE 109 mmol/L (98-107); COR NA(FOR HYPERGLY) 147 mmol/L (136-145); CREATININE 1.35 mg/dL (0.70-1.30); SODIUM 146 mmol/L (136-145); eGFR NON BLACK RACES 54 (>60)
[2020-10-01 06:50] LABS: ANISOCYTOSIS 1+; HYPOCHROMASIA 1+; MICROCYTOSIS 1+; PLATELET MORPHOLOGY COMMENT NORMAL (NORMAL)
[2020-10-01] MEDS: PROTONIX TAB 40 MG PO SCH ×3 (09:30→20:51)
[2020-10-01] MEDS: PROzac PO SCH ×2 (09:30→09:58)
[2020-10-01] MEDS: NEURONTIN TAB 600 MG PO SCH ×3 (09:41→20:50)
[2020-10-01] MEDS: LEVEMIR SC SCH ×2 (09:42→21:00)
[2020-10-01] MEDS: FERROUS GLUCONATE PO SCH ×3 (09:42→20:50)
[2020-10-01] MEDS: REQUIP PO SCH ×3 (09:42→20:51)
[2020-10-01] MEDS: CARDIZEM CD 180 MG 24-HR PO SCH ×2 (09:43→09:57)
[2020-10-01] MEDS: DUONEB 0.5 MG/3 MG (3 mL) NEB SCH ×3 (13:30→21:02)
--- NOTE | 2020-10-01 15:38 | PCM.PROG ---
Progress Note Progress Note for Day of Date of Exam: 10/01/20 Subjective Subjective: Patient seen at bedside, no acute events overnight. Patient states he is feeling better. He is currently on 3L Home Oxygen. Denies fever or chills. No cough. His Hgb did drop to 7.5 this morning. Denies bleeding or melena. Denies seeing GI in the past, no EGD. FOBT is positive. Labs: Hgb 7.5 Plt 132 Na; 146 Cl 109 BUN/Cr 32/1.35 Glucose 125 Plan: will keep patient NPO, consult Dr. Jacobo for EGD if possible today and if not then consult Dr. Ty for possible EGD tomorrow. Monitor H/H and AM labs. Will DC IVF as patient has been eating. Continue current medications. Will hold Eliq uis. Continue protonix BID. Past Medical Family Social History Allergies: Allergies ceftriaxone [From Rocephin] Allergy (Verified 06/16/20 11:57) ciprofloxacin [From Cipro] Allergy (Verified 06/16/20 11:57) morphine Adverse Reaction (Verified 06/16/20 11:57) Review of Systems ROS: No change since H&P Vital Signs and I&O's Vital Signs: Temperature 98.5 F Pulse Rate [Left Brachial] 74 Pulse Rate [Right Radial] 62 Pulse Rate 66 Respiratory Rate 23 Blood Pressure [Left Arm] 174/76 Blood Pressure 151/70 O2 Sat by Pulse Oximetry 100 Intake and Output: Intake & Output 09/28/20 09/29/20 09/30/20 10/01/20 23:59 23:59 23:59 23:59 Intake Total 320 / 320 4245 / 4245 0 / 0 Output Total 400 / 400 Balance 320 / 320 3845 / 3845 0 / 0 Physical Exam Oriented: Normal Eyes: Normal Ear: Normal Nose: Normal Throat: Normal Respiratory: Generalized and Diminished Cardiovascular: Normal Auscultation: Bowel Sounds: Normal Tenderness: Normal Skin: Normal Musculoskeletal: Normal Psychiatric: Normal Mood Description: Calm and Appropriate Affect: Normal Speech Pattern: Clear Laboratory and Diagnostics Result Diagrams: 10/01/20 05:12 10/01/20 05:12 Labs: 09/29/20 16:10 Blood Blood Culture - Preliminary Laboratory WBC 4.7 X10^3/uL (3.6-10.0) 10/01/20 05:12 RBC 3.16 X10^6/uL (4.7-6.0) L 10/01/20 05:12 Hgb 7.5 g/dL (13.5-18.0) L 10/01/20 05:12 Hct 23.5 % (42.0-54.0) L 10/01/20 05:12 MCV 74.2 fL (80.0-100.0) L 10/01/20 05:12 MCH 23.8 pg (27.0-34.0) L 10/01/20 05:12 MCHC 32.1 g/dL (33.0-35.0) L 10/01/20 05:12 RDW 20.6 % (11.6-16.5) H 10/01/20 05:12 Plt Count 132 X10^3/uL (150.0-450.0) L 10/01/20 05:12 Plt Count Comment Decreased (ADEQUATE) 10/01/20 05:12 MPV 9.6 fL (7.4-11.0) 10/01/20 05:12 Neut % (Auto) 69.5 % (42.0-75.0) 10/01/20 05:12 Lymph % (Auto) 19.3 % (21.0-51.0) L 10/01/20 05:12 [place] % (Auto) 8.2 % (0.0-13.0) 10/01/20 05:12 Eos % (Auto) 2.4 % (0.9-2.9) 10/01/20 05:12 Baso % (Auto) 0.6 % (0.2-1.0) 10/01/20 05:12 Neut # (Auto) 3.3 x10^3/uL (2.2-4.8) 10/01/20 05:12 Lymph # (Auto) 0.9 X10^3/uL (1.3-2.9) L 10/01/20 05:12 [place] # (Auto) 0.4 x10^3/uL (0.3-0.8) 10/01/20 05:12 Eos # (Auto) 0.1 x10^3/uL (0.0-0.2) 10/01/20 05:12 Baso # (Auto) 0.0 X10^3/uL (0.0-0.1) 10/01/20 05:12 Absolute Nucleated RBC 0.0 /100WBC 10/01/20 05:12 Plt Morphology Comment Normal (NORMAL) 10/01/20 05:12 RBC Morphology Abnormal (NORMAL) 10/01/20 05:12 Hypochromasia 1+ A 10/01/20 05:12 Poikilocytosis 1+ A 09/29/20 16:00 Anisocytosis 1+ A 10/01/20 05:12 Microcytosis 1+ A 10/01/20 05:12 Sample Site Lr 09/29/20 17:00 ABG pH 7.420 (7.35-7.45) 09/29/20 17:00 ABG pCO2 49.0 mmHg (35.0-45.0) H 09/29/20 17:00 ABG pO2 139.0 mmHg (80.0-100.0) H 09/29/20 17:00 ABG HCO3 31.8 mmol/L (22-26) H* 09/29/20 17:00 ABG O2 Saturation 99.0 % (90-100) 09/29/20 17:00 ABG Base Excess 6.2 mmol/L (-2.0-2.0) H 09/29/20 17:00 Ted Test Pos 09/29/20 17:00 A-a Gradient -1.0 mmHg 09/29/20 17:00 FiO2 28.0 09/29/20 17:00 Blood Gas Comments Evelyn well, kh 09/29/20 17:00 Sodium 146 mmol/L (136-145) H 10/01/20 05:12 Corrected Sodium 147 mmol/L (136-145) H 10/01/20 05:12 Potassium 4.1 mmol/L (3.5-5.1) 10/01/20 05:12 Chloride 109 mmol/L (98-107) H 10/01/20 05:12 Carbon Dioxide 28.4 mmol/L (21-32) 10/01/20 05:12 BUN 32 mg/dL (7-18) H 10/01/20 05:12 Creatinine 1.35 mg/dL (0.70-1.30) H 10/01/20 05:12 Est GFR (MDRD) Af Amer > 60 (>60) 10/01/20 05:12 Est GFR (MDRD) Non-Af 54 (>60) L 10/01/20 05:12 Glucose 125 mg/dL (65-99) H 10/01/20 05:12 POC Glucose (mg/dL) 126 mg/dL (65-99) H 10/01/20 11:22 Calcium 8.4 mg/dL (8.5-10.1) L 10/01/20 05:12 Corrected Calcium 9.1 mg/dL (8.5-10.1) 09/30/20 03:40 Iron 38 ug/dL (50-175) L 09/30/20 03:40 Transferrin 325 mg/dL (202-364) 09/30/20 03:40 Ferritin 30 ng/mL (26-388) 09/30/20 03:40 Total Bilirubin 0.20 mg/dL (0.2-1.0) 09/30/20 03:40 AST 15 Units/L (15-37) 09/30/20 03:40 ALT 16 Units/L (12-78) 09/30/20 03:40 Alkaline Phosphatase 72 Units/L (46-116) 09/30/20 03:40 Creatine Kinase 67 Units/L (39-308) 09/30/20 03:40 CK-MB (CK-2) 1.1 ng/mL (0-4.0) 09/30/20 03:40 CK/CKMB % Calc 1.6 % (<4) 09/30/20 03:40 Troponin I < 0.02 ng/mL (0-1.5) 09/30/20 03:40 Total Protein 6.4 g/dL (6.4-8.2) 09/30/20 03:40 Albumin 3.3 g/dL (3.4-5.0) L 09/30/20 03:40 Globulin 3.1 g/dL (2.5-4.5) 09/30/20 03:40 Albumin/Globulin Ratio 1.1 Ratio (1.1-2.1) 09/30/20 03:40 Vitamin B12 432 pg/mL (193-986) 09/30/20 03:40 Folate > 20.0 ng/mL (>8.6) 09/30/20 03:40 Specimen Type Clean catch urine 09/29/20 16:42 Urine Color Yellow (YELLOW) 09/29/20 16:42 Urine Appearance Clear (CLEAR) 09/29/20 16:42 Urine pH 6.0 (5.0 - 8.0) 09/29/20 16:42 Ur Specific [place] 1.015 (1.000-1.030) 09/29/20 16:42 Urine Protein Negative (NEGATIVE) 09/29/20 16:42 Urine Glucose (UA) 1+ (NEGATIVE) 09/29/20 16:42 Urine Ketones Negative (NEGATIVE) 09/29/20 16:42 Urine Occult Blood Negative (NEGATIVE) 09/29/20 16:42 Urine Nitrite Negative (NEGATIVE) 09/29/20 16:42 Urine Bilirubin Negative (NEGATIVE) 09/29/20 16:42 Urine Urobilinogen Normal (NORMAL) 09/29/20 16:42 Ur Leukocyte Esterase Negative (NEGATIVE) 09/29/20 16:42 Stool Description 200g black unformed 09/30/20 16:47 Stl Occult Blood (IFOB) Positive (NEGATIVE) A 09/30/20 16:47 Plan (1) Anemia: Status: Acute Qualifiers: Anemia type: unspecified type Qualified Code(s): D64.9 - Anemia, unspecified (2) Lethargic: Status: Acute (3) Altered mental status: Status: Acute Qualifiers: Altered mental status type: unspecified Qualified Code(s): R41.82 - Altered mental status, unspecified (4) Acute renal failure: Status: Acute Qualifiers: Acute renal failure type: unspecified Qualified Code(s): N17.9 - Acute kidney failure, unspecified (5) Weakness: Status: Acute (6) History of CVA (cerebrovascular accident): Status: Chronic (7) Diabetes: Status: Chronic Qualifiers: Diabetes mellitus complication status: without complication Diabetes mellitus group home insulin use: with group home use Diabetes mellitus type: type 2 Qualified Code(s): E11.9 - Type 2 diabetes mellitus without complications; Z79.4 - alf (current) use of insulin (8) GERD (gastroesophageal reflux disease): Status: Chronic Qualifiers: Esophagitis presence: esophagitis presence not specified Qualified Code(s): K21.9 - Gastro-esophageal reflux disease without esophagitis (9) HTN (hypertension): Status: Chronic Qualifiers: Hypertension type: essential hypertension Qualified Code(s): I10 - Essential (primary) hypertension (10) Hypercarbia: Status: Acute
[2020-10-01] MEDS: ZOCOR TAB 20 MG PO SCH (20:50)
[2020-10-02 06:30] LABS: BASOPHILS % (AUTO) 0.7 % (0.2-1.0); EOSINOPHILS # (AUTO) 0.1 x10^3/uL (0.0-0.2); EOSINOPHILS % (AUTO) 1.7 % (0.9-2.9); LYMPHOCYTES # (AUTO) 0.8 X10^3/uL (1.3-2.9); LYMPHOCYTES % (AUTO) 16.9 % (21.0-51.0); MEAN CORPUSCULAR HEMOGLOBIN 23.7 pg (27.0-34.0); MEAN CORPUSCULAR HGB CONC 32.5 g/dL (33.0-35.0); MEAN CORPUSCULAR VOLUME 72.9 fL (80.0-100.0); MEAN PLATELET VOLUME 9.2 fL (7.4-11.0); MONOCYTES # (AUTO) 0.4 x10^3/uL (0.3-0.8); MONOCYTES % (AUTO) 9.7 % (0.0-13.0); NEUTROPHILS # (AUTO) 3.3 x10^3/uL (2.2-4.8); PLATELET COUNT 122 X10^3/uL (150.0-450.0); RED BLOOD COUNT 2.88 X10^6/uL (4.7-6.0); RED CELL DISTRIBUTION WIDTH 20.8 % (11.6-16.5); WHITE BLOOD COUNT 4.6 X10^3/uL (3.6-10.0)
[2020-10-02 06:38] LABS: BLOOD UREA NITROGEN 22 mg/dL (7-18); CALCIUM 8.4 mg/dL (8.5-10.1); CARBON DIOXIDE 26.8 mmol/L (21-32); CHLORIDE 109 mmol/L (98-107); COR NA(FOR HYPERGLY) 145 mmol/L (136-145); SODIUM 144 mmol/L (136-145); eGFR NON BLACK RACES > 60 (>60)
[2020-10-02 06:55] LABS: HEMOGLOBIN 6.8 g/dL (13.5-18.0)
[2020-10-02 06:57] LABS: ANISOCYTOSIS 1+; PLATELET MORPHOLOGY COMMENT NORMAL (NORMAL)
[2020-10-02 06:58] LABS: HYPOCHROMASIA 1+; MICROCYTOSIS SLIGHT
[2020-10-02] MEDS: DUONEB 0.5 MG/3 MG (3 mL) NEB SCH ×3 (07:27→21:10)
[2020-10-02] MEDS: LEVEMIR SC SCH ×2 (10:28→21:03)
--- NOTE | 2020-10-02 12:32 | US ---
HISTORYABD PAIN, ABNORMAL LFTS,STUDYABDOMEN USCOMPARISONNoneTECHNIQUEMultiple arceo scale and color flow Doppler images of the abdomen were obtained with image documentation.FINDINGSLiver is normal in size but there appears to be diffuse increased echogenicity. Hepatopetal portal venous flow is seen on Doppler ultrasound.Gallbladder appears normal. No biliary ductal dilation.Visualized portions of the pancreas appear normal.Spleen is normal in size.No renal abnormality. Right kidney measures 10.0 cm in length and left kidney measures 10.0 cm in length.Visualized portions of the aorta and IVC appear normal.IMPRESSIONPossible mild fatty infiltration of the liver.Electronically signed by: Malcolm Silva (Oct 02, 2020 12:31:09)
--- NOTE | 2020-10-02 13:29 | PCM.PROG ---
Progress Note Progress Note for Day of Date of Exam: 10/02/20 Subjective Subjective: Patient seen at bedside, sitting on the chair. No events overnight. He states he is feeling fine. He has been NPO since midnight in the anticipation of EGD this morning. He was not able to have the EGD yesterday due to waiting on prior-auth. Dr. Jacobo did order abdominal U/S and labs. Patient's hgb this AM is 6.8. He denies active bleeding. His appetite has been normal. Labs: Hgb 6.8 Plt 122 Glucose 139 BUN/Cr: 20/.20 Cl 109 Na 144 Plan: keep NPO for now and check on EGD authorization. Transfuse 2 units of PRBCs. Monitor H/H. Follow up abdominal U/S. Labs are send out so patient will f/u with Dr. Jacobo outpatient. If unable to get EGD approved then will continue with transfusion, repeat H/H this evening. Possible discharge in the AM if Hgb stable. Past Medical Family Social History Past Med/Fam/Surg Hx: No changes since H&P Allergies: Allergies ceftriaxone [From Rocephin] Allergy (Verified 06/16/20 11:57) ciprofloxacin [From Cipro] Allergy (Verified 06/16/20 11:57) morphine Adverse Reaction (Verified 06/16/20 11:57) Review of Systems ROS: No change since H&P Vital Signs and I&O's Vital Signs: Temperature 98.4 F Pulse Rate [Left Brachial] 84 Pulse Rate [Right Radial] 62 Pulse Rate 80 Respiratory Rate 18 Blood Pressure [Left Arm] 173/74 Blood Pressure 151/70 O2 Sat by Pulse Oximetry 98 Intake and Output: Intake & Output 09/29/20 09/30/20 10/01/20 10/02/20 23:59 23:59 23:59 23:59 Intake Total 320 / 320 4245 / 4245 610 / 610 240 / 240 Output Total 400 / 400 820 / 820 Balance 320 / 320 3845 / 3845 -210 / -210 240 / 240 Physical Exam Oriented: Normal Eyes: Normal Ear: Normal Nose: Normal Throat: Normal Respiratory: Normal Cardiovascular: Normal Auscultation: Bowel Sounds: Normal Tenderness: Normal Skin: Normal Musculoskeletal: Normal Psychiatric: Normal Mood Description: Calm and Appropriate Affect: Normal Speech Pattern: Clear Laboratory and Diagnostics Result Diagrams: 10/03/20 03:00 10/03/20 03:00 Labs: 09/29/20 16:00 Blood Blood Culture - Preliminary 09/29/20 16:10 Blood Blood Culture - Final Laboratory WBC 4.6 X10^3/uL (3.6-10.0) 10/02/20 05:40 RBC 2.88 X10^6/uL (4.7-6.0) L 10/02/20 05:40 Hgb 6.8 g/dL (13.5-18.0) L* 10/02/20 05:40 Hct 21.0 % (42.0-54.0) L 10/02/20 05:40 MCV 72.9 fL (80.0-100.0) L 10/02/20 05:40 MCH 23.7 pg (27.0-34.0) L 10/02/20 05:40 MCHC 32.5 g/dL (33.0-35.0) L 10/02/20 05:40 RDW 20.8 % (11.6-16.5) H 10/02/20 05:40 Plt Count 122 X10^3/uL (150.0-450.0) L 10/02/20 05:40 Plt Count Comment Decreased (ADEQUATE) 10/02/20 05:40 MPV 9.2 fL (7.4-11.0) 10/02/20 05:40 Neut % (Auto) 71.0 % (42.0-75.0) 10/02/20 05:40 Lymph % (Auto) 16.9 % (21.0-51.0) L 10/02/20 05:40 [place] % (Auto) 9.7 % (0.0-13.0) 10/02/20 05:40 Eos % (Auto) 1.7 % (0.9-2.9) 10/02/20 05:40 Baso % (Auto) 0.7 % (0.2-1.0) 10/02/20 05:40 Neut # (Auto) 3.3 x10^3/uL (2.2-4.8) 10/02/20 05:40 Lymph # (Auto) 0.8 X10^3/uL (1.3-2.9) L 10/02/20 05:40 [place] # (Auto) 0.4 x10^3/uL (0.3-0.8) 10/02/20 05:40 Eos # (Auto) 0.1 x10^3/uL (0.0-0.2) 10/02/20 05:40 Baso # (Auto) 0.0 X10^3/uL (0.0-0.1) 10/02/20 05:40 Absolute Nucleated RBC 0.0 /100WBC 10/02/20 05:40 Plt Morphology Comment Normal (NORMAL) 10/02/20 05:40 RBC Morphology Abnormal (NORMAL) 10/02/20 05:40 Hypochromasia 1+ A 10/02/20 05:40 Poikilocytosis 1+ A 09/29/20 16:00 Anisocytosis 1+ A 10/02/20 05:40 Microcytosis Slight A 10/02/20 05:40 Sample Site Lr 09/29/20 17:00 ABG pH 7.420 (7.35-7.45) 09/29/20 17:00 ABG pCO2 49.0 mmHg (35.0-45.0) H 09/29/20 17:00 ABG pO2 139.0 mmHg (80.0-100.0) H 09/29/20 17:00 ABG HCO3 31.8 mmol/L (22-26) H* 09/29/20 17:00 ABG O2 Saturation 99.0 % (90-100) 09/29/20 17:00 ABG Base Excess 6.2 mmol/L (-2.0-2.0) H 09/29/20 17:00 Ted Test Pos 09/29/20 17:00 A-a Gradient -1.0 mmHg 09/29/20 17:00 FiO2 28.0 09/29/20 17:00 Blood Gas Comments Evelyn well, kh 09/29/20 17:00 Sodium 144 mmol/L (136-145) 10/02/20 05:40 Corrected Sodium 145 mmol/L (136-145) 10/02/20 05:40 Potassium 4.1 mmol/L (3.5-5.1) 10/02/20 05:40 Chloride 109 mmol/L (98-107) H 10/02/20 05:40 Carbon Dioxide 26.8 mmol/L (21-32) 10/02/20 05:40 BUN 22 mg/dL (7-18) H 10/02/20 05:40 Creatinine 1.20 mg/dL (0.70-1.30) 10/02/20 05:40 Est GFR (MDRD) Af Amer > 60 (>60) 10/02/20 05:40 Est GFR (MDRD) Non-Af > 60 (>60) 10/02/20 05:40 Glucose 139 mg/dL (65-99) H 10/02/20 05:40 POC Glucose (mg/dL) 138 mg/dL (65-99) H 10/02/20 11:32 Calcium 8.4 mg/dL (8.5-10.1) L 10/02/20 05:40 Corrected Calcium 9.1 mg/dL (8.5-10.1) 09/30/20 03:40 Iron 38 ug/dL (50-175) L 09/30/20 03:40 Transferrin 325 mg/dL (202-364) 09/30/20 03:40 Ferritin 44 ng/mL (26-388) 10/01/20 15:20 Total Bilirubin 0.20 mg/dL (0.2-1.0) 09/30/20 03:40 AST 15 Units/L (15-37) 09/30/20 03:40 ALT 16 Units/L (12-78) 09/30/20 03:40 Alkaline Phosphatase 72 Units/L (46-116) 09/30/20 03:40 Creatine Kinase 67 Units/L (39-308) 09/30/20 03:40 CK-MB (CK-2) 1.1 ng/mL (0-4.0) 09/30/20 03:40 CK/CKMB % Calc 1.6 % (<4) 09/30/20 03:40 Troponin I < 0.02 ng/mL (0-1.5) 09/30/20 03:40 Total Protein 6.4 g/dL (6.4-8.2) 09/30/20 03:40 Albumin 3.3 g/dL (3.4-5.0) L 09/30/20 03:40 Globulin 3.1 g/dL (2.5-4.5) 09/30/20 03:40 Albumin/Globulin Ratio 1.1 Ratio (1.1-2.1) 09/30/20 03:40 Vitamin B12 432 pg/mL (193-986) 09/30/20 03:40 Folate > 20.0 ng/mL (>8.6) 09/30/20 03:40 Specimen Type Clean catch urine 09/29/20 16:42 Urine Color Yellow (YELLOW) 09/29/20 16:42 Urine Appearance Clear (CLEAR) 09/29/20 16:42 Urine pH 6.0 (5.0 - 8.0) 09/29/20 16:42 Ur Specific [place] 1.015 (1.000-1.030) 09/29/20 16:42 Urine Protein Negative (NEGATIVE) 09/29/20 16:42 Urine Glucose (UA) 1+ (NEGATIVE) 09/29/20 16:42 Urine Ketones Negative (NEGATIVE) 09/29/20 16:42 Urine Occult Blood Negative (NEGATIVE) 09/29/20 16:42 Urine Nitrite Negative (NEGATIVE) 09/29/20 16:42 Urine Bilirubin Negative (NEGATIVE) 09/29/20 16:42 Urine Urobilinogen Normal (NORMAL) 09/29/20 16:42 Ur Leukocyte Esterase Negative (NEGATIVE) 09/29/20 16:42 Stool Description 200g black unformed 09/30/20 16:47 Stl Occult Blood (IFOB) Positive (NEGATIVE) A 09/30/20 16:47 Blood Type A POSITIVE 10/02/20 08:29 Antibody Screen Negative 10/02/20 08:29 Crossmatch See Detail 10/02/20 08:29 Plan (1) Anemia: Status: Acute Qualifiers: Anemia type: unspecified type Qualified Code(s): D64.9 - Anemia, unspecified (2) Lethargic: Status: Acute (3) Altered mental status: Status: Acute Qualifiers: Altered mental status type: unspecified Qualified Code(s): R41.82 - Altered mental status, unspecified (4) Acute renal failure: Status: Acute Qualifiers: Acute renal failure type: unspecified Qualified Code(s): N17.9 - Acute kidney failure, unspecified (5) Weakness: Status: Acute (6) History of CVA (cerebrovascular accident): Status: Chronic (7) Diabetes: Status: Chronic Qualifiers: Diabetes mellitus complication status: without complication Diabetes mellitus care home insulin use: 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
[2020-10-02] MEDS: PROTONIX INJ 40 MG VIAL IVP SCH ×2 (14:28→20:49)
[2020-10-02] MEDS: CARDIZEM CD 180 MG 24-HR PO SCH ×2 (14:32)
[2020-10-02] MEDS: FERROUS GLUCONATE PO SCH ×3 (14:33→20:49)
[2020-10-02] MEDS: NEURONTIN TAB 600 MG PO SCH ×3 (14:33→20:49)
[2020-10-02] MEDS: PROzac PO SCH ×2 (14:33→14:34)
[2020-10-02] MEDS: REQUIP PO SCH ×3 (14:34→20:49)
[2020-10-02] MEDS ORDERED: TYLENOL 325 MG TAB PO ONE (15:14)
[2020-10-02] MEDS ORDERED: BENADRYL INJ 50 MG VIAL IVP ONE (15:14)
[2020-10-02] MEDS ORDERED: NS 250 ML IV 250 ML IV ONE (15:18)
[2020-10-02] MEDS: ZOCOR TAB 20 MG PO SCH (20:48)
[2020-10-03 03:18] LABS: BASOPHILS % (AUTO) 0.6 % (0.2-1.0); EOSINOPHILS # (AUTO) 0.1 x10^3/uL (0.0-0.2); EOSINOPHILS % (AUTO) 2.1 % (0.9-2.9); HEMATOCRIT 30.8 % (42.0-54.0); LYMPHOCYTES # (AUTO) 0.8 X10^3/uL (1.3-2.9); LYMPHOCYTES % (AUTO) 17.6 % (21.0-51.0); MEAN CORPUSCULAR HEMOGLOBIN 25.4 pg (27.0-34.0); MEAN CORPUSCULAR HGB CONC 32.9 g/dL (33.0-35.0); MEAN CORPUSCULAR VOLUME 77.3 fL (80.0-100.0); MEAN PLATELET VOLUME 8.7 fL (7.4-11.0); MONOCYTES # (AUTO) 0.5 x10^3/uL (0.3-0.8); MONOCYTES % (AUTO) 10.3 % (0.0-13.0); NEUTROPHILS # (AUTO) 3.3 x10^3/uL (2.2-4.8); NEUTROPHILS % (AUTO) 69.4 % (42.0-75.0); PLATELET COUNT 120 X10^3/uL (150.0-450.0); RED BLOOD COUNT 3.98 X10^6/uL (4.7-6.0); RED CELL DISTRIBUTION WIDTH 21.2 % (11.6-16.5); WHITE BLOOD COUNT 4.8 X10^3/uL (3.6-10.0)
[2020-10-03 03:20] LABS: HEMOGLOBIN 10.1 g/dL (13.5-18.0)
[2020-10-03 03:21] LABS: ANISOCYTOSIS 1+; BLOOD UREA NITROGEN 17 mg/dL (7-18); CALCIUM 8.4 mg/dL (8.5-10.1); CARBON DIOXIDE 27.1 mmol/L (21-32); CHLORIDE 109 mmol/L (98-107); COR NA(FOR HYPERGLY) 146 mmol/L (136-145); CREATININE 1.09 mg/dL (0.70-1.30); HYPOCHROMASIA SLIGHT; PLATELET MORPHOLOGY COMMENT NORMAL (NORMAL); SODIUM 145 mmol/L (136-145); eGFR NON BLACK RACES > 60 (>60)
[2020-10-03] MEDS: DUONEB 0.5 MG/3 MG (3 mL) NEB SCH ×2 (05:50→11:33)
[2020-10-03] MEDS: CARDIZEM CD 180 MG 24-HR PO SCH (08:23)
[2020-10-03] MEDS: PROTONIX INJ 40 MG VIAL IVP SCH (08:23)
[2020-10-03] MEDS: NEURONTIN TAB 600 MG PO SCH (08:23)
[2020-10-03] MEDS: PROzac PO SCH (08:24)
[2020-10-03] MEDS: LEVEMIR SC SCH (08:24)
[2020-10-03] MEDS: FERROUS GLUCONATE PO SCH (08:24)
[2020-10-03] MEDS: REQUIP PO SCH (08:24)
[2020-10-03 11:37] VITALS: BP 132/63
[2020-10-07 13:53] LABS: ANTI-NUCLEAR ANTIBODY TEST None Detected (None Detected); HEPATITIS B SURFACE ANTIGEN Negative (Negative)
== END 2020-10-03 14:45 | disposition home health service (06) ==
LOC: MED/SURG 15:18 → ER 15:18 → MED/SURG 19:35
PROVIDERS: ADMIT Internal Medicine; ATTEND Internal Medicine
DX: E11.65 Type 2 diabetes mellitus with hyperglycemia; R41.82 Altered mental status, unspecified; D64.89 Other specified anemias; J44.9 Chronic obstructive pulmonary disease, unspecified; E86.0 Dehydration; N18.9 Chronic kidney disease, unspecified; N17.8 Other acute kidney failure; E78.2 Mixed hyperlipidemia; Z79.4 Long term (current) use of insulin; Z86.73 Personal history of transient ischemic attack (TIA), and cerebral infarction without residual deficits; I12.9 Hypertensive chronic kidney disease with stage 1 through stage 4 chronic kidney disease, or unspecified chronic kidney disease; R06.89 Other abnormalities of breathing; K21.9 Gastro-esophageal reflux disease without esophagitis

== ENCOUNTER 2021-08-20 09:30 | Inpatient (IN) ==
[2021-08-20] MEDS ORDERED: NS 1,000 ML IV 1,000 ML ONE ×2 (10:11→15:25)
[2021-08-20] MEDS ORDERED: CLEOCIN 600 MG IV PREMIX 600 MG/50 ML BAG IV ONE (10:12)
[2021-08-20 11:02] VITALS: BMI 27.0
[2021-08-20] MEDS ORDERED: BRIDION ONE (12:12)
[2021-08-20] MEDS ORDERED: AMIDATE INJ 40 MG VIAL ONE (12:12)
[2021-08-20] MEDS ORDERED: ZEMURON 100 MG VIAL ONE (12:12)
[2021-08-20] MEDS ORDERED: NEO-SYNEPHRINE INJ ONE (12:12)
[2021-08-20] MEDS ORDERED: EPHEDRINE SULFATE INJ ONE (12:12)
[2021-08-20] MEDS ORDERED: VERSED ONE (12:14)
[2021-08-20] MEDS ORDERED: FENTANYL VIAL INJ 100 mcg ONE ×3 (12:14→14:48)
[2021-08-20] MEDS ORDERED: ULTANE GAS IN ONE (13:20)
[2021-08-20] MEDS ORDERED: POLYMYXIN B SULFATE ONE (13:24)
[2021-08-20] MEDS ORDERED: SUPRANE ONE (13:25)
--- NOTE | 2021-08-20 15:07 | DR.UPDATE ---
H&P Update History and Physical Update: History and Physical reviewed and patient examined. Changes noted: NO Yes with the following:will place TLC per surgeon request. H&P Reviewed: Yes Patient was examined?: Yes Procedures (ALL) - Central Line Placement PCM.CLCO: written consent (assumed consent intraoperatively) Patient placed pm monitor/pulse ox: Yes prep: mask, gown, gloves, other Centrial line prep: chlorhexidine scrub Ultrasound used for placement: Yes (R IJ id'd and cannulation visualized) Central line lumen ininserted: triple Post procedure: sutured in place, good blood return, all ports aspirated, flushed,capped, sterile dressing applied Patient tolerated procedure: Yes Complications: none (CXR pending)
[2021-08-20] MEDS ORDERED: BACTROBAN TOPICAL OINT ONE (16:00)
[2021-08-20] MEDS ORDERED: HESPAN IV IN NS 500 ML IV ONE (16:11)
[2021-08-20] MEDS: DILAUDID INJ IVP PRN ×4 (16:20→21:07)
[2021-08-20] MEDS ORDERED: DILAUDID INJ ONE ×2 (16:22→16:32)
[2021-08-20] MEDS ORDERED: ZOFRAN INJ 4 MG VIAL IVP PRN (16:29)
[2021-08-20] MEDS ORDERED: BENADRYL INJ 50 MG VIAL IVP PRN (16:29)
[2021-08-20] MEDS ORDERED: DILAUDID INJ IVP PRN (16:44)
--- NOTE | 2021-08-20 16:57 | RAD ---
HISTORYCENTRAL LINE PLACEMENT Relevant Clinical InformationSTUDYCHEST, 1 VIEWCOMPARISONChest x-ray dated August 13, 2021.FINDINGSInterval placement of a right IJ central venous catheter whose tip overlies the expected area of the cavoatrial junction. There is a nasogastric tube whose tip and side port are below the level of the diaphragm. The trachea is midline. The cardiac silhouette is unremarkable. The lungs are clear without focal infiltrate, pneumothorax, or effusion. The bony thorax is unremarkable.IMPRESSIONOne. Tubes and lines as above.Two. No significant change in lung aeration.Electronically signed by: EVERTON REID (Aug 20, 2021 16:57:21)
[2021-08-20] MEDS: D5 1/2 NS 1,000 ML 1,000 ML IV SCH (17:30)
[2021-08-20] MEDS ORDERED: LOPRESSOR INJ 5 MG AMP IVP PRN (21:03)
[2021-08-20] MEDS: FLAGYL IV PREMIX 500 MG BAG 500 MG/100 ML BAG IV SCH (21:07)
[2021-08-21] MEDS: DILAUDID INJ IVP PRN ×5 (00:05→19:42)
[2021-08-21] MEDS: D5 1/2 NS 1,000 ML 1,000 ML IV SCH ×3 (00:19→19:15)
[2021-08-21] MEDS: FLAGYL IV PREMIX 500 MG BAG 500 MG/100 ML BAG IV SCH ×3 (05:17→22:30)
[2021-08-21 05:21] LABS: BASOPHILS % (AUTO) 0.2 % (0.2-1.0); HEMATOCRIT 30.2 % (42.0-54.0); LYMPHOCYTES # (AUTO) 0.3 X10^3/uL (1.3-2.9); LYMPHOCYTES % (AUTO) 3.7 % (21.0-51.0); MEAN CORPUSCULAR HEMOGLOBIN 29.3 pg (27.0-34.0); MEAN CORPUSCULAR HGB CONC 33.3 g/dL (33.0-35.0); MEAN PLATELET VOLUME 8.8 fL (7.4-11.0); MONOCYTES # (AUTO) 0.7 x10^3/uL (0.3-0.8); MONOCYTES % (AUTO) 8.6 % (0.0-13.0); NEUTROPHILS # (AUTO) 7.4 x10^3/uL (2.2-4.8); NEUTROPHILS % (AUTO) 87.5 % (42.0-75.0); RED BLOOD COUNT 3.43 X10^6/uL (4.7-6.0); RED CELL DISTRIBUTION WIDTH 14.3 % (11.6-16.5); WHITE BLOOD COUNT 8.5 X10^3/uL (3.6-10.0)
[2021-08-21 05:33] LABS: ALBUMIN 1.9 g/dL (3.4-5.0); CALCIUM 7.5 mg/dL (8.5-10.1); CARBON DIOXIDE 30.7 mmol/L (21-32); COR CA(FOR HYPOALB) 9.2 mg/dL (8.5-10.1); CREATININE 1.74 mg/dL (0.70-1.30); MAGNESIUM 1.7 mg/dL (1.7-2.9); TOTAL PROTEIN 4.5 g/dL (6.4-8.2)
[2021-08-21] MEDS ORDERED: MAGNESIUM SULFATE 1 GRAM/100 mL PREMIX 1 G/100 ML BAG IV ONE (05:52)
[2021-08-21] MEDS: MAGNESIUM SULFATE 1 GRAM/100 mL PREMIX 1 G/100 ML BAG IV PRN ×2 (06:06→08:51)
[2021-08-21] MEDS: PROTONIX INJ 40 MG VIAL IVP SCH (08:56)
[2021-08-21] MEDS ORDERED: NovoLIN R (or HumuLIN R) SC PRN (10:22)
--- NOTE | 2021-08-21 10:50 | DR.PROGNOT ---
Hospital Progress Notes - Progress Note for Day of: Progress Note Date: 08/21/21 - Chief Complaint Chief Complaint: doing fairly well post op abdominal syergery .. mild drainage in LESLI . stable Hgb and slight elevated Creatinin . alert , afebrile .. - Past Medical Family Social History Past Med/Fam/Surg Hx: No changes since H&P Allergies: Allergies ceftriaxone [From Rocephin] Allergy (Unknown, Verified 08/20/21 11:20) PT UNABLE TO TELL HIS REACTION ciprofloxacin [From Cipro] Allergy (Unknown, Verified 08/20/21 11:20) PT UNABLE TO TELL HIS REACTION morphine Adverse Reaction (Unknown, Verified 08/20/21 11:20) PT UNABLE TO TELL HIS REACTION - Review Of Systems ROS: No change since H&P - Vital Signs Vital Signs: Temperature 99.0 F Pulse Rate [Radial] 111 Pulse Rate 103 Respiratory Rate 14 Blood Pressure [Left Arm] 172/77 Blood Pressure [Right Arm] 160/77 Blood Pressure 148/70 O2 Sat by Pulse Oximetry 96 - Physical Exam Oriented: Normal Eyes: Normal Ear: Normal Nose: Normal Respiratory: Normal Cardiovascular: Normal : Normal GI:Auscultation: Decreased GI: Tenderness: Diffuse (diffuse tenderness .. BS hypoactive ..) Mood Description: Calm, Appropriate Speech Pattern: Clear, Appropriate - Laboratory and Diagnostics Result Diagrams: 08/21/21 04:37 08/21/21 04:32 Labs: Laboratory WBC 8.5 X10^3/uL (3.6-10.0) 08/21/21 04:37 RBC 3.43 X10^6/uL (4.7-6.0) L 08/21/21 04:37 Hgb 10.0 g/dL (13.5-18.0) L 08/21/21 04:37 Hct 30.2 % (42.0-54.0) L 08/21/21 04:37 MCV 88.0 fL (80.0-100.0) 08/21/21 04:37 MCH 29.3 pg (27.0-34.0) 08/21/21 04:37 MCHC 33.3 g/dL (33.0-35.0) 08/21/21 04:37 RDW 14.3 % (11.6-16.5) 08/21/21 04:37 Plt Count 254 X10^3/uL (150.0-450.0) 08/21/21 04:37 MPV 8.8 fL (7.4-11.0) 08/21/21 04:37 Neut % (Auto) 87.5 % (42.0-75.0) H 08/21/21 04:37 Lymph % (Auto) 3.7 % (21.0-51.0) L 08/21/21 04:37 [place] % (Auto) 8.6 % (0.0-13.0) 08/21/21 04:37 Eos % (Auto) 0.0 % (0.9-2.9) L 08/21/21 04:37 Baso % (Auto) 0.2 % (0.2-1.0) 08/21/21 04:37 Neut # (Auto) 7.4 x10^3/uL (2.2-4.8) H 08/21/21 04:37 Lymph # (Auto) 0.3 X10^3/uL (1.3-2.9) L 08/21/21 04:37 Barry # (Auto) 0.7 x10^3/uL (0.3-0.8) 08/21/21 04:37 Eos # (Auto) 0.0 x10^3/uL (0.0-0.2) 08/21/21 04:37 Baso # (Auto) 0.0 X10^3/uL (0.0-0.1) 08/21/21 04:37 Absolute Nucleated RBC 0.0 /100WBC 08/21/21 04:37 Sodium 135 mmol/L (136-145) L 08/21/21 04:32 Corrected Sodium 140 mmol/L (136-145) 08/21/21 04:32 Potassium 3.9 mmol/L (3.5-5.1) 08/21/21 04:32 Chloride 101 mmol/L (98-107) 08/21/21 04:32 Carbon Dioxide 30.7 mmol/L (21-32) 08/21/21 04:32 BUN 21 mg/dL (7-18) H 08/21/21 04:32 Creatinine 1.74 mg/dL (0.70-1.30) H 08/21/21 04:32 Est GFR (MDRD) Af Amer 48 (>60) L 08/21/21 04:32 Est GFR (MDRD) Non-Af 40 (>60) L 08/21/21 04:32 Glucose 309 mg/dL (65-99) H 08/21/21 04:32 POC Glucose (mg/dL) 165 mg/dL (65-99) H 08/20/21 15:20 Calcium 7.5 mg/dL (8.5-10.1) L 08/21/21 04:32 Corrected Calcium 9.2 mg/dL (8.5-10.1) 08/21/21 04:32 Magnesium 1.7 mg/dL (1.7-2.9) 08/21/21 04:32 Total Bilirubin 0.40 mg/dL (0.2-1.0) 08/21/21 04:32 AST 12 Units/L (15-37) L 08/21/21 04:32 ALT 10 Units/L (12-78) L 08/21/21 04:32 Alkaline Phosphatase 77 Units/L (46-116) 08/21/21 04:32 Total Protein 4.5 g/dL (6.4-8.2) L 08/21/21 04:32 Albumin 1.9 g/dL (3.4-5.0) L 08/21/21 04:32 Globulin 2.6 g/dL (2.5-4.5) 08/21/21 04:32 Albumin/Globulin Ratio 0.7 Ratio (1.1-2.1) L 08/21/21 04:32 SARS CoV-2 RNA Rapid ALEX Negative (NEGATIVE) 08/20/21 10:04 Tissue Pathology To follow 08/20/21 14:30 Blood Type A POSITIVE 08/20/21 14:33 Antibody Screen Negative 08/20/21 14:33 - Assessment and Plan 1: 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 s/p RT colectomy , omentectomy , partial small bowel resection .. same po care . OOB, lovenox sc .incentive speromiter ..
[2021-08-21] MEDS: LOVENOX INJ 40 MG SYR SC SCH (11:23)
[2021-08-21] MEDS ORDERED: NovoLIN R (or HumuLIN R) ONE (11:47)
[2021-08-21] MEDS: NovoLIN R (or HumuLIN R) SC PRN ×2 (11:50→20:43)
[2021-08-21] MEDS ORDERED: NovoLIN R (or HumuLIN R) SC SCH (16:30)
--- NOTE | 2021-08-21 21:07 | DR.CONSULT ---
CONSULT Consultation for Day of: Date: 08/21/21 Chief Complaint Chief Complaint: Medical consult status post colectomy for colon mass with metastases. Allergies Allergies Allergy/AdvReac Type Severity Reaction Status Date / Time ceftriaxone [From Rocephin] Allergy Unknown PT UNABLE Verified 08/20/21 11:20 TO TELL HIS REACTION ciprofloxacin [From Cipro] Allergy Unknown PT UNABLE Verified 08/20/21 11:20 TO TELL HIS REACTION morphine AdvReac Unknown PT UNABLE Verified 08/20/21 11:20 TO TELL HIS REACTION History of Present Illness History of Present Illness: This is an 86-year-old white male well known to me. Yesterday he underwent a colectomy for a colonic mass in the right side of his colon during the operation it was found that he had diffuse metastatic disease to the omentum. Tissue has been sent to pathology for review. He remains groggy this morning but does answer questions appropriately. He has some uncontrolled pain last night in which we increased his Dilaudid from every 4 hours to every 3 hours. Morning is noted his blood sugar is uncontrolled and running high. So we started him back on a sliding scale regular insulin protocol. It is also noted he is having some bigeminy on his residential monitor to. I will keep a close eye on this as well. Past Medical History Past Medical History: Anxiety, CVA, Diabetes, Dyslipidemia, GERD and Hypertension Past Surgical History Surgical History: Appendectomy, Bowel Resection and Joint Replacement Family History Family Medical History: Diabetes Mellitus, Cancer and Hypertension Social History Does patient currently use any type of tobacco product: No Have you used tobacco products in the last 12 months: No Type of Tobacco Use: None Does any household member use tobacco: No Alcohol Use: None Drug Use: None Medications Home Medications: ceftriaxone [From Rocephin] Allergy (Unknown, Verified 08/20/21 11:20) PT UNABLE TO TELL HIS REACTION ciprofloxacin [From Cipro] Allergy (Unknown, Verified 08/20/21 11:20) PT UNABLE TO TELL HIS REACTION morphine Adverse Reaction (Unknown, Verified 08/20/21 11:20) PT UNABLE TO TELL HIS REACTION CONTINUE taking the following medications aspirin 325 mg PO DAILY 08/20/21 [History] hydrocodone-acetaminophen 1 tab PO Q6H PRN 08/20/21 [History] iron fum,ol-tuefi-Vdzgr,C no.9 [Integra Plus] 1 cap PO QHS 04/22/22 [History] Review of Systems Constitutional: Weakness Eyes: No Symptoms Reported ENT: No Symptoms Reported Respiratory: No Symptoms Reported Cardiovascular: No Symptoms Reported Gastrointestinal: No Symptoms Reported Genitourinary: No Symptoms Reported Musculoskeletal: No Symptoms Reported Skin: No Symptoms Reported Neurological: No Symptoms Reported Physical Exam Vital Signs: Temperature 99.4 F Pulse Rate [Radial] 111 Pulse Rate 103 Respiratory Rate 15 Blood Pressure [Left Arm] 172/77 Blood Pressure [Right Arm] 160/77 Blood Pressure 161/71 O2 Sat by Pulse Oximetry 94 Oriented: Normal Eyes: Normal Ear: Normal Nose: Normal Throat: Normal Respiratory: Clear Throughout Cardiovascular: Irregular : Normal Auscultation: Bowel Sounds: Absent Palpation: Other Tenderness: Diffuse and Mild Skin: Normal Musculoskeletal: Normal Psychiatric: Normal Mood Description: Calm Affect: Normal Speech Pattern: Clear Plan (1) Status post colectomy: Status: Acute Plan: Treatment per general surgery, Dr. Caldwell. (2) HTN (hypertension): Status: Chronic Qualifiers: Hypertension type: essential hypertension Qualified Code(s): I10 - Essential (primary) hypertension Plan: We will add Lopressor 5 mg IV every 12 hours. 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
[2021-08-22] MEDS: DILAUDID INJ IVP PRN ×5 (00:59→22:00)
[2021-08-22] MEDS: D5 1/2 NS 1,000 ML 1,000 ML IV SCH ×4 (04:05→18:01)
[2021-08-22 05:12] LABS: BASOPHILS % (AUTO) 0.2 % (0.2-1.0); HEMATOCRIT 26.4 % (42.0-54.0); HEMOGLOBIN 8.9 g/dL (13.5-18.0); LYMPHOCYTES # (AUTO) 0.4 X10^3/uL (1.3-2.9); LYMPHOCYTES % (AUTO) 4.7 % (21.0-51.0); MEAN CORPUSCULAR HEMOGLOBIN 29.6 pg (27.0-34.0); MEAN CORPUSCULAR HGB CONC 33.6 g/dL (33.0-35.0); MEAN PLATELET VOLUME 9.1 fL (7.4-11.0); MONOCYTES # (AUTO) 0.9 x10^3/uL (0.3-0.8); MONOCYTES % (AUTO) 9.7 % (0.0-13.0); NEUTROPHILS # (AUTO) 7.6 x10^3/uL (2.2-4.8); NEUTROPHILS % (AUTO) 85.4 % (42.0-75.0); RED BLOOD COUNT 3.01 X10^6/uL (4.7-6.0); RED CELL DISTRIBUTION WIDTH 14.2 % (11.6-16.5)
[2021-08-22 05:25] LABS: ALANINE AMINOTRANSFERASE 8 Units/L (12-78); ALBUMIN 1.8 g/dL (3.4-5.0); ALKALINE PHOSPHATASE 80 Units/L (46-116); ASPARTATE AMINO TRANSFERASE 10 Units/L (15-37); BLOOD UREA NITROGEN 23 mg/dL (7-18); CALCIUM 7.9 mg/dL (8.5-10.1); CARBON DIOXIDE 30.4 mmol/L (21-32); CHLORIDE 100 mmol/L (98-107); COR CA(FOR HYPOALB) 9.7 mg/dL (8.5-10.1); COR NA(FOR HYPERGLY) 136 mmol/L (136-145); CREATININE 1.38 mg/dL (0.70-1.30); SODIUM 133 mmol/L (136-145); TOTAL PROTEIN 4.7 g/dL (6.4-8.2); eGFR NON BLACK RACES 52 (>60)
[2021-08-22] MEDS: FLAGYL IV PREMIX 500 MG BAG 500 MG/100 ML BAG IV SCH ×3 (05:48→21:50)
[2021-08-22] MEDS: NovoLIN R (or HumuLIN R) SC PRN (05:52)
[2021-08-22] MEDS ORDERED: LASIX IVP ONE ×2 (06:31→06:33)
--- NOTE | 2021-08-22 06:53 | RAD ---
HISTORYSOBSTUDYCHEST x-ray, 1 VIEWCOMPARISONX-ray 08/20/2021FINDINGSPatient is rotated to the right. There is new opacity in the right middle lobe region that could be atelectasis or pneumonia. There is probable cardiomegaly without pulmonary venous congestion. Left lung appears clear. Enteric tube passes into the region of the stomach.IMPRESSIONNew opacity in the right middle lobe region could be atelectasis or pneumonia.Electronically signed by: Malcolm Silva (Aug 22, 2021 06:52:52)
[2021-08-22] MEDS: LOVENOX INJ 40 MG SYR SC SCH (08:17)
[2021-08-22] MEDS: PROTONIX INJ 40 MG VIAL IVP SCH (08:18)
[2021-08-22] MEDS ORDERED: PULMICORT NEB TX 0.5 MG NEB ONE (09:09)
[2021-08-22] MEDS: PULMICORT NEB TX 0.5 MG NEB SCH ×2 (09:25→20:26)
[2021-08-22] MEDS ORDERED: ROBITUSSIN DM PO PRN (10:51)
--- NOTE | 2021-08-22 11:16 | DR.PROGNOT ---
Hospital Progress Notes - Progress Note for Day of: Progress Note Date: 08/22/21 - Chief Complaint Chief Complaint: showed congested last night required lasix IV . chest X Ray showed atelectasis RT lung. mild drainage in LESLI . minimal drainage in NGT .. stable Hgb and slight elevated Creatinin . alert , afebrile .. - Past Medical Family Social History Past Med/Fam/Surg Hx: No changes since H&P Allergies: Allergies ceftriaxone [From Rocephin] Allergy (Unknown, Verified 08/20/21 11:20) PT UNABLE TO TELL HIS REACTION ciprofloxacin [From Cipro] Allergy (Unknown, Verified 08/20/21 11:20) PT UNABLE TO TELL HIS REACTION morphine Adverse Reaction (Unknown, Verified 08/20/21 11:20) PT UNABLE TO TELL HIS REACTION - Review Of Systems ROS: No change since H&P - Vital Signs Vital Signs: Temperature 99.2 F Pulse Rate [Radial] 111 Pulse Rate 99 Respiratory Rate 20 Blood Pressure [Left Arm] 172/77 Blood Pressure [Right Arm] 160/77 Blood Pressure 154/66 O2 Sat by Pulse Oximetry 97 - Physical Exam Oriented: Normal Eyes: Normal Ear: Normal Nose: Normal Throat: Normal Respiratory: Normal Cardiovascular: Irregular : Normal GI:Auscultation: Absent GI:Palpation: Other GI: Tenderness: Diffuse (soft abdomen with + BS ), Mild Skin: Normal Musculoskeletal: Normal Psychiatric: Normal Mood Description: Calm Affect: Normal Speech Pattern: Clear - Laboratory and Diagnostics Result Diagrams: 08/22/21 04:00 08/22/21 04:00 Labs: Laboratory WBC 9.0 X10^3/uL (3.6-10.0) 08/22/21 04:00 RBC 3.01 X10^6/uL (4.7-6.0) L 08/22/21 04:00 Hgb 8.9 g/dL (13.5-18.0) L 08/22/21 04:00 Hct 26.4 % (42.0-54.0) L 08/22/21 04:00 MCV 88.0 fL (80.0-100.0) 08/22/21 04:00 MCH 29.6 pg (27.0-34.0) 08/22/21 04:00 MCHC 33.6 g/dL (33.0-35.0) 08/22/21 04:00 RDW 14.2 % (11.6-16.5) 08/22/21 04:00 Plt Count 209 X10^3/uL (150.0-450.0) 08/22/21 04:00 MPV 9.1 fL (7.4-11.0) 08/22/21 04:00 Neut % (Auto) 85.4 % (42.0-75.0) H 08/22/21 04:00 Lymph % (Auto) 4.7 % (21.0-51.0) L 08/22/21 04:00 [place] % (Auto) 9.7 % (0.0-13.0) 08/22/21 04:00 Eos % (Auto) 0.0 % (0.9-2.9) L 08/22/21 04:00 Baso % (Auto) 0.2 % (0.2-1.0) 08/22/21 04:00 Neut # (Auto) 7.6 x10^3/uL (2.2-4.8) H 08/22/21 04:00 Lymph # (Auto) 0.4 X10^3/uL (1.3-2.9) L 08/22/21 04:00 [place] # (Auto) 0.9 x10^3/uL (0.3-0.8) H 08/22/21 04:00 Eos # (Auto) 0.0 x10^3/uL (0.0-0.2) 08/22/21 04:00 Baso # (Auto) 0.0 X10^3/uL (0.0-0.1) 08/22/21 04:00 Absolute Nucleated RBC 0.0 /100WBC 08/22/21 04:00 Sodium 133 mmol/L (136-145) L 08/22/21 04:00 Corrected Sodium 136 mmol/L (136-145) 08/22/21 04:00 Potassium 3.5 mmol/L (3.5-5.1) 08/22/21 04:00 Chloride 100 mmol/L (98-107) 08/22/21 04:00 Carbon Dioxide 30.4 mmol/L (21-32) 08/22/21 04:00 BUN 23 mg/dL (7-18) H 08/22/21 04:00 Creatinine 1.38 mg/dL (0.70-1.30) H 08/22/21 04:00 Est GFR (MDRD) Af Amer > 60 (>60) 08/22/21 04:00 Est GFR (MDRD) Non-Af 52 (>60) L 08/22/21 04:00 Glucose 213 mg/dL (65-99) H 08/22/21 04:00 POC Glucose (mg/dL) 231 mg/dL (65-99) H 08/21/21 20:06 Calcium 7.9 mg/dL (8.5-10.1) L 08/22/21 04:00 Corrected Calcium 9.7 mg/dL (8.5-10.1) 08/22/21 04:00 Magnesium 2.0 mg/dL (1.7-2.9) 08/22/21 04:00 Total Bilirubin 0.30 mg/dL (0.2-1.0) 08/22/21 04:00 AST 10 Units/L (15-37) L 08/22/21 04:00 ALT 8 Units/L (12-78) L 08/22/21 04:00 Alkaline Phosphatase 80 Units/L (46-116) 08/22/21 04:00 Total Protein 4.7 g/dL (6.4-8.2) L 08/22/21 04:00 Albumin 1.8 g/dL (3.4-5.0) L 08/22/21 04:00 Globulin 2.9 g/dL (2.5-4.5) 08/22/21 04:00 Albumin/Globulin Ratio 0.6 Ratio (1.1-2.1) L 08/22/21 04:00 SARS CoV-2 RNA Rapid ALEX Negative (NEGATIVE) 08/20/21 10:04 Tissue Pathology To follow 08/20/21 14:30 Blood Type A POSITIVE 08/20/21 14:33 Antibody Screen Negative 08/20/21 14:33 - Assessment and Plan 1: 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 s/p RT colectomy , omentectomy , partial small bowel resection .. same po care . OOB, lovenox sc .incentive speromiter .. d/c NGT , clear liquid ..
[2021-08-22] MEDS: LOPRESSOR INJ 5 MG AMP IVP PRN (12:30)
[2021-08-22 12:33] LABS: HEMATOCRIT 28.6 % (42.0-54.0); HEMOGLOBIN 9.5 g/dL (13.5-18.0)
[2021-08-22 12:55] LABS: CKMB % 1.4 % (<4); CREATINE KINASE 70 Units/L (39-308); CREATINE KINASE MB < 1.0 ng/mL (0-4.0)
[2021-08-22] MEDS ORDERED: CARDIZEM INJ 50 MG VIAL IVP ONE (12:57)
[2021-08-22] MEDS ORDERED: CARDIZEM INJ 50 MG VIAL ONE (13:04)
[2021-08-22] MEDS: XOPENEX 1.25 MG/3 ML NEBULE NEB SCH ×3 (13:17→17:45)
[2021-08-22] MEDS: CARDIZEM INJ 125 MG VIAL 125 MG in NS 100 ML IV 100 ML IV PRN ×2 (13:19→20:55)
[2021-08-22] MEDS: ZOSYN VIAL 3.375 GRAMS 3.375 G in NS 100 ML IV 100 ML IV SCH ×3 (13:56→23:15)
[2021-08-22] MEDS ORDERED: VIBRAMYCIN IV ONE ×2 (14:00→20:45)
[2021-08-22] MEDS ORDERED: NS 100 ML IV 100 ML ONE ×2 (14:01→20:46)
[2021-08-22] MEDS: VIBRAMYCIN 100 MG in NS 100 ML IV + SPIKE MINIBAG* 100 ML IV SCH ×2 (14:58→20:55)
[2021-08-22] MEDS: CARDIZEM CD 180 MG 24-HR PO SCH (18:05)
[2021-08-22] MEDS: TOPROL XL PO SCH (18:05)
[2021-08-22] MEDS ORDERED: TOPROL XL PO ONE (18:05)
--- NOTE | 2021-08-22 20:25 | PCM.PROG ---
Progress Note Progress Note for Day of Date of Exam: 08/22/21 Subjective Subjective: The patient is resting this morning. There was no problems overnight. His nurse reports that he was talking to her earlier this morning and seemed fine. Chest x-ray is reviewed and is showing possible right middle lobe infiltrate versus atelectasis. Not long after I saw the patient this morning he developed supraventricular tachycardia with a heart rate around 150. He was given IV Lopressor 5 mg IV 3 doses and this did not significantly lower lower his heart rate. Afterwards we started a Cardizem drip per protocol and this did bring his heart rate down to the 120s. His blood pressure is stable throughout the day. Cardiac enzymes were checked and they were negative. He was also started on the pneumonia protocol today and antibodies being given to him for Zosyn and Vibramycin. Sputum cultures were checked as well as blood cultures today also. His NG tube was also pulled today per general surgery. He was also started on clear liquids. During the time of his high heart rate with SVT he was chest pain-free denies shortness of breath and had no complaints at all. Past Medical Family Social History Past Med/Fam/Surg Hx: No changes since H&P Allergies: Allergies ceftriaxone [From Rocephin] Allergy (Unknown, Verified 08/20/21 11:20) PT UNABLE TO TELL HIS REACTION ciprofloxacin [From Cipro] Allergy (Unknown, Verified 08/20/21 11:20) PT UNABLE TO TELL HIS REACTION morphine Adverse Reaction (Unknown, Verified 08/20/21 11:20) PT UNABLE TO TELL HIS REACTION Review of Systems ROS: No change since H&P Vital Signs and I&O's Vital Signs: Temperature 97.9 F Pulse Rate [Radial] 111 Pulse Rate 112 Respiratory Rate 14 Blood Pressure [Left Arm] 172/77 Blood Pressure [Right Arm] 160/77 Blood Pressure 136/66 O2 Sat by Pulse Oximetry 96 Intake and Output: Intake & Output 08/20/21 08/21/21 08/22/21 08/23/21 11:59 11:59 11:59 11:59 Intake Total 4234 / 4234 3543 / 3543 1234 / 1234 Output Total 1964 / 1964 1135 / 1135 1220 / 1220 Balance 2269 / 2269 2408 / 2408 Physical Exam Oriented: Normal Eyes: Normal Ear: Normal Nose: Normal Throat: Normal Respiratory: Normal Cardiovascular: Irregular : Normal Auscultation: Bowel Sounds: Absent Tenderness: Diffuse (soft abdomen with + BS ) and Mild Skin: Normal Musculoskeletal: Normal Psychiatric: Normal Mood Description: Calm Affect: Normal Speech Pattern: Clear and Appropriate Laboratory and Diagnostics Result Diagrams: 08/22/21 12:24 08/22/21 04:00 Labs: 08/22/21 09:25 Sputum - Expectorated Sputum - Final Laboratory WBC 9.0 X10^3/uL (3.6-10.0) 08/22/21 04:00 RBC 3.01 X10^6/uL (4.7-6.0) L 08/22/21 04:00 Hgb 9.5 g/dL (13.5-18.0) L 08/22/21 12:24 Hct 28.6 % (42.0-54.0) L 08/22/21 12:24 MCV 88.0 fL (80.0-100.0) 08/22/21 04:00 MCH 29.6 pg (27.0-34.0) 08/22/21 04:00 MCHC 33.6 g/dL (33.0-35.0) 08/22/21 04:00 RDW 14.2 % (11.6-16.5) 08/22/21 04:00 Plt Count 209 X10^3/uL (150.0-450.0) 08/22/21 04:00 MPV 9.1 fL (7.4-11.0) 08/22/21 04:00 Neut % (Auto) 85.4 % (42.0-75.0) H 08/22/21 04:00 Lymph % (Auto) 4.7 % (21.0-51.0) L 08/22/21 04:00 [place] % (Auto) 9.7 % (0.0-13.0) 08/22/21 04:00 Eos % (Auto) 0.0 % (0.9-2.9) L 08/22/21 04:00 Baso % (Auto) 0.2 % (0.2-1.0) 08/22/21 04:00 Neut # (Auto) 7.6 x10^3/uL (2.2-4.8) H 08/22/21 04:00 Lymph # (Auto) 0.4 X10^3/uL (1.3-2.9) L 08/22/21 04:00 [place] # (Auto) 0.9 x10^3/uL (0.3-0.8) H 08/22/21 04:00 Eos # (Auto) 0.0 x10^3/uL (0.0-0.2) 08/22/21 04:00 Baso # (Auto) 0.0 X10^3/uL (0.0-0.1) 08/22/21 04:00 Absolute Nucleated RBC 0.0 /100WBC 08/22/21 04:00 D-Dimer 3.13 ug/ml (0.0-0.57) H* 08/22/21 12:24 Sodium 133 mmol/L (136-145) L 08/22/21 04:00 Corrected Sodium 136 mmol/L (136-145) 08/22/21 04:00 Potassium 3.5 mmol/L (3.5-5.1) 08/22/21 04:00 Chloride 100 mmol/L (98-107) 08/22/21 04:00 Carbon Dioxide 30.4 mmol/L (21-32) 08/22/21 04:00 BUN 23 mg/dL (7-18) H 08/22/21 04:00 Creatinine 1.38 mg/dL (0.70-1.30) H 08/22/21 04:00 Est GFR (MDRD) Af Amer > 60 (>60) 08/22/21 04:00 Est GFR (MDRD) Non-Af 52 (>60) L 08/22/21 04:00 Glucose 213 mg/dL (65-99) H 08/22/21 04:00 POC Glucose (mg/dL) 172 mg/dL (65-99) H 08/22/21 20:12 Calcium 7.9 mg/dL (8.5-10.1) L 08/22/21 04:00 Corrected Calcium 9.7 mg/dL (8.5-10.1) 08/22/21 04:00 Magnesium 2.0 mg/dL (1.7-2.9) 08/22/21 04:00 Total Bilirubin 0.30 mg/dL (0.2-1.0) 08/22/21 04:00 AST 10 Units/L (15-37) L 08/22/21 04:00 ALT 8 Units/L (12-78) L 08/22/21 04:00 Alkaline Phosphatase 80 Units/L (46-116) 08/22/21 04:00 Creatine Kinase 70 Units/L (39-308) 08/22/21 12:24 CK-MB (CK-2) < 1.0 ng/mL (0-4.0) 08/22/21 12:24 CK/CKMB % Calc 1.4 % (<4) 08/22/21 12:24 Troponin I High Sens 16.1 ng/L (4.0-60.0) 08/22/21 12:24 Total Protein 4.7 g/dL (6.4-8.2) L 08/22/21 04:00 Albumin 1.8 g/dL (3.4-5.0) L 08/22/21 04:00 Globulin 2.9 g/dL (2.5-4.5) 08/22/21 04:00 Albumin/Globulin Ratio 0.6 Ratio (1.1-2.1) L 08/22/21 04:00 SARS CoV-2 RNA Rapid ALEX Negative (NEGATIVE) 08/20/21 10:04 Tissue Pathology To follow 08/20/21 14:30 Blood Type A POSITIVE 08/20/21 14:33 Antibody Screen Negative 08/20/21 14:33 Radiology Reviewed: Yes Rhythm: PSVT Plan (1) Status post colectomy: Status: Acute (2) HTN (hypertension): Status: Chronic Qualifiers: Hypertension type: essential hypertension Qualified Code(s): I10 - Essential (primary) hypertension (3) Diabetes: Status: Chronic Qualifiers: Diabetes mellitus type: type 2 Diabetes mellitus mcfp insulin use: with mcfp use Diabetes mellitus complication status: without complication Qualified Code(s): E11.9 - Type 2 diabetes mellitus without complications; Z79.4 - skilled nursing (current) use of insulin (4) Supraventricular tachycardia: Status: Acute Plan: Cardizem drip and changing metoprolol ER 200 mg by mouth daily. (5) Hyponatremia: Status: Acute Plan: Change IV fluid to normal saline at 30 mL/h. (6) Right middle lobe pneumonia: Status: Acute Plan: Pneumonia protocol, check sputum and blood cultures and started the patient on Zosyn and Vibramycin.
[2021-08-22] MEDS: PROTONIX TAB 40 MG PO SCH (20:58)
[2021-08-23] MEDS ORDERED: LASIX IVP ONE ×4 (00:13→22:32)
[2021-08-23] MEDS: XOPENEX 1.25 MG/3 ML NEBULE NEB SCH ×4 (00:42→16:37)
[2021-08-23] MEDS: DILAUDID INJ IVP PRN ×3 (01:35→22:42)
[2021-08-23] MEDS: LOPRESSOR INJ 5 MG AMP IVP PRN (01:40)
[2021-08-23] MEDS: FLAGYL IV PREMIX 500 MG BAG 500 MG/100 ML BAG IV SCH ×3 (05:05→21:03)
[2021-08-23 05:31] LABS: BASOPHILS % (AUTO) 0.3 % (0.2-1.0); EOSINOPHILS # (AUTO) 0.1 x10^3/uL (0.0-0.2); EOSINOPHILS % (AUTO) 0.6 % (0.9-2.9); HEMATOCRIT 25.5 % (42.0-54.0); HEMOGLOBIN 8.8 g/dL (13.5-18.0); LYMPHOCYTES # (AUTO) 0.5 X10^3/uL (1.3-2.9); LYMPHOCYTES % (AUTO) 5.3 % (21.0-51.0); MEAN CORPUSCULAR HEMOGLOBIN 29.8 pg (27.0-34.0); MEAN CORPUSCULAR HGB CONC 34.4 g/dL (33.0-35.0); MEAN CORPUSCULAR VOLUME 86.6 fL (80.0-100.0); MEAN PLATELET VOLUME 8.7 fL (7.4-11.0); MONOCYTES # (AUTO) 0.7 x10^3/uL (0.3-0.8); MONOCYTES % (AUTO) 8.4 % (0.0-13.0); NEUTROPHILS # (AUTO) 7.3 x10^3/uL (2.2-4.8); NEUTROPHILS % (AUTO) 85.4 % (42.0-75.0); RED BLOOD COUNT 2.94 X10^6/uL (4.7-6.0); RED CELL DISTRIBUTION WIDTH 14.1 % (11.6-16.5); WHITE BLOOD COUNT 8.6 X10^3/uL (3.6-10.0)
[2021-08-23] MEDS ORDERED: XOPENEX 1.25 MG/3 ML NEBULE NEB ONE (05:48)
[2021-08-23] MEDS: CARDIZEM INJ 125 MG VIAL 125 MG in NS 100 ML IV 100 ML IV PRN ×2 (05:58→09:15)
[2021-08-23] MEDS: ZOSYN VIAL 3.375 GRAMS 3.375 G in NS 100 ML IV 100 ML IV SCH ×2 (06:18→15:00)
--- NOTE | 2021-08-23 06:27 | RAD ---
HISTORYFollow-up pneumoniaSTUDYChest AP [id number] ent is rotated to the left. There is a right IJ line in good position. Heart is upper limits normal in size. No congestive heart failure is noted. There is subsegmental atelectasis in the right lung base unchanged from the prior examination. No acute infiltrates or pleural effusions are identified. Bony thorax is unremarkable.IMPRESSIONNo definite acute infiltratesSubsegmental atelectasis right lung baseElectronically signed by: RAMSEY SANCHEZ (Aug 23, 2021 06:26:54)
[2021-08-23 06:44] LABS: ALANINE AMINOTRANSFERASE 13 Units/L (12-78); ALBUMIN 1.8 g/dL (3.4-5.0); ALKALINE PHOSPHATASE 81 Units/L (46-116); ASPARTATE AMINO TRANSFERASE 11 Units/L (15-37); BLOOD UREA NITROGEN 24 mg/dL (7-18); CALCIUM 8.1 mg/dL (8.5-10.1); CARBON DIOXIDE 31.5 mmol/L (21-32); CHLORIDE 100 mmol/L (98-107); COR CA(FOR HYPOALB) 9.9 mg/dL (8.5-10.1); COR NA(FOR HYPERGLY) 139 mmol/L (136-145); CREATININE 1.35 mg/dL (0.70-1.30); SODIUM 137 mmol/L (136-145); eGFR NON BLACK RACES 53 (>60)
[2021-08-23] MEDS ORDERED: K-RIDER 10 MEQ/NS 100 ML 10 MEQ/100 ML BAG IV PRN (07:56)
[2021-08-23] MEDS ORDERED: MICRO K EXTEN CAP 10 MEQ PO PRN (07:56)
[2021-08-23] MEDS ORDERED: POTASSIUM CHLORIDE LIQ 20 MEQ UDC PO PRN (07:56)
[2021-08-23] MEDS ORDERED: POTASSIUM CHL 60 MEQ/NS 0.45% 500 ML IV PRN (07:56)
[2021-08-23] MEDS ORDERED: KLOR-CON PO PRN (07:56)
[2021-08-23] MEDS ORDERED: POTASSIUM CHL 40 MEQ/NS 0.45% 500 ML IV PRN (07:56)
[2021-08-23] MEDS ORDERED: TOPROL XL PO ONE (08:01)
[2021-08-23] MEDS: TOPROL XL PO SCH (08:15)
[2021-08-23] MEDS: K-DUR TAB 20 MEQ PO PRN ×2 (08:15→17:12)
[2021-08-23] MEDS: LOVENOX INJ 40 MG SYR SC SCH (08:16)
[2021-08-23] MEDS: CARDIZEM CD 180 MG 24-HR PO SCH (08:16)
[2021-08-23] MEDS: ZOLOFT PO SCH (08:16)
[2021-08-23] MEDS: PROTONIX TAB 40 MG PO SCH ×2 (08:16→20:42)
[2021-08-23] MEDS: D5 1/2 NS 1,000 ML 1,000 ML IV SCH (08:17)
[2021-08-23] MEDS: PULMICORT NEB TX 0.5 MG NEB SCH ×2 (08:30→20:00)
[2021-08-23] MEDS ORDERED: VIBRAMYCIN 100 MG in NS 100 ML IV 100 ML IV SCH (09:00)
[2021-08-23] MEDS ORDERED: ZOFRAN INJ 4 MG VIAL IVP PRN (10:01)
--- NOTE | 2021-08-23 15:03 | PCM.PROG ---
Progress Note Progress Note for Day of Date of Exam: 08/23/21 Subjective Subjective: The patient is resting this morning. Last night he had increasing shortness of breath prior to midnight. The nurse reported that he had increased rest. At that time I ordered Lasix 40 mg IV and he put out a fair amount of urine after that. His dyspnea and breathing got better afterwards and by this morning he is breathing much better and satting in the upper 90s. Well and his heart rate is 75. We will wean down the Cardizem drip today as we have started him back on his by mouth Cardizem CD 180 mg daily. Chest x-ray is reviewed this morning which shows it has improved since yesterday. There is no clear clear infiltrate seen. I started him empirically on Vibramycin yesterday and Zosyn so I will DC in both of his antibiotics today. His IV fluid has been turned down to KVO. He is eating clear liquids and drinking clear liquids as well. Diet advancement per general surgery, Dr. Caldwell. Past Medical Family Social History Past Med/Fam/Surg Hx: No changes since H&P Allergies: Allergies ceftriaxone [From Rocephin] Allergy (Unknown, Verified 08/20/21 11:20) PT UNABLE TO TELL HIS REACTION ciprofloxacin [From Cipro] Allergy (Unknown, Verified 08/20/21 11:20) PT UNABLE TO TELL HIS REACTION morphine Adverse Reaction (Unknown, Verified 08/20/21 11:20) PT UNABLE TO TELL HIS REACTION Review of Systems ROS: No change since H&P Vital Signs and I&O's Vital Signs: Temperature 97.4 F Pulse Rate [Radial] 111 Pulse Rate 62 Respiratory Rate 15 Blood Pressure [Left Arm] 172/77 Blood Pressure [Right Arm] 160/77 Blood Pressure 144/60 O2 Sat by Pulse Oximetry 100 Intake and Output: Intake & Output 08/21/21 08/22/21 08/23/21 08/24/21 11:59 11:59 11:59 11:59 Intake Total 4234 / 4234 3543 / 3543 2693 / 2693 Output Total 1964 / 1964 1135 / 1135 2755 / 2755 Balance 2269 / 2269 2408 / 2408 -62 / -62 Physical Exam Oriented: Normal Eyes: Normal Ear: Normal Nose: Normal Throat: Normal Respiratory: Normal Cardiovascular: Irregular : Normal Auscultation: Bowel Sounds: Absent Tenderness: Diffuse (soft abdomen with + BS ) and Mild Skin: Normal Musculoskeletal: Normal Psychiatric: Normal Mood Description: Calm Affect: Normal Speech Pattern: Clear and Appropriate Laboratory and Diagnostics Result Diagrams: 08/23/21 04:08 08/23/21 11:08 Labs: 08/22/21 09:25 Sputum - Expectorated Sputum Sputum Culture - Preliminary 08/22/21 09:25 Sputum - Expectorated Sputum - Final Laboratory WBC 8.6 X10^3/uL (3.6-10.0) 08/23/21 04:08 RBC 2.94 X10^6/uL (4.7-6.0) L 08/23/21 04:08 Hgb 8.8 g/dL (13.5-18.0) L 08/23/21 04:08 Hct 25.5 % (42.0-54.0) L 08/23/21 04:08 MCV 86.6 fL (80.0-100.0) 08/23/21 04:08 MCH 29.8 pg (27.0-34.0) 08/23/21 04:08 MCHC 34.4 g/dL (33.0-35.0) 08/23/21 04:08 RDW 14.1 % (11.6-16.5) 08/23/21 04:08 Plt Count 220 X10^3/uL (150.0-450.0) 08/23/21 04:08 MPV 8.7 fL (7.4-11.0) 08/23/21 04:08 Neut % (Auto) 85.4 % (42.0-75.0) H 08/23/21 04:08 Lymph % (Auto) 5.3 % (21.0-51.0) L 08/23/21 04:08 [place] % (Auto) 8.4 % (0.0-13.0) 08/23/21 04:08 Eos % (Auto) 0.6 % (0.9-2.9) L 08/23/21 04:08 Baso % (Auto) 0.3 % (0.2-1.0) 08/23/21 04:08 Neut # (Auto) 7.3 x10^3/uL (2.2-4.8) H 08/23/21 04:08 Lymph # (Auto) 0.5 X10^3/uL (1.3-2.9) L 08/23/21 04:08 [place] # (Auto) 0.7 x10^3/uL (0.3-0.8) 08/23/21 04:08 Eos # (Auto) 0.1 x10^3/uL (0.0-0.2) 08/23/21 04:08 Baso # (Auto) 0.0 X10^3/uL (0.0-0.1) 08/23/21 04:08 Absolute Nucleated RBC 0.0 /100WBC 08/23/21 04:08 D-Dimer 3.13 ug/ml (0.0-0.57) H* 08/22/21 12:24 Sodium 137 mmol/L (136-145) 08/23/21 04:08 Corrected Sodium 139 mmol/L (136-145) 08/23/21 04:08 Potassium 3.7 mmol/L (3.5-5.1) 08/23/21 11:08 Chloride 100 mmol/L (98-107) 08/23/21 04:08 Carbon Dioxide 31.5 mmol/L (21-32) 08/23/21 04:08 BUN 24 mg/dL (7-18) H 08/23/21 04:08 Creatinine 1.35 mg/dL (0.70-1.30) H 08/23/21 04:08 Est GFR (MDRD) Af Amer > 60 (>60) 08/23/21 04:08 Est GFR (MDRD) Non-Af 53 (>60) L 08/23/21 04:08 Glucose 186 mg/dL (65-99) H 08/23/21 04:08 POC Glucose (mg/dL) 190 mg/dL (65-99) H 08/23/21 11:27 Calcium 8.1 mg/dL (8.5-10.1) L 08/23/21 04:08 Corrected Calcium 9.9 mg/dL (8.5-10.1) 08/23/21 04:08 Magnesium 2.0 mg/dL (1.7-2.9) 08/22/21 04:00 Total Bilirubin 0.50 mg/dL (0.2-1.0) 08/23/21 04:08 AST 11 Units/L (15-37) L 08/23/21 04:08 ALT 13 Units/L (12-78) 08/23/21 04:08 Alkaline Phosphatase 81 Units/L (46-116) 08/23/21 04:08 Creatine Kinase 70 Units/L (39-308) 08/22/21 12:24 CK-MB (CK-2) < 1.0 ng/mL (0-4.0) 08/22/21 12:24 CK/CKMB % Calc 1.4 % (<4) 08/22/21 12:24 Troponin I High Sens 16.1 ng/L (4.0-60.0) 08/22/21 12:24 Total Protein 5.0 g/dL (6.4-8.2) L 08/23/21 04:08 Albumin 1.8 g/dL (3.4-5.0) L 08/23/21 04:08 Globulin 3.2 g/dL (2.5-4.5) 08/23/21 04:08 Albumin/Globulin Ratio 0.6 Ratio (1.1-2.1) L 08/23/21 04:08 SARS CoV-2 RNA Rapid ALEX Negative (NEGATIVE) 08/20/21 10:04 Tissue Pathology To follow 08/20/21 14:30 Blood Type A POSITIVE 08/20/21 14:33 Antibody Screen Negative 08/20/21 14:33 Radiology Reviewed: Yes Rate: 75 Plan (1) Status post colectomy: Status: Acute (2) HTN (hypertension): Status: Chronic Qualifiers: Hypertension type: essential hypertension Qualified Code(s): I10 - Essential (primary) hypertension Narrative Support Text: Blood pressure stable today. Plan: Continue Cardizem CD 180 mg by mouth daily and metoprolol extended r elease 100 mg by mouth daily. (3) Diabetes: Status: Chronic Qualifiers: Diabetes mellitus type: type 2 Diabetes mellitus assisted insulin use: with rat exterminator use Diabetes mellitus complication status: without complication Qualified Code(s): E11.9 - Type 2 diabetes mellitus without complications; Z79.4 - long-term (current) use of insulin Plan: Sliding scale regular insulin per protocol. Check One Touch blood sugars 4 times a day. (4) Supraventricular tachycardia: Status: Resolved Plan: Cardizem drip and changing metoprolol ER 200 mg by mouth daily. (5) Hyponatremia: Status: Resolved Plan: Change IV fluid to normal saline at 30 mL/h. (6) Right middle lobe pneumonia: Status: Acute Plan: Canceling the pneumonia protocol as the chest x-ray this morning showed no infiltrate. I will also be discontinuing his Vibramycin and Zosyn. (7) Anemia: Status: Acute Qualifiers: Anemia type: unspecified type Qualified Code(s): D64.9 - Anemia, unspecified Narrative Support Text: Hemoglobin is 8.8 this morning. Vital signs are still stable. Plan: Monitor daily hemoglobins.
--- NOTE | 2021-08-23 15:21 | DR.PROGNOT ---
Hospital Progress Notes - Progress Note for Day of: Progress Note Date: 08/23/21 - Chief Complaint Chief Complaint: alert , awake .. had regular BM last night .. mild drainage in LESLI . tolerating diet .. segmental atelectasis RT middle lob. WBC 8.6.. bun/Creat 24/05.35.. BS 190.. Album 1.8 - Past Medical Family Social History Past Med/Fam/Surg Hx: No changes since H&P Allergies: Allergies ceftriaxone [From Rocephin] Allergy (Unknown, Verified 08/20/21 11:20) PT UNABLE TO TELL HIS REACTION ciprofloxacin [From Cipro] Allergy (Unknown, Verified 08/20/21 11:20) PT UNABLE TO TELL HIS REACTION morphine Adverse Reaction (Unknown, Verified 08/20/21 11:20) PT UNABLE TO TELL HIS REACTION - Review Of Systems ROS: No change since H&P - Vital Signs Vital Signs: Temperature 97.4 F Pulse Rate [Radial] 111 Pulse Rate 62 Respiratory Rate 15 Blood Pressure [Left Arm] 172/77 Blood Pressure [Right Arm] 160/77 Blood Pressure 144/60 O2 Sat by Pulse Oximetry 100 - Physical Exam Oriented: Normal Eyes: Normal Ear: Normal Nose: Normal Throat: Normal Respiratory: Normal Cardiovascular: Irregular : Normal GI:Auscultation: Absent GI:Palpation: Other GI: Tenderness: Diffuse (soft abdomen with + BS), Mild Skin: Normal Musculoskeletal: Normal Psychiatric: Normal Mood Description: Calm Affect: Normal Speech Pattern: Clear, Appropriate - Laboratory and Diagnostics Result Diagrams: 08/23/21 04:08 08/23/21 11:08 Labs: 08/22/21 09:25 Sputum - Expectorated Sputum Sputum Culture - Preliminary 08/22/21 09:25 Sputum - Expectorated Sputum - Final Laboratory WBC 8.6 X10^3/uL (3.6-10.0) 08/23/21 04:08 RBC 2.94 X10^6/uL (4.7-6.0) L 08/23/21 04:08 Hgb 8.8 g/dL (13.5-18.0) L 08/23/21 04:08 Hct 25.5 % (42.0-54.0) L 08/23/21 04:08 MCV 86.6 fL (80.0-100.0) 08/23/21 04:08 MCH 29.8 pg (27.0-34.0) 08/23/21 04:08 MCHC 34.4 g/dL (33.0-35.0) 08/23/21 04:08 RDW 14.1 % (11.6-16.5) 08/23/21 04:08 Plt Count 220 X10^3/uL (150.0-450.0) 08/23/21 04:08 MPV 8.7 fL (7.4-11.0) 08/23/21 04:08 Neut % (Auto) 85.4 % (42.0-75.0) H 08/23/21 04:08 Lymph % (Auto) 5.3 % (21.0-51.0) L 08/23/21 04:08 [place] % (Auto) 8.4 % (0.0-13.0) 08/23/21 04:08 Eos % (Auto) 0.6 % (0.9-2.9) L 08/23/21 04:08 Baso % (Auto) 0.3 % (0.2-1.0) 08/23/21 04:08 Neut # (Auto) 7.3 x10^3/uL (2.2-4.8) H 08/23/21 04:08 Lymph # (Auto) 0.5 X10^3/uL (1.3-2.9) L 08/23/21 04:08 [place] # (Auto) 0.7 x10^3/uL (0.3-0.8) 08/23/21 04:08 Eos # (Auto) 0.1 x10^3/uL (0.0-0.2) 08/23/21 04:08 Baso # (Auto) 0.0 X10^3/uL (0.0-0.1) 08/23/21 04:08 Absolute Nucleated RBC 0.0 /100WBC 08/23/21 04:08 D-Dimer 3.13 ug/ml (0.0-0.57) H* 08/22/21 12:24 Sodium 137 mmol/L (136-145) 08/23/21 04:08 Corrected Sodium 139 mmol/L (136-145) 08/23/21 04:08 Potassium 3.7 mmol/L (3.5-5.1) 08/23/21 11:08 Chloride 100 mmol/L (98-107) 08/23/21 04:08 Carbon Dioxide 31.5 mmol/L (21-32) 08/23/21 04:08 BUN 24 mg/dL (7-18) H 08/23/21 04:08 Creatinine 1.35 mg/dL (0.70-1.30) H 08/23/21 04:08 Est GFR (MDRD) Af Amer > 60 (>60) 08/23/21 04:08 Est GFR (MDRD) Non-Af 53 (>60) L 08/23/21 04:08 Glucose 186 mg/dL (65-99) H 08/23/21 04:08 POC Glucose (mg/dL) 190 mg/dL (65-99) H 08/23/21 11:27 Calcium 8.1 mg/dL (8.5-10.1) L 08/23/21 04:08 Corrected Calcium 9.9 mg/dL (8.5-10.1) 08/23/21 04:08 Magnesium 2.0 mg/dL (1.7-2.9) 08/22/21 04:00 Total Bilirubin 0.50 mg/dL (0.2-1.0) 08/23/21 04:08 AST 11 Units/L (15-37) L 08/23/21 04:08 ALT 13 Units/L (12-78) 08/23/21 04:08 Alkaline Phosphatase 81 Units/L (46-116) 08/23/21 04:08 Creatine Kinase 70 Units/L (39-308) 08/22/21 12:24 CK-MB (CK-2) < 1.0 ng/mL (0-4.0) 08/22/21 12:24 CK/CKMB % Calc 1.4 % (<4) 08/22/21 12:24 Troponin I High Sens 16.1 ng/L (4.0-60.0) 08/22/21 12:24 Total Protein 5.0 g/dL (6.4-8.2) L 08/23/21 04:08 Albumin 1.8 g/dL (3.4-5.0) L 08/23/21 04:08 Globulin 3.2 g/dL (2.5-4.5) 08/23/21 04:08 Albumin/Globulin Ratio 0.6 Ratio (1.1-2.1) L 08/23/21 04:08 SARS CoV-2 RNA Rapid ALEX Negative (NEGATIVE) 08/20/21 10:04 Tissue Pathology To follow 08/20/21 14:30 Blood Type A POSITIVE 08/20/21 14:33 Antibody Screen Negative 08/20/21 14:33 - Assessment and Plan 1: 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 s/p RT colectomy , omentectomy , partial small bowel resection .. same po care . OOB, lovenox sc .incentive speromiter .. full liquid .. D/C fpley ..OOB with binder ,,
[2021-08-23] MEDS: NORCO 5/325 MG TAB PO PRN (17:13)
[2021-08-23] MEDS ORDERED: MAALOX or MYLANTA PO PRN (21:04)
[2021-08-24] MEDS: XOPENEX 1.25 MG/3 ML NEBULE NEB SCH ×4 (00:05→17:05)
[2021-08-24 04:59] LABS: BASOPHILS % (AUTO) 0.3 % (0.2-1.0); EOSINOPHILS # (AUTO) 0.1 x10^3/uL (0.0-0.2); EOSINOPHILS % (AUTO) 0.8 % (0.9-2.9); HEMATOCRIT 22.5 % (42.0-54.0); HEMOGLOBIN 7.6 g/dL (13.5-18.0); LYMPHOCYTES # (AUTO) 0.4 X10^3/uL (1.3-2.9); LYMPHOCYTES % (AUTO) 5.8 % (21.0-51.0); MEAN CORPUSCULAR HEMOGLOBIN 28.9 pg (27.0-34.0); MEAN CORPUSCULAR HGB CONC 33.6 g/dL (33.0-35.0); MEAN CORPUSCULAR VOLUME 85.9 fL (80.0-100.0); MEAN PLATELET VOLUME 8.7 fL (7.4-11.0); MONOCYTES # (AUTO) 0.5 x10^3/uL (0.3-0.8); MONOCYTES % (AUTO) 7.5 % (0.0-13.0); NEUTROPHILS # (AUTO) 5.6 x10^3/uL (2.2-4.8); NEUTROPHILS % (AUTO) 85.6 % (42.0-75.0); RED BLOOD COUNT 2.62 X10^6/uL (4.7-6.0); WHITE BLOOD COUNT 6.6 X10^3/uL (3.6-10.0)
[2021-08-24 05:07] LABS: ALANINE AMINOTRANSFERASE 9 Units/L (12-78); ALBUMIN 1.6 g/dL (3.4-5.0); ALKALINE PHOSPHATASE 71 Units/L (46-116); ASPARTATE AMINO TRANSFERASE 16 Units/L (15-37); BLOOD UREA NITROGEN 25 mg/dL (7-18); CALCIUM 7.8 mg/dL (8.5-10.1); CARBON DIOXIDE 33.6 mmol/L (21-32); CHLORIDE 99 mmol/L (98-107); COR CA(FOR HYPOALB) 9.7 mg/dL (8.5-10.1); COR NA(FOR HYPERGLY) 139 mmol/L (136-145); CREATININE 1.25 mg/dL (0.70-1.30); SODIUM 137 mmol/L (136-145); TOTAL PROTEIN 4.8 g/dL (6.4-8.2); eGFR NON BLACK RACES 58 (>60)
[2021-08-24] MEDS: FLAGYL IV PREMIX 500 MG BAG 500 MG/100 ML BAG IV SCH ×3 (05:45→21:47)
[2021-08-24] MEDS: NORCO 5/325 MG TAB PO PRN ×2 (05:45→13:59)
[2021-08-24] MEDS ORDERED: TOPROL XL PO ONE (08:45)
[2021-08-24] MEDS: PULMICORT NEB TX 0.5 MG NEB SCH ×2 (08:45→20:18)
[2021-08-24] MEDS: LOVENOX INJ 40 MG SYR SC SCH (08:47)
[2021-08-24] MEDS: CARDIZEM CD 180 MG 24-HR PO SCH (08:47)
[2021-08-24] MEDS: TOPROL XL PO SCH (08:51)
[2021-08-24] MEDS: PROTONIX TAB 40 MG PO SCH ×2 (08:51→20:35)
[2021-08-24] MEDS: ZOLOFT PO SCH (08:52)
[2021-08-24] MEDS: DILAUDID INJ IVP PRN (08:53)
[2021-08-24] MEDS: K-DUR TAB 20 MEQ PO PRN ×2 (08:53→16:53)
[2021-08-24] MEDS: VIBRAMYCIN 100 MG in D5W 250 ML IV 250 ML IV SCH ×2 (10:30→23:00)
[2021-08-24] MEDS ORDERED: MUCOMYST 20% 200 MG/ML ONE (12:46)
[2021-08-24] MEDS: MUCOMYST (RESPIRATORY USE ONLY) NEB SCH ×2 (12:50→17:05)
--- NOTE | 2021-08-24 14:32 | DR.PROGNOT ---
Hospital Progress Notes - Progress Note for Day of: Progress Note Date: 08/24/21 - Chief Complaint Chief Complaint: alert , awake .. had regular BM last night .. mild drainage in LESLI . tolerating diet .. segmental atelectasis RT middle lob. WBC 8.6.. bun/Creat 24/05.35.. BS 190.. Album 1.8 - Past Medical Family Social History Past Med/Fam/Surg Hx: No changes since H&P Allergies: Allergies ceftriaxone [From Rocephin] Allergy (Unknown, Verified 08/20/21 11:20) PT UNABLE TO TELL HIS REACTION ciprofloxacin [From Cipro] Allergy (Unknown, Verified 08/20/21 11:20) PT UNABLE TO TELL HIS REACTION morphine Adverse Reaction (Unknown, Verified 08/20/21 11:20) PT UNABLE TO TELL HIS REACTION - Review Of Systems ROS: No change since H&P - Vital Signs Vital Signs: Temperature 97.9 F Pulse Rate [Radial] 111 Pulse Rate 57 Respiratory Rate 15 Blood Pressure [Left Arm] 172/77 Blood Pressure [Right Arm] 160/77 Blood Pressure 143/64 O2 Sat by Pulse Oximetry 95 - Physical Exam Oriented: Normal Eyes: Normal Ear: Normal Nose: Normal Throat: Normal Respiratory: Normal Cardiovascular: Irregular : Normal GI:Auscultation: Absent GI:Palpation: Other GI: Tenderness: Diffuse (soft abdomen with + BS), Mild Skin: Normal Musculoskeletal: Normal Psychiatric: Normal Mood Description: Calm Affect: Normal Speech Pattern: Clear, Appropriate - Laboratory and Diagnostics Result Diagrams: 08/24/21 04:23 08/24/21 12:39 Labs: 08/22/21 11:11 Blood Blood Culture - Preliminary 08/22/21 11:05 Blood Blood Culture - Preliminary 08/22/21 09:25 Sputum - Expectorated Sputum Sputum Culture - Preliminary Klebsiella Pneumoniae 08/22/21 09:25 Sputum - Expectorated Sputum - Final Laboratory WBC 6.6 X10^3/uL (3.6-10.0) 08/24/21 04: RBC 2.62 X10^6/uL (4.7-6.0) L 08/24/21 04:23 Hgb 7.6 g/dL (13.5-18.0) L 08/24/21 04: Hct 22.5 % (42.0-54.0) L 08/24/21 04:23 MCV 85.9 fL (80.0-100.0) 08/24/21 04:23 MCH 28.9 pg (27.0-34.0) 08/24/21 04: MCHC 33.6 g/dL (33.0-35.0) 08/24/21 04: RDW 14.0 % (11.6-16.5) 08/24/21 04:23 Plt Count 211 X10^3/uL (150.0-450.0) 08/24/21 04:23 MPV 8.7 fL (7.4-11.0) 08/24/21 04:23 Neut % (Auto) 85.6 % (42.0-75.0) H 08/24/21 04: Lymph % (Auto) 5.8 % (21.0-51.0) L 08/24/21 04:23 [place] % (Auto) 7.5 % (0.0-13.0) 08/24/21 04:23 Eos % (Auto) 0.8 % (0.9-2.9) L 08/24/21 04:23 Baso % (Auto) 0.3 % (0.2-1.0) 08/24/21 04: Neut # (Auto) 5.6 x10^3/uL (2.2-4.8) H 08/24/21 04:23 Lymph # (Auto) 0.4 X10^3/uL (1.3-2.9) L 08/24/21 04:23 [place] # (Auto) 0.5 x10^3/uL (0.3-0.8) 08/24/21 04:23 Eos # (Auto) 0.1 x10^3/uL (0.0-0.2) 08/24/21 04:23 Baso # (Auto) 0.0 X10^3/uL (0.0-0.1) 08/24/21 04: Absolute Nucleated RBC 0.0 /100WBC 08/24/21 04:23 D-Dimer 3.13 ug/ml (0.0-0.57) H* 08/22/21 12:24 Sodium 137 mmol/L (136-145) 08/24/21 04:23 Corrected Sodium 139 mmol/L (136-145) 08/24/21 04:23 Potassium 3.7 mmol/L (3.5-5.1) 08/24/21 12:39 Chloride 99 mmol/L (98-107) 08/24/21 04:23 Carbon Dioxide 33.6 mmol/L (21-32) H 08/24/21 04:23 BUN 25 mg/dL (7-18) H 08/24/21 04:23 Creatinine 1.25 mg/dL (0.70-1.30) 08/24/21 04:23 Est GFR (MDRD) Af Amer > 60 (>60) 08/24/21 04:23 Est GFR (MDRD) Non-Af 58 (>60) L 08/24/21 04:23 Glucose 169 mg/dL (65-99) H 08/24/21 04:23 POC Glucose (mg/dL) 201 mg/dL (65-99) H 08/24/21 11:53 Calcium 7.8 mg/dL (8.5-10.1) L 08/24/21 04:23 Corrected Calcium 9.7 mg/dL (8.5-10.1) 08/24/21 04:23 Magnesium 1.6 mg/dL (1.7-2.9) L 08/24/21 04:23 Total Bilirubin 0.30 mg/dL (0.2-1.0) 08/24/21 04:23 AST 16 Units/L (15-37) 08/24/21 04:23 ALT 9 Units/L (12-78) L 08/24/21 04:23 Alkaline Phosphatase 71 Units/L (46-116) 08/24/21 04:23 Creatine Kinase 70 Units/L (39-308) 08/22/21 12:24 CK-MB (CK-2) < 1.0 ng/mL (0-4.0) 08/22/21 12:24 CK/CKMB % Calc 1.4 % (<4) 08/22/21 12:24 Troponin I High Sens 16.1 ng/L (4.0-60.0) 08/22/21 12:24 B-Natriuretic Peptide 393 pg/mL (0-79) H 08/24/21 04:23 Total Protein 4.8 g/dL (6.4-8.2) L 08/24/21 04:23 Albumin 1.6 g/dL (3.4-5.0) L 08/24/21 04:23 Globulin 3.2 g/dL (2.5-4.5) 08/24/21 04:23 Albumin/Globulin Ratio 0.5 Ratio (1.1-2.1) L 08/24/21 04:23 SARS CoV-2 RNA Rapid ALEX Negative (NEGATIVE) 08/20/21 10:04 Tissue Pathology To follow 08/20/21 14:30 Blood Type A POSITIVE 08/20/21 14:33 Antibody Screen Negative 08/20/21 14:33 - Assessment and Plan 1: 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 s/p RT colectomy , omentectomy , partial small bowel resection .. same po care . OOB, lovenox sc .incentive speromiter .. full liquid .. D/C fpkatya ..OOB with binder ,,
--- NOTE | 2021-08-24 15:40 | PCM.PROG ---
Progress Note Progress Note for Day of Date of Exam: 08/24/21 Subjective Subjective: She is alert and awake this morning. He is sitting up in bed and reports that his pain is better compared to yesterday. However he is still hurting some in his abdomen at the surgical site. He does note his magnesium is little bit low this morning at 1.6 and we will replace that. Also noted that his sputum culture grew out Klebsiella pneumoniae sensitive to Vibramycin and we will be restarting that today. Hemoglobin is 7.6 this morning. Blood sugar is better controlled today and is now less than 200. Past Medical Family Social History Past Med/Fam/Surg Hx: No changes since H&P Allergies: Allergies ceftriaxone [From Rocephin] Allergy (Unknown, Verified 08/20/21 11:20) PT UNABLE TO TELL HIS REACTION ciprofloxacin [From Cipro] Allergy (Unknown, Verified 08/20/21 11:20) PT UNABLE TO TELL HIS REACTION morphine Adverse Reaction (Unknown, Verified 08/20/21 11:20) PT UNABLE TO TELL HIS REACTION Review of Systems ROS: No change since H&P Vital Signs and I&O's Vital Signs: Temperature 97.9 F Pulse Rate [Radial] 111 Pulse Rate 57 Respiratory Rate 15 Blood Pressure [Left Arm] 172/77 Blood Pressure [Right Arm] 160/77 Blood Pressure 143/64 O2 Sat by Pulse Oximetry 95 Intake and Output: Intake & Output 08/22/21 08/23/21 08/24/21 08/25/21 11:59 11:59 11:59 11:59 Intake Total 3543 / 3543 2693 / 2693 2350 / 2350 Output Total 1135 / 1135 2755 / 2755 2300 / 2300 Balance 2408 / 2408 -62 / -62 50 / 50 Physical Exam Oriented: Normal Eyes: Normal Ear: Normal Nose: Normal Throat: Normal Respiratory: Rhonchi Cardiovascular: Irregular : Normal Auscultation: Bowel Sounds: Absent Tenderness: Diffuse (soft abdomen with + BS ) and Mild Skin: Normal Musculoskeletal: Normal Psychiatric: Normal Mood Description: Calm Affect: Normal Speech Pattern: Clear and Appropriate Laboratory and Diagnostics Result Diagrams: 08/24/21 04:23 08/24/21 12:39 Labs: 08/22/21 11:11 Blood Blood Culture - Preliminary 08/22/21 11:05 Blood Blood Culture - Preliminary 08/22/21 09:25 Sputum - Expectorated Sputum Sputum Culture - Preliminary Klebsiella Pneumoniae 08/22/21 09:25 Sputum - Expectorated Sputum - Final Laboratory WBC 6.6 X10^3/uL (3.6-10.0) 08/24/21 04:23 RBC 2.62 X10^6/uL (4.7-6.0) L 08/24/21 04:23 Hgb 7.6 g/dL (13.5-18.0) L 08/24/21 04:23 Hct 22.5 % (42.0-54.0) L 08/24/21 04:23 MCV 85.9 fL (80.0-100.0) 08/24/21 04:23 MCH 28.9 pg (27.0-34.0) 08/24/21 04:23 MCHC 33.6 g/dL (33.0-35.0) 08/24/21 04: RDW 14.0 % (11.6-16.5) 08/24/21 04:23 Plt Count 211 X10^3/uL (150.0-450.0) 08/24/21 04:23 MPV 8.7 fL (7.4-11.0) 08/24/21 04:23 Neut % (Auto) 85.6 % (42.0-75.0) H 08/24/21 04:23 Lymph % (Auto) 5.8 % (21.0-51.0) L 08/24/21 04:23 [place] % (Auto) 7.5 % (0.0-13.0) 08/24/21 04:23 Eos % (Auto) 0.8 % (0.9-2.9) L 08/24/21 04:23 Baso % (Auto) 0.3 % (0.2-1.0) 08/24/21 04:23 Neut # (Auto) 5.6 x10^3/uL (2.2-4.8) H 08/24/21 04:23 Lymph # (Auto) 0.4 X10^3/uL (1.3-2.9) L 08/24/21 04:23 [place] # (Auto) 0.5 x10^3/uL (0.3-0.8) 08/24/21 04:23 Eos # (Auto) 0.1 x10^3/uL (0.0-0.2) 08/24/21 04:23 Baso # (Auto) 0.0 X10^3/uL (0.0-0.1) 08/24/21 04:23 Absolute Nucleated RBC 0.0 /100WBC 08/24/21 04:23 D-Dimer 3.13 ug/ml (0.0-0.57) H* 08/22/21 12:24 Sodium 137 mmol/L (136-145) 08/24/21 04:23 Corrected Sodium 139 mmol/L (136-145) 08/24/21 04:23 Potassium 3.7 mmol/L (3.5-5.1) 08/24/21 12:39 Chloride 99 mmol/L (98-107) 08/24/21 04:23 Carbon Dioxide 33.6 mmol/L (21-32) H 08/24/21 04:23 BUN 25 mg/dL (7-18) H 08/24/21 04:23 Creatinine 1.25 mg/dL (0.70-1.30) 08/24/21 04:23 Est GFR (MDRD) Af Amer > 60 (>60) 08/24/21 04:23 Est GFR (MDRD) Non-Af 58 (>60) L 08/24/21 04:23 Glucose 169 mg/dL (65-99) H 08/24/21 04:23 POC Glucose (mg/dL) 201 mg/dL (65-99) H 08/24/21 11:53 Calcium 7.8 mg/dL (8.5-10.1) L 08/24/21 04:23 Corrected Calcium 9.7 mg/dL (8.5-10.1) 08/24/21 04:23 Magnesium 1.6 mg/dL (1.7-2.9) L 08/24/21 04:23 Total Bilirubin 0.30 mg/dL (0.2-1.0) 08/24/21 04:23 AST 16 Units/L (15-37) 08/24/21 04:23 ALT 9 Units/L (12-78) L 08/24/21 04:23 Alkaline Phosphatase 71 Units/L (46-116) 08/24/21 04:23 Creatine Kinase 70 Units/L (39-308) 08/22/21 12:24 CK-MB (CK-2) < 1.0 ng/mL (0-4.0) 08/22/21 12:24 CK/CKMB % Calc 1.4 % (<4) 08/22/21 12:24 Troponin I High Sens 16.1 ng/L (4.0-60.0) 08/22/21 12:24 B-Natriuretic Peptide 393 pg/mL (0-79) H 08/24/21 04:23 Total Protein 4.8 g/dL (6.4-8.2) L 08/24/21 04:23 Albumin 1.6 g/dL (3.4-5.0) L 08/24/21 04:23 Globulin 3.2 g/dL (2.5-4.5) 08/24/21 04:23 Albumin/Globulin Ratio 0.5 Ratio (1.1-2.1) L 08/24/21 04:23 SARS CoV-2 RNA Rapid ALEX Negative (NEGATIVE) 08/20/21 10:04 Tissue Pathology To follow 08/20/21 14:30 Blood Type A POSITIVE 08/20/21 14:33 Antibody Screen Negative 08/20/21 14:33 Plan (1) Status post colectomy: Status: Acute (2) HTN (hypertension): Status: Chronic Qualifiers: Hypertension type: essential hypertension Qualified Code(s): I10 - Essential (primary) hypertension Plan: Continue Cardizem CD 180 mg by mouth daily and metoprolol extended release 100 mg by mouth daily. 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 Check One Touch blood sugars 4 times a day. (4) Supraventricular tachycardia: Status: Resolved Plan: Cardizem drip and changing metoprolol ER 200 mg by mouth daily. (5) Hyponatremia: Status: Resolved Plan: Change IV fluid to normal saline at 30 mL/h. (6) Right middle lobe pneumonia: Status: Acute Plan: Canceling the pneumonia protocol as the chest x-ray this morning skyla wed no infiltrate. I will also be discontinuing his Vibramycin and Zosyn. (7) Anemia: Status: Acute Qualifiers: Anemia type: unspecified type Qualified Code(s): D64.9 - Anemia, unspecified Narrative Support Text: 7.6 today. Plan: Monitor daily hemoglobins. Will transfuse packed red blood cells if hemoglobin drops below 7.0. (8) Hypomagnesemia: Status: Acute Plan: Replace magnesium today. (9) Klebsiella pneumoniae: Status: Acute Narrative Support Text: Positive sputum culture for Klebsiella pneumoniae, chest x-ray did not show infiltrate in the lungs yesterday. Plan: I will cover him empirically with Vibramycin just in case he has underlying Klebsiella pneumoniae infection.
[2021-08-24] MEDS: MAGNESIUM SULFATE 1 GRAM/100 mL PREMIX 1 G/100 ML BAG IV PRN ×2 (16:54→20:25)
[2021-08-24] MEDS ORDERED: LASIX ONE (19:46)
[2021-08-24] MEDS: LASIX PO SCH (20:34)
[2021-08-24] MEDS: D5 1/2 NS 1,000 ML 1,000 ML IV SCH (23:26)
[2021-08-25] MEDS: XOPENEX 1.25 MG/3 ML NEBULE NEB SCH ×4 (00:30→17:00)
[2021-08-25] MEDS: MUCOMYST (RESPIRATORY USE ONLY) NEB SCH ×4 (00:30→17:00)
[2021-08-25] MEDS: NORCO 5/325 MG TAB PO PRN ×3 (00:38→16:43)
[2021-08-25] MEDS ORDERED: LASIX IVP ONE ×2 (02:00→02:10)
[2021-08-25 02:53] LABS: BILIRUBIN,URINE NEGATIVE (NEGATIVE); BLOOD/HEMOGLOBIN,URINE 4+ (NEGATIVE); GLUCOSE, URINE NEGATIVE (NEGATIVE); KETONES,URINE NEGATIVE (NEGATIVE); LEUKOCYTE ESTERASE ,URINE 2+ (NEGATIVE); NITRITES,URINE NEGATIVE (NEGATIVE); PROTEIN,URINE 2+ (NEGATIVE); UROBILINOGEN,URINE NORMAL (NORMAL)
[2021-08-25 03:04] LABS: APPEARANCE,URINE CLEAR (CLEAR); BACTERIA,URINE NEGATIVE /HPF (NEGATIVE); COLOR,URINE PALE YELLOW (YELLOW); SQUAMOUS EPITHELIAL CELL,UR RARE /HPF (NEGATIVE)
[2021-08-25 03:25] LABS: ABG BASE EXCESS 7.9 mmol/L (-2.0-2.0)
[2021-08-25 03:26] LABS: ABG ALLEN TEST POS; ABG HCO3 30.6 mmol/L (22-26)
[2021-08-25 05:13] LABS: BASOPHILS % (AUTO) 0.3 % (0.2-1.0); EOSINOPHILS # (AUTO) 0.1 x10^3/uL (0.0-0.2); EOSINOPHILS % (AUTO) 1.3 % (0.9-2.9); HEMATOCRIT 22.2 % (42.0-54.0); HEMOGLOBIN 7.6 g/dL (13.5-18.0); LYMPHOCYTES # (AUTO) 0.3 X10^3/uL (1.3-2.9); LYMPHOCYTES % (AUTO) 4.4 % (21.0-51.0); MEAN CORPUSCULAR HEMOGLOBIN 29.2 pg (27.0-34.0); MEAN CORPUSCULAR HGB CONC 34.1 g/dL (33.0-35.0); MEAN CORPUSCULAR VOLUME 85.7 fL (80.0-100.0); MEAN PLATELET VOLUME 8.6 fL (7.4-11.0); MONOCYTES # (AUTO) 0.6 x10^3/uL (0.3-0.8); MONOCYTES % (AUTO) 9.9 % (0.0-13.0); NEUTROPHILS % (AUTO) 84.1 % (42.0-75.0); RED BLOOD COUNT 2.59 X10^6/uL (4.7-6.0); RED CELL DISTRIBUTION WIDTH 13.9 % (11.6-16.5); WHITE BLOOD COUNT 5.9 X10^3/uL (3.6-10.0)
[2021-08-25 05:31] LABS: ALANINE AMINOTRANSFERASE 9 Units/L (12-78); ALBUMIN 1.7 g/dL (3.4-5.0); ALKALINE PHOSPHATASE 68 Units/L (46-116); ASPARTATE AMINO TRANSFERASE 13 Units/L (15-37); BLOOD UREA NITROGEN 22 mg/dL (7-18); CARBON DIOXIDE 32.3 mmol/L (21-32); CHLORIDE 99 mmol/L (98-107); COR CA(FOR HYPOALB) 9.8 mg/dL (8.5-10.1); COR NA(FOR HYPERGLY) 137 mmol/L (136-145); MAGNESIUM 1.8 mg/dL (1.7-2.9); SODIUM 135 mmol/L (136-145); eGFR NON BLACK RACES > 60 (>60)
[2021-08-25] MEDS: FLAGYL IV PREMIX 500 MG BAG 500 MG/100 ML BAG IV SCH ×3 (06:20→22:07)
--- NOTE | 2021-08-25 06:42 | RAD ---
HISTORYShortness of breathSTUDYChest AP [id number]/2022FINDINGSTher e is a right IJ line with its tip near the cavoatrial junction. Heart is upper limits normal in size. No definite congestive heart failure is noted. No definite acute alveolar infiltrates are identified. No definite pneumothoraces or pleural effusions are identified. Bony thorax is unremarkable.IMPRESSIONNo definite infiltratesElectronically signed by: RAMSEY SANCHEZ (Aug 25, 2021 06:41:24)
[2021-08-25] MEDS: PULMICORT NEB TX 0.5 MG NEB SCH ×2 (08:10→20:48)
[2021-08-25] MEDS ORDERED: TOPROL XL PO ONE (08:38)
[2021-08-25] MEDS: CARDIZEM CD 180 MG 24-HR PO SCH (08:46)
[2021-08-25] MEDS: ZOLOFT PO SCH (08:49)
[2021-08-25] MEDS: PROTONIX TAB 40 MG PO SCH ×2 (08:49→20:11)
[2021-08-25] MEDS: LOVENOX INJ 40 MG SYR SC SCH (08:51)
[2021-08-25] MEDS: TOPROL XL PO SCH (08:54)
[2021-08-25] MEDS: VIBRAMYCIN 100 MG in D5W 250 ML IV 250 ML IV SCH ×2 (08:55→20:11)
[2021-08-25] MEDS: D5 1/2 NS 1,000 ML 1,000 ML IV SCH (12:08)
--- NOTE | 2021-08-25 15:17 | DR.PROGNOT ---
Hospital Progress Notes - Progress Note for Day of: Progress Note Date: 08/25/21 - Chief Complaint Chief Complaint: alert , awake .. had regular BM last night .. more ascites drainage in LESLI . tolerating diet .. - Past Medical Family Social History Past Med/Fam/Surg Hx: No changes since H&P Allergies: Allergies ceftriaxone [From Rocephin] Allergy (Unknown, Verified 08/20/21 11:20) PT UNABLE TO TELL HIS REACTION ciprofloxacin [From Cipro] Allergy (Unknown, Verified 08/20/21 11:20) PT UNABLE TO TELL HIS REACTION morphine Adverse Reaction (Unknown, Verified 08/20/21 11:20) PT UNABLE TO TELL HIS REACTION - Review Of Systems ROS: No change since H&P - Vital Signs Vital Signs: Temperature 98.6 F Pulse Rate [Radial] 111 Pulse Rate 58 Respiratory Rate 20 Blood Pressure [Left Arm] 172/77 Blood Pressure [Right Arm] 160/77 Blood Pressure 169/70 O2 Sat by Pulse Oximetry 100 - Physical Exam Oriented: Normal Eyes: Normal Ear: Normal Nose: Normal Throat: Normal Respiratory: Rhonchi Cardiovascular: Irregular : Normal GI:Auscultation: Normal, Absent GI:Palpation: Other GI: Tenderness: Diffuse (soft abdomen with + BS), Mild Skin: Normal Musculoskeletal: Normal Psychiatric: Normal Mood Description: Calm Affect: Normal Speech Pattern: Clear, Appropriate - Laboratory and Diagnostics Result Diagrams: 08/25/21 03:50 08/25/21 03:50 Labs: 08/22/21 11:05 Blood Blood Culture - Final 08/22/21 09:25 Sputum - Expectorated Sputum Sputum Culture - Final Klebsiella Pneumoniae Escherichia Coli Klebsiella Ornithinolytica 08/22/21 09:25 Sputum - Expectorated Sputum - Final 08/22/21 11:11 Blood Blood Culture - Preliminary Laboratory WBC 5.9 X10^3/uL (3.6-10.0) 08/25/21 03:50 RBC 2.59 X10^6/uL (4.7-6.0) L 08/25/21 03:50 Hgb 7.6 g/dL (13.5-18.0) L 08/25/21 03:50 Hct 22.2 % (42.0-54.0) L 08/25/21 03:50 MCV 85.7 fL (80.0-100.0) 08/25/21 03:50 MCH 29.2 pg (27.0-34.0) 08/25/21 03:50 MCHC 34.1 g/dL (33.0-35.0) 08/25/21 03:50 RDW 13.9 % (11.6-16.5) 08/25/21 03:50 Plt Count 206 X10^3/uL (150.0-450.0) 08/25/21 03:50 MPV 8.6 fL (7.4-11.0) 08/25/21 03:50 Neut % (Auto) 84.1 % (42.0-75.0) H 08/25/21 03:50 Lymph % (Auto) 4.4 % (21.0-51.0) L 08/25/21 03:50 [place] % (Auto) 9.9 % (0.0-13.0) 08/25/21 03:50 Eos % (Auto) 1.3 % (0.9-2.9) 08/25/21 03:50 Baso % (Auto) 0.3 % (0.2-1.0) 08/25/21 03:50 Neut # (Auto) 5.0 x10^3/uL (2.2-4.8) H 08/25/21 03:50 Lymph # (Auto) 0.3 X10^3/uL (1.3-2.9) L 08/25/21 03:50 [place] # (Auto) 0.6 x10^3/uL (0.3-0.8) 08/25/21 03:50 Eos # (Auto) 0.1 x10^3/uL (0.0-0.2) 08/25/21 03:50 Baso # (Auto) 0.0 X10^3/uL (0.0-0.1) 08/25/21 03:50 Absolute Nucleated RBC 0.0 /100WBC 08/25/21 03:50 D-Dimer 3.13 ug/ml (0.0-0.57) H* 08/22/21 12:24 Sample Site Rrad 08/25/21 03:24 ABG pH 7.550 (7.35-7.45) H 08/25/21 03:24 ABG pCO2 35.0 mmHg (35.0-45.0) 08/25/21 03:24 ABG pO2 143.0 mmHg (80.0-100.0) H 08/25/21 03:24 ABG HCO3 30.6 mmol/L (22-26) H* 08/25/21 03:24 ABG O2 Saturation 99.0 % (90-100) 08/25/21 03:24 ABG Base Excess 7.9 mmol/L (-2.0-2.0) H 08/25/21 03:24 Ted Test Pos 08/25/21 03:24 A-a Gradient 526.0 mmHg 08/25/21 03:24 FiO2 100.0 08/25/21 03:24 Blood Gas Comments Evelyn well ms 08/25/21 03:24 Sodium 135 mmol/L (136-145) L 08/25/21 03:50 Corrected Sodium 137 mmol/L (136-145) 08/25/21 03:50 Potassium 3.4 mmol/L (3.5-5.1) L 08/25/21 03:50 Chloride 99 mmol/L (98-107) 08/25/21 03:50 Carbon Dioxide 32.3 mmol/L (21-32) H 08/25/21 03:50 BUN 22 mg/dL (7-18) H 08/25/21 03:50 Creatinine 1.20 mg/dL (0.70-1.30) 08/25/21 03:50 Est GFR (MDRD) Af Amer > 60 (>60) 08/25/21 03:50 Est GFR (MDRD) Non-Af > 60 (>60) 08/25/21 03:50 Glucose 184 mg/dL (65-99) H 08/25/21 03:50 POC Glucose (mg/dL) 162 mg/dL (65-99) H 08/25/21 12:32 Calcium 8.0 mg/dL (8.5-10.1) L 08/25/21 03:50 Corrected Calcium 9.8 mg/dL (8.5-10.1) 08/25/21 03:50 Magnesium 1.8 mg/dL (1.7-2.9) 08/25/21 03:50 Total Bilirubin 0.30 mg/dL (0.2-1.0) 08/25/21 03:50 AST 13 Units/L (15-37) L 08/25/21 03:50 ALT 9 Units/L (12-78) L 08/25/21 03:50 Alkaline Phosphatase 68 Units/L (46-116) 08/25/21 03:50 Creatine Kinase 70 Units/L (39-308) 08/22/21 12:24 CK-MB (CK-2) < 1.0 ng/mL (0-4.0) 08/22/21 12:24 CK/CKMB % Calc 1.4 % (<4) 08/22/21 12:24 Troponin I High Sens 16.1 ng/L (4.0-60.0) 08/22/21 12:24 B-Natriuretic Peptide 456 pg/mL (0-79) H 08/25/21 03:50 Total Protein 5.0 g/dL (6.4-8.2) L 08/25/21 03:50 Albumin 1.7 g/dL (3.4-5.0) L 08/25/21 03:50 Globulin 3.3 g/dL (2.5-4.5) 08/25/21 03:50 Albumin/Globulin Ratio 0.5 Ratio (1.1-2.1) L 08/25/21 03:50 Specimen Type Catherized urine 08/25/21 02:10 Urine Color Pale yellow (YELLOW) 08/25/21 02:10 Urine Appearance Clear (CLEAR) 08/25/21 02:10 Urine pH 5.0 (5.0 - 8.0) 08/25/21 02:10 Ur Specific [place] 1.020 (1.000-1.030) 08/25/21 02:10 Urine Protein 2+ (NEGATIVE) 08/25/21 02:10 Urine Glucose (UA) Negative (NEGATIVE) 08/25/21 02:10 Urine Ketones Negative (NEGATIVE) 08/25/21 02:10 Urine Blood 4+ (NEGATIVE) 08/25/21 02:10 Urine Nitrite Negative (NEGATIVE) 08/25/21 02:10 Urine Bilirubin Negative (NEGATIVE) 08/25/21 02:10 Urine Urobilinogen Normal (NORMAL) 08/25/21 02:10 Ur Leukocyte Esterase 2+ (NEGATIVE) 08/25/21 02:10 Urine RBC 5-10 /HPF (0-3) A 08/25/21 02:10 Urine WBC 3-5 /HPF (0-5) 08/25/21 02:10 Ur Squamous Epith Cells Rare /HPF (NEGATIVE) 08/25/21 02:10 Urine Bacteria Negative /HPF (NEGATIVE) 08/25/21 02:10 Ur Culture Indicated? 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 s/p RT colectomy , omentectomy , partial small bowel resection .. same po care . OOB, lovenox sc .incentive speromiter .. soft diet. had to reinsert rowland cath ..OOB with binder ,,
[2021-08-25] MEDS: DILAUDID INJ IVP PRN (19:49)
[2021-08-25] MEDS: LASIX PO SCH (20:07)
[2021-08-25] MEDS: K-DUR TAB 20 MEQ PO PRN (20:10)
[2021-08-26] MEDS: MUCOMYST (RESPIRATORY USE ONLY) NEB SCH ×4 (00:33→17:10)
[2021-08-26] MEDS: XOPENEX 1.25 MG/3 ML NEBULE NEB SCH ×4 (00:33→17:10)
[2021-08-26] MEDS: DILAUDID INJ IVP PRN ×2 (04:24→23:05)
[2021-08-26 05:05] LABS: BASOPHILS % (AUTO) 0.3 % (0.2-1.0); EOSINOPHILS # (AUTO) 0.1 x10^3/uL (0.0-0.2); EOSINOPHILS % (AUTO) 1.2 % (0.9-2.9); HEMATOCRIT 23.7 % (42.0-54.0); HEMOGLOBIN 7.9 g/dL (13.5-18.0); LYMPHOCYTES # (AUTO) 0.3 X10^3/uL (1.3-2.9); LYMPHOCYTES % (AUTO) 5.7 % (21.0-51.0); MEAN CORPUSCULAR HEMOGLOBIN 28.4 pg (27.0-34.0); MEAN CORPUSCULAR HGB CONC 33.4 g/dL (33.0-35.0); MEAN CORPUSCULAR VOLUME 85.1 fL (80.0-100.0); MEAN PLATELET VOLUME 8.7 fL (7.4-11.0); MONOCYTES # (AUTO) 0.6 x10^3/uL (0.3-0.8); MONOCYTES % (AUTO) 9.2 % (0.0-13.0); NEUTROPHILS # (AUTO) 5.2 x10^3/uL (2.2-4.8); NEUTROPHILS % (AUTO) 83.6 % (42.0-75.0); RED BLOOD COUNT 2.79 X10^6/uL (4.7-6.0); RED CELL DISTRIBUTION WIDTH 14.2 % (11.6-16.5); WHITE BLOOD COUNT 6.2 X10^3/uL (3.6-10.0)
[2021-08-26 05:18] LABS: ALANINE AMINOTRANSFERASE 8 Units/L (12-78); ALBUMIN 1.7 g/dL (3.4-5.0); ALKALINE PHOSPHATASE 66 Units/L (46-116); ASPARTATE AMINO TRANSFERASE 10 Units/L (15-37); BLOOD UREA NITROGEN 21 mg/dL (7-18); CARBON DIOXIDE 34.1 mmol/L (21-32); COR CA(FOR HYPOALB) 9.8 mg/dL (8.5-10.1); CREATININE 1.08 mg/dL (0.70-1.30); eGFR NON BLACK RACES > 60 (>60)
[2021-08-26 05:33] LABS: CHLORIDE 98 mmol/L (98-107); COR NA(FOR HYPERGLY) 137 mmol/L (136-145); SODIUM 136 mmol/L (136-145)
[2021-08-26] MEDS: FLAGYL IV PREMIX 500 MG BAG 500 MG/100 ML BAG IV SCH ×3 (05:45→21:12)
[2021-08-26] MEDS: MAGNESIUM SULFATE 1 GRAM/100 mL PREMIX 1 G/100 ML BAG IV PRN ×4 (06:47→14:06)
[2021-08-26] MEDS: PULMICORT NEB TX 0.5 MG NEB SCH ×2 (08:10→21:21)
--- NOTE | 2021-08-26 08:48 | DR.PROGNOT ---
Hospital Progress Notes - Progress Note for Day of: Progress Note Date: 08/26/21 - Chief Complaint Chief Complaint: still weak and needs help to get OOB . alert , awake .. had regular BM last night .. more ascites drainage in LESLI . tolerating diet .. - Past Medical Family Social History Past Med/Fam/Surg Hx: No changes since H&P Allergies: Allergies ceftriaxone [From Rocephin] Allergy (Unknown, Verified 08/20/21 11:20) PT UNABLE TO TELL HIS REACTION ciprofloxacin [From Cipro] Allergy (Unknown, Verified 08/20/21 11:20) PT UNABLE TO TELL HIS REACTION morphine Adverse Reaction (Unknown, Verified 08/20/21 11:20) PT UNABLE TO TELL HIS REACTION - Review Of Systems ROS: No change since H&P - Vital Signs Vital Signs: Temperature 98.4 F Pulse Rate [Radial] 111 Pulse Rate 66 Respiratory Rate 13 Blood Pressure [Left Arm] 172/77 Blood Pressure [Right Arm] 160/77 Blood Pressure 158/67 O2 Sat by Pulse Oximetry 99 - Physical Exam Oriented: Normal Eyes: Normal Ear: Normal Nose: Normal Throat: Normal Respiratory: Rhonchi Cardiovascular: Irregular : Normal GI:Auscultation: Normal, Absent GI:Palpation: Other GI: Tenderness: Diffuse (soft abdomen with + BS), Mild Skin: Normal Musculoskeletal: Normal Psychiatric: Normal Mood Description: Calm Affect: Normal Speech Pattern: Clear, Appropriate - Laboratory and Diagnostics Result Diagrams: 08/26/21 04:06 08/26/21 04:06 Labs: 08/22/21 11:05 Blood Blood Culture - Final 08/22/21 09:25 Sputum - Expectorated Sputum Sputum Culture - Final Klebsiella Pneumoniae Escherichia Coli Klebsiella Ornithinolytica 08/22/21 09:25 Sputum - Expectorated Sputum - Final 08/22/21 11:11 Blood Blood Culture - Preliminary Laboratory WBC 6.2 X10^3/uL (3.6-10.0) 08/26/21 04:06 RBC 2.79 X10^6/uL (4.7-6.0) L 08/26/21 04:06 Hgb 7.9 g/dL (13.5-18.0) L 08/26/21 04:06 Hct 23.7 % (42.0-54.0) L 08/26/21 04:06 MCV 85.1 fL (80.0-100.0) 08/26/21 04:06 MCH 28.4 pg (27.0-34.0) 08/26/21 04:06 MCHC 33.4 g/dL (33.0-35.0) 08/26/21 04:06 RDW 14.2 % (11.6-16.5) 08/26/21 04:06 Plt Count 217 X10^3/uL (150.0-450.0) 08/26/21 04:06 MPV 8.7 fL (7.4-11.0) 08/26/21 04:06 Neut % (Auto) 83.6 % (42.0-75.0) H 08/26/21 04:06 Lymph % (Auto) 5.7 % (21.0-51.0) L 08/26/21 04:06 [place] % (Auto) 9.2 % (0.0-13.0) 08/26/21 04:06 Eos % (Auto) 1.2 % (0.9-2.9) 08/26/21 04:06 Baso % (Auto) 0.3 % (0.2-1.0) 08/26/21 04:06 Neut # (Auto) 5.2 x10^3/uL (2.2-4.8) H 08/26/21 04:06 Lymph # (Auto) 0.3 X10^3/uL (1.3-2.9) L 08/26/21 04:06 [place] # (Auto) 0.6 x10^3/uL (0.3-0.8) 08/26/21 04:06 Eos # (Auto) 0.1 x10^3/uL (0.0-0.2) 08/26/21 04:06 Baso # (Auto) 0.0 X10^3/uL (0.0-0.1) 08/26/21 04:06 Absolute Nucleated RBC 0.1 /100WBC 08/26/21 04:06 D-Dimer 3.13 ug/ml (0.0-0.57) H* 08/22/21 12:24 Sample Site Rrad 08/25/21 03:24 ABG pH 7.550 (7.35-7.45) H 08/25/21 03:24 ABG pCO2 35.0 mmHg (35.0-45.0) 08/25/21 03:24 ABG pO2 143.0 mmHg (80.0-100.0) H 08/25/21 03:24 ABG HCO3 30.6 mmol/L (22-26) H* 08/25/21 03:24 ABG O2 Saturation 99.0 % (90-100) 08/25/21 03:24 ABG Base Excess 7.9 mmol/L (-2.0-2.0) H 08/25/21 03:24 Ted Test Pos 08/25/21 03:24 A-a Gradient 526.0 mmHg 08/25/21 03:24 FiO2 100.0 08/25/21 03:24 Blood Gas Comments Evelyn well ms 08/25/21 03:24 Sodium 136 mmol/L (136-145) 08/26/21 04:06 Corrected Sodium 137 mmol/L (136-145) 08/26/21 04:06 Potassium 3.4 mmol/L (3.5-5.1) L 08/26/21 04:06 Chloride 98 mmol/L (98-107) 08/26/21 04:06 Carbon Dioxide 34.1 mmol/L (21-32) H 08/26/21 04:06 BUN 21 mg/dL (7-18) H 08/26/21 04:06 Creatinine 1.08 mg/dL (0.70-1.30) 08/26/21 04:06 Est GFR (MDRD) Af Amer > 60 (>60) 08/26/21 04:06 Est GFR (MDRD) Non-Af > 60 (>60) 08/26/21 04:06 Glucose 146 mg/dL (65-99) H 08/26/21 04:06 POC Glucose (mg/dL) 156 mg/dL (65-99) H 08/25/21 20:05 Calcium 8.0 mg/dL (8.5-10.1) L 08/26/21 04:06 Corrected Calcium 9.8 mg/dL (8.5-10.1) 08/26/21 04:06 Magnesium 1.4 mg/dL (1.7-2.9) L 08/26/21 04:06 Total Bilirubin 0.30 mg/dL (0.2-1.0) 08/26/21 04:06 AST 10 Units/L (15-37) L 08/26/21 04:06 ALT 8 Units/L (12-78) L 08/26/21 04:06 Alkaline Phosphatase 66 Units/L (46-116) 08/26/21 04:06 Creatine Kinase 70 Units/L (39-308) 08/22/21 12:24 CK-MB (CK-2) < 1.0 ng/mL (0-4.0) 08/22/21 12:24 CK/CKMB % Calc 1.4 % (<4) 08/22/21 12:24 Troponin I High Sens 16.1 ng/L (4.0-60.0) 08/22/21 12:24 B-Natriuretic Peptide 456 pg/mL (0-79) H 08/25/21 03:50 Total Protein 5.0 g/dL (6.4-8.2) L 08/26/21 04:06 Albumin 1.7 g/dL (3.4-5.0) L 08/26/21 04:06 Globulin 3.3 g/dL (2.5-4.5) 08/26/21 04:06 Albumin/Globulin Ratio 0.5 Ratio (1.1-2.1) L 08/26/21 04:06 Carcinoembryonic Ag 902.0 ng/mL 08/23/21 04:08 Total PSA 2.40 ng/mL (0.13-4.0) 08/25/21 15:35 Specimen Type Catherized urine 08/25/21 02:10 Urine Color Pale yellow (YELLOW) 08/25/21 02:10 Urine Appearance Clear (CLEAR) 08/25/21 02:10 Urine pH 5.0 (5.0 - 8.0) 08/25/21 02:10 Ur Specific [place] 1.020 (1.000-1.030) 08/25/21 02:10 Urine Protein 2+ (NEGATIVE) 08/25/21 02:10 Urine Glucose (UA) Negative (NEGATIVE) 08/25/21 02:10 Urine Ketones Negative (NEGATIVE) 08/25/21 02:10 Urine Blood 4+ (NEGATIVE) 08/25/21 02:10 Urine Nitrite Negative (NEGATIVE) 08/25/21 02:10 Urine Bilirubin Negative (NEGATIVE) 08/25/21 02:10 Urine Urobilinogen Normal (NORMAL) 08/25/21 02:10 Ur Leukocyte Esterase 2+ (NEGATIVE) 08/25/21 02:10 Urine RBC 5-10 /HPF (0-3) A 08/25/21 02:10 Urine WBC 3-5 /HPF (0-5) 08/25/21 02:10 Ur Squamous Epith Cells Rare /HPF (NEGATIVE) 08/25/21 02:10 Urine Bacteria Negative /HPF (NEGATIVE) 08/25/21 02:10 Ur Culture Indicated? 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 s/p RT colectomy , omentectomy , partial small bowel resectio. needs placement at a [facility] for 10 days ..
[2021-08-26] MEDS: NORCO 5/325 MG TAB PO PRN ×2 (09:20→14:16)
[2021-08-26] MEDS ORDERED: TOPROL XL PO ONE (09:54)
[2021-08-26] MEDS: ZOLOFT PO SCH (10:00)
[2021-08-26] MEDS: VIBRAMYCIN 100 MG in D5W 250 ML IV 250 ML IV SCH ×2 (10:00→20:39)
[2021-08-26] MEDS: PROTONIX TAB 40 MG PO SCH ×2 (10:00→20:39)
[2021-08-26] MEDS: LOVENOX INJ 40 MG SYR SC SCH (10:00)
[2021-08-26] MEDS: TOPROL XL PO SCH (10:00)
[2021-08-26] MEDS: CARDIZEM CD 180 MG 24-HR PO SCH (10:00)
[2021-08-26] MEDS: NovoLIN R (or HumuLIN R) SC PRN (14:04)
--- NOTE | 2021-08-26 14:17 | PCM.PROG ---
Progress Note Progress Note for Day of Date of Exam: 08/25/21 Subjective Subjective: The patient is alert and awake this morning. He is sitting up in bed and reports that his pain is better compared to yesterday. The patient remains on heated high flow as his O2 sat has been running in the low 90s. His potassium is a little low this morning so they are giving him some extra potassium via the potassium replacement protocol. The patient is progressing he is taking by mouth clear fluids still with no problem. Will continue current treatment no changes at this time. Repeat routine labs in the morning. Past Medical Family Social History Past Med/Fam/Surg Hx: No changes since H&P Allergies: Allergies ceftriaxone [From Rocephin] Allergy (Unknown, Verified 08/20/21 11:20) PT UNABLE TO TELL HIS REACTION ciprofloxacin [From Cipro] Allergy (Unknown, Verified 08/20/21 11:20) PT UNABLE TO TELL HIS REACTION morphine Adverse Reaction (Unknown, Verified 08/20/21 11:20) PT UNABLE TO TELL HIS REACTION Review of Systems ROS: No change since H&P Vital Signs and I&O's Vital Signs: Temperature 98.4 F Pulse Rate [Radial] 111 Pulse Rate 76 Respiratory Rate 19 Blood Pressure [Left Arm] 172/77 Blood Pressure [Right Arm] 160/77 Blood Pressure 140/65 O2 Sat by Pulse Oximetry 99 Intake and Output: Intake & Output 08/24/21 08/25/21 08/26/21 08/27/21 11:59 11:59 11:59 11:59 Intake Total 2350 / 2350 2339 / 2339 1463 / 1463 Output Total 2300 / 2300 2130 / 2130 2080 / 2080 Balance 50 / 50 209 / 209 -617 / -617 Physical Exam Oriented: Normal Eyes: Normal Ear: Normal Nose: Normal Throat: Normal Respiratory: Rhonchi Cardiovascular: Irregular : Normal Auscultation: Bowel Sounds: Normal and Absent Tenderness: Diffuse (soft abdomen with + BS ) and Mild Skin: Normal Musculoskeletal: Normal Psychiatric: Normal Mood Description: Calm Affect: Normal Speech Pattern: Clear and Appropriate Laboratory and Diagnostics Result Diagrams: 08/26/21 04:06 08/26/21 04:06 Labs: 08/22/21 11:05 Blood Blood Culture - Final 08/22/21 09:25 Sputum - Expectorated Sputum Sputum Culture - Final Klebsiella Pneumoniae Escherichia Coli Klebsiella Ornithinolytica 08/22/21 09:25 Sputum - Expectorated Sputum - Final 08/22/21 11:11 Blood Blood Culture - Preliminary Laboratory WBC 6.2 X10^3/uL (3.6-10.0) 08/26/21 04:06 RBC 2.79 X10^6/uL (4.7-6.0) L 08/26/21 04:06 Hgb 7.9 g/dL (13.5-18.0) L 08/26/21 04:06 Hct 23.7 % (42.0-54.0) L 08/26/21 04:06 MCV 85.1 fL (80.0-100.0) 08/26/21 04:06 MCH 28.4 pg (27.0-34.0) 08/26/21 04:06 MCHC 33.4 g/dL (33.0-35.0) 08/26/21 04:06 RDW 14.2 % (11.6-16.5) 08/26/21 04:06 Plt Count 217 X10^3/uL (150.0-450.0) 08/26/21 04:06 MPV 8.7 fL (7.4-11.0) 08/26/21 04:06 Neut % (Auto) 83.6 % (42.0-75.0) H 08/26/21 04:06 Lymph % (Auto) 5.7 % (21.0-51.0) L 08/26/21 04:06 [place] % (Auto) 9.2 % (0.0-13.0) 08/26/21 04:06 Eos % (Auto) 1.2 % (0.9-2.9) 08/26/21 04:06 Baso % (Auto) 0.3 % (0.2-1.0) 08/26/21 04:06 Neut # (Auto) 5.2 x10^3/uL (2.2-4.8) H 08/26/21 04:06 Lymph # (Auto) 0.3 X10^3/uL (1.3-2.9) L 08/26/21 04:06 [place] # (Auto) 0.6 x10^3/uL (0.3-0.8) 08/26/21 04:06 Eos # (Auto) 0.1 x10^3/uL (0.0-0.2) 08/26/21 04:06 Baso # (Auto) 0.0 X10^3/uL (0.0-0.1) 08/26/21 04:06 Absolute Nucleated RBC 0.1 /100WBC 08/26/21 04:06 D-Dimer 3.13 ug/ml (0.0-0.57) H* 08/22/21 12:24 Sample Site Rrad 08/25/21 03:24 ABG pH 7.550 (7.35-7.45) H 08/25/21 03:24 ABG pCO2 35.0 mmHg (35.0-45.0) 08/25/21 03:24 ABG pO2 143.0 mmHg (80.0-100.0) H 08/25/21 03:24 ABG HCO3 30.6 mmol/L (22-26) H* 08/25/21 03:24 ABG O2 Saturation 99.0 % (90-100) 08/25/21 03:24 ABG Base Excess 7.9 mmol/L (-2.0-2.0) H 08/25/21 03:24 Ted Test Pos 08/25/21 03:24 A-a Gradient 526.0 mmHg 08/25/21 03:24 FiO2 100.0 08/25/21 03:24 Blood Gas Comments Evelyn well ms 08/25/21 03:24 Sodium 136 mmol/L (136-145) 08/26/21 04:06 Corrected Sodium 137 mmol/L (136-145) 08/26/21 04:06 Potassium 3.4 mmol/L (3.5-5.1) L 08/26/21 04:06 Chloride 98 mmol/L (98-107) 08/26/21 04:06 Carbon Dioxide 34.1 mmol/L (21-32) H 08/26/21 04:06 BUN 21 mg/dL (7-18) H 08/26/21 04:06 Creatinine 1.08 mg/dL (0.70-1.30) 08/26/21 04:06 Est GFR (MDRD) Af Amer > 60 (>60) 08/26/21 04:06 Est GFR (MDRD) Non-Af > 60 (>60) 08/26/21 04:06 Glucose 146 mg/dL (65-99) H 08/26/21 04:06 POC Glucose (mg/dL) 214 mg/dL (65-99) H 08/26/21 11:51 Calcium 8.0 mg/dL (8.5-10.1) L 08/26/21 04:06 Corrected Calcium 9.8 mg/dL (8.5-10.1) 08/26/21 04:06 Magnesium 1.4 mg/dL (1.7-2.9) L 08/26/21 04:06 Total Bilirubin 0.30 mg/dL (0.2-1.0) 08/26/21 04:06 AST 10 Units/L (15-37) L 08/26/21 04:06 ALT 8 Units/L (12-78) L 08/26/21 04:06 Alkaline Phosphatase 66 Units/L (46-116) 08/26/21 04:06 Creatine Kinase 70 Units/L (39-308) 08/22/21 12:24 CK-MB (CK-2) < 1.0 ng/mL (0-4.0) 08/22/21 12:24 CK/CKMB % Calc 1.4 % (<4) 08/22/21 12:24 Troponin I High Sens 16.1 ng/L (4.0-60.0) 08/22/21 12:24 B-Natriuretic Peptide 456 pg/mL (0-79) H 08/25/21 03:50 Total Protein 5.0 g/dL (6.4-8.2) L 08/26/21 04:06 Albumin 1.7 g/dL (3.4-5.0) L 08/26/21 04:06 Globulin 3.3 g/dL (2.5-4.5) 08/26/21 04:06 Albumin/Globulin Ratio 0.5 Ratio (1.1-2.1) L 08/26/21 04:06 Carcinoembryonic Ag 902.0 ng/mL 08/23/21 04:08 Total PSA 2.40 ng/mL (0.13-4.0) 08/25/21 15:35 Specimen Type Catherized urine 08/25/21 02:10 Urine Color Pale yellow (YELLOW) 08/25/21 02:10 Urine Appearance Clear (CLEAR) 08/25/21 02:10 Urine pH 5.0 (5.0 - 8.0) 08/25/21 02:10 Ur Specific [place] 1.020 (1.000-1.030) 08/25/21 02:10 Urine Protein 2+ (NEGATIVE) 08/25/21 02:10 Urine Glucose (UA) Negative (NEGATIVE) 08/25/21 02:10 Urine Ketones Negative (NEGATIVE) 08/25/21 02:10 Urine Blood 4+ (NEGATIVE) 08/25/21 02:10 Urine Nitrite Negative (NEGATIVE) 08/25/21 02:10 Urine Bilirubin Negative (NEGATIVE) 08/25/21 02:10 Urine Urobilinogen Normal (NORMAL) 08/25/21 02:10 Ur Leukocyte Esterase 2+ (NEGATIVE) 08/25/21 02:10 Urine RBC 5-10 /HPF (0-3) A 08/25/21 02:10 Urine WBC 3-5 /HPF (0-5) 08/25/21 02:10 Ur Squamous Epith Cells Rare /HPF (NEGATIVE) 08/25/21 02:10 Urine Bacteria Negative /HPF (NEGATIVE) 08/25/21 02:10 Ur Culture Indicated? No/not indicated 08/25/21 02:10 SARS CoV-2 RNA Rapid ALEX Negative (NEGATIVE) 08/20/21 10:04 Tissue Pathology To follow 08/20/21 14:30 Blood Type A POSITIVE 08/20/21 14:33 Antibody Screen Negative 08/20/21 14:33 Plan (1) Status post colectomy: Status: Acute (2) HTN (hypertension): Status: Chronic Qualifiers: Hypertension type: essential hypertension Qualified Code(s): I10 - Essential (primary) hypertension Plan: Continue Cardizem CD 180 mg by mouth daily and metoprolol extended release 100 mg by mouth daily. 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 Check One Touch blood sugars 4 times a day. (4) Supraventricular tachycardia: Status: Resolved Plan: Cardizem drip and changing metoprolol ER 200 mg by mouth daily. (5) Hyponatremia: Status: Resolved Plan: Change IV fluid to normal saline at 30 mL/h. (6) Right middle lobe pneumonia: Status: Acute Plan: Canceling the pneumonia protocol as the chest x-ray this morning showed no infiltrate. I will also be discontinuing his Vibramycin and Zosyn. (7) Anemia: Status: Acute Qualifiers: Anemia type: unspecified type Qualified Code(s): D64.9 - Anemia, unspecified Plan: Monitor daily hemoglobins. Will transfuse packed red blood cells if hemoglobin drops below 7.0. (8) Hypomagnesemia: Status: Acute Plan: Replace magnesium today. (9) Klebsiella pneumoniae: Status: Acute Plan: I will cover him empirically with Vibramycin just in case he has underlying Klebsiella pneumoniae infection.
--- NOTE | 2021-08-26 14:21 | PCM.PROG ---
Progress Note Progress Note for Day of Date of Exam: 08/26/21 Subjective Subjective: The patient is alert and awake this morning. The patient is sitting up in bed eating breakfast this morning which consisted of scrambled eggs and sausage and pancakes. He is tolerating solid food at this point. I spoke with general surgeon Dr. Caldwell who stated that he is in good shape postop. He recommends that he goes to [facility] for inpatient rehabilitation for least 10 days or more. I am in agreement with this. Given his current hypoxia that he still having we will plan on possibly discharging him to the halfway the first of next week. We will continue to wean off heated high flow as tolerated per patient. It is noted that his magnesium and potassium are slightly low again this morning and we will replace those today. Past Medical Family Social History Past Med/Fam/Surg Hx: No changes since H&P Allergies: Allergies ceftriaxone [From Rocephin] Allergy (Unknown, Verified 08/20/21 11:20) PT UNABLE TO TELL HIS REACTION ciprofloxacin [From Cipro] Allergy (Unknown, Verified 08/20/21 11:20) PT UNABLE TO TELL HIS REACTION morphine Adverse Reaction (Unknown, Verified 08/20/21 11:20) PT UNABLE TO TELL HIS REACTION Review of Systems ROS: No change since H&P Vital Signs and I&O's Vital Signs: Temperature 98.4 F Pulse Rate [Radial] 111 Pulse Rate 76 Respiratory Rate 19 Blood Pressure [Left Arm] 172/77 Blood Pressure [Right Arm] 160/77 Blood Pressure 140/65 O2 Sat by Pulse Oximetry 99 Intake and Output: Intake & Output 08/24/21 08/25/21 08/26/21 08/27/21 11:59 11:59 11:59 11:59 Intake Total 2350 / 2350 2339 / 2339 1463 / 1463 Output Total 2300 / 2300 2130 / 2130 2080 / 2080 Balance 50 / 50 209 / 209 -617 / -617 Physical Exam Oriented: Normal Eyes: Normal Ear: Normal Nose: Normal Throat: Normal Respiratory: Rhonchi Cardiovascular: Irregular : Normal Auscultation: Bowel Sounds: Normal and Absent Tenderness: Diffuse (soft abdomen with + BS ) and Mild Skin: Normal Musculoskeletal: Normal Psychiatric: Normal Mood Description: Calm Affect: Normal Speech Pattern: Clear and Appropriate Laboratory and Diagnostics Result Diagrams: 08/26/21 04:06 08/26/21 04:06 Labs: 08/22/21 11:05 Blood Blood Culture - Final 08/22/21 09:25 Sputum - Expectorated Sputum Sputum Culture - Final Klebsiella Pneumoniae Escherichia Coli Klebsiella Ornithinolytica 08/22/21 09:25 Sputum - Expectorated Sputum - Final 08/22/21 11:11 Blood Blood Culture - Preliminary Laboratory WBC 6.2 X10^3/uL (3.6-10.0) 08/26/21 04:06 RBC 2.79 X10^6/uL (4.7-6.0) L 08/26/21 04:06 Hgb 7.9 g/dL (13.5-18.0) L 08/26/21 04:06 Hct 23.7 % (42.0-54.0) L 08/26/21 04:06 MCV 85.1 fL (80.0-100.0) 08/26/21 04:06 MCH 28.4 pg (27.0-34.0) 08/26/21 04:06 MCHC 33.4 g/dL (33.0-35.0) 08/26/21 04:06 RDW 14.2 % (11.6-16.5) 08/26/21 04:06 Plt Count 217 X10^3/uL (150.0-450.0) 08/26/21 04:06 MPV 8.7 fL (7.4-11.0) 08/26/21 04:06 Neut % (Auto) 83.6 % (42.0-75.0) H 08/26/21 04:06 Lymph % (Auto) 5.7 % (21.0-51.0) L 08/26/21 04:06 [place] % (Auto) 9.2 % (0.0-13.0) 08/26/21 04:06 Eos % (Auto) 1.2 % (0.9-2.9) 08/26/21 04:06 Baso % (Auto) 0.3 % (0.2-1.0) 08/26/21 04:06 Neut # (Auto) 5.2 x10^3/uL (2.2-4.8) H 08/26/21 04:06 Lymph # (Auto) 0.3 X10^3/uL (1.3-2.9) L 08/26/21 04:06 [place] # (Auto) 0.6 x10^3/uL (0.3-0.8) 08/26/21 04:06 Eos # (Auto) 0.1 x10^3/uL (0.0-0.2) 08/26/21 04:06 Baso # (Auto) 0.0 X10^3/uL (0.0-0.1) 08/26/21 04:06 Absolute Nucleated RBC 0.1 /100WBC 08/26/21 04:06 D-Dimer 3.13 ug/ml (0.0-0.57) H* 08/22/21 12:24 Sample Site Rrad 08/25/21 03:24 ABG pH 7.550 (7.35-7.45) H 08/25/21 03:24 ABG pCO2 35.0 mmHg (35.0-45.0) 08/25/21 03:24 ABG pO2 143.0 mmHg (80.0-100.0) H 08/25/21 03:24 ABG HCO3 30.6 mmol/L (22-26) H* 08/25/21 03:24 ABG O2 Saturation 99.0 % (90-100) 08/25/21 03:24 ABG Base Excess 7.9 mmol/L (-2.0-2.0) H 08/25/21 03:24 Ted Test Pos 08/25/21 03:24 A-a Gradient 526.0 mmHg 08/25/21 03:24 FiO2 100.0 08/25/21 03:24 Blood Gas Comments Evelyn well ms 08/25/21 03:24 Sodium 136 mmol/L (136-145) 08/26/21 04:06 Corrected Sodium 137 mmol/L (136-145) 08/26/21 04:06 Potassium 3.4 mmol/L (3.5-5.1) L 08/26/21 04:06 Chloride 98 mmol/L (98-107) 08/26/21 04:06 Carbon Dioxide 34.1 mmol/L (21-32) H 08/26/21 04:06 BUN 21 mg/dL (7-18) H 08/26/21 04:06 Creatinine 1.08 mg/dL (0.70-1.30) 08/26/21 04:06 Est GFR (MDRD) Af Amer > 60 (>60) 08/26/21 04:06 Est GFR (MDRD) Non-Af > 60 (>60) 08/26/21 04:06 Glucose 146 mg/dL (65-99) H 08/26/21 04:06 POC Glucose (mg/dL) 214 mg/dL (65-99) H 08/26/21 11:51 Calcium 8.0 mg/dL (8.5-10.1) L 08/26/21 04:06 Corrected Calcium 9.8 mg/dL (8.5-10.1) 08/26/21 04:06 Magnesium 1.4 mg/dL (1.7-2.9) L 08/26/21 04:06 Total Bilirubin 0.30 mg/dL (0.2-1.0) 08/26/21 04:06 AST 10 Units/L (15-37) L 08/26/21 04:06 ALT 8 Units/L (12-78) L 08/26/21 04:06 Alkaline Phosphatase 66 Units/L (46-116) 08/26/21 04:06 Creatine Kinase 70 Units/L (39-308) 08/22/21 12:24 CK-MB (CK-2) < 1.0 ng/mL (0-4.0) 08/22/21 12:24 CK/CKMB % Calc 1.4 % (<4) 08/22/21 12:24 Troponin I High Sens 16.1 ng/L (4.0-60.0) 08/22/21 12:24 B-Natriuretic Peptide 456 pg/mL (0-79) H 08/25/21 03:50 Total Protein 5.0 g/dL (6.4-8.2) L 08/26/21 04:06 Albumin 1.7 g/dL (3.4-5.0) L 08/26/21 04:06 Globulin 3.3 g/dL (2.5-4.5) 08/26/21 04:06 Albumin/Globulin Ratio 0.5 Ratio (1.1-2.1) L 08/26/21 04:06 Carcinoembryonic Ag 902.0 ng/mL 08/23/21 04:08 Total PSA 2.40 ng/mL (0.13-4.0) 08/25/21 15:35 Specimen Type Catherized urine 08/25/21 02:10 Urine Color Pale yellow (YELLOW) 08/25/21 02:10 Urine Appearance Clear (CLEAR) 08/25/21 02:10 Urine pH 5.0 (5.0 - 8.0) 08/25/21 02:10 Ur Specific [place] 1.020 (1.000-1.030) 08/25/21 02:10 Urine Protein 2+ (NEGATIVE) 08/25/21 02:10 Urine Glucose (UA) Negative (NEGATIVE) 08/25/21 02:10 Urine Ketones Negative (NEGATIVE) 08/25/21 02:10 Urine Blood 4+ (NEGATIVE) 08/25/21 02:10 Urine Nitrite Negative (NEGATIVE) 08/25/21 02:10 Urine Bilirubin Negative (NEGATIVE) 08/25/21 02:10 Urine Urobilinogen Normal (NORMAL) 08/25/21 02:10 Ur Leukocyte Esterase 2+ (NEGATIVE) 08/25/21 02:10 Urine RBC 5-10 /HPF (0-3) A 08/25/21 02:10 Urine WBC 3-5 /HPF (0-5) 08/25/21 02:10 Ur Squamous Epith Cells Rare /HPF (NEGATIVE) 08/25/21 02:10 Urine Bacteria Negative /HPF (NEGATIVE) 08/25/21 02:10 Ur Culture Indicated? No/not indicated 08/25/21 02:10 SARS CoV-2 RNA Rapid ALEX Negative (NEGATIVE) 08/20/21 10:04 Tissue Pathology To follow 08/20/21 14:30 Blood Type A POSITIVE 08/20/21 14:33 Antibody Screen Negative 08/20/21 14:33 Radiology Reviewed: Yes Plan (1) Hypokalemia: Status: Acute Plan: Replace potassium with potassium replacement protocol. (2) Status post colectomy: Status: Acute (3) HTN (hypertension): Status: Chronic Qualifiers: Hypertension type: essential hypertension Qualified Code(s): I10 - Essential (primary) hypertension Plan: Continue Cardizem CD 180 mg by mouth daily and metoprolol extended release 100 mg by mouth daily. (4) Diabetes: Status: Chronic Qualifiers: Diabetes mellitus type: type 2 Diabetes mellitus terminal carman insulin use: with assisted use Diabetes mellitus complication status: without complication Qualified Code(s): E11.9 - Type 2 diabetes mellitus without complications; Z79.4 - USP (current) use of insulin Plan: Sliding scale regular insulin per protocol. Check One Touch blood sugars 4 times a day. (5) Supraventricular tachycardia: Status: Resolved Plan: Cardizem drip and changing metoprolol ER 200 mg by mouth daily. (6) Hyponatremia: Status: Resolved Plan: Change IV fluid to normal saline at 30 mL/h. (7) Right middle lobe pneumonia: Status: Acute Plan: Canceling the pneumonia protocol as the chest x-ray this morning showed no infiltrate. I will also be discontinuing his Vibramycin and Zosyn. (8) Anemia: Status: Acute Qualifiers: Anemia type: unspecified type Qualified Code(s): D64.9 - Anemia, unspecified Plan: Monitor daily hemoglobins. Will transfuse packed red blood cells if hemoglobin drops below 7.0. (9) Hypomagnesemia: Status: Acute Plan: Replace magnesium today. (10) Klebsiella pneumoniae: Status: Acute Plan: I will cover him empirically with Vibramycin just in case he has underlying Klebsiella pneumoniae infection.
[2021-08-26] MEDS: K-DUR TAB 20 MEQ PO PRN (16:52)
[2021-08-26] MEDS: LASIX PO SCH (20:38)
[2021-08-27] MEDS ORDERED: XOPENEX 1.25 MG/3 ML NEBULE NEB ONE (00:15)
[2021-08-27] MEDS: XOPENEX 1.25 MG/3 ML NEBULE NEB SCH ×4 (00:15→18:22)
[2021-08-27] MEDS: MUCOMYST (RESPIRATORY USE ONLY) NEB SCH ×5 (00:15→18:22)
[2021-08-27 05:02] LABS: BASOPHILS # (AUTO) 0.1 X10^3/uL (0.0-0.1); EOSINOPHILS # (AUTO) 0.1 x10^3/uL (0.0-0.2); HEMATOCRIT 25.9 % (42.0-54.0); HEMOGLOBIN 8.7 g/dL (13.5-18.0); LYMPHOCYTES # (AUTO) 0.3 X10^3/uL (1.3-2.9); MEAN CORPUSCULAR HEMOGLOBIN 28.5 pg (27.0-34.0); MEAN CORPUSCULAR HGB CONC 33.7 g/dL (33.0-35.0); MEAN CORPUSCULAR VOLUME 84.7 fL (80.0-100.0); MEAN PLATELET VOLUME 8.4 fL (7.4-11.0); MONOCYTES # (AUTO) 0.4 x10^3/uL (0.3-0.8); MONOCYTES % (AUTO) 5.2 % (0.0-13.0); NEUTROPHILS # (AUTO) 6.5 x10^3/uL (2.2-4.8); NEUTROPHILS % (AUTO) 88.8 % (42.0-75.0); RED BLOOD COUNT 3.06 X10^6/uL (4.7-6.0); RED CELL DISTRIBUTION WIDTH 14.3 % (11.6-16.5); WHITE BLOOD COUNT 7.3 X10^3/uL (3.6-10.0)
[2021-08-27 05:14] LABS: ALANINE AMINOTRANSFERASE < 6 Units/L (12-78); ALBUMIN 1.9 g/dL (3.4-5.0); ALKALINE PHOSPHATASE 68 Units/L (46-116); ASPARTATE AMINO TRANSFERASE 10 Units/L (15-37); BLOOD UREA NITROGEN 17 mg/dL (7-18); CALCIUM 8.1 mg/dL (8.5-10.1); CARBON DIOXIDE 34.9 mmol/L (21-32); CHLORIDE 97 mmol/L (98-107); COR CA(FOR HYPOALB) 9.8 mg/dL (8.5-10.1); COR NA(FOR HYPERGLY) 136 mmol/L (136-145); CREATININE 1.05 mg/dL (0.70-1.30); MAGNESIUM 1.7 mg/dL (1.7-2.9); SODIUM 135 mmol/L (136-145); TOTAL PROTEIN 5.3 g/dL (6.4-8.2); eGFR NON BLACK RACES > 60 (>60)
[2021-08-27] MEDS: MAGNESIUM SULFATE 1 GRAM/100 mL PREMIX 1 G/100 ML BAG IV PRN ×2 (05:57→09:04)
[2021-08-27] MEDS: K-DUR TAB 20 MEQ PO PRN (05:57)
[2021-08-27] MEDS: FLAGYL IV PREMIX 500 MG BAG 500 MG/100 ML BAG IV SCH ×3 (05:58→22:23)
[2021-08-27] MEDS ORDERED: TOPROL XL PO ONE (08:04)
[2021-08-27] MEDS: PULMICORT NEB TX 0.5 MG NEB SCH ×2 (08:31→20:14)
[2021-08-27] MEDS: CARDIZEM CD 180 MG 24-HR PO SCH (08:34)
[2021-08-27] MEDS: ZOLOFT PO SCH (08:35)
[2021-08-27] MEDS: PROTONIX TAB 40 MG PO SCH ×2 (08:35→20:45)
[2021-08-27] MEDS: TOPROL XL PO SCH (08:35)
[2021-08-27] MEDS: VIBRAMYCIN 100 MG in D5W 250 ML IV 250 ML IV SCH ×2 (08:35→20:45)
[2021-08-27] MEDS: LOVENOX INJ 40 MG SYR SC SCH (08:35)
--- NOTE | 2021-08-27 09:21 | DR.PROGNOT ---
Hospital Progress Notes - Progress Note for Day of: Progress Note Date: 08/27/21 - Chief Complaint Chief Complaint: no changes. . more alert today .. dressing was changed and LESLI was removed .. - Past Medical Family Social History Past Med/Fam/Surg Hx: No changes since H&P Allergies: Allergies ceftriaxone [From Rocephin] Allergy (Unknown, Verified 08/20/21 11:20) PT UNABLE TO TELL HIS REACTION ciprofloxacin [From Cipro] Allergy (Unknown, Verified 08/20/21 11:20) PT UNABLE TO TELL HIS REACTION morphine Adverse Reaction (Unknown, Verified 08/20/21 11:20) PT UNABLE TO TELL HIS REACTION - Review Of Systems ROS: No change since H&P - Vital Signs Vital Signs: Temperature 98.3 F Pulse Rate [Radial] 111 Pulse Rate 67 Respiratory Rate 18 Blood Pressure [Left Arm] 172/77 Blood Pressure [Right Arm] 160/77 Blood Pressure 137/65 O2 Sat by Pulse Oximetry 98 - Physical Exam Oriented: Normal Eyes: Normal Ear: Normal Nose: Normal Throat: Normal Respiratory: Rhonchi Cardiovascular: Irregular : Normal GI:Auscultation: Normal, Absent GI:Palpation: Other GI: Tenderness: Diffuse (soft abdomen with + BS), Mild Skin: Normal Musculoskeletal: Normal Psychiatric: Normal Mood Description: Calm Affect: Normal Speech Pattern: Clear, Appropriate - Laboratory and Diagnostics Result Diagrams: 08/27/21 04:30 08/27/21 08:44 Labs: 08/22/21 11:11 Blood Blood Culture - Preliminary 08/22/21 11:05 Blood Blood Culture - Final 08/22/21 09:25 Sputum - Expectorated Sputum Sputum Culture - Final Klebsiella Pneumoniae Escherichia Coli Klebsiella Ornithinolytica 08/22/21 09:25 Sputum - Expectorated Sputum - Final Laboratory WBC 7.3 X10^3/uL (3.6-10.0) 08/27/21 04:30 RBC 3.06 X10^6/uL (4.7-6.0) L 08/27/21 04:30 Hgb 8.7 g/dL (13.5-18.0) L 08/27/21 04:30 Hct 25.9 % (42.0-54.0) L 08/27/21 04:30 MCV 84.7 fL (80.0-100.0) 08/27/21 04:30 MCH 28.5 pg (27.0-34.0) 08/27/21 04:30 MCHC 33.7 g/dL (33.0-35.0) 08/27/21 04:30 RDW 14.3 % (11.6-16.5) 08/27/21 04:30 Plt Count 244 X10^3/uL (150.0-450.0) 08/27/21 04: MPV 8.4 fL (7.4-11.0) 08/27/21 04:30 Neut % (Auto) 88.8 % (42.0-75.0) H 08/27/21 04:30 Lymph % (Auto) 4.0 % (21.0-51.0) L 08/27/21 04:30 [place] % (Auto) 5.2 % (0.0-13.0) 08/27/21 04:30 Eos % (Auto) 1.0 % (0.9-2.9) 08/27/21 04:30 Baso % (Auto) 1.0 % (0.2-1.0) 08/27/21 04:30 Neut # (Auto) 6.5 x10^3/uL (2.2-4.8) H 08/27/21 04:30 Lymph # (Auto) 0.3 X10^3/uL (1.3-2.9) L 08/27/21 04:30 [place] # (Auto) 0.4 x10^3/uL (0.3-0.8) 08/27/21 04:30 Eos # (Auto) 0.1 x10^3/uL (0.0-0.2) 08/27/21 04:30 Baso # (Auto) 0.1 X10^3/uL (0.0-0.1) 08/27/21 04:30 Absolute Nucleated RBC 0.0 /100WBC 08/27/21 04:30 D-Dimer 3.13 ug/ml (0.0-0.57) H* 08/22/21 12:24 Sample Site Rrad 08/25/21 03:24 ABG pH 7.550 (7.35-7.45) H 08/25/21 03:24 ABG pCO2 35.0 mmHg (35.0-45.0) 08/25/21 03:24 ABG pO2 143.0 mmHg (80.0-100.0) H 08/25/21 03:24 ABG HCO3 30.6 mmol/L (22-26) H* 08/25/21 03:24 ABG O2 Saturation 99.0 % (90-100) 08/25/21 03:24 ABG Base Excess 7.9 mmol/L (-2.0-2.0) H 08/25/21 03:24 Ted Test Pos 08/25/21 03:24 A-a Gradient 526.0 mmHg 08/25/21 03:24 FiO2 100.0 08/25/21 03:24 Blood Gas Comments Evelyn well ms 08/25/21 03:24 Sodium 135 mmol/L (136-145) L 08/27/21 04:30 Corrected Sodium 136 mmol/L (136-145) 08/27/21 04:30 Potassium 3.6 mmol/L (3.5-5.1) 08/27/21 08:44 Chloride 97 mmol/L (98-107) L 08/27/21 04:30 Carbon Dioxide 34.9 mmol/L (21-32) H 08/27/21 04:30 BUN 17 mg/dL (7-18) 08/27/21 04:30 Creatinine 1.05 mg/dL (0.70-1.30) 08/27/21 04:30 Est GFR (MDRD) Af Amer > 60 (>60) 08/27/21 04:30 Est GFR (MDRD) Non-Af > 60 (>60) 08/27/21 04:30 Glucose 149 mg/dL (65-99) H 08/27/21 04:30 POC Glucose (mg/dL) 159 mg/dL (65-99) H 08/26/21 20:41 Calcium 8.1 mg/dL (8.5-10.1) L 08/27/21 04:30 Corrected Calcium 9.8 mg/dL (8.5-10.1) 08/27/21 04:30 Magnesium 1.7 mg/dL (1.7-2.9) 08/27/21 04:30 Total Bilirubin 0.30 mg/dL (0.2-1.0) 08/27/21 04:30 AST 10 Units/L (15-37) L 08/27/21 04:30 ALT < 6 Units/L (12-78) L 08/27/21 04:30 Alkaline Phosphatase 68 Units/L (46-116) 08/27/21 04:30 Creatine Kinase 70 Units/L (39-308) 08/22/21 12:24 CK-MB (CK-2) < 1.0 ng/mL (0-4.0) 08/22/21 12:24 CK/CKMB % Calc 1.4 % (<4) 08/22/21 12:24 Troponin I High Sens 16.1 ng/L (4.0-60.0) 08/22/21 12:24 B-Natriuretic Peptide 456 pg/mL (0-79) H 08/25/21 03:50 Total Protein 5.3 g/dL (6.4-8.2) L 08/27/21 04:30 Albumin 1.9 g/dL (3.4-5.0) L 08/27/21 04:30 Globulin 3.4 g/dL (2.5-4.5) 08/27/21 04:30 Albumin/Globulin Ratio 0.6 Ratio (1.1-2.1) L 08/27/21 04:30 Carcinoembryonic Ag 902.0 ng/mL 08/23/21 04:08 Total PSA 2.40 ng/mL (0.13-4.0) 08/25/21 15:35 Specimen Type Catherized urine 08/25/21 02:10 Urine Color Pale yellow (YELLOW) 08/25/21 02:10 Urine Appearance Clear (CLEAR) 08/25/21 02:10 Urine pH 5.0 (5.0 - 8.0) 08/25/21 02:10 Ur Specific [place] 1.020 (1.000-1.030) 08/25/21 02:10 Urine Protein 2+ (NEGATIVE) 08/25/21 02:10 Urine Glucose (UA) Negative (NEGATIVE) 08/25/21 02:10 Urine Ketones Negative (NEGATIVE) 08/25/21 02:10 Urine Blood 4+ (NEGATIVE) 08/25/21 02:10 Urine Nitrite Negative (NEGATIVE) 08/25/21 02:10 Urine Bilirubin Negative (NEGATIVE) 08/25/21 02:10 Urine Urobilinogen Normal (NORMAL) 08/25/21 02:10 Ur Leukocyte Esterase 2+ (NEGATIVE) 08/25/21 02:10 Urine RBC 5-10 /HPF (0-3) A 08/25/21 02:10 Urine WBC 3-5 /HPF (0-5) 08/25/21 02:10 Ur Squamous Epith Cells Rare /HPF (NEGATIVE) 08/25/21 02:10 Urine Bacteria Negative /HPF (NEGATIVE) 08/25/21 02:10 Ur Culture Indicated? No/not indicated 08/25/21 02:10 SARS CoV-2 RNA Rapid ALEX Negative (NEGATIVE) 08/20/21 10:04 Tissue Pathology To follow 08/20/21 14:30 Blood Type A POSITIVE 08/20/21 14:33 Antibody Screen Negative 08/20/21 14:33 - Assessment and Plan 1: s/p RT colectomy , omentectomy , partial small bowel resectio. urinary retention required [place] cath . hypoxia , on O2 supplement .
--- NOTE | 2021-08-27 09:35 | PCM.PROG ---
Progress Note Progress Note for Day of Date of Exam: 08/27/21 Subjective Subjective: The patient is alert and awake this morning. He has no new complaints this morning. He is eating breakfast again this morning. He reports to this is the best morning he has had since surgery a week ago. He has been weaned off heated high flow. He is satting in the upper 90s on 4 L nasal cannula this morning. Currently on FiO2 of 40. We will continue to wean down his O2 as tolerated. His sputum culture has further grown out E. coli and Klebsiella ornithinolytica in addition to the Klebsiella pneumoniae he has previously grown out. They were all sensitive to doxycycline but more sensitive to Invanz. I will add Invanz 1 g IV daily to his current regimen. He does report coughing up large amounts of sputum this morning and is breathing better overall. I still plan to discharge him to [facility] in 3 days for inpatient rehabilitation following surgery to help him build his strength back up. His potassium is slightly low again this morning and we will continue to replace it with potassium protocol. Past Medical Family Social History Past Med/Fam/Surg Hx: No changes since H&P Allergies: Allergies ceftriaxone [From Rocephin] Allergy (Unknown, Verified 08/20/21 11:20) PT UNABLE TO TELL HIS REACTION ciprofloxacin [From Cipro] Allergy (Unknown, Verified 08/20/21 11:20) PT UNABLE TO TELL HIS REACTION morphine Adverse Reaction (Unknown, Verified 08/20/21 11:20) PT UNABLE TO TELL HIS REACTION Review of Systems ROS: No change since H&P Vital Signs and I&O's Vital Signs: Temperature 98.3 F Pulse Rate [Radial] 111 Pulse Rate 67 Respiratory Rate 18 Blood Pressure [Left Arm] 172/77 Blood Pressure [Right Arm] 160/77 Blood Pressure 137/65 O2 Sat by Pulse Oximetry 98 Intake and Output: Intake & Output 08/24/21 08/25/21 08/26/21 08/27/21 11:59 11:59 11:59 11:59 Intake Total 2350 / 2350 2339 / 2339 1463 / 1463 1856 / 1856 Output Total 2300 / 2300 2130 / 2130 2080 / 2080 2040 / 2040 Balance 50 / 50 209 / 209 -617 / -617 -184 / -184 Physical Exam Oriented: Normal Eyes: Normal Ear: Normal Nose: Normal Throat: Normal Respiratory: Rhonchi Cardiovascular: Irregular : Normal Auscultation: Bowel Sounds: Normal and Absent Tenderness: Diffuse (soft abdomen with + BS ) and Mild Skin: Normal Musculoskeletal: Normal Psychiatric: Normal Mood Description: Calm Affect: Normal Speech Pattern: Clear and Appropriate Laboratory and Diagnostics Result Diagrams: 08/27/21 04:30 08/27/21 08:44 Labs: 08/22/21 11:11 Blood Blood Culture - Preliminary 08/22/21 11:05 Blood Blood Culture - Final 08/22/21 09:25 Sputum - Expectorated Sputum Sputum Culture - Final Klebsiella Pneumoniae Escherichia Coli Klebsiella Ornithinolytica 08/22/21 09:25 Sputum - Expectorated Sputum - Final Laboratory WBC 7.3 X10^3/uL (3.6-10.0) 08/27/21 04:30 RBC 3.06 X10^6/uL (4.7-6.0) L 08/27/21 04:30 Hgb 8.7 g/dL (13.5-18.0) L 08/27/21 04:30 Hct 25.9 % (42.0-54.0) L 08/27/21 04:30 MCV 84.7 fL (80.0-100.0) 08/27/21 04:30 MCH 28.5 pg (27.0-34.0) 08/27/21 04:30 MCHC 33.7 g/dL (33.0-35.0) 08/27/21 04:30 RDW 14.3 % (11.6-16.5) 08/27/21 04:30 Plt Count 244 X10^3/uL (150.0-450.0) 08/27/21 04:30 MPV 8.4 fL (7.4-11.0) 08/27/21 04:30 Neut % (Auto) 88.8 % (42.0-75.0) H 08/27/21 04:30 Lymph % (Auto) 4.0 % (21.0-51.0) L 08/27/21 04:30 Isabela % (Auto) 5.2 % (0.0-13.0) 08/27/21 04:30 Eos % (Auto) 1.0 % (0.9-2.9) 08/27/21 04:30 Baso % (Auto) 1.0 % (0.2-1.0) 08/27/21 04:30 Neut # (Auto) 6.5 x10^3/uL (2.2-4.8) H 08/27/21 04:30 Lymph # (Auto) 0.3 X10^3/uL (1.3-2.9) L 08/27/21 04:30 Isabela # (Auto) 0.4 x10^3/uL (0.3-0.8) 08/27/21 04:30 Eos # (Auto) 0.1 x10^3/uL (0.0-0.2) 08/27/21 04:30 Baso # (Auto) 0.1 X10^3/uL (0.0-0.1) 08/27/21 04:30 Absolute Nucleated RBC 0.0 /100WBC 08/27/21 04:30 D-Dimer 3.13 ug/ml (0.0-0.57) H* 08/22/21 12:24 Sample Site Rrad 08/25/21 03:24 ABG pH 7.550 (7.35-7.45) H 08/25/21 03:24 ABG pCO2 35.0 mmHg (35.0-45.0) 08/25/21 03:24 ABG pO2 143.0 mmHg (80.0-100.0) H 08/25/21 03:24 ABG HCO3 30.6 mmol/L (22-26) H* 08/25/21 03:24 ABG O2 Saturation 99.0 % (90-100) 08/25/21 03:24 ABG Base Excess 7.9 mmol/L (-2.0-2.0) H 08/25/21 03:24 Ted Test Pos 08/25/21 03:24 A-a Gradient 526.0 mmHg 08/25/21 03:24 FiO2 100.0 08/25/21 03:24 Blood Gas Comments Evelyn well ms 08/25/21 03:24 Sodium 135 mmol/L (136-145) L 08/27/21 04:30 Corrected Sodium 136 mmol/L (136-145) 08/27/21 04:30 Potassium 3.6 mmol/L (3.5-5.1) 08/27/21 08:44 Chloride 97 mmol/L (98-107) L 08/27/21 04:30 Carbon Dioxide 34.9 mmol/L (21-32) H 08/27/21 04:30 BUN 17 mg/dL (7-18) 08/27/21 04:30 Creatinine 1.05 mg/dL (0.70-1.30) 08/27/21 04:30 Est GFR (MDRD) Af Amer > 60 (>60) 08/27/21 04:30 Est GFR (MDRD) Non-Af > 60 (>60) 08/27/21 04:30 Glucose 149 mg/dL (65-99) H 08/27/21 04:30 POC Glucose (mg/dL) 159 mg/dL (65-99) H 08/26/21 20:41 Calcium 8.1 mg/dL (8.5-10.1) L 08/27/21 04:30 Corrected Calcium 9.8 mg/dL (8.5-10.1) 08/27/21 04:30 Magnesium 1.7 mg/dL (1.7-2.9) 08/27/21 04:30 Total Bilirubin 0.30 mg/dL (0.2-1.0) 08/27/21 04:30 AST 10 Units/L (15-37) L 08/27/21 04:30 ALT < 6 Units/L (12-78) L 08/27/21 04:30 Alkaline Phosphatase 68 Units/L (46-116) 08/27/21 04:30 Creatine Kinase 70 Units/L (39-308) 08/22/21 12:24 CK-MB (CK-2) < 1.0 ng/mL (0-4.0) 08/22/21 12:24 CK/CKMB % Calc 1.4 % (<4) 08/22/21 12:24 Troponin I High Sens 16.1 ng/L (4.0-60.0) 08/22/21 12:24 B-Natriuretic Peptide 456 pg/mL (0-79) H 08/25/21 03:50 Total Protein 5.3 g/dL (6.4-8.2) L 08/27/21 04:30 Albumin 1.9 g/dL (3.4-5.0) L 08/27/21 04:30 Globulin 3.4 g/dL (2.5-4.5) 08/27/21 04:30 Albumin/Globulin Ratio 0.6 Ratio (1.1-2.1) L 08/27/21 04:30 Carcinoembryonic Ag 902.0 ng/mL 08/23/21 04:08 Total PSA 2.40 ng/mL (0.13-4.0) 08/25/21 15:35 Specimen Type Catherized urine 08/25/21 02:10 Urine Color Pale yellow (YELLOW) 08/25/21 02:10 Urine Appearance Clear (CLEAR) 08/25/21 02:10 Urine pH 5.0 (5.0 - 8.0) 08/25/21 02:10 Ur Specific [place] 1.020 (1.000-1.030) 08/25/21 02:10 Urine Protein 2+ (NEGATIVE) 08/25/21 02:10 Urine Glucose (UA) Negative (NEGATIVE) 08/25/21 02:10 Urine Ketones Negative (NEGATIVE) 08/25/21 02:10 Urine Blood 4+ (NEGATIVE) 08/25/21 02:10 Urine Nitrite Negative (NEGATIVE) 08/25/21 02:10 Urine Bilirubin Negative (NEGATIVE) 08/25/21 02:10 Urine Urobilinogen Normal (NORMAL) 08/25/21 02:10 Ur Leukocyte Esterase 2+ (NEGATIVE) 08/25/21 02:10 Urine RBC 5-10 /HPF (0-3) A 08/25/21 02:10 Urine WBC 3-5 /HPF (0-5) 08/25/21 02:10 Ur Squamous Epith Cells Rare /HPF (NEGATIVE) 08/25/21 02:10 Urine Bacteria Negative /HPF (NEGATIVE) 08/25/21 02:10 Ur Culture Indicated? No/not indicated 08/25/21 02:10 SARS CoV-2 RNA Rapid ALEX Negative (NEGATIVE) 08/20/21 10:04 Tissue Pathology To follow 08/20/21 14:30 Blood Type A POSITIVE 08/20/21 14:33 Antibody Screen Negative 08/20/21 14:33 Plan (1) Hypoxia: Status: Acute Narrative Support Text: Patient's O2 sat is improving daily. Plan: Continue to wean off oxygen and continue IV antibiotics. Invanz 1 g IV daily is being added today. (2) Tracheobronchitis: Status: Acute Narrative Support Text: Patient is positive in the sputum for Klebsiella pneumoniae, Escherichia coli and Klebsiella ornithinlytica. Plan: The patient's sputum culture was positive for the 3 organisms above. They are all sensitive to doxycycline with RADHA of less than 4. However they are more sensitive to Invanz which I will be adding today at 1 g IV daily. I will check a chest x-ray today and tomorrow to make sure he has not developed a pneumonia as well. (3) Hypokalemia: Status: Acute Plan: Replace potassium with potassium replacement protocol. (4) Status post colectomy: Status: Acute (5) HTN (hypertension): Status: Chronic Qualifiers: Hypertension type: essential hypertension Qualified Code(s): I10 - Essential (primary) hypertension Plan: Continue Cardizem CD 180 mg by mouth daily and metoprolol extended release 100 mg by mouth daily. (6) Diabetes: Status: Chronic Qualifiers: Diabetes mellitus complication status: without complication Diabetes mellitus assisted insulin use: with assisted use Diabetes mellitus type: type 2 Qualified Code(s): E11.9 - Type 2 diabetes mellitus without complications; Z79.4 - [facility] (current) use of insulin Plan: Sliding scale regular insulin per protocol. Check One Touch blood sugars 4 times a day. (7) Hyponatremia: Status: Resolved Plan: Change IV fluid to normal saline at 30 mL/h. (8) Right middle lobe pneumonia: Status: Acute Plan: Canceling the pneumonia protocol as the chest x-ray this morning showed no infiltrate. I will also be discontinuing his Vibramycin and Zosyn. (9) Anemia: Status: Acute Qualifiers: Anemia type: unspecified type Qualified Code(s): D64.9 - Anemia, unspecified Plan: Monitor daily hemoglobins. Will transfuse packed red blood cells if hemoglobin drops below 7.0. (10) Hypomagnesemia: Status: Acute Plan: Replace magnesium today. (11) Klebsiella pneumoniae: Status: Acute Plan: I will cover him empirically with Vibramycin just in case he has underlying Klebsiella pneumoniae infection.
[2021-08-27] MEDS: INVanz INJ 1 GRAM VIAL 1 G in NS 100 ML IV 100 ML IV SCH (10:43)
[2021-08-27] MEDS: NORCO 5/325 MG TAB PO PRN ×2 (10:43→18:59)
[2021-08-27] MEDS: NovoLIN R (or HumuLIN R) SC PRN (11:36)
--- NOTE | 2021-08-27 16:33 | RAD ---
[email or web address].brPT HAD A LAPAROTOMY WITH COLECTOMY Relevant Clinical InformationSTUDYCHEST, 1 VIEWCOMPARISONPortable chest August 25, 2021.FINDINGSThe trachea is midline. The cardiac silhouette is unremarkable. There is persistent airspace disease in the right lower lobe silhouetting the right hemidiaphragm. This may be atelectasis and effusion but pneumonia could not be excluded. The bony thorax is unremarkable.IMPRESSION.Airspace disease right lower lobe consistent with atelectasis and/or pneumonia.Right internal jugular line is unchanged in position at the junction of the superior vena cava to the atrium.Electronically signed by: DAILY MUSTAFA (Aug 27, 2021 16:32:11)
[2021-08-27] MEDS: LASIX PO SCH (21:20)
[2021-08-28] MEDS: MUCOMYST (RESPIRATORY USE ONLY) NEB SCH ×4 (00:33→17:20)
[2021-08-28] MEDS: XOPENEX 1.25 MG/3 ML NEBULE NEB SCH ×4 (00:33→17:20)
[2021-08-28] MEDS: NORCO 5/325 MG TAB PO PRN ×2 (02:30→08:42)
[2021-08-28 05:24] LABS: BASOPHILS % (AUTO) 0.4 % (0.2-1.0); EOSINOPHILS % (AUTO) 0.6 % (0.9-2.9); HEMATOCRIT 24.6 % (42.0-54.0); HEMOGLOBIN 8.3 g/dL (13.5-18.0); LYMPHOCYTES # (AUTO) 0.3 X10^3/uL (1.3-2.9); LYMPHOCYTES % (AUTO) 4.5 % (21.0-51.0); MEAN CORPUSCULAR HEMOGLOBIN 28.5 pg (27.0-34.0); MEAN CORPUSCULAR HGB CONC 33.7 g/dL (33.0-35.0); MEAN CORPUSCULAR VOLUME 84.5 fL (80.0-100.0); MEAN PLATELET VOLUME 8.4 fL (7.4-11.0); MONOCYTES # (AUTO) 0.5 x10^3/uL (0.3-0.8); MONOCYTES % (AUTO) 7.4 % (0.0-13.0); NEUTROPHILS # (AUTO) 6.3 x10^3/uL (2.2-4.8); NEUTROPHILS % (AUTO) 87.1 % (42.0-75.0); RED BLOOD COUNT 2.91 X10^6/uL (4.7-6.0); RED CELL DISTRIBUTION WIDTH 14.4 % (11.6-16.5); WHITE BLOOD COUNT 7.2 X10^3/uL (3.6-10.0)
[2021-08-28] MEDS: FLAGYL IV PREMIX 500 MG BAG 500 MG/100 ML BAG IV SCH ×3 (05:29→21:40)
[2021-08-28 05:31] LABS: ALANINE AMINOTRANSFERASE < 6 Units/L (12-78); ALBUMIN 1.7 g/dL (3.4-5.0); ALKALINE PHOSPHATASE 62 Units/L (46-116); ASPARTATE AMINO TRANSFERASE 10 Units/L (15-37); BLOOD UREA NITROGEN 16 mg/dL (7-18); CALCIUM 7.9 mg/dL (8.5-10.1); CARBON DIOXIDE 33.5 mmol/L (21-32); CHLORIDE 97 mmol/L (98-107); COR CA(FOR HYPOALB) 9.7 mg/dL (8.5-10.1); COR NA(FOR HYPERGLY) 137 mmol/L (136-145); CREATININE 1.04 mg/dL (0.70-1.30); MAGNESIUM 1.6 mg/dL (1.7-2.9); SODIUM 136 mmol/L (136-145); TOTAL PROTEIN 4.8 g/dL (6.4-8.2); eGFR NON BLACK RACES > 60 (>60)
[2021-08-28] MEDS: MAGNESIUM SULFATE 1 GRAM/100 mL PREMIX 1 G/100 ML BAG IV PRN ×2 (06:57→08:11)
[2021-08-28] MEDS ORDERED: TOPROL XL PO ONE (07:46)
[2021-08-28] MEDS: TOPROL XL PO SCH (08:33)
[2021-08-28] MEDS: CARDIZEM CD 180 MG 24-HR PO SCH (08:33)
[2021-08-28] MEDS: LOVENOX INJ 40 MG SYR SC SCH (08:33)
[2021-08-28] MEDS: PROTONIX TAB 40 MG PO SCH ×2 (08:33→20:13)
[2021-08-28] MEDS: K-DUR TAB 20 MEQ PO PRN (08:34)
[2021-08-28] MEDS: ZOLOFT PO SCH (08:34)
[2021-08-28] MEDS: VIBRAMYCIN 100 MG in D5W 250 ML IV 250 ML IV SCH ×2 (08:36→20:13)
[2021-08-28] MEDS: INVanz INJ 1 GRAM VIAL 1 G in NS 100 ML IV 100 ML IV SCH (08:36)
--- NOTE | 2021-08-28 08:43 | RAD ---
HISTORYHYPOXIASTUDYCHEST, 1 [id number]/2022FINDINGSTrachea is midline. Stable positioning right IJ central venous catheter tip at the atrial caval junction. Coarsening of the interstitium with improved aeration of the right lower lobe. There is some residual infiltrate/subsegmental atelectasis the right lung base. No new or worsening airspace disease. No pneumothorax.No acute osseous abnormalityIMPRESSIONChronic interstitial lung changes with mild improved aeration of the right lower lobe, however infiltrate/subsegmental atelectasis within the right lung base does persist.Electronically signed by: LORENZO WALSH (Aug 28, 2021 08:43:12)
[2021-08-28] MEDS: PULMICORT NEB TX 0.5 MG NEB SCH ×2 (09:05→21:45)
[2021-08-28] MEDS: MILK OF MAGNESIA PO SCH (09:36)
[2021-08-28] MEDS: NovoLIN R (or HumuLIN R) SC PRN (11:20)
--- NOTE | 2021-08-28 12:06 | PCM.PROG ---
Progress Note Progress Note for Day of Date of Exam: 08/28/21 Subjective Subjective: The patient is alert and awake this morning. He has no new complaints this morning. He is eating breakfast again this morning. Patient is currently satting 100% on 2 L nasal cannula . We will continue to wean down his O2 as tolerated. His sputum culture has further grown out E. coli and Klebsiella ornithinolytica in addition to the Klebsiella pneumoniae he has previously grown out. They were all sensitive to doxycycline but more sensitive to Invanz. I will add Invanz 1 g IV daily to his current regimen. He does report coughing up large amounts of sputum this morning and is breathing better overall. His chest x-ray is showing what looks like to be an improving infiltrate in the lungs but the right lower lungs still showing what appears to be an infiltrate. I still plan to discharge him to [facility] in 2 days for inpatient rehabilitation following surgery to help him build his strength back up. His magnesium is slightly low again this morning and we will continue to replace it. His abdomen appears mildly distended this morning. He is having bowel movements but I am going to go ahead and give him some milk of magnesia today to see if this will help getting him to have increased bowel movements. Past Medical Family Social History Past Med/Fam/Surg Hx: No changes since H&P Allergies: Allergies ceftriaxone [From Rocephin] Allergy (Unknown, Verified 08/20/21 11:20) PT UNABLE TO TELL HIS REACTION ciprofloxacin [From Cipro] Allergy (Unknown, Verified 08/20/21 11:20) PT UNABLE TO TELL HIS REACTION morphine Adverse Reaction (Unknown, Verified 08/20/21 11:20) PT UNABLE TO TELL HIS REACTION Review of Systems ROS: No change since H&P Vital Signs and I&O's Vital Signs: Temperature 98.7 F Pulse Rate [Radial] 111 Pulse Rate 60 Respiratory Rate 16 Blood Pressure [Left Arm] 172/77 Blood Pressure [Right Arm] 160/77 Blood Pressure 138/65 O2 Sat by Pulse Oximetry 100 Intake and Output: Intake & Output 08/26/21 08/27/21 08/28/21 08/29/21 11:59 11:59 11:59 11:59 Intake Total 1463 / 1463 1856 / 1856 2530 / 2530 Output Total 2079 / 0 2039 / 2039 Balance -617 / -617 -184 / -184 530 / 530 Physical Exam Oriented: Normal Eyes: Normal Ear: Normal Nose: Normal Throat: Normal Respiratory: Right and Rhonchi Cardiovascular: Normal : Normal Auscultation: Bowel Sounds: Normal and Absent Tenderness: Diffuse (soft abdomen with + BS ) and Mild Skin: Normal Musculoskeletal: Normal Psychiatric: Normal Mood Description: Calm Affect: Normal Speech Pattern: Clear and Appropriate Laboratory and Diagnostics Result Diagrams: 08/28/21 04:30 08/28/21 04:30 Labs: 08/22/21 11:11 Blood Blood Culture - Preliminary 08/22/21 11:05 Blood Blood Culture - Final 08/22/21 09:25 Sputum - Expectorated Sputum Sputum Culture - Final Klebsiella Pneumoniae Escherichia Coli Klebsiella Ornithinolytica 08/22/21 09:25 Sputum - Expectorated Sputum - Final Laboratory WBC 7.2 X10^3/uL (3.6-10.0) 08/28/21 04:30 RBC 2.91 X10^6/uL (4.7-6.0) L 08/28/21 04:30 Hgb 8.3 g/dL (13.5-18.0) L 08/28/21 04:30 Hct 24.6 % (42.0-54.0) L 08/28/21 04:30 MCV 84.5 fL (80.0-100.0) 08/28/21 04:30 MCH 28.5 pg (27.0-34.0) 08/28/21 04:30 MCHC 33.7 g/dL (33.0-35.0) 08/28/21 04:30 RDW 14.4 % (11.6-16.5) 08/28/21 04:30 Plt Count 242 X10^3/uL (150.0-450.0) 08/28/21 04:30 MPV 8.4 fL (7.4-11.0) 08/28/21 04:30 Neut % (Auto) 87.1 % (42.0-75.0) H 08/28/21 04:30 Lymph % (Auto) 4.5 % (21.0-51.0) L 08/28/21 04:30 [place] % (Auto) 7.4 % (0.0-13.0) 08/28/21 04:30 Eos % (Auto) 0.6 % (0.9-2.9) L 08/28/21 04:30 Baso % (Auto) 0.4 % (0.2-1.0) 08/28/21 04:30 Neut # (Auto) 6.3 x10^3/uL (2.2-4.8) H 08/28/21 04:30 Lymph # (Auto) 0.3 X10^3/uL (1.3-2.9) L 08/28/21 04:30 [place] # (Auto) 0.5 x10^3/uL (0.3-0.8) 08/28/21 04:30 Eos # (Auto) 0.0 x10^3/uL (0.0-0.2) 08/28/21 04:30 Baso # (Auto) 0.0 X10^3/uL (0.0-0.1) 08/28/21 04:30 Absolute Nucleated RBC 0.1 /100WBC 08/28/21 04:30 D-Dimer 3.13 ug/ml (0.0-0.57) H* 08/22/21 12:24 Sample Site Rrad 08/25/21 03:24 ABG pH 7.550 (7.35-7.45) H 08/25/21 03:24 ABG pCO2 35.0 mmHg (35.0-45.0) 08/25/21 03:24 ABG pO2 143.0 mmHg (80.0-100.0) H 08/25/21 03:24 ABG HCO3 30.6 mmol/L (22-26) H* 08/25/21 03:24 ABG O2 Saturation 99.0 % (90-100) 08/25/21 03:24 ABG Base Excess 7.9 mmol/L (-2.0-2.0) H 08/25/21 03:24 Ted Test Pos 08/25/21 03:24 A-a Gradient 526.0 mmHg 08/25/21 03:24 FiO2 100.0 08/25/21 03:24 Blood Gas Comments Evelyn well ms 08/25/21 03:24 Sodium 136 mmol/L (136-145) 08/28/21 04:30 Corrected Sodium 137 mmol/L (136-145) 08/28/21 04:30 Potassium 3.5 mmol/L (3.5-5.1) 08/28/21 04:30 Chloride 97 mmol/L (98-107) L 08/28/21 04:30 Carbon Dioxide 33.5 mmol/L (21-32) H 08/28/21 04:30 BUN 16 mg/dL (7-18) 08/28/21 04:30 Creatinine 1.04 mg/dL (0.70-1.30) 08/28/21 04:30 Est GFR (MDRD) Af Amer > 60 (>60) 08/28/21 04:30 Est GFR (MDRD) Non-Af > 60 (>60) 08/28/21 04:30 Glucose 148 mg/dL (65-99) H 08/28/21 04:30 POC Glucose (mg/dL) 223 mg/dL (65-99) H 08/28/21 11:20 Calcium 7.9 mg/dL (8.5-10.1) L 08/28/21 04:30 Corrected Calcium 9.7 mg/dL (8.5-10.1) 08/28/21 04:30 Magnesium 1.6 mg/dL (1.7-2.9) L 08/28/21 04:30 Total Bilirubin 0.30 mg/dL (0.2-1.0) 08/28/21 04:30 AST 10 Units/L (15-37) L 08/28/21 04:30 ALT < 6 Units/L (12-78) L 08/28/21 04:30 Alkaline Phosphatase 62 Units/L (46-116) 08/28/21 04:30 Creatine Kinase 70 Units/L (39-308) 08/22/21 12:24 CK-MB (CK-2) < 1.0 ng/mL (0-4.0) 08/22/21 12:24 CK/CKMB % Calc 1.4 % (<4) 08/22/21 12:24 Troponin I High Sens 16.1 ng/L (4.0-60.0) 08/22/21 12:24 B-Natriuretic Peptide 233 pg/mL (0-79) H 08/28/21 04:30 Total Protein 4.8 g/dL (6.4-8.2) L 08/28/21 04:30 Albumin 1.7 g/dL (3.4-5.0) L 08/28/21 04:30 Globulin 3.1 g/dL (2.5-4.5) 08/28/21 04:30 Albumin/Globulin Ratio 0.5 Ratio (1.1-2.1) L 08/28/21 04:30 Carcinoembryonic Ag 902.0 ng/mL 08/23/21 04:08 Total PSA 2.40 ng/mL (0.13-4.0) 08/25/21 15:35 Specimen Type Catherized urine 08/25/21 02:10 Urine Color Pale yellow (YELLOW) 08/25/21 02:10 Urine Appearance Clear (CLEAR) 08/25/21 02:10 Urine pH 5.0 (5.0 - 8.0) 08/25/21 02:10 Ur Specific [place] 1.020 (1.000-1.030) 08/25/21 02:10 Urine Protein 2+ (NEGATIVE) 08/25/21 02:10 Urine Glucose (UA) Negative (NEGATIVE) 08/25/21 02:10 Urine Ketones Negative (NEGATIVE) 08/25/21 02:10 Urine Blood 4+ (NEGATIVE) 08/25/21 02:10 Urine Nitrite Negative (NEGATIVE) 08/25/21 02:10 Urine Bilirubin Negative (NEGATIVE) 08/25/21 02:10 Urine Urobilinogen Normal (NORMAL) 08/25/21 02:10 Ur Leukocyte Esterase 2+ (NEGATIVE) 08/25/21 02:10 Urine RBC 5-10 /HPF (0-3) A 08/25/21 02:10 Urine WBC 3-5 /HPF (0-5) 08/25/21 02:10 Ur Squamous Epith Cells Rare /HPF (NEGATIVE) 08/25/21 02:10 Urine Bacteria Negative /HPF (NEGATIVE) 08/25/21 02:10 Ur Culture Indicated? No/not indicated 08/25/21 02:10 SARS CoV-2 RNA Rapid ALEX Negative (NEGATIVE) 08/20/21 10:04 Tissue Pathology To follow 08/20/21 14:30 Blood Type A POSITIVE 08/20/21 14:33 Antibody Screen Negative 08/20/21 14:33 Radiology Reviewed: Yes Plan (1) Hypoxia: Status: Acute Plan: Continue to wean off oxygen and continue IV antibiotics. Invanz 1 g IV daily is being added today. (2) Tracheobronchitis: Status: Acute Plan: The patient's sputum culture was positive for the 3 organisms above. They are all sensitive to doxycycline with RADHA of less than 4. However they are more sensitive to Invanz which I will be adding today at 1 g IV daily. I will check a chest x-ray today and tomorrow to make sure he has not developed a pneumonia as well. (3) Hypokalemia: Status: Acute Plan: Replace potassium with potassium replacement protocol. (4) Status post colectomy: Status: Acute (5) HTN (hypertension): Status: Chronic Qualifiers: Hypertension type: essential hypertension Qualified Code(s): I10 - Essential (primary) hypertension Plan: Continue Cardizem CD 180 mg by mouth daily and metoprolol extended release 100 mg by mouth daily. (6) Diabetes: Status: Chronic Qualifiers: Diabetes mellitus type: type 2 Diabetes mellitus [facility] insulin use: with termination clerk use Diabetes mellitus complication status: without complication Qualified Code(s): E11.9 - Type 2 diabetes mellitus without complications; Z79.4 - [facility] (current) use of insulin Plan: Sliding scale regular insulin per protocol. Check One Touch blood sugars 4 times a day. (7) Hyponatremia: Status: Resolved Plan: Change IV fluid to normal saline at 30 mL/h. (8) Right middle lobe pneumonia: Status: Acute Plan: The patient was started on IV Invanz yesterday given that he grew out 2 more organisms which are more sensitive to Invanz. We will continue to do daily chest x-rays until the infiltrate has cleared. (9) Anemia: Status: Acute Qualifiers: Anemia type: unspecified type Qualified Code(s): D64.9 - Anemia, unspecified Narrative Support Text: Hemoglobin is stable. Plan: Monitor daily hemoglobins. Will transfuse packed red blood cells if hemoglobin drops below 7.0. (10) Hypomagnesemia: Status: Acute Plan: Replace magnesium today. (11) Klebsiella pneumoniae: Status: Acute Plan: I will cover him empirically with Vibramycin just in case he has u nderlying Klebsiella pneumoniae infection.
[2021-08-28] MEDS ORDERED: COLACE CAP 100 MG PO ONE (19:13)
[2021-08-28] MEDS: COLACE CAP 100 MG PO SCH (20:12)
[2021-08-28] MEDS: LASIX PO SCH (20:13)
[2021-08-29] MEDS: MUCOMYST (RESPIRATORY USE ONLY) NEB SCH ×5 (00:05→17:08)
[2021-08-29] MEDS: XOPENEX 1.25 MG/3 ML NEBULE NEB SCH ×4 (00:10→17:08)
[2021-08-29] MEDS: NORCO 5/325 MG TAB PO PRN ×2 (03:08→20:00)
[2021-08-29] MEDS ORDERED: NS 500 ML IV 500 ML IV PRN (04:46)
[2021-08-29 05:04] LABS: BASOPHILS % (AUTO) 0.4 % (0.2-1.0); EOSINOPHILS % (AUTO) 0.4 % (0.9-2.9); HEMATOCRIT 27.8 % (42.0-54.0); HEMOGLOBIN 9.2 g/dL (13.5-18.0); LYMPHOCYTES # (AUTO) 0.4 X10^3/uL (1.3-2.9); LYMPHOCYTES % (AUTO) 4.2 % (21.0-51.0); MEAN CORPUSCULAR HEMOGLOBIN 28.1 pg (27.0-34.0); MEAN CORPUSCULAR HGB CONC 33.3 g/dL (33.0-35.0); MEAN CORPUSCULAR VOLUME 84.6 fL (80.0-100.0); MEAN PLATELET VOLUME 8.7 fL (7.4-11.0); MONOCYTES # (AUTO) 0.6 x10^3/uL (0.3-0.8); MONOCYTES % (AUTO) 6.8 % (0.0-13.0); NEUTROPHILS # (AUTO) 8.4 x10^3/uL (2.2-4.8); NEUTROPHILS % (AUTO) 88.2 % (42.0-75.0); RED BLOOD COUNT 3.28 X10^6/uL (4.7-6.0); RED CELL DISTRIBUTION WIDTH 14.7 % (11.6-16.5); WHITE BLOOD COUNT 9.5 X10^3/uL (3.6-10.0)
[2021-08-29] MEDS: FLAGYL IV PREMIX 500 MG BAG 500 MG/100 ML BAG IV SCH ×3 (05:09→21:02)
[2021-08-29 05:15] LABS: ALANINE AMINOTRANSFERASE < 6 Units/L (12-78); ALBUMIN 1.9 g/dL (3.4-5.0); ALKALINE PHOSPHATASE 71 Units/L (46-116); ASPARTATE AMINO TRANSFERASE 13 Units/L (15-37); BLOOD UREA NITROGEN 16 mg/dL (7-18); CALCIUM 8.3 mg/dL (8.5-10.1); CARBON DIOXIDE 32.7 mmol/L (21-32); CHLORIDE 96 mmol/L (98-107); COR NA(FOR HYPERGLY) 136 mmol/L (136-145); CREATININE 1.06 mg/dL (0.70-1.30); MAGNESIUM 1.9 mg/dL (1.7-2.9); SODIUM 135 mmol/L (136-145); TOTAL PROTEIN 5.5 g/dL (6.4-8.2); eGFR NON BLACK RACES > 60 (>60)
[2021-08-29] MEDS ORDERED: TOPROL XL PO ONE (08:06)
[2021-08-29] MEDS: LOVENOX INJ 40 MG SYR SC SCH (08:11)
[2021-08-29] MEDS: CARDIZEM CD 180 MG 24-HR PO SCH (08:11)
[2021-08-29] MEDS: COLACE CAP 100 MG PO SCH ×2 (08:11→19:59)
[2021-08-29] MEDS: PROTONIX TAB 40 MG PO SCH ×2 (08:12→19:59)
[2021-08-29] MEDS: ZOLOFT PO SCH (08:12)
[2021-08-29] MEDS: MILK OF MAGNESIA PO SCH (08:12)
[2021-08-29] MEDS: TOPROL XL PO SCH (08:12)
[2021-08-29] MEDS: INVanz INJ 1 GRAM VIAL 1 G in NS 100 ML IV 100 ML IV SCH (08:13)
[2021-08-29] MEDS: VIBRAMYCIN 100 MG in D5W 250 ML IV 250 ML IV SCH ×2 (08:54→19:59)
[2021-08-29] MEDS: PULMICORT NEB TX 0.5 MG NEB SCH ×2 (09:30→20:21)
[2021-08-29] MEDS: NovoLIN R (or HumuLIN R) SC PRN (11:28)
[2021-08-29] MEDS: MAGNESIUM SULFATE 1 GRAM/100 mL PREMIX 1 G/100 ML BAG IV PRN (14:58)
[2021-08-29] MEDS: LASIX PO SCH (19:59)
--- NOTE | 2021-08-29 20:37 | PCM.PROG ---
Progress Note Progress Note for Day of Date of Exam: 08/29/21 Subjective Subjective: The patient is awake this morning. However he does appear to be a little more groggy than normal. This may be due to him not having a good night of sleep. Overall the patient looks good and seems to be improving still. His magnesium little bit low so we will replace it this morning. Plan on discharge to inpatient rehab at [place] within 1-2 days. Past Medical Family Social History Past Med/Fam/Surg Hx: No changes since H&P Allergies: Allergies ceftriaxone [From Rocephin] Allergy (Unknown, Verified 08/20/21 11:20) PT UNABLE TO TELL HIS REACTION ciprofloxacin [From Cipro] Allergy (Unknown, Verified 08/20/21 11:20) PT UNABLE TO TELL HIS REACTION morphine Adverse Reaction (Unknown, Verified 08/20/21 11:20) PT UNABLE TO TELL HIS REACTION Review of Systems ROS: No change since H&P Vital Signs and I&O's Vital Signs: Temperature 97.9 F Pulse Rate [Radial] 111 Pulse Rate 58 Respiratory Rate 22 Blood Pressure [Left Arm] 172/77 Blood Pressure [Right Arm] 160/77 Blood Pressure 158/68 O2 Sat by Pulse Oximetry 99 Intake and Output: Intake & Output 08/27/21 08/28/21 08/29/21 08/30/21 11:59 11:59 11:59 11:59 Intake Total 1856 / 1856 2530 / 2530 2360 / 2360 1107 / 1107 Output Total 0 / 2039 1999 / 1999 1700 / 1700 500 / 500 Balance -184 / -184 530 / 530 660 / 660 607 / 607 Physical Exam Oriented: Normal Eyes: Normal Ear: Normal Nose: Normal Throat: Normal Respiratory: Right and Rhonchi Cardiovascular: Normal : Normal Auscultation: Bowel Sounds: Normal and Absent Tenderness: Diffuse (soft abdomen with + BS ) and Mild Skin: Normal Musculoskeletal: Normal Psychiatric: Normal Mood Description: Calm Affect: Normal Speech Pattern: Clear and Appropriate Laboratory and Diagnostics Result Diagrams: 08/29/21 03:40 08/29/21 03:40 Labs: 08/22/21 11:11 Blood Blood Culture - Final 08/22/21 11:05 Blood Blood Culture - Final 08/22/21 09:25 Sputum - Expectorated Sputum Sputum Culture - Final Klebsiella Pneumoniae Escherichia Coli Klebsiella Ornithinolytica 08/22/21 09:25 Sputum - Expectorated Sputum - Final Laboratory WBC 9.5 X10^3/uL (3.6-10.0) 08/29/21 03:40 RBC 3.28 X10^6/uL (4.7-6.0) L 08/29/21 03:40 Hgb 9.2 g/dL (13.5-18.0) L 08/29/21 03:40 Hct 27.8 % (42.0-54.0) L 08/29/21 03:40 MCV 84.6 fL (80.0-100.0) 08/29/21 03:40 MCH 28.1 pg (27.0-34.0) 08/29/21 03:40 MCHC 33.3 g/dL (33.0-35.0) 08/29/21 03:40 RDW 14.7 % (11.6-16.5) 08/29/21 03:40 Plt Count 304 X10^3/uL (150.0-450.0) 08/29/21 03:40 MPV 8.7 fL (7.4-11.0) 08/29/21 03:40 Neut % (Auto) 88.2 % (42.0-75.0) H 08/29/21 03:40 Lymph % (Auto) 4.2 % (21.0-51.0) L 08/29/21 03:40 [place] % (Auto) 6.8 % (0.0-13.0) 08/29/21 03:40 Eos % (Auto) 0.4 % (0.9-2.9) L 08/29/21 03:40 Baso % (Auto) 0.4 % (0.2-1.0) 08/29/21 03:40 Neut # (Auto) 8.4 x10^3/uL (2.2-4.8) H 08/29/21 03:40 Lymph # (Auto) 0.4 X10^3/uL (1.3-2.9) L 08/29/21 03:40 [place] # (Auto) 0.6 x10^3/uL (0.3-0.8) 08/29/21 03:40 Eos # (Auto) 0.0 x10^3/uL (0.0-0.2) 08/29/21 03:40 Baso # (Auto) 0.0 X10^3/uL (0.0-0.1) 08/29/21 03:40 Absolute Nucleated RBC 0.1 /100WBC 08/29/21 03:40 D-Dimer 3.13 ug/ml (0.0-0.57) H* 08/22/21 12:24 Sample Site Rrad 08/25/21 03:24 ABG pH 7.550 (7.35-7.45) H 08/25/21 03:24 ABG pCO2 35.0 mmHg (35.0-45.0) 08/25/21 03:24 ABG pO2 143.0 mmHg (80.0-100.0) H 08/25/21 03:24 ABG HCO3 30.6 mmol/L (22-26) H* 08/25/21 03:24 ABG O2 Saturation 99.0 % (90-100) 08/25/21 03:24 ABG Base Excess 7.9 mmol/L (-2.0-2.0) H 08/25/21 03:24 Ted Test Pos 08/25/21 03:24 A-a Gradient 526.0 mmHg 08/25/21 03:24 FiO2 100.0 08/25/21 03:24 Blood Gas Comments Evelyn well ms 08/25/21 03:24 Sodium 135 mmol/L (136-145) L 08/29/21 03:40 Corrected Sodium 136 mmol/L (136-145) 08/29/21 03:40 Potassium 3.6 mmol/L (3.5-5.1) 08/29/21 03:40 Chloride 96 mmol/L (98-107) L 08/29/21 03:40 Carbon Dioxide 32.7 mmol/L (21-32) H 08/29/21 03:40 BUN 16 mg/dL (7-18) 08/29/21 03:40 Creatinine 1.06 mg/dL (0.70-1.30) 08/29/21 03:40 Est GFR (MDRD) Af Amer > 60 (>60) 08/29/21 03:40 Est GFR (MDRD) Non-Af > 60 (>60) 08/29/21 03:40 Glucose 149 mg/dL (65-99) H 08/29/21 03:40 POC Glucose (mg/dL) 186 mg/dL (65-99) H 08/29/21 19:28 Calcium 8.3 mg/dL (8.5-10.1) L 08/29/21 03:40 Corrected Calcium 10.0 mg/dL (8.5-10.1) 08/29/21 03:40 Magnesium 1.9 mg/dL (1.7-2.9) 08/29/21 03:40 Total Bilirubin 0.30 mg/dL (0.2-1.0) 08/29/21 03:40 AST 13 Units/L (15-37) L 08/29/21 03:40 ALT < 6 Units/L (12-78) L 08/29/21 03:40 Alkaline Phosphatase 71 Units/L (46-116) 08/29/21 03:40 Creatine Kinase 70 Units/L (39-308) 08/22/21 12:24 CK-MB (CK-2) < 1.0 ng/mL (0-4.0) 08/22/21 12:24 CK/CKMB % Calc 1.4 % (<4) 08/22/21 12:24 Troponin I High Sens 16.1 ng/L (4.0-60.0) 08/22/21 12:24 B-Natriuretic Peptide 233 pg/mL (0-79) H 08/28/21 04:30 Total Protein 5.5 g/dL (6.4-8.2) L 08/29/21 03:40 Albumin 1.9 g/dL (3.4-5.0) L 08/29/21 03:40 Globulin 3.6 g/dL (2.5-4.5) 08/29/21 03:40 Albumin/Globulin Ratio 0.5 Ratio (1.1-2.1) L 08/29/21 03:40 Carcinoembryonic Ag 902.0 ng/mL 08/23/21 04:08 Total PSA 2.40 ng/mL (0.13-4.0) 08/25/21 15:35 Specimen Type Catherized urine 08/25/21 02:10 Urine Color Pale yellow (YELLOW) 08/25/21 02:10 Urine Appearance Clear (CLEAR) 08/25/21 02:10 Urine pH 5.0 (5.0 - 8.0) 08/25/21 02:10 Ur Specific [place] 1.020 (1.000-1.030) 08/25/21 02:10 Urine Protein 2+ (NEGATIVE) 08/25/21 02:10 Urine Glucose (UA) Negative (NEGATIVE) 08/25/21 02:10 Urine Ketones Negative (NEGATIVE) 08/25/21 02:10 Urine Blood 4+ (NEGATIVE) 08/25/21 02:10 Urine Nitrite Negative (NEGATIVE) 08/25/21 02:10 Urine Bilirubin Negative (NEGATIVE) 08/25/21 02:10 Urine Urobilinogen Normal (NORMAL) 08/25/21 02:10 Ur Leukocyte Esterase 2+ (NEGATIVE) 08/25/21 02:10 Urine RBC 5-10 /HPF (0-3) A 08/25/21 02:10 Urine WBC 3-5 /HPF (0-5) 08/25/21 02:10 Ur Squamous Epith Cells Rare /HPF (NEGATIVE) 08/25/21 02:10 Urine Bacteria Negative /HPF (NEGATIVE) 08/25/21 02:10 Ur Culture Indicated? No/not indicated 08/25/21 02:10 SARS CoV-2 RNA Rapid ALEX Negative (NEGATIVE) 08/20/21 10:04 Tissue Pathology To follow 08/20/21 14:30 Blood Type A POSITIVE 08/20/21 14:33 Antibody Screen Negative 08/20/21 14:33 Plan (1) Hypoxia: Status: Acute Plan: Continue to wean off oxygen and continue IV antibiotics. Invanz 1 g IV daily is being added today. (2) Tracheobronchitis: Status: Acute Plan: The patient's sputum culture was positive for the 3 organisms above. They are all sensitive to doxycycline with RADHA of less than 4. However they are more sensitive to Invanz which I will be adding today at 1 g IV daily. I will check a chest x-ray today and tomorrow to make sure he has not developed a pneumonia as well. (3) Hypokalemia: Status: Acute Plan: Replace potassium with potassium replacement protocol. (4) Status post colectomy: Status: Acute (5) HTN (hypertension): Status: Chronic Qualifiers: Hypertension type: essential hypertension Qualified Code(s): I10 - Essential (primary) hypertension Plan: Continue Cardizem CD 180 mg by mouth daily and metoprolol extended release 100 mg by mouth daily. 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 Check One Touch blood sugars 4 times a day. (7) Hyponatremia: Status: Resolved Plan: Change IV fluid to normal saline at 30 mL/h. (8) Right middle lobe pneumonia: Status: Acute Plan: The patient was started on IV Invanz yesterday given that he grew out 2 more organisms which are more sensitive to Invanz. We will continue to do daily chest x-rays until the infiltrate has cleared. (9) Anemia: Status: Acute Qualifiers: Anemia type: unspecified type Qualified Code(s): D64.9 - Anemia, unspecified Plan: Monitor daily hemoglobins. Will transfuse packed red blood cells if hemoglobin drops below 7.0. (10) Hypomagnesemia: Status: Acute Plan: Replace magnesium today. (11) Klebsiella pneumoniae: Status: Acute Plan: I will cover him empirically with Vibramycin just in case he has underlying Klebsiella pneumoniae infection.
[2021-08-30] MEDS: MUCOMYST (RESPIRATORY USE ONLY) NEB SCH ×4 (00:09→18:03)
[2021-08-30] MEDS: XOPENEX 1.25 MG/3 ML NEBULE NEB SCH ×4 (00:09→18:03)
[2021-08-30] MEDS: NORCO 5/325 MG TAB PO PRN (03:49)
[2021-08-30 04:50] LABS: BASOPHILS % (AUTO) 0.5 % (0.2-1.0); EOSINOPHILS # (AUTO) 0.1 x10^3/uL (0.0-0.2); EOSINOPHILS % (AUTO) 1.4 % (0.9-2.9); HEMATOCRIT 25.8 % (42.0-54.0); HEMOGLOBIN 8.8 g/dL (13.5-18.0); LYMPHOCYTES # (AUTO) 0.5 X10^3/uL (1.3-2.9); MEAN CORPUSCULAR HEMOGLOBIN 28.6 pg (27.0-34.0); MEAN CORPUSCULAR VOLUME 84.1 fL (80.0-100.0); MEAN PLATELET VOLUME 8.3 fL (7.4-11.0); MONOCYTES # (AUTO) 0.5 x10^3/uL (0.3-0.8); NEUTROPHILS # (AUTO) 6.6 x10^3/uL (2.2-4.8); NEUTROPHILS % (AUTO) 86.1 % (42.0-75.0); RED BLOOD COUNT 3.07 X10^6/uL (4.7-6.0); RED CELL DISTRIBUTION WIDTH 14.6 % (11.6-16.5); WHITE BLOOD COUNT 7.6 X10^3/uL (3.6-10.0)
[2021-08-30 05:09] LABS: ALANINE AMINOTRANSFERASE < 6 Units/L (12-78); ALBUMIN 1.8 g/dL (3.4-5.0); ALKALINE PHOSPHATASE 63 Units/L (46-116); ASPARTATE AMINO TRANSFERASE 12 Units/L (15-37); BLOOD UREA NITROGEN 16 mg/dL (7-18); CALCIUM 8.1 mg/dL (8.5-10.1); CHLORIDE 98 mmol/L (98-107); COR CA(FOR HYPOALB) 9.9 mg/dL (8.5-10.1); COR NA(FOR HYPERGLY) 137 mmol/L (136-145); CREATININE 1.05 mg/dL (0.70-1.30); SODIUM 136 mmol/L (136-145); eGFR NON BLACK RACES > 60 (>60)
[2021-08-30] MEDS: FLAGYL IV PREMIX 500 MG BAG 500 MG/100 ML BAG IV SCH ×3 (05:15→22:30)
--- NOTE | 2021-08-30 06:35 | RAD ---
HISTORYHypoxiaSTUDYChest AP [id number]/30/2022FINDINGSTher e is a right IJ line in good position. Heart size is normal. Umm are normal. Mild hypo inflation is present. Small right basilar infiltrate remains. Remainder of the lung [place] are free of acute alveolar infiltrates and areas of consolidation. Bony thorax is unremarkable.IMPRESSIONMild hypo inflationNo change small right basilar infiltrateElectronically signed by: RAMSEY SANCHEZ (August 30, 2021 06:35:17)
[2021-08-30] MEDS: PULMICORT NEB TX 0.5 MG NEB SCH ×2 (08:48→21:27)
[2021-08-30] MEDS ORDERED: TOPROL XL PO ONE (09:13)
[2021-08-30] MEDS: COLACE CAP 100 MG PO SCH ×2 (09:19→20:25)
[2021-08-30] MEDS: INVanz INJ 1 GRAM VIAL 1 G in NS 100 ML IV 100 ML IV SCH (09:19)
[2021-08-30] MEDS: CARDIZEM CD 180 MG 24-HR PO SCH (09:19)
[2021-08-30] MEDS: MILK OF MAGNESIA PO SCH (09:20)
[2021-08-30] MEDS: PROTONIX TAB 40 MG PO SCH (09:20)
[2021-08-30] MEDS: LOVENOX INJ 40 MG SYR SC SCH (09:20)
[2021-08-30] MEDS: TOPROL XL PO SCH (09:20)
[2021-08-30] MEDS: VIBRAMYCIN 100 MG in D5W 250 ML IV 250 ML IV SCH ×2 (09:21→20:57)
[2021-08-30] MEDS: ZOLOFT PO SCH (09:21)
--- NOTE | 2021-08-30 16:37 | PCM.PROG ---
Progress Note Progress Note for Day of Date of Exam: 08/30/21 Subjective Subjective: The patient is awake this morning. However he does appear to be a little more groggy than normal. This is his second day in a row this is happening. He does answer questions appropriately although he does speak in a low voice. No significant problems yesterday or over the night. I will start weaning off all the medications I can today. The residential is not able to take them today and thought it would probably be this Monday which is approximately 2 days from now. Past Medical Family Social History Past Med/Fam/Surg Hx: No changes since H&P Allergies: Allergies ceftriaxone [From Rocephin] Allergy (Unknown, Verified 08/20/21 11:20) PT UNABLE TO TELL HIS REACTION ciprofloxacin [From Cipro] Allergy (Unknown, Verified 08/20/21 11:20) PT UNABLE TO TELL HIS REACTION morphine Adverse Reaction (Unknown, Verified 08/20/21 11:20) PT UNABLE TO TELL HIS REACTION Review of Systems ROS: No change since H&P Vital Signs and I&O's Vital Signs: Temperature 98.1 F Pulse Rate [Radial] 111 Pulse Rate 64 Respiratory Rate 26 Blood Pressure [Left Arm] 172/77 Blood Pressure [Right Arm] 160/77 Blood Pressure 141/80 O2 Sat by Pulse Oximetry 92 Intake and Output: Intake & Output 08/28/21 08/29/21 08/30/21 08/31/21 11:59 11:59 11:59 11:59 Intake Total 2530 / 2530 2360 / 2360 2277 / 2277 Output Total 1999 / 1999 1700 / 1700 1300 / 1300 Balance 530 / 530 660 / 660 977 / 977 Physical Exam Oriented: Normal Eyes: Normal Ear: Normal Nose: Normal Throat: Normal Respiratory: Generalized and Diminished Cardiovascular: Normal : Normal Auscultation: Bowel Sounds: Normal and Absent Tenderness: Diffuse (soft abdomen with + BS ) and Mild Skin: Normal Musculoskeletal: Normal Psychiatric: Normal Mood Description: Calm Affect: Normal Speech Pattern: Clear and Appropriate Laboratory and Diagnostics Result Diagrams: 08/30/21 03:57 08/30/21 03:57 Labs: 08/22/21 11:11 Blood Blood Culture - Final 08/22/21 11:05 Blood Blood Culture - Final 08/22/21 09:25 Sputum - Expectorated Sputum Sputum Culture - Final Klebsiella Pneumoniae Escherichia Coli Klebsiella Ornithinolytica 08/22/21 09:25 Sputum - Expectorated Sputum - Final Laboratory WBC 7.6 X10^3/uL (3.6-10.0) 08/30/21 03:57 RBC 3.07 X10^6/uL (4.7-6.0) L 08/30/21 03:57 Hgb 8.8 g/dL (13.5-18.0) L 08/30/21 03:57 Hct 25.8 % (42.0-54.0) L 08/30/21 03:57 MCV 84.1 fL (80.0-100.0) 08/30/21 03:57 MCH 28.6 pg (27.0-34.0) 08/30/21 03:57 MCHC 34.0 g/dL (33.0-35.0) 08/30/21 03:57 RDW 14.6 % (11.6-16.5) 08/30/21 03:57 Plt Count 298 X10^3/uL (150.0-450.0) 08/30/21 03:57 MPV 8.3 fL (7.4-11.0) 08/30/21 03:57 Neut % (Auto) 86.1 % (42.0-75.0) H 08/30/21 03:57 Lymph % (Auto) 6.0 % (21.0-51.0) L 08/30/21 03:57 [place] % (Auto) 6.0 % (0.0-13.0) 08/30/21 03:57 Eos % (Auto) 1.4 % (0.9-2.9) 08/30/21 03:57 Baso % (Auto) 0.5 % (0.2-1.0) 08/30/21 03:57 Neut # (Auto) 6.6 x10^3/uL (2.2-4.8) H 08/30/21 03:57 Lymph # (Auto) 0.5 X10^3/uL (1.3-2.9) L 08/30/21 03:57 [place] # (Auto) 0.5 x10^3/uL (0.3-0.8) 08/30/21 03:57 Eos # (Auto) 0.1 x10^3/uL (0.0-0.2) 08/30/21 03:57 Baso # (Auto) 0.0 X10^3/uL (0.0-0.1) 08/30/21 03:57 Absolute Nucleated RBC 0.0 /100WBC 08/30/21 03:57 D-Dimer 3.13 ug/ml (0.0-0.57) H* 08/22/21 12:24 Sample Site Rrad 08/25/21 03:24 ABG pH 7.550 (7.35-7.45) H 08/25/21 03:24 ABG pCO2 35.0 mmHg (35.0-45.0) 08/25/21 03:24 ABG pO2 143.0 mmHg (80.0-100.0) H 08/25/21 03:24 ABG HCO3 30.6 mmol/L (22-26) H* 08/25/21 03:24 ABG O2 Saturation 99.0 % (90-100) 08/25/21 03:24 ABG Base Excess 7.9 mmol/L (-2.0-2.0) H 08/25/21 03:24 Ted Test Pos 08/25/21 03:24 A-a Gradient 526.0 mmHg 08/25/21 03:24 FiO2 100.0 08/25/21 03:24 Blood Gas Comments Evelyn well ms 08/25/21 03:24 Sodium 136 mmol/L (136-145) 08/30/21 03:57 Corrected Sodium 137 mmol/L (136-145) 08/30/21 03:57 Potassium 3.5 mmol/L (3.5-5.1) 08/30/21 03:57 Chloride 98 mmol/L (98-107) 08/30/21 03:57 Carbon Dioxide 34.0 mmol/L (21-32) H 08/30/21 03:57 BUN 16 mg/dL (7-18) 08/30/21 03:57 Creatinine 1.05 mg/dL (0.70-1.30) 08/30/21 03:57 Est GFR (MDRD) Af Amer > 60 (>60) 08/30/21 03:57 Est GFR (MDRD) Non-Af > 60 (>60) 08/30/21 03:57 Glucose 136 mg/dL (65-99) H 08/30/21 03:57 POC Glucose (mg/dL) 188 mg/dL (65-99) H 08/30/21 16:15 Calcium 8.1 mg/dL (8.5-10.1) L 08/30/21 03:57 Corrected Calcium 9.9 mg/dL (8.5-10.1) 08/30/21 03:57 Magnesium 2.1 mg/dL (1.7-2.9) 08/30/21 03:57 Total Bilirubin 0.30 mg/dL (0.2-1.0) 08/30/21 03:57 AST 12 Units/L (15-37) L 08/30/21 03:57 ALT < 6 Units/L (12-78) L 08/30/21 03:57 Alkaline Phosphatase 63 Units/L (46-116) 08/30/21 03:57 Creatine Kinase 70 Units/L (39-308) 08/22/21 12:24 CK-MB (CK-2) < 1.0 ng/mL (0-4.0) 08/22/21 12:24 CK/CKMB % Calc 1.4 % (<4) 08/22/21 12:24 Troponin I High Sens 16.1 ng/L (4.0-60.0) 08/22/21 12:24 B-Natriuretic Peptide 233 pg/mL (0-79) H 08/28/21 04:30 Total Protein 5.0 g/dL (6.4-8.2) L 08/30/21 03:57 Albumin 1.8 g/dL (3.4-5.0) L 08/30/21 03:57 Globulin 3.2 g/dL (2.5-4.5) 08/30/21 03:57 Albumin/Globulin Ratio 0.6 Ratio (1.1-2.1) L 08/30/21 03:57 Carcinoembryonic Ag 902.0 ng/mL 08/23/21 04:08 Total PSA 2.40 ng/mL (0.13-4.0) 08/25/21 15:35 Specimen Type Catherized urine 08/25/21 02:10 Urine Color Pale yellow (YELLOW) 08/25/21 02:10 Urine Appearance Clear (CLEAR) 08/25/21 02:10 Urine pH 5.0 (5.0 - 8.0) 08/25/21 02:10 Ur Specific [place] 1.020 (1.000-1.030) 08/25/21 02:10 Urine Protein 2+ (NEGATIVE) 08/25/21 02:10 Urine Glucose (UA) Negative (NEGATIVE) 08/25/21 02:10 Urine Ketones Negative (NEGATIVE) 08/25/21 02:10 Urine Blood 4+ (NEGATIVE) 08/25/21 02:10 Urine Nitrite Negative (NEGATIVE) 08/25/21 02:10 Urine Bilirubin Negative (NEGATIVE) 08/25/21 02:10 Urine Urobilinogen Normal (NORMAL) 08/25/21 02:10 Ur Leukocyte Esterase 2+ (NEGATIVE) 08/25/21 02:10 Urine RBC 5-10 /HPF (0-3) A 08/25/21 02:10 Urine WBC 3-5 /HPF (0-5) 08/25/21 02:10 Ur Squamous Epith Cells Rare /HPF (NEGATIVE) 08/25/21 02:10 Urine Bacteria Negative /HPF (NEGATIVE) 08/25/21 02:10 Ur Culture Indicated? No/not indicated 08/25/21 02:10 SARS CoV-2 RNA Rapid ALEX Negative (NEGATIVE) 08/20/21 10:04 Tissue Pathology To follow 08/20/21 14:30 Blood Type A POSITIVE 08/20/21 14:33 Antibody Screen Negative 08/20/21 14:33 Radiology Reviewed: Yes Plan (1) Hypoxia: Status: Acute Plan: Continue to wean off oxygen and continue IV antibiotics. Invanz 1 g IV daily is being added today. (2) Tracheobronchitis: Status: Acute Plan: The patient's sputum culture was positive for the 3 organisms above. They are all sensitive to doxycycline with RADHA of less than 4. However they are more sensitive to Invanz which I will be adding today at 1 g IV daily. I will check a chest x-ray today and tomorrow to make sure he has not developed a pneumonia as well. (3) Hypokalemia: Status: Acute Plan: Replace potassium with potassium replacement protocol. (4) Status post colectomy: Status: Acute (5) HTN (hypertension): Status: Chronic Qualifiers: Hypertension type: essential hypertension Qualified Code(s): I10 - Essential (primary) hypertension Plan: Continue Cardizem CD 180 mg by mouth daily and metoprolol extended release 100 mg by mouth daily. 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 Check One Touch blood sugars 4 times a day. (7) Hyponatremia: Status: Resolved Plan: Change IV fluid to normal saline at 30 mL/h. (8) Right middle lobe pneumonia: Status: Acute Plan: The patient was started on IV Invanz yesterday given that he grew out 2 more organisms which are more sensitive to Invanz. We will continue to do daily chest x-rays until the infiltrate has cleared. (9) Anemia: Status: Acute Qualifiers: Anemia type: unspecified type Qualified Code(s): D64.9 - Anemia, unspecified Plan: Monitor daily hemoglobins. Will transfuse packed red blood cells if hemoglobin drops below 7.0. (10) Hypomagnesemia: Status: Acute Plan: Replace magnesium today. (11) Klebsiella pneumoniae: Status: Acute Plan: I will cover him empirically with Vibramycin just in case he has underlying Klebsiella pneumoniae infection.
[2021-08-30] MEDS: NovoLIN R (or HumuLIN R) SC PRN (17:20)
[2021-08-30] MEDS: LASIX PO SCH (20:57)
[2021-08-30] MEDS: K-DUR TAB 20 MEQ PO SCH (20:57)
[2021-08-31] MEDS: XOPENEX 1.25 MG/3 ML NEBULE NEB SCH ×2 (00:40→05:14)
[2021-08-31] MEDS: MUCOMYST (RESPIRATORY USE ONLY) NEB SCH ×2 (00:40→05:14)
[2021-08-31] MEDS: FLAGYL IV PREMIX 500 MG BAG 500 MG/100 ML BAG IV SCH (06:26)
[2021-08-31] MEDS ORDERED: MAG-OX TAB PO SCH (07:00)
[2021-08-31] MEDS: PULMICORT NEB TX 0.5 MG NEB SCH (08:30)
[2021-08-31] MEDS ORDERED: TOPROL XL PO ONE (08:42)
[2021-08-31] MEDS: K-DUR TAB 20 MEQ PO SCH (08:46)
[2021-08-31] MEDS: COLACE CAP 100 MG PO SCH (08:46)
[2021-08-31] MEDS: LOVENOX INJ 40 MG SYR SC SCH (08:46)
[2021-08-31] MEDS: INVanz INJ 1 GRAM VIAL 1 G in NS 100 ML IV 100 ML IV SCH (08:46)
[2021-08-31] MEDS: CARDIZEM CD 180 MG 24-HR PO SCH (08:46)
[2021-08-31] MEDS: TOPROL XL PO SCH (08:47)
[2021-08-31] MEDS: ZOLOFT PO SCH (08:47)
[2021-08-31] MEDS: MILK OF MAGNESIA PO SCH (08:47)
[2021-08-31] MEDS ORDERED: PROTONIX TAB 40 MG PO SCH (09:00)
[2021-08-31] MEDS: VIBRAMYCIN 100 MG in D5W 250 ML IV 250 ML IV SCH (10:01)
[2021-08-31 11:18] VITALS: BP 119/80
== END 2021-08-31 11:25 | DRG 982 ==
LOC: SURG1 09:30 → EDSTATUS 10:45 → ICU 16:41
PROVIDERS: ADMIT Surgery; ATTEND Surgery
DX: I10 Essential (primary) hypertension; E83.42 Hypomagnesemia; E11.65 Type 2 diabetes mellitus with hyperglycemia; C18.2 Malignant neoplasm of ascending colon; R18.0 Malignant ascites; B96.29 Other Escherichia coli [E. coli] as the cause of diseases classified elsewhere; E87.1 Hypo-osmolality and hyponatremia; D64.89 Other specified anemias; Z20.822 Contact with and (suspected) exposure to COVID-19; C78.6 Secondary malignant neoplasm of retroperitoneum and peritoneum; C78.4 Secondary malignant neoplasm of small intestine; I47.1 Supraventricular tachycardia; Z79.4 Long term (current) use of insulin; J18.8 Other pneumonia, unspecified organism; E87.6 Hypokalemia; B96.1 Klebsiella pneumoniae [K. pneumoniae] as the cause of diseases classified elsewhere; R26.89 Other abnormalities of gait and mobility